=== PATIENT | female | born 1935 | race African-American/Black ===

== ENCOUNTER 2025-03-31 19:17 | Inpatient (IN) | payer MEDICARE, OTHER, MEDICAID, SELFPAY ==
--- NOTE | ~2025-03-31 | CT_ITS ---
Non-contrast CT scan of the Abdomen and Pelvis Clinical indication: Sacral wound, fever, altered mental status Technique: 2.5 mm axial scans were obtained through the abdomen and pelvis without intravenous or or al contrast. Dose reduction technique was used on this scan by utilizing automated exposure control a nd iterative reconstruction technique. The dose-length product (DLP) was 375.00 mGy-cm. Findings: Images through the lung bases reveal right basilar atelectasis. No renal, ureteral, or bladder stone evident. There are right renal cysts. There is probable mild jhonathan ateral hydronephrosis. The liver, spleen, pancreas, gallbladder, and adrenals appear normal. There are extensive atheroscler otic calcifications of the aorta and iliac vessels. . There is no evidence of bowel obstruction. Images through the pelvis were performed. There is no evidence of ascites or lymphadenopathy. Air pre sent in the urinary bladder with Staley catheter in place. No adnexal/pelvic mass seen. T12 compression deformity present, age-indeterminate. There is sacral decubitus ulcer with probable o steomyelitis involving the coccyx. There is diffuse heterogeneous appearance of the osseous structure s. 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 Diffuse heterogeneous appearance of the osseous structures with innumerable scattered lucencies, susp icious for myeloma or other metastatic disease versus possibly metabolic bone disease/osteoporotic ch ramiro. T12 compression deformity, age indeterminate. Reviewed, dictated and finalized at [facility]. 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 Diffuse heterogeneous appearance of the osseous structures with innumerable sca ttered lucencies, suspicious for myeloma or other metastatic disease versus pos sibly metabolic bone disease/osteoporotic change. T12 compression deformity, age indeterminate.
--- NOTE | ~2025-03-31 | CT_ITS ---
Non-contrast Head CT History: Altered mental status Technique: Axial non-contrast imaging of the brain was performed. Dose reduction technique was used on this scan by utilizing automated exposure control and iterative reconstruction technique. The dose -length product (DLP) was 605.33 mGy-cm. Findings: There is no evidence of intracranial hemorrhage, mass lesion, or acute infarct. Brain par enchyma appears normal. The ventricles and subarachnoid spaces are normal in size. The calvarium ap pears normal. The visualized paranasal sinuses and mastoid air cells are clear. Impression: No significant abnormality seen. Reviewed, dictated and finalized at location . Impression: No significant abnormality seen.
--- NOTE | ~2025-03-31 | XR_ITS ---
Portable chest x-ray Comparison: None Clinical History: Fever, altered mental status Findings: Right-sided Mediport in place. Lungs are clear, without focal consolidation or pleural eff usion. Cardiomediastinal silhouette is stable. Suspected slight heterogeneous lucent lesion in the p roximal humeral shaft with areas of periosteal reaction at the mid humeral shaft.. Impression: Clear lungs. Possible heterogeneous lucent lesion in the proximal right humeral shaft with periosteal reaction of the mid right humeral shaft. This suggests an aggressive lesion such as neoplastic disease or possibl y osteomyelitis. Correlate clinically. Consider dedicated MR imaging. Reviewed, dictated and finalized at location . Impression: Clear lungs. Possible heterogeneous lucent lesion in the proximal right humeral shaft with p eriosteal reaction of the mid right humeral shaft. This suggests an aggressive lesion such as neoplastic disease or possibly osteomyelitis. Correlate clinical ly. Consider dedicated MR imaging.
[2025-03-31 19:12] VITALS: BP 143/50; PULSE 91; RESP 15; TEMP 38.5; O2SAT 97
--- NOTE | 2025-03-31 19:39 | ECG_ITS ---
Test Date: 2025-03-31 22:02:52 Measurements Intervals [place] Rate: 89 P: 90 MN: 169 QRS: -36 QRSD: 84 T: 29 QT: 355 QTc: 433 Interpretive Statements SINUS RHYTHM LEFT AXIS DEVIATION [QRS AXIS < -30] BORDERLINE ECG No previous ECG available for comparison Electronically Signed On 04-01-2025 08:16:49 CDT by Trip Shepard M.D.
[2025-03-31 19:49] LABS: Hematocrit 28.2 % (37.0-47.0); Hemoglobin 8.5 g/dL (12.0-15.0); Immature Granulocyte Percent A 5.3 % (0-0.5); Lymphocytes Absolute Auto 1.19 K/mm3 (0.9-3.2); Mean Corpuscular HGB Conc 30.1 g/dl (32-36); Mean Corpuscular Hemoglobin 29.2 pg (26-34); Mean Corpuscular Volume 96.9 fl (80-100); Nucleated Red Blood Cells Absolute Auto 0.000 K/mm3 (0.0-0.012); Nucleated Red Blood Cells Perc 0.0 % (0.0-0.2); Platelet Count Result 334 k/mm3 (150-375); Red Blood Count 2.91 M/mm3 (4.2-5.4); White Blood Count 8.9 K/mm3 (4.5-10.0)
[2025-03-31 20:05] LABS: INR 1.2; Prothrombin Time 15.3 Seconds (11.1-14.7)
[2025-03-31 20:06] LABS: Partial Thromboplastin Time 36.5 Seconds (22.3-36.8)
[2025-03-31 20:09] LABS: Alanine Aminotransferase 24 U/L (6-35); Albumin Level 3.0 g/dL (3.5-5.1); Alkaline Phosphatase 102 U/L (38-126); Anion Gap 7 mmol/L (4-12); Aspartate Amino Transferase 52 U/L (14-36); Bilirubin,Total 0.2 mg/dL (0.2-1.3); Blood Urea Nitrogen 98 mg/dL (7-17); Calcium 9.0 mg/dL (8.4-10.2); Carbon Dioxide 24 mmol/L (22-30); Chloride 104 mmol/L (98-107); Estimated CRCL calculation 10 ml/min; Estimated Glomerular Filt Rate 15; Glucose 143 mg/dL (65-110); Potassium 5.0 mmol/L (3.4-5.0); Sodium 135 mmol/L (137-145); Total Protein 5.7 g/dL (6.3-8.2)
[2025-03-31 20:10] LABS: Anisocytosis 1+; Hypochromasia 1+
[2025-03-31 20:11] LABS: Ovalocytes 1+; Schistocytes None Seen
--- NOTE | 2025-03-31 20:54 | PC.NURSE ---
Pt catheter replaced and urine sample sent.
[2025-03-31 21:02] LABS: Add Urine Microscopic? YES; Appearance Urine Turbid (Clear); Glucose Urine UA Negative (Negative); Leukocyte Esterase Ur 3+ LEU/UL (Negative); Need Manual Microscopic Reviewed; Nitrate Urine Negative (Negative); Non Pathogenic Casts >20; Specific Grav Ur 1.015 (1.001-1.035)
[2025-03-31 22:01] VITALS: BP 156/50; PULSE 86; RESP 16; TEMP 37.9; O2SAT 100
--- NOTE | 2025-03-31 22:01 | PC.NURSE ---
wound cleaned and new dressing applied to buttocks
--- NOTE | 2025-03-31 22:55 | ED_ITS ---
HPI - Altered Mental Status General Chief Complaint: Altered Mental Status Stated Complaint: altered mental status Time Seen by Provider: 03/31/25 22:39 History of Present Illness HPI narrative: 89-year-old female with history of multiple myeloma, coronary artery disease, chronic kidney disease, type 2 diabetes, hypertension. She presents to the emergency department for fever, mental status decline and wounds on her sacral region. Patient was recently hospitalized in beginning of February at [facility] for C difficile and during the management there she was found to have sacral wounds that did not require any debridement and she was treated successfully and discharged to a nursing facility. She has been treated with oral antibiotics since her discharge several weeks ago and has had improvement her diarrhea. She presents today as her family members noted that she was having mental status declined and hallucinations and they notice cloudy urine and decreased appetite. EMS was called to find the patient awake alert oriented but febrile and more lethargic than normal. No trauma or injury and patient is mostly bedbound but previous to her previous last hospitalizations has been ambulatory. Related Data Home Medications ?Medication ?Instructions ?Recorded ?Confirmed ?Last Taken ?Type Saccharomyces boulardii 250 mg 250 mg PO DAILY 04/01/25 04/01/25 Unknown History capsule (Daily Probiotic (S. boulardii)) acyclovir 200 mg capsule 200 mg PO Q12H 04/01/25 04/01/25 Unknown History arginine-vitamin C-vitamin E oral See Rx Instructions PO TID 04/01/25 04/01/25 Unknown History 4.5 gram-156 mg/9.2 gram powder pkt (Arginaid) carvedilol 25 mg tablet 25 mg PO Q12H 04/01/25 04/01/25 Unknown History cholecalciferol (vitamin D3) 25 25 mcg PO DAILY 04/01/25 04/01/25 Unknown History mcg (1,000 unit) capsule (Vitamin D3) coenzyme Q10 100 mg capsule (Co 100 mg PO HS 04/01/25 04/01/25 Unknown History Q-10) collagenase clostridium histo. 250 1 applic topical DAILY 04/01/25 04/01/25 Unknown History unit/gram topical ointment (Santyl) gabapentin 100 mg capsule 100 mg PO TID 04/01/25 04/01/25 Unknown History hydrocodone 5 mg-acetaminophen 325 1 tablet PO .Q4HR PRN pain 04/01/25 04/01/25 Unknown History mg tablet polyethylene glycol 3350 17 gram 17 g PO DAILY PRN constipation 04/01/25 04/01/25 Unknown History oral powder packet (Miralax) sulfamethoxazole 400 1 tablet PO 3XW 04/01/25 04/01/25 Unknown History mg-trimethoprim 80 mg tablet tramadol 50 mg tablet 50 mg PO .Q6HR PRN pain 04/01/25 04/01/25 Unknown History Allergies Allergy/AdvReac Type Severity Reaction Status Date / Time FRANCISCO Inhibitors Allergy Unknown Unknown Verified 04/01/25 04:03 amoxicillin Allergy Unknown Unknown Verified 04/01/25 04:03 atorvastatin Allergy Unknown Unknown Verified 04/01/25 04:03 rosuvastatin Allergy Unknown Unknown Verified 04/01/25 04:03 simvastatin Allergy Unknown Unknown Verified 04/01/25 04:03 ANGIOTENSINIIRA Allergy Unknown Uncoded 04/01/25 04:03 Review of Systems 2 Review of Systems: As reviewed above in [facility] Past Medical History Medical History (Updated 04/01/25 @ 04:12 by Alexander Millard MD) GERD (gastroesophageal reflux disease) Multiple myeloma Essential hypertension Chronic indwelling Staley catheter Sacral decubitus ulcer, stage IV Family History Family History (Updated 04/01/25 @ 02:26 by Trixie Paredes DO) Other Unknown family medical history Social History Social History (Updated 04/01/25 @ 02:27 by Trixie Paredes DO) Social History: Patient is residing at [facility]. Code status: Exam 2 Narrative: GENERAL: Ill-appearing, not any acute distress but febrile and warm to the touch, awake and answering questions and pleasant HEAD: [Normocephalic, atraumatic.] EYES: [PERRLA and EOMI.] ENT: Nares clear, no rhinorrhea or epistaxis. Mucous membranes moist. NECK: Supple. CHEST: [Clear to auscultation. No respiratory distress.] HEART: [Regular rate and rhythm]. No murmur heard. [Normal peripheral pulses.] ABDOMEN: [Soft, nondistended], [nontender], [No rigidity or guarding] sacral wound with some beefy red edges but no purulent drainage or necrotic material no foul odor. Stage 3-4. EXTREMITIES: Normal range of motion. [No edema.] SKIN: Warm, dry, no rash. NEURO: At baseline mentation x3, no gross or obvious neurological deficits PSYCH: [Normal mood and affect.] Course Vital Signs Vital signs: Vital Signs Temperature 38.5 C H 03/31/25 19:12 Pulse Rate 91 03/31/25 19:12 Respiratory Rate 15 03/31/25 19:12 Blood Pressure 143/50 H 03/31/25 19:12 Pulse Oximetry 97 03/31/25 19:12 Oxygen Delivery Room Air 03/31/25 19:12 Temperature 36.6 C 04/01/25 01:31 Pulse Rate 79 04/01/25 02:16 Respiratory Rate 16 04/01/25 02:16 Blood Pressure 151/54 H 04/01/25 02:16 Pulse Oximetry 100 04/01/25 02:16 Oxygen Delivery Room Air 03/31/25 19:12 MDM - Altered Mental Status MDM Narrative Medical decision making narrative: 89-year-old female with history of multiple myeloma, coronary artery disease, chronic kidney disease, type 2 diabetes, hypertension. She presents to the emergency department for fever, mental status decline and wounds on her sacral region. Patient was recently hospitalized in beginning of February at [facility] for C difficile and during the management there she was found to have sacral wounds that did not require any debridement and she was treated successfully and discharged to a nursing facility. She has been treated with oral antibiotics since her discharge several weeks ago and has had improvement her diarrhea. She presents today as her family members noted that she was having mental status declined and hallucinations and they notice cloudy urine and decreased appetite. EMS was called to find the patient awake alert oriented but febrile and more lethargic than normal. No trauma or injury and patient is mostly bedbound but previous to her previous last hospitalizations has been ambulatory. Patient examination is ill-appearing and febrile at 38.5, no tachycardia, significant blood pressure concerns or tachypnea. She has a stage 3 appearing ulceration to her sacrum that does have some beefy red edges but no purulent drainage or obvious overt necrotic material. She has very cloudy urine in her urine collection bag and she has had a catheter since the 2nd of this month. Concern for sepsis is raised given her fever, multiple potential sources including sacral wound, urinary tract, recent C diff with potential intra- abdominal pathology. She is given a 30 cc/kg bolus of normal saline, started on vancomycin cefepime, given Tylenol for analgesia and CT scans of the abdomen pelvis were obtained as well as a chest x-ray and CT of the head given patient's concern for mental status changes and hallucinations but currently she is alert x3 with no neurological deficits which is reassuring. Lab showed no leukocytosis, hemoglobin of 8.5 with unknown baseline. Normal platelet. Electrolytes unremarkable. BUN of 98, creatinine 2.99, no baseline to compare to. History of CKD based on her chart. Lactic acid is negative. Glucose unremarkable. LFTs not significant elevated. Mildly low albumin. Chest x-ray independently reviewed shows left pleural effusion, no obvious consolidation. CT scan has multiple findings including some lucencies in the distal coccyx and sacrum concerning for osteomyelitis, mild bronchial wall thickening possibly bronchitis, prominence in the villasenor of the colon possible colitis, cystitis seen. Presacral fluid and fat stranding seen. Some trace pleural effusions evident. CT of the head shows no acute intracranial hemorrhage or hydrocephalus. No mass effect or herniation. Patient remained hemodynamically stable upon re-evaluations. At this time she will be admitted to the hospital for continued evaluation and care. Awaiting discussion with the hospitalist for bed assignment. Discussed the case with the hospitalist who agreed to admit the patient to a telemetry monitored bed. Family members made aware of the plan and she was admitted successfully. Medical Records Attestation: I reviewed the patient's medical records. Lab Data Attestation: I reviewed the patient's lab results. 03/31/25 19:41 03/31/25 19:41 Labs: Lab Results 03/31/25 03/31/25 04/01/25 Range/Units 19:41 20:43 01:02 WBC 8.9 (4.5-10.0) K/mm3 RBC 2.91 L (4.2-5.4) M/mm3 Hgb 8.5 L (12.0-15.0) g/dL Hct 28.2 L (37.0-47.0) % MCV 96.9 (80-100) fl MCH 29.2 (26-34) pg MCHC 30.1 L (32-36) g/dl RDW 14.8 H (11.5-14.5) % Plt Count 334 (150-375) k/mm3 MPV 8.4 (7.4-10.4) fl Immature Gran % (Auto) 5.3 H (0-0.5) % Neut % (Auto) 69.6 (45.5-73.1) % Lymph % (Auto) 13.4 L (18.3-44.2) % Shannon % (Auto) 10.3 H (2.6-8.5) % Eos % (Auto) 0.9 (0-4.4) % Baso % (Auto) 0.5 (0.2-1.2) % Lymph # (Auto) 1.19 (0.9-3.2) K/mm3 Shannon # (Auto) 0.9 H (0.1-0.6) K/mm3 Eos # (Auto) 0.1 (0-0.3) K/mm3 Baso # (Auto) 0.0 (0.0-0.1) K/mm3 Abs Immat Gran (auto) 0.47 H (0.00-0.031) K/mm3 Absolute Neuts (auto) 6.2 (1.3-6.7) K/mm3 Absolute Nucleated RBC 0.000 (0.0-0.012) K/mm3 Band Neutrophils % Not Reportable Nucleated RBC % 0.0 (0.0-0.2) % Platelet Estimate Adequate (Adequate) Clumped Platelets Present Hypochromasia 1+ Anisocytosis 1+ Ovalocytes 1+ Schistocytes None seen PT 15.3 H (11.1-14.7) Seconds INR 1.2 APTT 36.5 (22.3-36.8) Seconds Sodium 135 L (137-145) mmol/L Potassium 5.0 (3.4-5.0) mmol/L Chloride 104 (98-107) mmol/L Carbon Dioxide 24 (22-30) mmol/L Anion Gap 7 (4-12) mmol/L BUN 98 H (7-17) mg/dL Creatinine 2.99 H (0.7-1.0) mg/dL Estim Creat Clear Calc 10 ml/min Estimated GFR 15 L (59 - ) Glucose 143 H (65-110) mg/dL Lactic Acid 0.8 (0.7-2.0) mmol/L Calcium 9.0 (8.4-10.2) mg/dL Total Bilirubin 0.2 (0.2-1.3) mg/dL AST 52 H (14-36) U/L ALT 24 (6-35) U/L Alkaline Phosphatase 102 (38-126) U/L Total Protein 5.7 L (6.3-8.2) g/dL Albumin 3.0 L (3.5-5.1) g/dL Urine Color Yellow (Yellow) Urine Appearance Turbid H (Clear) Urine pH 6.0 (5.0-9.0) Ur Specific [place] 1.015 (1.001-1.035) Urine Protein 3+ H (Negative) mg/dL Urine Glucose (UA) Negative (Negative) mg/dL Urine Ketones Negative (Negative) mg/dL Ur Blood (Man) 2+ H (Negative) Urine Nitrate Negative (Negative) Urine Bilirubin Negative (Negative) Urine Urobilinogen 0.2 (<2.0) mg/dL Add Ur Microanalysis Reviewed Leukocyte Esterase Rfl 3+ H (Negative) ARMANDO/UL Urine RBC 11-20 H (0-2) /hpf Urine WBC >100 H (0-3) /hpf Ur Squamous Epith Cells Many H (Few) /hpf Urine Bacteria 4+ H /hpf Urine Casts >20 Imaging Data Attestation: I personally reviewed and interpreted this imaging study as follows: My impression: CT scan has multiple findings including some lucencies in the distal coccyx and sacrum concerning for osteomyelitis, mild bronchial wall thickening possibly bronchitis, prominence in the villasenor of the colon possible colitis, cystitis seen. Presacral fluid and fat stranding seen. Some trace pleural effusions evident. CT of the head shows no acute intracranial hemorrhage or hydrocephalus. No mass effect or herniation. Critical Care Time Critical Care Time Critical Care Time: Yes Total Critical Care Time: 35 Discharge Plan Discharge Clinical Impression: Renal failure, Sacral decubitus ulcer, stage IV, Catheter-associated urinary tract infection, Fever Patient Disposition: Still a Patient Condition: Stable Time of Disposition: 04:12
--- OUTSIDE RECORDS SUMMARY | 2025-03-31 23:04 | XMS_ITS | Encounter Summary ---
Author Organization [facility] Address [address] [place] [address] Phone Care Team Providers Care Control Room Tender Name Role Phone Judd Chopra MD Primary Care Provider [phone] Hilton Lynn MD Unavailable [phone] Jay Aguayo MD Unavailable Blaire Guidry RN Unavailable Unavailable Clementine Ackerman RN Unavailable Unavailable Reason for Visit * Reason Comments Medication Refill Encounter Details Date Type Department Care Team (Late st Contact Info) Description 10/09/2022 Refill [facility] [address] [place] [address] Cathryn Bustamante, DUPLICATING MACHINE SERVICER, SECURITY DIRECTOR [address] [place] [id number] Medication Refill Social History Tobacco Use Types Packs/Day Years Used Date Smoking Tobacco: Former Smokeless Tobacco: Never Comments:quit about 30 years ago Alcohol Use Standard Drinks/Week Comments Not Currently 0 (1 standard drink = 0.6 oz pur e alcohol) PHQ-2 Answer Date Recorded Total Score - Questions 1-9 0 04/14 Comments No Sex and Gender Information Value Date Recorded Sex Assigned at Not on file Legal Sex Female 1:40 PM CDT Gender Identity Not on file Sexual Orientation Not on file Occupation Industry Job Start Date Job End Date Retired Not on file Not on file Not on file COVID-19 Exposure Response Date Recorded In the last 10 days, have yo u been in contact with someone who was confirmed or suspected to have Coronavirus/COVID-19? No / Unsure 09/28/2022 10:03 AM EXPLOSIVES OPERATOR documented as of this encounter Miscellaneous Notes * Telephone Encounter - Hilton Lynn MD - 10/14/2022 3:03 PM EXPLOSIVES OPERATOR Switch to pom OSIVES OPERATOR * Telephone Encounter - Isauro Ledbetter RN - 10/14/2022 9:28 AM CST Refill request. Refill if appropriate. OSIVES OPERATOR documented in this encounter Plan of Treatment Not on file documented as of this encounter Visit Diagnoses Diagnosis Multiple myeloma not having achieved remission (HCC) Multiple myeloma, without mention of having achieved remission documented in this encounter Additional Health Concerns Assessment Noted Time PHQ-9 Depression Total Score: 0 07/25/20 21 11:35 AM EXPLOSIVES OPERATOR documented as of this encounter Care Teams Control Room Tender Relationship Specialty Start Date End Date Judd Chopra MD [address] [place] [id number] PCP - General Family Medicine 03/11/21 Hilton Lynn MD [address] [place] [address] Consulting Physician Oncology 03/11/21 Jay Aguayo MD [address] [place] [address] Consulting Physician Radiation Oncology 04/25/21 Blaire Guidry RN [place] Oncology Nurse Navigator Oncology 04/25/21 Clementine Ackerman, RN [place] Oncology Nurse Navigator Oncology 12/05/24 documented as of this encounter
--- OUTSIDE RECORDS SUMMARY | 2025-03-31 23:04 | XMS_ITS | Encounter Summary ---
Author Organization [facility] Address [address] [address] Phone Care Team Providers Care Catering Sales Manager Name Role Phone Judd Chopra MD Primary Care Provider [phone] Hilton Lynn MD Unavailable Jay Aguayo MD Unavailable Blaire Guidry RN Unavailable Unavailable Clementine Ackerman RN Unavailable Unavailable Encounter Details Date Type Department Care Team (Late st Contact Info) Description 06/04/2021 Telephone [facility] [address] [address] Hilton Lynn MD [address] [place] [phone] Social History Tobacco Use Types Packs/Day Years Used Date Smoking Tobacco: Former Smokeless Tobacco: Never Comments:quit about 30 years ago Alcohol Use Standard Drinks/Week Comments Not Currently 0 (1 standard drink = 0.6 oz pur e alcohol) PHQ-2 Answer Date Recorded Total Score - Questions 1-9 0 05/14 Comments No Sex and Gender Information Value Date Recorded Sex Assigned at Not on file Legal Sex Female 1:40 PM CDT Gender Identity Not on file Sexual Orientation Not on file Occupation Industry Job Start Date Job End Date Retired Not on file Not on file Not on file COVID-19 Exposure Response Date Recorded In the last month, have you been in contact with someone who was confirmed or suspected to have Coronavirus / COVID-19? No / Unsure 05/28/2021 10:06 AM CDT documented as of this encounter Miscellaneous Notes * Telephone Encounter - Morelia Flowers, RN - 06/04/2021 3:38 PM CDT Ok. Cancel appt from today and make sure they are aware appt needs to be made for hospital follow up once she is discharged. * Telephone Encounter - Shannan Burt - 06/04/2021 12:25 PM CDT CALLED PT, PER FAMILY MEMBER PT HAS BEEN IN HOSPITAL FOR 3 DAYS AND NOT SURE WHEN PT WILL GET OUT. PT IS AT [facility]. documented in this encounter Plan of Treatment Not on file documented as of this encounter Visit Diagnoses Not on filedocumented in this encounter Additional Health Concerns Assessment Noted Time PHQ-9 Depression Total Score: 0 05/28/20 21 10:28 AM CDT documented as of this encounter Care Teams Catering Sales Manager Relationship Specialty Start Date End Date Judd Chopra MD [facility] [place] [address] PCP - General Family Medicine 03/11/21 Hilton Lynn MD [address] [place] [id number] Consulting Physician Oncology 03/11/21 Jay Aguayo MD [address] [place] [address] Consulting Physician Radiation Oncology 04/25/21 Blaire Guidry, RN [place] Oncology Nurse Navigator Oncology 04/25/21 Clementine Ackerman RN [place] Oncology Nurse Navigator Oncology 12/05/24 documented as of this encounter
--- OUTSIDE RECORDS SUMMARY | 2025-03-31 23:04 | XMS_ITS | Encounter Summary ---
Author Organization [facility] Address [address] [place] [address] Phone Care Team Providers Care Bloom Conveyor Operator Name Role Phone Judd Chopra MD Primary Care Provider [phone] Hilton Lynn MD Unavailable Jay Chiang MD Unavailable Blaire Guidry RN Unavailable Unavailable Clementine Ackerman RN Unavailable Unavailable Encounter Details Date Type Department Care Team (Late st Contact Info) Description 04/15/2021 Telephone [facility] [address] [address] Hilton Lynn MD [address] [place] [phone] Social History Tobacco Use Types Packs/Day Years Used Date Smoking Tobacco: Former Smokeless Tobacco: Never Comments:quit about 30 years ago Alcohol Use Standard Drinks/Week Comments Not Currently 0 (1 standard drink = 0.6 oz pur e alcohol) PHQ-2 Answer Date Recorded Total Score - Questions 1-9 0 08/10/2020 Comments No Sex and Gender Information Value [...] have Coronavirus / COVID-19? No / Unsure 04/14/2021 9:12 AM CDT documented as of this encounter Miscellaneous Notes * Telephone Encounter - Leann Skinner - 04/15/2021 1:24 PM CDT REFERRAL AND RECORDS FAXED TO DR ZIMMERMAN OFFICE AND THEY WILL CALL THE PT FOR AN APPT. I WILL FOLLOW UP IN A FEW DAYS TO CHECK THE STATUS. * Telephone Encounter - Emiliana Rothman RN - 04/15/2021 12:59 PM CDT Order entered please schedule as appropriate. * Telephone Encounter - Leann Skinner - 04/15/2021 10:51 AM CDT PLEASE ADD AN ORDER FOR PT TO BE REFERRED TO DR CHIANG WITH [facility]. THANKS documented in this encounter Plan of Treatment Not on file documented as of this encounter Visit Diagnoses Diagnosis Multiple myeloma not having achieved remission (HCC)- Primary Multiple myeloma, without mention of having achieved remission documented in this encounter Additional Health Concerns Assessment Noted Time PHQ-9 Depression Total Score: 0 04/14/20 21 9:20 AM CDT documented as of this encounter Care Teams Bloom Conveyor Operator Relationship Specialty Start Date End Date Judd Chopra MD [facility] [place] [address] PCP - General Family Medicine 03/11/21 Hilton Lynn MD [address] [place] [address] Consulting Physician Oncology 03/11/21 Jay Chiang MD [address] [place] [address] Consulting Physician Radiation Oncology 04/25/21 Blaire Guidry, [facility] [place] Oncology Nurse Navigator Oncology 04/25/21 Clementine Ackerman, [facility] Oncology Nurse Navigator Oncology 12/05/24 documented as of this encounter
--- OUTSIDE RECORDS SUMMARY | 2025-03-31 23:04 | XMS_ITS | Data Portability ---
Author Organization [facility], [employer] Address [address] [place] [address] Assessment Encounter Date Assessment Date Assessment LastModified by Organization Details LastModified Time 08/24/2024 08/24/2024 60 mins spent on visit w/ pt, chart review, care coordination and counseling The care of this patient was conducted under the direct supervision of Corie Read MD Chronic care management / Remote patient monitoring was discussed with patient during visit. Pt wishes to participate in CCM/RPM. Health goals and care plans discussed with patient and optimized based on patient's wishes, current health state, resources available and goals of care. Provider recommendations and extensive counseling given to patient, start to follow on CCM/RPM at this time. CCM program services described to patient. Possible cost sharing explained to patient in context of those with secondary insurances will likely have no out of pocket costs and per CMS guidelines CCM may help avoid costly services in the future by proactively managing patient health, rather than only treating severe or acute disease and illness. Patient confirms at this time is not participiating in CCM/RPM with another provider. Patient understands can stop RPM/CCM services at any time. [email or web address] Not available 08/24/2024 13:21:07 Plan of Treatment Reminders Order Date Submit Date Provider Last Modified By Organization Details Last Modified Time Details Appointments None record ed. Lab None record ed. Referral None record ed. Procedures None record ed. Surgeries None record ed. Imaging None record ed. Medication Orders None record ed. Patient TargetsNo targets recorded. Patient InstructionsNo instructions recorded. Reason for Referral None Reported. Results Created Date Observation Date Name Description Value Unit Range Abnormal Flag Note LastModifiedBy Organization Detail LastModifiedTime 08/06/20 24 08/06/2024 Urina lysis dipst ick W Refle x Micro scopi c panel - Urine collection method - specimen URINE CLEAN CATCH SPECI MEN TYPE URINE CLEAN CATCH 08/06 8:07 PM [employer] [facility] Not Available Not Available 01/15/2025 11:48:06 08/06/2008/06/2024 Urina lysis dipst ick W Refle x Micro scopi c panel - Urine color of urine LIGHT YELLOW COLOR (U) LIGHT YELLO W 08/06 8:18 PM [employer] [facility] Not Available Not Available 01/15/2025 11:48:06 08/06/2008/06/2024 Urina lysis dipst ick W Refle x Micro scopi c panel - Urine clarity of urine CLEAR TRANS PAREN CY CLEAR 08/06 8:18 PM [employer] [facility] Not Available Not Available 01/15/2025 11:48:06 08/06/2008/06/2024 Urina lysis dipst ick W Refle x Micro scopi c panel - Urine specific gravity of urine 1.017 low: 1.001h igh: 1.03 SPECI FIC GRAVI TY (U) 1.017 1.001 - 1.030 08/06 8:18 PM [facility] Not Available Not Available 01/15/2025 11:48:06 08/06/2008/06/2024 Urina lysis dipst ick W Refle x Micro scopi c panel - Urine pH of urine 6.5 low: 5high: 9 U PH 6.5 5.0 - 9.0 08/06 8:18 PM [facility] Not Available Not Available 01/15/2025 11:48:06 08/06/2008/06/2024 Urina lysis dipst ick W Refle x Micro scopi c panel - Urine leukocytes [#/volume] in urine by test strip NEGATI VE text: negati ve LEUKO CYTES (U) NEGAT LIZ NEGAT LIZ 08/06 8:18 PM [facility] Not Available Not Available 01/15/2025 11:48:06 08/06/20 24 08/06/2024 Urina lysis dipst ick W Refle x Micro scopi c panel - Urine nitrite [presence] in urine NEGATI VE text: negati ve NITRI LESTER NEGAT LIZ NEGAT LIZ 08/06 8:18 PM [facility] Not Available Not Available 01/15/2025 11:48:06 08/06/20 24 08/06/2024 Urina lysis dipst ick W Refle x Micro scopi c panel - Urine protein [mass/volume ] in urine by test strip 600 text: <30 mg/dL high PROTE IN RANDO M (U) 600 (H) <30 MG/DL 08/06 8:18 PM [facility] Not Available Not Available 01/15/2025 11:48:06 08/06/20 24 08/06/2024 Urina lysis dipst ick W Refle x Micro scopi c panel - Urine glucose [mass/volume ] in urine 70 text: normal mg/dL abnormal GLUCO SE (U) 70 (A) MAGNOLIA L MG/DL 08/06 8:18 PM [facility] Not Available Not Available 01/15/2025 11:48:06 08/06/20 24 08/06/2024 Urina lysis dipst ick W Refle x Micro scopi c panel - Urine ketones [mass/volume ] in urine by test strip NEGATI VE text: negati ve mg/dL KETON ES MG/DL (U) NEGAT LIZ NEGAT LIZ MG/DL 08/06 8:18 PM [facility] Not Available Not Available 01/15/2025 11:48:06 08/06/20 24 08/06/2024 Urina lysis dipst ick W Refle x Micro scopi c panel - Urine urobilinogen [units/volum e] in urine by test strip NORMAL text: normal mg/dL UROBI LINOG EN MAGNOLIA L MAGNOLIA L MG/DL 08/06 8:18 PM [facility] Not Available Not Available 01/15/2025 11:48:06 08/06/20 24 08/06/2024 Urina lysis dipst ick W Refle x Micro scopi c panel - Urine bilirubin.to tim [mass/volume ] in urine NEGATI VE text: negati ve mg/dL BILIR UBIN (U) NEGAT LIZ NEGAT LIZ MG/DL 08/06 8:18 PM [facility] Not Available Not Available 01/15/2025 11:48:06 08/06/2008/06/2024 Urina lysis dipst ick W Refle x Micro scopi c panel - Urine erythrocytes [#/volume] in urine by automated test strip 1+ text: negati ve abnormal BLOOD (U) 1+ (A) NEGAT LIZ 08/06 8:18 PM [facility] Not Available Not Available 01/15/2025 11:48:06 08/06/20 24 08/06/2024 Urina lysis dipst ick W Refle x Micro scopi c panel - Urine mucus [#/area] in urine sediment by microscopy low power field RARE text: /lpf MUCUS RARE /LPF 08/06 8:18 PM [facility] Not Available Not Available 01/15/2025 11:48:06 08/06/20 24 08/06/2024 Urina lysis dipst ick W Refle x Micro scopi c panel - Urine erythrocytes [#/area] in urine sediment by microscopy high power field 8 text: <6 /hpf high RBC/H PF 8 (H) <6 /HPF 08/06 8:18 PM [facility] Not Available Not Available 01/15/2025 11:48:06 08/06/20 24 08/06/2024 Urina lysis dipst ick W Refle x Micro scopi c panel - Urine epithelial cells.squamo us [#/area] in urine sediment by microscopy high power field FEW text: /hpf SQUAM OUS EPITH ELIAL S FEW /HPF 08/06 8:18 PM [employer] [facility] Not Available Not Available 01/15/2025 11:48:06 08/06/2008/06/2024 Urina lysis dipst ick W Refle x Micro scopi c panel - Urine interpretati on and review of laboratory results Abnorm al Not Available Not Available 11:48:06 08/06/2008/06/2024 Influ evette virus A+B Ag [Pres ence] in Speci men specimen source identified SWAB SPECI MEN TYPE SWAB 08/06 6:42 PM [employer] [facility] Not Available Not Available 01/15/2025 11:48:06 08/06/2008/06/2024 Influ evette virus A+B Ag [Pres ence] in Speci men influenza virus A Ag [presence] in specimen NEGATI VE text: negati ve INFLU EVETTE A NEGAT LIZ NEGAT LIZ 08/06 7:10 PM [employer] [facility] Not Available Not Available 01/15/2025 11:48:06 08/06/2008/06/2024 Influ evette virus A+B Ag [Pres ence] in Speci men haemophilus influenzae B Ag [presence] in specimen NEGATI VE text: negati ve INFLU EVETTE B NEGAT LIZ NEGAT LIZ 08/06 7:10 PM [employer] [facility] Not Available Not Available 01/15/2025 11:48:06 08/06/2008/07/2024 C react liz prote in [Mass /volu me] in Serum or Plasm a C reactive protein [mass/volume ] in serum or plasma high: 0.29mg /dL C-IRENE CTIVE PROTE IN <0.29 <0.29 mg/dL 08/07 12:23 AM [employer] [facility] Not Available Not Available 01/15/2025 11:48:06 08/06/20 24 08/07/2024 Eryth rocyt e sedim entat ion rate [[place]] in Red Blood Cells erythrocyte sedimentatio n rate [velocity] in red blood cells 24 text: <30 mm/HR ESR 24 <30 MM/HR 08/07 12:18 AM [facility] Not Available Not Available 01/15/2025 11:48:06 08/06/20 24 08/06/2024 Compr ehens liz metab olic 1999 panel - Serum or Plasm a glucose [mass/volume ] in serum or plasma 167 text: 70 - 99 mg/dL high GLUCO SE 167 (H) 70 - 99 MG/DL 08/06 7:15 PM [facility] Not Available Not Available 01/15/2025 11:48:06 08/06/20 24 08/06/2024 Compr ehens liz metab olic 2000 panel - Serum or Plasm a urea nitrogen [mass/volume ] in serum or plasma 40 text: 7 - 18 mg/dL high BUN 40 (H) 7 - 18 MG/DL 08/06 7:15 PM [facility] Not Available Not Available 01/15/2025 11:48:06 08/06/20 24 08/06/2024 Compr ehens liz metab olic 2000 panel - Serum or Plasm a creatinine [mass/volume ] in serum or plasma 2.43 text: 0.55 - 1.02 mg/dL high CREAT ININE S/P/B 2.43 (H) 0.55 - 1.02 MG/DL 08/06 7:15 PM [facility] Not Available Not Available 01/15/2025 11:48:06 08/06/20 24 08/06/2024 Compr ehens liz metab olic 2000 panel - Serum or Plasm a sodium [moles/volum e] in serum or plasma 137 text: 136 - 145 mmol/L SODIU M S/P/B 137 136 - 145 MMOL/ L 08/06 7:15 PM [facility] Not Available Not Available 01/15/2025 11:48:06 08/06/20 24 08/06/2024 Compr ehens liz metab olic 2000 panel - Serum or Plasm a potassium [moles/volum e] in serum or plasma 4 text: 3.5 - 5.1 mmol/L POTAS SIUM S/P/B 4.0 3.5 - 5.1 MMOL/ L 08/06 7:15 PM [facility] Not Available Not Available 01/15/2025 11:48:06 08/06/2008/06/2024 Compr ehens liz metab olic 2000 panel - Serum or Plasm a chloride [moles/volum e] in serum or plasma 105 text: 97 - 115 mmol/L CHLOR JOSE S/P/B 105 97 - 115 MMOL/ L 08/06 7:15 PM [facility] Not Available Not Available 01/15/2025 11:48:06 08/06/20 24 08/06/2024 Compr ehens liz metab olic 2000 panel - Serum or Plasm a carbon dioxide, total [moles/volum e] in serum or plasma 22.2 text: 21 - 32 mmol/L CO2 22.2 21 - 32 MMOL/ L 08/06 7:15 PM [facility] Not Available Not Available 01/15/2025 11:48:06 08/06/2008/06/2024 Compr ehens liz metab olic 2000 panel - Serum or Plasm a calcium [mass/volume ] in serum or plasma 8.1 text: 8.5 - 10.1 mg/dL low CALCI UM S/P/B 8.1 (L) 8.5 - 10.1 MG/DL 08/06 7:15 PM [facility] Not Available Not Available 01/15/2025 11:48:06 08/06/20 24 08/06/2024 Compr ehens liz metab olic 2000 panel - Serum or Plasm a bilirubin.to tim [mass/volume ] in serum or plasma 0.6 text: 0.2 - 1.2 mg/dL BILIR UBIN TOTAL S/P/B 0.6 0.2 - 1.2 MG/DL 08/06 7:15 PM [employer] [facility] Not Available Not Available 01/15/2025 11:48:06 08/06/20 24 08/06/2024 Compr ens liz metab olic 1999 panel - Serum or Plasm a protein [mass/volume ] in serum or plasma 5.3 text: 6.4 - 8.2 g/dL low TOTAL PROTE IN S/P/B 5.3 (L) 6.4 - 8.2 G/DL 08/06 7:15 PM [employer] [facility] Not Available Not Available 01/15/2025 11:48:06 08/06/20 24 08/06/2024 Compr ehens liz metab olic 2000 panel - Serum or Plasm a albumin [mass/volume ] in serum or plasma 2.5 text: 3.4 - 5.0 g/dL low ALBUM IN S/P/B 2.5 (L) 3.4 - 5.0 G/DL 08/06 7:15 PM [employer] [facility] Not Available Not Available 01/15/2025 11:48:06 08/06/20 24 08/06/2024 Compr ehens liz metab olic 2000 panel - Serum or Plasm a aspartate aminotransfe rase [enzymatic activity/vol ume] in serum or plasma 11 U/L low: 15U/Lh igh: 37U/L low AST 11 (L) 15 - 37 U/L 08/06 7:15 PM [employer] [facility] Not Available Not Available 01/15/2025 11:48:06 08/06/20 24 08/06/2024 Compr ehens liz metab olic 2000 panel - Serum or Plasm a alanine aminotransfe rase [enzymatic activity/vol ume] in serum or plasma 12 U/L low: 14U/Lh igh: 55U/L low ALT 12 (L) 14 - 55 U/L 08/06 7:15 PM [facility] Not Available Not Available 01/15/2025 11:48:06 08/06/20 24 08/06/2024 Compr ehens liz metab olic 2000 panel - Serum or Plasm a alkaline phosphatase [enzymatic activity/vol ume] in serum or plasma 69 U/L low: 50U/Lh igh: 136U/L ALKAL INE PHOSP HATAS E S/P/B 69 50 - 136 U/L 08/06 7:15 PM [facility] Not Available Not Available 01/15/2025 11:48:06 08/06/2008/06/2024 Compr ehens liz metab olic 2000 panel - Serum or Plasm a anion gap in serum or plasma by calculation 9.8 text: 2 - 10 mmol/L ANION GAP 9.8 2 - 10 MMOL/ L 08/06 7:15 PM [facility] Not Available Not Available 01/15/2025 11:48:06 08/06/20 24 08/06/2024 Compr ehens liz metab olic 1999 panel - Serum or Plasm a urea nitrogen/cre atinine [mass ratio] in serum or plasma 16.5 low: 6high: 26 BUN CREAT ININE RATIO 16.5 6 - 26 08/06 7:15 PM [facility] Not Available Not Available 01/15/2025 11:48:06 08/06/20 24 08/06/2024 Compr ehens liz metab olic 2000 panel - Serum or Plasm a albumin/glob ulin [mass ratio] in serum or plasma 0.9 text: 1.0 - 2.0 ratio low A/G RATIO 0.9 (L) 1.0 - 2.0 RATIO 08/06 7:15 PM [facility] Not Available Not Available 01/15/2025 11:48:06 08/06/20 24 08/06/2024 Compr ehens liz metab olic 2000 panel - Serum or Plasm a glomerular filtration rate [volume rate/area] in serum, plasma or blood by creatinine-b ased formula (CKD-epi 2020)/1.73 sq M 19 text: >90 mL/min /1.73 M2 low GFR ESTIM ATE 19 (L) >90 ML/IN N/1.7 3 M2 08/06 7:15 PM [employer] [facility] Not Available Not Available 01/15/2025 11:48:06 08/06/2008/06/2024 Jesus li metab kofi 2000 panel - Serum or Plasm a interpretati on and review of laboratory results Abnorm al Not Available Not Available 11:48:06 08/06/2008/06/2024 CBC W Auto Diffe renalberto al panel - Blood leukocytes [#/volume] in blood by automated count 7.03 text: 4.5 - 11.0 x10'3/ uL WBC 7.03 4.5 - 11.0 x10'3 /uL 08/06 6:51 PM [employer] [facility] Not Available Not Available 01/15/2025 11:48:06 08/06/2008/06/2024 CBC W Auto Diffe renti al panel - Blood erythrocytes [#/volume] in blood by automated count 3.25 text: 4.20 - 5.40 x10'6/ uL low RBC 3.25 (L) 4.20 - 5.40 x10'6 /uL 08/06 6:51 PM [employer] [facility] Not Available Not Available 01/15/2025 11:48:06 08/06/2008/06/2024 CBC W Auto Diffe renti al panel - Blood hemoglobin [mass/volume ] in blood 10.1 text: 12.0 - 16.0 g/dL low HGB 10.1 (L) 12.0 - 16.0 G/DL 08/06 6:51 PM [employer] [facility] Not Available Not Available 01/15/2025 11:48:06 08/06/2008/06/2024 CBC W Auto Diffe renti al panel - Blood hematocrit [volume fraction] of blood by calculation 31.6 % low: 38%hig h: 48% low HCT 31.6 (L) 38.0 - 48.0 % 08/06 6:51 PM [employer] [facility] Not Available Not Available 01/15/2025 11:48:06 08/06/2008/06/2024 CBC W Auto Diffe renti al panel - Blood MCV [entitic mean volume] in red blood cells 97.2 text: 81.0 - 99.0 fL MCV 97.2 81.0 - 99.0 FL 08/06 6:51 PM [employer] [facility] Not Available Not Available 01/15/2025 11:48:06 08/06/2008/06/2024 CBC W Auto Diffe renti al panel - Blood MCH [entitic mass] 31.1 pg low: 27pghi gh: 31pg high MCH 31.1 (H) 27.0 - 31.0 PG 08/06 6:51 PM [employer] [facility] Not Available Not Available 01/15/2025 11:48:06 08/06/2008/06/2024 CBC W Auto Diffe renti al panel - Blood MCHC [entitic mass/volume] in red blood cells 32 text: 32.0 - 36.0 g/dL MCHC 32.0 32.0 - 36.0 G/DL 08/06 6:51 PM [employer] [facility] Not Available Not Available 01/15/2025 11:48:06 08/06/2008/06/2024 CBC W Auto Diffe renti al panel - Blood RDW 15.3 % low: 11.5%h igh: 14.5% high RDW 15.3 (H) 11.5 - 14.5 % 08/06 6:51 PM [employer] [facility] Not Available Not Available 01/15/2025 11:48:06 08/06/2008/06/2024 CBC W Auto Diffe renti al panel - Blood platelets [#/volume] in blood 179 text: 130 - 400 x10'3/ uL PLT 179 130 - 400 x10'3 /uL 08/06 6:51 PM [employer] [facility] Not Available Not Available 01/15/2025 11:48:06 08/06/2008/06/2024 CBC W Auto Diffe renti al panel - Blood platelet [entitic mean volume] in blood 9.7 text: 9.3 - 12.2 fL MPV 9.7 9.3 - 12.2 FL 08/06 6:51 PM [employer] [facility] Not Available Not Available 01/15/2025 11:48:06 08/06/2008/06/2024 CBC W Auto Diffe renti al panel - Blood differential cell count method - blood AUTOMA TEDDY DIFFER ENTIAL DIFFE RENTI AL TYPE AUTOM ATED DIFFE RENTI AL 08/06 6:51 PM [employer] [facility] Not Available Not Available 01/15/2025 11:48:06 08/06/2008/06/2024 CBC W Auto Diffe renti al panel - Blood neutrophils/ leukocytes in blood by automated count 76 % NEUTR OPHIL S % 76.0 % 08/06 6:51 PM [employer] [facility] Not Available Not Available 01/15/2025 11:48:06 08/06/2008/06/2024 CBC W Auto Diffe renti al panel - Blood lymphocytes/ leukocytes in blood by automated count 11.8 % LYMPH OCYTE S % 11.8 % 08/06 6:51 PM [employer] [facility] Not Available Not Available 01/15/2025 11:48:06 08/06/2008/06/2024 CBC W Auto Diffe renti al panel - Blood monocytes/le ukocytes in blood by automated count 10.7 % MONOC YTES % 10.7 % 08/06 6:51 PM [employer] [facility] Not Available Not Available 01/15/2025 11:48:06 08/06/2008/06/2024 CBC W Auto Diffe renti al panel - Blood eosinophils/ leukocytes in blood by automated count 0.1 % EOSIN OPHIL S 0.1 % 08/06 6:51 PM [employer] [facility] Not Available Not Available 01/15/2025 11:48:06 08/06/2008/06/2024 CBC W Auto Diffe renti al panel - Blood basophils/le ukocytes in blood by automated count 0 % BASOP HILS 0.0 % 08/06 6:51 PM [employer] [facility] Not Available Not Available 01/15/2025 11:48:06 08/06/2008/06/2024 CBC W Auto Diffe renti al panel - Blood immature granulocytes /leukocytes in blood by automated count 1.4 % IMMAT URE GRANS % 1.4 % 08/06 6:51 PM [employer] [facility] Not Available Not Available 01/15/2025 11:48:06 08/06/2008/06/2024 CBC W Auto Diffe renti al panel - Blood neutrophils [#/volume] in blood 5.34 text: 1.80 - 7.70 x10'3/ uL ABS. NEUTR OPHIL S 5.34 1.80 - 7.70 x10'3 /uL 08/06 6:51 PM [employer] [facility] Not Available Not Available 01/15/2025 11:48:06 08/06/2008/06/2024 CBC W Auto Diffe renti al panel - Blood lymphocytes [#/volume] in blood 0.83 text: 1.00 - 4.80 x10'3/ uL low ABS. LYMPH OCYTE S 0.83 (L) 1.00 - 4.80 x10'3 /uL 08/06 6:51 PM [employer] [facility] Not Available Not Available 01/15/2025 11:48:06 08/06/20 08/06/2024 CBC W Auto Diffe renti al panel - Blood monocytes [#/volume] in blood 0.75 text: 0.24 - 0.86 x10'3/ uL ABS. MONOC YTES 0.75 0.24 - 0.86 x10'3 /uL 08/06 6:51 PM [employer] [facility] Not Available Not Available 01/15/2025 11:48:06 08/06/20 24 08/06/2024 CBC W Auto Diffe renti al panel - Blood eosinophils [#/volume] in blood 0.01 text: 0.04 - 0.36 x10'3/ uL low ABS. EOSIN OPHIL S 0.01 (L) 0.04 - 0.36 x10'3 /uL 08/06 6:51 PM [employer] [facility] Not Available Not Available 01/15/2025 11:48:06 08/06/2008/06/2024 CBC W Auto Diffe renti al panel - Blood basophils [#/volume] in blood 0 text: 0.01 - 0.08 x10'3/ uL low ABS. BASOP HILS 0.00 (L) 0.01 - 0.08 x10'3 /uL 08/06 6:51 PM [employer] [facility] Not Available Not Available 01/15/2025 11:48:06 08/06/2008/06/2024 CBC W Auto Diffe renti al panel - Blood immature granulocytes [#/volume] in blood 0.1 text: 0.00 - 0.49 x10'3/ uL ABS. IMMAT URE GRANU LOCYT ES 0.10 0.00 - 0.49 x10'3 /uL 08/06 6:51 PM [employer] [facility] Not Available Not Available 01/15/2025 11:48:06 08/06/20 24 08/06/2024 CBC W Auto Diffe renti al panel - Blood interpretati on and review of laboratory results Abnorm al Not Available Not Available 11:48:06 08/07/20 24 08/07/2024 Magne sium [Mass /volu me] in Serum or Plasm a magnesium [mass/volume ] in serum or plasma 2.4 text: 1.8 - 2.4 mg/dL MAGNE SIUM 2.4 1.8 - 2.4 MG/DL 08/07 1:01 PM [facility] Not Available Not Available 01/15/2025 11:48:07 08/07/20 24 08/07/2024 Compr ehens liz metab olic 2000 panel - Serum or Plasm a glucose [mass/volume ] in serum or plasma 155 text: 70 - 99 mg/dL high GLUCO SE 155 (H) 70 - 99 MG/DL 08/07 6:33 AM [facility] Not Available Not Available 01/15/2025 11:48:07 08/07/20 24 08/07/2024 Compr ehens liz metab olic 2000 panel - Serum or Plasm a urea nitrogen [mass/volume ] in serum or plasma 41 text: 7 - 18 mg/dL high BUN 41 (H) 7 - 18 MG/DL 08/07 6:33 AM [facility] Not Available Not Available 01/15/2025 11:48:07 08/07/20 24 08/07/2024 Compr ehens liz metab olic 2000 panel - Serum or Plasm a creatinine [mass/volume ] in serum or plasma 2.45 text: 0.55 - 1.02 mg/dL high CREAT ININE S/P/B 2.45 (H) 0.55 - 1.02 MG/DL 08/07 6:33 AM [facility] Not Available Not Available 01/15/2025 11:48:07 08/07/20 24 08/07/2024 Compr ehens liz metab olic 2000 panel - Serum or Plasm a sodium [moles/volum e] in serum or plasma 135 text: 136 - 145 mmol/L low SODIU M S/P/B 135 (L) 136 - 145 MMOL/ L 08/07 6:33 AM [facility] Not Available Not Available 01/15/2025 11:48:07 08/07/20 24 08/07/2024 Compr ehens liz metab olic 2000 panel - Serum or Plasm a potassium [moles/volum e] in serum or plasma 3.3 text: 3.5 - 5.1 mmol/L low POTAS SIUM S/P/B 3.3 (L) 3.5 - 5.1 MMOL/ L 08/07 6:33 AM [facility] Not Available Not Available 01/15/2025 11:48:07 08/07/20 24 08/07/2024 Compr ehens liz metab olic 2000 panel - Serum or Plasm a chloride [moles/volum e] in serum or plasma 101 text: 97 - 115 mmol/L CHLOR JOSE S/P/B 101 97 - 115 MMOL/ L 08/07 6:33 AM [facility] Not Available Not Available 01/15/2025 11:48:07 08/07/20 24 08/07/2024 Compr ehens liz metab olic 2000 panel - Serum or Plasm a carbon dioxide, total [moles/volum e] in serum or plasma 24.3 text: 21 - 32 mmol/L CO2 24.3 21 - 32 MMOL/ L 08/07 6:33 AM [facility] Not Available Not Available 01/15/2025 11:48:07 08/07/20 24 08/07/2024 Compr ehens liz metab olic 2000 panel - Serum or Plasm a calcium [mass/volume ] in serum or plasma 8.5 text: 8.5 - 10.1 mg/dL CALCI UM S/P/B 8.5 8.5 - 10.1 MG/DL 08/07 6:33 AM [facility] Not Available Not Available 01/15/2025 11:48:07 08/07/20 24 08/07/2024 Compr ehens liz metab olic 2000 panel - Serum or Plasm a bilirubin.to tim [mass/volume ] in serum or plasma 0.8 text: 0.2 - 1.2 mg/dL BILIR UBIN TOTAL S/P/B 0.8 0.2 - 1.2 MG/DL 08/07 6:33 AM [facility] Not Available Not Available 01/15/2025 11:48:07 08/07/20 24 08/07/2024 Compr ehens liz metab olic 1999 panel - Serum or Plasm a protein [mass/volume ] in serum or plasma 5.5 text: 6.4 - 8.2 g/dL low TOTAL PROTE IN S/P/B 5.5 (L) 6.4 - 8.2 G/DL 08/07 6:33 AM [facility] Not Available Not Available 01/15/2025 11:48:07 08/07/20 24 08/07/2024 Compr ehens liz metab olic 1999 panel - Serum or Plasm a albumin [mass/volume ] in serum or plasma 2.6 text: 3.4 - 5.0 g/dL low ALBUM IN S/P/B 2.6 (L) 3.4 - 5.0 G/DL 08/07 6:33 AM [employer] Not Available Not Available 01/15/2025 11:48:07 08/07/20 24 08/07/2024 Compr ehens liz metab olic 1999 panel - Serum or Plasm a aspartate aminotransfe rase [enzymatic activity/vol ume] in serum or plasma 11 U/L low: 15U/Lh igh: 37U/L low AST 11 (L) 15 - 37 U/L 08/07 6:33 AM [employer] Not Available Not Available 01/15/2025 11:48:07 08/07/20 24 08/07/2024 Compr ehens liz metab olic 2000 panel - Serum or Plasm a alanine aminotransfe rase [enzymatic activity/vol ume] in serum or plasma 13 U/L low: 14U/Lh igh: 55U/L low ALT 13 (L) 14 - 55 U/L 08/07 6:33 AM [facility] Not Available Not Available 01/15/2025 11:48:07 08/07/20 24 08/07/2024 Compr ehens liz metab olic 2000 panel - Serum or Plasm a alkaline phosphatase [enzymatic activity/vol ume] in serum or plasma 72 U/L low: 50U/Lh igh: 136U/L ALKAL INE PHOSP HATAS E S/P/B 72 50 - 136 U/L 08/07 6:33 AM [facility] Not Available Not Available 01/15/2025 11:48:07 08/07/20 24 08/07/2024 Compr ehens liz metab olic 2000 panel - Serum or Plasm a anion gap in serum or plasma by calculation 9.7 text: 2 - 10 mmol/L ANION GAP 9.7 2 - 10 MMOL/ L 08/07 6:33 AM [facility] Not Available Not Available 01/15/2025 11:48:07 08/07/20 24 08/07/2024 Compr ehens liz metab olic 2000 panel - Serum or Plasm a urea nitrogen/cre atinine [mass ratio] in serum or plasma 16.7 low: 6high: 26 BUN CREAT ININE RATIO 16.7 6 - 26 08/07 6:33 AM [facility] Not Available Not Available 01/15/2025 11:48:07 08/07/20 24 08/07/2024 Compr ehens liz metab olic 2000 panel - Serum or Plasm a albumin/glob ulin [mass ratio] in serum or plasma 0.9 text: 1.0 - 2.0 ratio low A/G RATIO 0.9 (L) 1.0 - 2.0 RATIO 08/07 6:33 AM [facility] Not Available Not Available 01/15/2025 11:48:07 08/07/20 24 08/07/2024 Compr ehens liz metab olic 2000 panel - Serum or Plasm a glomerular filtration rate [volume rate/area] in serum, plasma or blood by creatinine-b ased formula (CKD-epi 2020)/1.73 sq M 19 text: >90 mL/min /1.73 M2 low GFR ESTIM ATE 19 (L) >90 ML/IN N/1.7 3 M2 08/07 6:33 AM [employer] [facility] Not Available Not Available 01/15/2025 11:48:07 08/07/2008/07/2024 Compr ehens liz metab olic 1999 panel - Serum or Plasm a interpretati on and review of laboratory results Abnorm al Not Available Not Available 11:48:07 08/07/2008/07/2024 Hemog lobin .beatrice roint estin al [Pres ence] in Stool hemoglobin.g astrointesti nal [presence] in stool NEGATI VE OCCUL T BLOOD FECAL NEGAT LIZ 08/07 2:47 AM [employer] [facility] Not Available Not Available 01/15/2025 11:48:07 08/07/20 24 08/07/2024 Influ evette virus A and B and SARS- CoV-2 (COVI D-19) and SARS- relat ed CoV RNA panel - Respi rator y syste m speci men by CARSON with probe detec tion adenovirus DNA [presence] in nasopharynx by CARSON with probe detection NOT DETECT ED text: not detect ed ADENO VIRUS PCR (RESP ) NOT DETEC TEDDY NOT DETEC TEDDY 08/07 4:01 AM [employer] [facility] Not Available Not Available 01/15/2025 11:48:06 08/07/20 24 08/07/2024 Influ evette virus A and B and SARS- CoV-2 (COVI D-19) and SARS- relat ed CoV RNA panel - Respi rator y syste m speci men by CARSON with probe detec tion human coronavirus 229E RNA [presence] in specimen by CARSON with probe detection NOT DETECT ED text: not detect ed CORON AVIRU S 229E PCR (RESP ) NOT DETEC TEDDY NOT DETEC TEDDY 08/07 4:01 AM [employer] [facility] Not Available Not Available 01/15/2025 11:48:06 08/07/20 24 08/07/2024 Influ evette virus A and B and SARS- CoV-2 (COVI D-19) and SARS- relat ed CoV RNA panel - Respi rator y syste m speci men by CARSON with probe detec tion human coronavirus hku1 RNA [presence] in specimen by CARSON with probe detection NOT DETECT ED text: not detect ed CORON AVIRU S HKU1 PCR (RESP ) NOT DETEC TEDDY NOT DETEC TEDDY 08/07 4:01 AM [employer] [facility] Not Available Not Available 01/15/2025 11:48:06 08/07/20 24 08/07/2024 Influ evette virus A and B and SARS- CoV-2 (COVI D-19) and SARS- relat ed CoV RNA panel - Respi rator y syste m speci men by CARSON with probe detec tion human coronavirus nl63 RNA [presence] in specimen by CARSON with probe detection NOT DETECT ED text: not detect ed CORON AVIRU S NL63 PCR (RESP ) NOT DETEC TEDDY NOT DETEC TEDDY 08/07 4:01 AM [employer] [facility] Not Available Not Available 01/15/2025 11:48:06 08/07/20 24 08/07/2024 Influ evette virus A and B and SARS- CoV-2 (COVI D-19) and SARS- relat ed CoV RNA panel - Respi rator y syste m speci men by CARSON with probe detec tion human coronavirus oc43 RNA [presence] in specimen by CARSON with probe detection NOT DETECT ED text: not detect ed CORON AVIRU S OC43 PCR (RESP ) NOT DETEC TEDDY NOT DETEC TEDDY 08/07 4:01 AM [employer] [facility] Not Available Not Available 01/15/2025 11:48:06 08/07/20 24 08/07/2024 Influ evette virus A and B and SARS- CoV-2 (COVI D-19) and SARS- relat ed CoV RNA panel - Respi rator y syste m speci men by CARSON with probe detec tion human metapneumovi harshil RNA [presence] in nasopharynx by CARSON with probe detection NOT DETECT ED text: not detect ed METAP NEUMO VIRUS PCR (RESP ) NOT DETEC TEDDY NOT DETEC TEDDY 08/07 4:01 AM [employer] [facility] Not Available Not Available 01/15/2025 11:48:06 08/07/20 24 08/07/2024 Influ evette virus A and B and SARS- CoV-2 (COVI D-19) and SARS- relat ed CoV RNA panel - Respi rator y syste m speci men by CARSON with probe detec tion rhinovirus+e nterovirus RNA [presence] in specimen by CARSON with probe detection NOT DETECT ED text: not detect ed RHINO VIRUS /ENTE ROVIR US PCR (RESP ) NOT DETEC TEDDY NOT DETEC TEDDY 08/07 4:01 AM [employer] [facility] Not Available Not Available 01/15/2025 11:48:06 08/07/20 24 08/07/2024 Influ evette virus A and B and SARS- CoV-2 (COVI D-19) and SARS- relat ed CoV RNA panel - Respi rator y syste m speci men by CARSON with probe detec tion influenza virus A RNA [presence] in nasopharynx by CARSON with probe detection NOT DETECT ED text: not detect ed INFLU EVETTE A PCR (RESP ) NOT DETEC TEDDY NOT DETEC TEDDY 08/07 4:01 AM [facility] Not Available Not Available 01/15/2025 11:48:06 08/07/20 24 08/07/2024 Influ evette virus A and B and SARS- CoV-2 (COVI D-19) and SARS- relat ed CoV RNA panel - Respi rator y syste m speci men by CARSON with probe detec tion influenza virus B RNA [presence] in nasopharynx by CARSON with probe detection NOT DETECT ED text: not detect ed INFLU EVETTE B PCR (RESP ) NOT DETEC TEDDY NOT DETEC TEDDY 08/07 4:01 AM [employer] [facility] Not Available Not Available 01/15/2025 11:48:06 08/07/20 24 08/07/2024 Influ evette virus A and B and SARS- CoV-2 (COVI D-19) and SARS- relat ed CoV RNA panel - Respi rator y syste m speci men by CARSON with probe detec tion parainfluenz a virus 1 RNA [presence] in nasopharynx by CARSON with probe detection NOT DETECT ED text: not detect ed PARAI NFLUE NZA 1 PCR (RESP ) NOT DETEC TEDDY NOT DETEC TEDDY 08/07 4:01 AM [employer] [facility] Not Available Not Available 01/15/2025 11:48:06 08/07/20 24 08/07/2024 Influ evette virus A and B and SARS- CoV-2 (COVI D-19) and SARS- relat ed CoV RNA panel - Respi rator y syste m speci men by CARSON with probe detec tion parainfluenz a virus 2 RNA [presence] in nasopharynx by CARSON with probe detection NOT DETECT ED text: not detect ed PARAI NFLUE NZA 2 PCR (RESP ) NOT DETEC TEDDY NOT DETEC TEDDY 08/07 4:01 AM [employer] [facility] Not Available Not Available 01/15/2025 11:48:06 08/07/20 24 08/07/2024 Influ evette virus A and B and SARS- CoV-2 (COVI D-19) and SARS- relat ed CoV RNA panel - Respi rator y syste m speci men by CARSON with probe detec tion parainfluenz a virus 3 RNA [presence] in nasopharynx by CARSON with probe detection NOT DETECT ED text: not detect ed PARAI NFLUE NZA 3 PCR (RESP ) NOT DETEC TEDDY NOT DETEC TEDDY 08/07 4:01 AM [employer] [facility] Not Available Not Available 01/15/2025 11:48:06 08/07/20 24 08/07/2024 Influ evette virus A and B and SARS- CoV-2 (COVI D-19) and SARS- relat ed CoV RNA panel - Respi rator y syste m speci men by CARSON with probe detec tion parainfluenz a virus 4 RNA [presence] in nasopharynx by CARSON with probe detection NOT DETECT ED text: not detect ed PARAI NFLUE NZA 4 PCR (RESP ) NOT DETEC TEDDY NOT DETEC TEDDY 08/07 4:01 AM [employer] [facility] Not Available Not Available 01/15/2025 11:48:06 08/07/20 24 08/07/2024 Influ evette virus A and B and SARS- CoV-2 (COVI D-19) and SARS- relat ed CoV RNA panel - Respi rator y syste m speci men by CARSON with probe detec tion respiratory syncytial virus RNA [presence] in nasopharynx by CARSON with probe detection NOT DETECT ED text: not detect ed RSV PCR (RESP ) NOT DETEC TEDDY NOT DETEC TEDDY 08/07 4:01 AM [employer] [facility] Not Available Not Available 01/15/2025 11:48:06 08/07/20 24 08/07/2024 Influ evette virus A and B and SARS- CoV-2 (COVI D-19) and SARS- relat ed CoV RNA panel - Respi rator y syste m speci men by CARSON with probe detec tion bordetella parapertussi s DNA [presence] in nasopharynx by CARSON with probe detection NOT DETECT ED text: not detect ed B PARAP ERTUS IS PCR (RESP ) NOT DETEC TEDDY NOT DETEC TEDDY 08/07 4:01 AM [employer] [facility] Not Available Not Available 01/15/2025 11:48:06 08/07/20 24 08/07/2024 Influ evette virus A and B and SARS- CoV-2 (COVI D-19) and SARS- relat ed CoV RNA panel - Respi rator y syste m speci men by CARSON with probe detec tion bordetella pertussis DNA [presence] in nasopharynx by CARSON with probe detection NOT DETECT ED text: not detect ed BORDE TELLA PERTU SSIS PCR (RESP ) NOT DETEC TEDDY NOT DETEC TEDDY 08/07 4:01 AM [employer] [facility] Not Available Not Available 01/15/2025 11:48:06 08/07/20 24 08/07/2024 Influ evette virus A and B and SARS- CoV-2 (COVI D-19) and SARS- relat ed CoV RNA panel - Respi rator y syste m speci men by CARSON with probe detec tion chlamydophil a pneumoniae DNA [presence] in specimen by CARSON with probe detection NOT DETECT ED text: not detect ed CHLAM YDOPH KALI PNEUM ONIAE PCR (RESP ) NOT DETEC TEDDY NOT DETEC TEDDY 08/07 4:01 AM [employer] [facility] Not Available Not Available 01/15/2025 11:48:06 08/07/20 24 08/07/2024 Influ evette virus A and B and SARS- CoV-2 (COVI D-19) and SARS- relat ed CoV RNA panel - Respi rator y syste m speci men by CARSON with probe detec tion mycoplasma pneumoniae DNA [presence] in specimen by CARSON with probe detection NOT DETECT ED text: not detect ed MYCOP LASMA PNEUM ONIAE PCR (RESP ) NOT DETEC TEDDY NOT DETEC TEDDY 08/07 4:01 AM [employer] [facility] Not Available Not Available 01/15/2025 11:48:06 08/07/20 24 08/07/2024 Influ evette virus A and B and SARS- CoV-2 (COVI D-19) and SARS- relat ed CoV RNA panel - Respi rator y syste m speci men by CARSON with probe detec tion sars-cov-2 (covid-19) RNA [presence] in specimen by CARSON with probe detection NOT DETECT ED text: not detect ed CORON AVIRU S SARS COV 2 PCR (RESP ) NOT DETEC TEDDY NOT DETEC TEDDY 08/07 4:01 AM [employer] [facility] Not Available Not Available 01/15/2025 11:48:06 08/08/20 24 08/08/2024 Lipas e [Enzy matic activ ity/v olume ] in Serum or Plasm a lipase [enzymatic activity/vol ume] in serum or plasma 58 text: 13 - 75 units/ L LIPAS E 58 13 - 75 UNITS /L 08/08 12:24 PM [facility] Not Available Not Available 01/15/2025 11:48:07 08/08/20 24 08/08/2024 Basic metab olic 2000 panel - Serum or Plasm a glucose [mass/volume ] in serum or plasma 116 text: 70 - 99 mg/dL high GLUCO SE 116 (H) 70 - 99 MG/DL 08/08 4:59 AM [facility] Not Available Not Available 01/15/2025 11:48:07 08/08/20 24 08/08/2024 Basic metab olic 2000 panel - Serum or Plasm a urea nitrogen [mass/volume ] in serum or plasma 40 text: 7 - 18 mg/dL high BUN 40 (H) 7 - 18 MG/DL 08/08 4:59 AM [facility] Not Available Not Available 01/15/2025 11:48:07 08/08/20 24 08/08/2024 Basic metab olic 1999 panel - Serum or Plasm a creatinine [mass/volume ] in serum or plasma 2.6 text: 0.55 - 1.02 mg/dL high CREAT ININE S/P/B 2.60 (H) 0.55 - 1.02 MG/DL 08/08 4:59 AM [facility] Not Available Not Available 01/15/2025 11:48:07 08/08/20 24 08/08/2024 Basic metab olic 2000 panel - Serum or Plasm a sodium [moles/volum e] in serum or plasma 133 text: 136 - 145 mmol/L low SODIU M S/P/B 133 (L) 136 - 145 MMOL/ L 08/08 4:59 AM [facility] Not Available Not Available 01/15/2025 11:48:07 08/08/20 24 08/08/2024 Basic metab olic 2000 panel - Serum or Plasm a potassium [moles/volum e] in serum or plasma 3.5 text: 3.5 - 5.1 mmol/L POTAS SIUM S/P/B 3.5 3.5 - 5.1 MMOL/ L 08/08 4:59 AM [facility] Not Available Not Available 01/15/2025 11:48:07 08/08/20 24 08/08/2024 Basic metab olic 2000 panel - Serum or Plasm a chloride [moles/volum e] in serum or plasma 101 text: 97 - 115 mmol/L CHLOR JOSE S/P/B 101 97 - 115 MMOL/ L 08/08 4:59 AM [facility] Not Available Not Available 01/15/2025 11:48:07 08/08/20 24 08/08/2024 Basic metab olic 2000 panel - Serum or Plasm a carbon dioxide, total [moles/volum e] in serum or plasma 23.8 text: 21 - 32 mmol/L CO2 23.8 21 - 32 MMOL/ L 08/08 4:59 AM [facility] Not Available Not Available 01/15/2025 11:48:07 08/08/20 24 08/08/2024 Basic metab olic 2000 panel - Serum or Plasm a calcium [mass/volume ] in serum or plasma 8.4 text: 8.5 - 10.1 mg/dL low CALCI UM S/P/B 8.4 (L) 8.5 - 10.1 MG/DL 08/08 4:59 AM [facility] Not Available Not Available 01/15/2025 11:48:07 08/08/20 24 08/08/2024 Basic metab olic 2000 panel - Serum or Plasm a anion gap in serum or plasma by calculation 8.2 text: 2 - 10 mmol/L ANION GAP 8.2 2 - 10 MMOL/ L 08/08 4:59 AM [facility] Not Available Not Available 01/15/2025 11:48:07 08/08/20 24 08/08/2024 Basic metab olic 2000 panel - Serum or Plasm a urea nitrogen/cre atinine [mass ratio] in serum or plasma 15.4 low: 6high: 26 BUN CREAT ININE RATIO 15.4 6 - 26 08/08 4:59 AM [facility] Not Available Not Available 01/15/2025 11:48:07 08/08/20 24 08/08/2024 Basic metab olic 2000 panel - Serum or Plasm a glomerular filtration rate [volume rate/area] in serum, plasma or blood by creatinine-b ased formula (CKD-epi 2020)/1.73 sq M 17 text: >90 mL/min /1.73 M2 low GFR ESTIM ATE 17 (L) >90 ML/IN N/1.7 3 M2 08/08 4:59 AM [facility] Not Available Not Available 01/15/2025 11:48:07 08/08/20 24 08/08/2024 Basic metab olic 2000 panel - Serum or Plasm a interpretati on and review of laboratory results Abnorm al Not Available Not Available 11:48:07 08/08/20 24 08/08/2024 CBC W Auto Diffe renti al panel - Blood leukocytes [#/volume] in blood by automated count 5.71 text: 4.5 - 11.0 x10'3/ uL WBC 5.71 4.5 - 11.0 x10'3 /uL 08/08 4:46 AM [facility] Not Available Not Available 01/15/2025 11:48:07 08/08/20 24 08/08/2024 CBC W Auto Diffe renti al panel - Blood erythrocytes [#/volume] in blood by automated count 3.25 text: 4.20 - 5.40 x10'6/ uL low RBC 3.25 (L) 4.20 - 5.40 x10'6 /uL 08/08 4:46 AM [facility] Not Available Not Available 01/15/2025 11:48:07 08/08/20 24 08/08/2024 CBC W Auto Diffe renti al panel - Blood hemoglobin [mass/volume ] in blood 10.1 text: 12.0 - 16.0 g/dL low HGB 10.1 (L) 12.0 - 16.0 G/DL 08/08 4:46 AM [facility] Not Available Not Available 01/15/2025 11:48:07 08/08/20 24 08/08/2024 CBC W Auto Diffe renti al panel - Blood hematocrit [volume fraction] of blood by calculation 30.6 % low: 38%hig h: 48% low HCT 30.6 (L) 38.0 - 48.0 % 08/08 4:46 AM [facility] Not Available Not Available 01/15/2025 11:48:07 08/08/20 24 08/08/2024 CBC W Auto Diffe renti al panel - Blood MCV [entitic mean volume] in red blood cells 94.2 text: 81.0 - 99.0 fL MCV 94.2 81.0 - 99.0 FL 08/08 4:46 AM [facility] Not Available Not Available 01/15/2025 11:48:07 08/08/20 24 08/08/2024 CBC W Auto Diffe renti al panel - Blood MCH [entitic mass] 31.1 pg low: 27pghi gh: 31pg high MCH 31.1 (H) 27.0 - 31.0 PG 08/08 4:46 AM [facility] Not Available Not Available 01/15/2025 11:48:07 08/08/20 24 08/08/2024 CBC W Auto Diffe renti al panel - Blood MCHC [entitic mass/volume] in red blood cells 33 text: 32.0 - 36.0 g/dL MCHC 33.0 32.0 - 36.0 G/DL 08/08 4:46 AM [facility] Not Available Not Available 01/15/2025 11:48:07 08/08/20 24 08/08/2024 CBC W Auto Diffe renti al panel - Blood RDW 15.5 % low: 11.5%h igh: 14.5% high RDW 15.5 (H) 11.5 - 14.5 % 08/08 4:46 AM [facility] Not Available Not Available 01/15/2025 11:48:07 08/08/2008/08/2024 CBC W Auto Diffe renti al panel - Blood platelets [#/volume] in blood 173 text: 130 - 400 x10'3/ uL PLT 173 130 - 400 x10'3 /uL 08/08 4:46 AM [facility] Not Available Not Available 01/15/2025 11:48:07 08/08/2008/08/2024 CBC W Auto Diffe renti al panel - Blood platelet [entitic mean volume] in blood 9.7 text: 9.3 - 12.2 fL MPV 9.7 9.3 - 12.2 FL 08/08 4:46 AM [facility] Not Available Not Available 01/15/2025 11:48:07 08/08/2008/08/2024 CBC W Auto Diffe renti al panel - Blood differential cell count method - blood AUTOMA TEDDY DIFFER ENTIAL DIFFE RENTI AL TYPE AUTOM ATED DIFFE RENTI AL 08/08 4:46 AM [facility] Not Available Not Available 01/15/2025 11:48:07 08/08/20 24 08/08/2024 CBC W Auto Diffe renti al panel - Blood neutrophils/ leukocytes in blood by automated count 69.5 % NEUTR OPHIL S % 69.5 % 08/08 4:46 AM [facility] Not Available Not Available 01/15/2025 11:48:07 08/08/20 24 08/08/2024 CBC W Auto Diffe renti al panel - Blood lymphocytes/ leukocytes in blood by automated count 17.2 % LYMPH OCYTE S % 17.2 % 08/08 4:46 AM [facility] Not Available Not Available 01/15/2025 11:48:07 08/08/20 24 08/08/2024 CBC W Auto Diffe renti al panel - Blood monocytes/le ukocytes in blood by automated count 11.9 % MONOC YTES % 11.9 % 08/08 4:46 AM [facility] Not Available Not Available 01/15/2025 11:48:07 08/08/20 24 08/08/2024 CBC W Auto Diffe renti al panel - Blood eosinophils/ leukocytes in blood by automated count 0.5 % EOSIN OPHIL S 0.5 % 08/08 4:46 AM [facility] Not Available Not Available 01/15/2025 11:48:07 08/08/20 24 08/08/2024 CBC W Auto Diffe renti al panel - Blood basophils/le ukocytes in blood by automated count 0 % BASOP HILS 0.0 % 08/08 4:46 AM [facility] Not Available Not Available 01/15/2025 11:48:07 08/08/20 24 08/08/2024 CBC W Auto Diffe renti al panel - Blood immature granulocytes /leukocytes in blood by automated count 0.9 % IMMAT URE GRANS % 0.9 % 08/08 4:46 AM [facility] Not Available Not Available 01/15/2025 11:48:07 08/08/20 24 08/08/2024 CBC W Auto Diffe renti al panel - Blood neutrophils [#/volume] in blood 3.97 text: 1.80 - 7.70 x10'3/ uL ABS. NEUTR OPHIL S 3.97 1.80 - 7.70 x10'3 /uL 08/08 4:46 AM [facility] Not Available Not Available 01/15/2025 11:48:07 08/08/20 24 08/08/2024 CBC W Auto Diffe renti al panel - Blood lymphocytes [#/volume] in blood 0.98 text: 1.00 - 4.80 x10'3/ uL low ABS. LYMPH OCYTE S 0.98 (L) 1.00 - 4.80 x10'3 /uL 08/08 4:46 AM [employer] [facility] Not Available Not Available 01/15/2025 11:48:07 08/08/2008/08/2024 CBC W Auto Diffe renti al panel - Blood monocytes [#/volume] in blood 0.68 text: 0.24 - 0.86 x10'3/ uL ABS. MONOC YTES 0.68 0.24 - 0.86 x10'3 /uL 08/08 4:46 AM [employer] [facility] Not Available Not Available 01/15/2025 11:48:07 08/08/20 24 08/08/2024 CBC W Auto Diffe renti al panel - Blood eosinophils [#/volume] in blood 0.03 text: 0.04 - 0.36 x10'3/ uL low ABS. EOSIN OPHIL S 0.03 (L) 0.04 - 0.36 x10'3 /uL 08/08 4:46 AM [facility] Not Available Not Available 01/15/2025 11:48:07 08/08/20 24 08/08/2024 CBC W Auto Diffe renti al panel - Blood basophils [#/volume] in blood 0 text: 0.01 - 0.08 x10'3/ uL low ABS. BASOP HILS 0.00 (L) 0.01 - 0.08 x10'3 /uL 08/08 4:46 AM [facility] Not Available Not Available 01/15/2025 11:48:07 11/26/20 24 08/08/2024 CBC W Auto Diffe renti al panel - Blood immature granulocytes [#/volume] in blood 0.05 text: 0.00 - 0.49 x10'3/ uL ABS. IMMAT URE GRANU LOCYT ES 0.05 0.00 - 0.49 x10'3 /uL 08/08 4:46 AM [facility] Not Available Not Available 01/15/2025 11:48:07 08/08/20 24 08/08/2024 CBC W Auto Diffe renti al panel - Blood interpretati on and review of laboratory results Abnorm al Not Available Not Available 11:48:07 08/09/2008/09/2024 CBC W Auto Diffe renti al panel - Blood leukocytes [#/volume] in blood by automated count 3.85 text: 4.5 - 11.0 x10'3/ uL low WBC 3.85 (L) 4.5 - 11.0 x10'3 /uL 08/09 10:40 AM [employer] [facility] Not Available Not Available 01/15/2025 11:48:07 08/09/2008/09/2024 CBC W Auto Diffe renti al panel - Blood erythrocytes [#/volume] in blood by automated count 2.6 text: 4.20 - 5.40 x10'6/ uL low RBC 2.60 (L) 4.20 - 5.40 x10'6 /uL 08/09 10:40 AM [employer] [facility] Not Available Not Available 01/15/2025 11:48:07 08/09/20 24 08/09/2024 CBC W Auto Diffe renti al panel - Blood hemoglobin [mass/volume ] in blood 8.2 text: 12.0 - 16.0 g/dL low HGB 8.2 (L) 12.0 - 16.0 G/DL 08/09 10:40 AM [facility] Not Available Not Available 01/15/2025 11:48:07 08/09/2008/09/2024 CBC W Auto Diffe renti al panel - Blood hematocrit [volume fraction] of blood by calculation 25.3 % low: 38%hig h: 48% low HCT 25.3 (L) 38.0 - 48.0 % 08/09 10:40 AM [facility] Not Available Not Available 01/15/2025 11:48:07 08/09/2008/09/2024 CBC W Auto Diffe renti al panel - Blood MCV [entitic mean volume] in red blood cells 97.3 text: 81.0 - 99.0 fL MCV 97.3 81.0 - 99.0 FL 08/09 10:40 AM [facility] Not Available Not Available 01/15/2025 11:48:07 08/09/20 24 08/09/2024 CBC W Auto Diffe renti al panel - Blood MCH [entitic mass] 31.5 pg low: 27pghi gh: 31pg high MCH 31.5 (H) 27.0 - 31.0 PG 08/09 10:40 AM [facility] Not Available Not Available 01/15/2025 11:48:07 08/09/20 24 08/09/2024 CBC W Auto Diffe renti al panel - Blood MCHC [entitic mass/volume] in red blood cells 32.4 text: 32.0 - 36.0 g/dL MCHC 32.4 32.0 - 36.0 G/DL 08/09 10:40 AM [employer] [facility] Not Available Not Available 01/15/2025 11:48:07 08/09/2008/09/2024 CBC W Auto Diffe renti al panel - Blood RDW 15.4 % low: 11.5%h igh: 14.5% high RDW 15.4 (H) 11.5 - 14.5 % 08/09 10:40 AM [facility] Not Available Not Available 01/15/2025 11:48:07 08/09/20 24 08/09/2024 CBC W Auto Diffe renti al panel - Blood platelets [#/volume] in blood 135 text: 130 - 400 x10'3/ uL PLT 135 130 - 400 x10'3 /uL 08/09 10:40 AM [facility] Not Available Not Available 01/15/2025 11:48:07 08/09/20 24 08/09/2024 CBC W Auto Diffe renti al panel - Blood platelet [entitic mean volume] in blood 10.4 text: 9.3 - 12.2 fL MPV 10.4 9.3 - 12.2 FL 08/09 10:40 AM [facility] Not Available Not Available 01/15/2025 11:48:07 08/09/20 24 08/09/2024 CBC W Auto Diffe renti al panel - Blood differential cell count method - blood MANUAL DIFFER ENTIAL DIFFE RENTI AL TYPE MANUA L DIFFE RENTI AL 08/09 10:45 AM [facility] Not Available Not Available 01/15/2025 11:48:07 08/09/20 24 08/09/2024 CBC W Auto Diffe renti al panel - Blood segmented neutrophils/ leukocytes in blood by manual count 73 % SEG NEUTR OPHIL S 73 % 08/09 10:45 AM [facility] Not Available Not Available 01/15/2025 11:48:07 08/09/20 24 08/09/2024 CBC W Auto Diffe renti al panel - Blood lymphocytes/ leukocytes in blood by manual count 13 % LYMPH OCYTE S 13 % 08/09 10:45 AM [facility] Not Available Not Available 01/15/2025 11:48:07 08/09/20 24 08/09/2024 CBC W Auto Diffe renti al panel - Blood monocytes/le ukocytes in blood by manual count 11 % MONOC YTES 11 % 08/09 10:45 AM [facility] Not Available Not Available 01/15/2025 11:48:07 08/09/20 24 08/09/2024 CBC W Auto Diffe renti al panel - Blood eosinophils/ leukocytes in blood by manual count 2 % EOSIN OPHIL S 2 % 08/09 10:45 AM [facility] Not Available Not Available 01/15/2025 11:48:07 08/09/20 24 08/09/2024 CBC W Auto Diffe renti al panel - Blood metamyelocyt es [#/volume] in blood 1 % METAM YELOC YTES 1 % 08/09 10:45 AM [facility] Not Available Not Available 01/15/2025 11:48:07 08/09/20 24 08/09/2024 CBC W Auto Diffe renti al panel - Blood neutrophils [#/volume] in blood 2.81 text: 1.80 - 7.70 x10'3/ uL ABS. NEUTR OPHIL S 2.81 1.80 - 7.70 x10'3 /uL 08/09 10:45 AM [facility] Not Available Not Available 01/15/2025 11:48:07 08/09/20 24 08/09/2024 CBC W Auto Diffe renti al panel - Blood lymphocytes [#/volume] in blood 0.5 text: 1.00 - 4.80 x10'3/ uL low ABS. LYMPH OCYTE S 0.50 (L) 1.00 - 4.80 x10'3 /uL 08/09 10:45 AM [facility] Not Available Not Available 01/15/2025 11:48:07 08/09/20 24 08/09/2024 CBC W Auto Diffe renti al panel - Blood monocytes [#/volume] in blood 0.42 text: 0.24 - 0.86 x10'3/ uL ABS. MONOC YTES 0.42 0.24 - 0.86 x10'3 /uL 08/09 10:45 AM [facility] Not Available Not Available 01/15/2025 11:48:07 08/09/20 24 08/09/2024 CBC W Auto Diffe renti al panel - Blood eosinophils [#/volume] in blood 0.08 text: 0.04 - 0.36 x10'3/ uL ABS. EOSIN OPHIL S 0.08 0.04 - 0.36 x10'3 /uL 08/09 10:45 AM [facility] Not Available Not Available 01/15/2025 11:48:07 08/09/20 24 08/09/2024 CBC W Auto Diffe renti al panel - Blood metamyelocyt es [#/volume] in blood by manual count 0.04 text: 0.00 x10'3/ uL high ABS. METAM YELOC YTES 0.04 (H) 0.00 x10'3 /uL 08/09 10:45 AM [facility] Not Available Not Available 01/15/2025 11:48:07 08/09/20 24 08/09/2024 CBC W Auto Diffe renti al panel - Blood erythrocytes [morphology] in blood by automated count SLIDE REVIEW ED RBC MORPH OLOGY SLIDE REVIE WED 08/09 10:45 AM [facility] Not Available Not Available 01/15/2025 11:48:07 08/09/20 24 08/09/2024 CBC W Auto Diffe renti al panel - Blood hypochromia [presence] in blood 1+ HYPOC HROMA ENMA 1+ 08/09 10:45 AM [facility] Not Available Not Available 01/15/2025 11:48:07 08/09/20 24 08/09/2024 CBC W Auto Diffe renti al panel - Blood polychromasi a [presence] in blood by light microscopy 1+ POLY 1+ 08/09 10:45 AM [facility] Not Available Not Available 01/15/2025 11:48:07 08/09/20 24 08/09/2024 CBC W Auto Diffe meghan al panel - Blood platelets [#/volume] in blood by automated count ADEQUA TE PLT EST. ADEQU ATE 08/09 10:45 AM [facility] Not Available Not Available 01/15/2025 11:48:07 08/09/20 24 08/09/2024 CBC W Auto Diffe renalberto al panel - Blood interpretati on and review of laboratory results Abnorm al Not Available Not Available 11:48:07 08/09/20 24 08/09/2024 Basic metab olic 2000 panel - Serum or Plasm a glucose [mass/volume ] in serum or plasma 163 text: 70 - 99 mg/dL high GLUCO SE 163 (H) 70 - 99 MG/DL 08/09 5:54 AM [facility] Not Available Not Available 01/15/2025 11:48:07 08/09/20 24 08/09/2024 Basic metab olic 1999 panel - Serum or Plasm a urea nitrogen [mass/volume ] in serum or plasma 43 text: 7 - 18 mg/dL high BUN 43 (H) 7 - 18 MG/DL 08/09 5:54 AM [facility] Not Available Not Available 01/15/2025 11:48:07 08/09/20 24 08/09/2024 Basic metab olic 2000 panel - Serum or Plasm a creatinine [mass/volume ] in serum or plasma 3.17 text: 0.55 - 1.02 mg/dL high CREAT ININE S/P/B 3.17 (H) 0.55 - 1.02 MG/DL 08/09 5:54 AM [facility] Not Available Not Available 01/15/2025 11:48:07 08/09/20 24 08/09/2024 Basic metab olic 2000 panel - Serum or Plasm a sodium [moles/volum e] in serum or plasma 134 text: 136 - 145 mmol/L low SODIU M S/P/B 134 (L) 136 - 145 MMOL/ L 08/09 5:54 AM [facility] Not Available Not Available 01/15/2025 11:48:07 08/09/20 24 08/09/2024 Basic metab olic 2000 panel - Serum or Plasm a potassium [moles/volum e] in serum or plasma 3.3 text: 3.5 - 5.1 mmol/L low POTAS SIUM S/P/B 3.3 (L) 3.5 - 5.1 MMOL/ L 08/09 5:54 AM [facility] Not Available Not Available 01/15/2025 11:48:07 08/09/20 24 08/09/2024 Basic metab olic 2000 panel - Serum or Plasm a chloride [moles/volum e] in serum or plasma 101 text: 97 - 115 mmol/L CHLOR JOSE S/P/B 101 97 - 115 MMOL/ L 08/09 5:54 AM [facility] Not Available Not Available 01/15/2025 11:48:07 08/09/20 24 08/09/2024 Basic metab olic 2000 panel - Serum or Plasm a carbon dioxide, total [moles/volum e] in serum or plasma 24 text: 21 - 32 mmol/L CO2 24.0 21 - 32 MMOL/ L 08/09 5:54 AM [facility] Not Available Not Available 01/15/2025 11:48:07 08/09/20 24 08/09/2024 Basic metab olic 2000 panel - Serum or Plasm a calcium [mass/volume ] in serum or plasma 7.6 text: 8.5 - 10.1 mg/dL low CALCI UM S/P/B 7.6 (L) 8.5 - 10.1 MG/DL 08/09 5:54 AM [facility] Not Available Not Available 01/15/2025 11:48:07 08/09/20 24 08/09/2024 Basic metab olic 2000 panel - Serum or Plasm a anion gap in serum or plasma by calculation 9 text: 2 - 10 mmol/L ANION GAP 9.0 2 - 10 MMOL/ L 11/27 /2024 5:54 AM [facility] Not Available Not Available 01/15/2025 11:48:07 08/09/2008/09/2024 Basic metab olic 2000 panel - Serum or Plasm a urea nitrogen/cre atinine [mass ratio] in serum or plasma 13.6 low: 6high: 26 BUN CREAT ININE RATIO 13.6 6 - 26 08/09 5:54 AM [facility] Not Available Not Available 01/15/2025 11:48:07 08/09/20 24 08/09/2024 Basic metab olic 2000 panel - Serum or Plasm a glomerular filtration rate [volume rate/area] in serum, plasma or blood by creatinine-b ased formula (CKD-epi 2020)/1.73 sq M 14 text: >90 mL/min /1.73 M2 low GFR ESTIM ATE 14 (L) >90 ML/IN N/1.7 3 M2 08/09 5:54 AM [facility] Not Available Not Available 01/15/2025 11:48:07 08/09/2008/09/2024 Basic metab olic 1999 panel - Serum or Plasm a interpretati on and review of laboratory results Abnorm al Not Available Not Available 11:48:07 08/10/20 24 08/10/2024 Magne sium [Mass /volu me] in Serum or Plasm a magnesium [mass/volume ] in serum or plasma 2.5 text: 1.8 - 2.4 mg/dL high MAGNE SIUM 2.5 (H) 1.8 - 2.4 MG/DL 08/10 6:49 AM [facility] Not Available Not Available 01/15/2025 11:48:08 08/10/20 24 08/10/2024 Magne sium [Mass /volu me] in Serum or Plasm a interpretati on and review of laboratory results Abnorm al Not Available Not Available 11:48:08 08/10/20 24 08/10/2024 Basic metab olic 1999 panel - Serum or Plasm a glucose [mass/volume ] in serum or plasma 97 text: 70 - 99 mg/dL GLUCO SE 97 70 - 99 MG/DL 08/10 6:49 AM [facility] Not Available Not Available 01/15/2025 11:48:07 08/10/20 24 08/10/2024 Basic metab olic 1999 panel - Serum or Plasm a urea nitrogen [mass/volume ] in serum or plasma 50 text: 7 - 18 mg/dL high BUN 50 (H) 7 - 18 MG/DL 08/10 6:49 AM [facility] Not Available Not Available 01/15/2025 11:48:07 08/10/20 24 08/10/2024 Basic metab olic 2000 panel - Serum or Plasm a creatinine [mass/volume ] in serum or plasma 3.52 text: 0.55 - 1.02 mg/dL high CREAT ININE S/P/B 3.52 (H) 0.55 - 1.02 MG/DL 08/10 6:49 AM [facility] Not Available Not Available 01/15/2025 11:48:07 08/10/20 24 08/10/2024 Basic metab olic 2000 panel - Serum or Plasm a sodium [moles/volum e] in serum or plasma 135 text: 136 - 145 mmol/L low SODIU M S/P/B 135 (L) 136 - 145 MMOL/ L 08/10 6:49 AM [facility] Not Available Not Available 01/15/2025 11:48:07 08/10/20 24 08/10/2024 Basic metab olic 2000 panel - Serum or Plasm a potassium [moles/volum e] in serum or plasma 3.8 text: 3.5 - 5.1 mmol/L POTAS SIUM S/P/B 3.8 3.5 - 5.1 MMOL/ L 08/10 6:49 AM [facility] Not Available Not Available 01/15/2025 11:48:07 08/10/20 24 08/10/2024 Basic metab olic 1999 panel - Serum or Plasm a chloride [moles/volum e] in serum or plasma 107 text: 97 - 115 mmol/L CHLOR JOSE S/P/B 107 97 - 115 MMOL/ L 08/10 6:49 AM [facility] Not Available Not Available 01/15/2025 11:48:07 08/10/20 24 08/10/2024 Basic metab olic 2000 panel - Serum or Plasm a carbon dioxide, total [moles/volum e] in serum or plasma 23.4 text: 21 - 32 mmol/L CO2 23.4 21 - 32 MMOL/ L 08/10 6:49 AM [facility] Not Available Not Available 01/15/2025 11:48:07 08/10/20 24 08/10/2024 Basic metab olic 1999 panel - Serum or Plasm a calcium [mass/volume ] in serum or plasma 7.3 text: 8.5 - 10.1 mg/dL low CALCI UM S/P/B 7.3 (L) 8.5 - 10.1 MG/DL 08/10 6:49 AM [facility] Not Available Not Available 01/15/2025 11:48:07 08/10/20 24 08/10/2024 Basic metab olic 2000 panel - Serum or Plasm a anion gap in serum or plasma by calculation 4.6 text: 2 - 10 mmol/L ANION GAP 4.6 2 - 10 MMOL/ L 08/10 6:49 AM [facility] Not Available Not Available 01/15/2025 11:48:07 08/10/20 24 08/10/2024 Basic metab olic 2000 panel - Serum or Plasm a urea nitrogen/cre atinine [mass ratio] in serum or plasma 14.2 low: 6high: 26 BUN CREAT ININE RATIO 14.2 6 - 26 08/10 6:49 AM [facility] Not Available Not Available 01/15/2025 11:48:07 08/10/20 24 08/10/2024 Basic metab olic 2000 panel - Serum or Plasm a glomerular filtration rate [volume rate/area] in serum, plasma or blood by creatinine-b ased formula (CKD-epi 2020)/1.73 sq M 12 text: >90 mL/min /1.73 M2 low GFR ESTIM ATE 12 (L) >90 ML/IN N/1.7 3 M2 08/10 6:49 AM [facility] Not [facility] Not Available 01/15/2025 11:48:07 08/10/20 24 08/10/2024 Basic metab olic 2000 panel - Serum or Plasm a interpretati on and review of laboratory results Abnorm al Not Available Not Available 11:48:07 08/10/20 24 08/10/2024 CBC W Auto Diffe renti al panel - Blood leukocytes [#/volume] in blood by automated count 3.75 text: 4.5 - 11.0 x10'3/ uL low WBC 3.75 (L) 4.5 - 11.0 x10'3 /uL 08/10 6:[address] [facility] Not Available Not Available 01/15/2025 11:48:07 08/10/20 24 08/10/2024 CBC W Auto Diffe renti al panel - Blood erythrocytes [#/volume] in blood by automated count 2.58 text: 4.20 - 5.40 x10'6/ uL low RBC 2.58 (L) 4.20 - 5.40 x10'6 /uL 08/10 6:07 [address] [facility] [facility] Not Available Not Available 01/15/2025 11:48:07 08/10/20 24 08/10/2024 CBC W Auto Diffe renti al panel - Blood hemoglobin [mass/volume ] in blood 8.1 text: 12.0 - 16.0 g/dL low HGB 8.1 (L) 12.0 - 16.0 G/DL 08/10 6:07 AM [facility] Not Available Not Available 01/15/2025 11:48:07 08/10/20 24 08/10/2024 CBC W Auto Diffe renti al panel - Blood hematocrit [volume fraction] of blood by calculation 25 % low: 38%hig h: 48% low HCT 25.0 (L) 38.0 - 48.0 % 08/10 6:07 AM [facility] Not Available Not Available 01/15/2025 11:48:07 08/10/20 24 08/10/2024 CBC W Auto Diffe renti al panel - Blood MCV [entitic mean volume] in red blood cells 96.9 text: 81.0 - 99.0 fL MCV 96.9 81.0 - 99.0 FL 08/10 6:07 AM [facility] Not Available Not Available 01/15/2025 11:48:07 08/10/20 24 08/10/2024 CBC W Auto Diffe renti al panel - Blood MCH [entitic mass] 31.4 pg low: 27pghi gh: 31pg high MCH 31.4 (H) 27.0 - 31.0 PG 08/10 6:07 AM [facility] Not Available Not Available 01/15/2025 11:48:07 08/10/20 24 08/10/2024 CBC W Auto Diffe renti al panel - Blood MCHC [entitic mass/volume] in red blood cells 32.4 text: 32.0 - 36.0 g/dL MCHC 32.4 32.0 - 36.0 G/DL 08/10 6:07 AM [employer] [facility] Not Available Not Available 01/15/2025 11:48:07 08/10/20 24 08/10/2024 CBC W Auto Diffe renti al panel - Blood RDW 15.3 % low: 11.5%h igh: 14.5% high RDW 15.3 (H) 11.5 - 14.5 % 08/10 6:07 AM [facility] Not Available Not Available 01/15/2025 11:48:07 08/10/20 24 08/10/2024 CBC W Auto Diffe renti al panel - Blood platelets [#/volume] in blood 135 text: 130 - 400 x10'3/ uL PLT 135 130 - 400 x10'3 /uL 08/10 6:07 AM [facility] Not Available Not Available 01/15/2025 11:48:07 08/10/20 24 08/10/2024 CBC W Auto Diffe renti al panel - Blood platelet [entitic mean volume] in blood 10.2 text: 9.3 - 12.2 fL MPV 10.2 9.3 - 12.2 FL 08/10 6:07 AM [facility] Not Available Not Available 01/15/2025 11:48:07 08/10/20 24 08/10/2024 CBC W Auto Diffe renti al panel - Blood differential cell count method - blood AUTOMA TEDDY DIFFER ENTIAL DIFFE RENTI AL TYPE AUTOM ATED DIFFE RENTI AL 08/10 6:07 AM [facility] Not Available Not Available 01/15/2025 11:48:07 08/10/20 24 08/10/2024 CBC W Auto Diffe renti al panel - Blood neutrophils/ leukocytes in blood by automated count 49.5 % NEUTR OPHIL S % 49.5 % 08/10 6:07 AM [facility] Not Available Not Available 01/15/2025 11:48:07 08/10/20 24 08/10/2024 CBC W Auto Diffe renti al panel - Blood lymphocytes/ leukocytes in blood by automated count 17.9 % LYMPH OCYTE S % 17.9 % 08/10 6:07 AM [facility] Not Available Not Available 01/15/2025 11:48:07 08/10/20 24 08/10/2024 CBC W Auto Diffe renti al panel - Blood monocytes/le ukocytes in blood by automated count 24 % MONOC YTES % 24.0 % 08/10 6:07 AM [facility] Not Available Not Available 01/15/2025 11:48:07 08/10/20 24 08/10/2024 CBC W Auto Diffe renti al panel - Blood eosinophils/ leukocytes in blood by automated count 6.7 % EOSIN OPHIL S 6.7 % 08/10 6:07 AM [facility] Not Available Not Available 01/15/2025 11:48:07 08/10/20 24 08/10/2024 CBC W Auto Diffe renti al panel - Blood basophils/le ukocytes in blood by automated count 0.3 % BASOP HILS 0.3 % 08/10 6:07 AM [facility] Not Available Not Available 01/15/2025 11:48:07 08/10/20 24 08/10/2024 CBC W Auto Diffe renti al panel - Blood immature granulocytes /leukocytes in blood by automated count 1.6 % IMMAT URE GRANS % 1.6 % 08/10 6:07 AM [facility] Not Available Not Available 01/15/2025 11:48:07 08/10/20 24 08/10/2024 CBC W Auto Diffe renti al panel - Blood neutrophils [#/volume] in blood 1.86 text: 1.80 - 7.70 x10'3/ uL ABS. NEUTR OPHIL S 1.86 1.80 - 7.70 x10'3 /uL 08/10 6:07 AM [facility] Not Available Not Available 01/15/2025 11:48:07 08/10/20 24 08/10/2024 CBC W Auto Diffe renti al panel - Blood lymphocytes [#/volume] in blood 0.67 text: 1.00 - 4.80 x10'3/ uL low ABS. LYMPH OCYTE S 0.67 (L) 1.00 - 4.80 x10'3 /uL 08/10 6:07 AM [facility] Not Available Not Available 01/15/2025 11:48:07 08/10/20 24 08/10/2024 CBC W Auto Diffe renti al panel - Blood monocytes [#/volume] in blood 0.9 text: 0.24 - 0.86 x10'3/ uL high ABS. MONOC YTES 0.90 (H) 0.24 - 0.86 x10'3 /uL 08/10 6:07 AM [facility] Not Available Not Available 01/15/2025 11:48:07 08/10/20 24 08/10/2024 CBC W Auto Diffe renti al panel - Blood eosinophils [#/volume] in blood 0.25 text: 0.04 - 0.36 x10'3/ uL ABS. EOSIN OPHIL S 0.25 0.04 - 0.36 x10'3 /uL 08/10 6:07 AM [facility] Not Available Not Available 01/15/2025 11:48:07 08/10/20 24 08/10/2024 CBC W Auto Diffe renti al panel - Blood basophils [#/volume] in blood 0.01 text: 0.01 - 0.08 x10'3/ uL ABS. BASOP HILS 0.01 0.01 - 0.08 x10'3 /uL 08/10 6:07 AM [facility] Not Available Not Available 01/15/2025 11:48:07 08/10/20 24 08/10/2024 CBC W Auto Diffe renti al panel - Blood immature granulocytes [#/volume] in blood 0.06 text: 0.00 - 0.49 x10'3/ uL ABS. IMMAT URE GRANU LOCYT ES 0.06 0.00 - 0.49 x10'3 /uL 08/10 6:07 AM [facility] Not Available Not Available 01/15/2025 11:48:07 08/10/20 24 08/10/2024 CBC W Auto Diffe renti al panel - Blood interpretati on and review of laboratory results Abnorm al Not Available Not Available 11:48:07 08/11/20 24 08/11/2024 Magne sium [Mass /volu me] in Serum or Plasm a magnesium [mass/volume ] in serum or plasma 2.4 text: 1.8 - 2.4 mg/dL MAGNE SIUM 2.4 1.8 - 2.4 MG/DL 08/11 5:06 AM [facility] Not Available Not Available 01/15/2025 11:48:08 08/11/20 24 08/11/2024 Basic metab olic 1999 panel - Serum or Plasm a glucose [mass/volume ] in serum or plasma 91 text: 70 - 99 mg/dL GLUCO SE 91 70 - 99 MG/DL 08/11 5:06 AM [facility] Not Available Not Available 01/15/2025 11:48:08 08/11/20 24 08/11/2024 Basic metab olic 1999 panel - Serum or Plasm a urea nitrogen [mass/volume ] in serum or plasma 41 text: 7 - 18 mg/dL high BUN 41 (H) 7 - 18 MG/DL 08/11 5:06 AM [facility] Not Available Not Available 01/15/2025 11:48:08 08/11/20 24 08/11/2024 Basic metab olic 1999 panel - Serum or Plasm a creatinine [mass/volume ] in serum or plasma 3.2 text: 0.55 - 1.02 mg/dL high CREAT ININE S/P/B 3.20 (H) 0.55 - 1.02 MG/DL 08/11 5:06 AM [facility] Not Available Not Available 01/15/2025 11:48:08 08/11/20 24 08/11/2024 Basic metab olic 2000 panel - Serum or Plasm a sodium [moles/volum e] in serum or plasma 145 text: 136 - 145 mmol/L SODIU M S/P/B 145 136 - 145 MMOL/ L 08/11 5:06 AM [facility] Not Available Not Available 01/15/2025 11:48:08 08/11/20 24 08/11/2024 Basic metab olic 2000 panel - Serum or Plasm a potassium [moles/volum e] in serum or plasma 4 text: 3.5 - 5.1 mmol/L POTAS SIUM S/P/B 4.0 3.5 - 5.1 MMOL/ L 08/11 5:06 AM [facility] Not Available Not Available 01/15/2025 11:48:08 08/11/20 24 08/11/2024 Basic metab olic 1999 panel - Serum or Plasm a chloride [moles/volum e] in serum or plasma 117 text: 97 - 115 mmol/L high CHLOR JOSE S/P/B 117 (H) 97 - 115 MMOL/ L 08/11 5:06 AM [facility] Not Available Not Available 01/15/2025 11:48:08 08/11/20 24 08/11/2024 Basic metab olic 2000 panel - Serum or Plasm a carbon dioxide, total [moles/volum e] in serum or plasma 21.3 text: 21 - 32 mmol/L CO2 21.3 21 - 32 MMOL/ L 08/11 5:06 AM [facility] Not Available Not Available 01/15/2025 11:48:08 08/11/20 24 08/11/2024 Basic metab olic 2000 panel - Serum or Plasm a calcium [mass/volume ] in serum or plasma 7.7 text: 8.5 - 10.1 mg/dL low CALCI UM S/P/B 7.7 (L) 8.5 - 10.1 MG/DL 08/11 5:06 AM [facility] Not Available Not Available 01/15/2025 11:48:08 08/11/20 24 08/11/2024 Basic metab olic 2000 panel - Serum or Plasm a anion gap in serum or plasma by calculation 6.7 text: 2 - 10 mmol/L ANION GAP 6.7 2 - 10 MMOL/ L 08/11 5:06 AM [facility] Not Available Not Available 01/15/2025 11:48:08 08/11/20 24 08/11/2024 Basic metab olic 2000 panel - Serum or Plasm a urea nitrogen/cre atinine [mass ratio] in serum or plasma 12.8 low: 6high: 26 BUN CREAT ININE RATIO 12.8 6 - 26 08/11 5:06 AM [facility] Not Available Not Available 01/15/2025 11:48:08 08/11/20 24 08/11/2024 Basic metab olic 2000 panel - Serum or Plasm a glomerular filtration rate [volume rate/area] in serum, plasma or blood by creatinine-b ased formula (CKD-epi 2020)/1.73 sq M 14 text: >90 mL/min /1.73 M2 low GFR ESTIM ATE 14 (L) >90 ML/IN N/1.7 3 M2 08/11 5:06 AM [facility] Not Available Not Available 01/15/2025 11:48:08 08/11/20 24 08/11/2024 Basic metab olic 2000 panel - Serum or Plasm a interpretati on and review of laboratory results Abnorm al Not Available Not Available 11:48:08 08/11/20 24 08/11/2024 CBC W Auto Diffe renti al panel - Blood leukocytes [#/volume] in blood by automated count 4.79 text: 4.5 - 11.0 x10'3/ uL WBC 4.79 4.5 - 11.0 x10'3 /uL 08/11 4:45 AM [facility] Not Available Not Available 01/15/2025 11:48:08 08/11/20 24 08/11/2024 CBC W Auto Diffe renti al panel - Blood erythrocytes [#/volume] in blood by automated count 2.48 text: 4.20 - 5.40 x10'6/ uL low RBC 2.48 (L) 4.20 - 5.40 x10'6 /uL 08/11 4:45 AM [facility] Not Available Not Available 01/15/2025 11:48:08 08/11/20 24 08/11/2024 CBC W Auto Diffe renti al panel - Blood hemoglobin [mass/volume ] in blood 7.6 text: 12.0 - 16.0 g/dL low HGB 7.6 (L) 12.0 - 16.0 G/DL 08/11 4:45 AM [facility] Not Available Not Available 01/15/2025 11:48:08 08/11/20 24 08/11/2024 CBC W Auto Diffe renti al panel - Blood hematocrit [volume fraction] of blood by calculation 24.7 % low: 38%hig h: 48% low HCT 24.7 (L) 38.0 - 48.0 % 08/11 4:45 AM [facility] Not Available Not Available 01/15/2025 11:48:08 08/11/20 24 08/11/2024 CBC W Auto Diffe renti al panel - Blood MCV [entitic mean volume] in red blood cells 99.6 text: 81.0 - 99.0 fL high MCV 99.6 (H) 81.0 - 99.0 FL 08/11 4:45 AM [facility] Not Available Not Available 01/15/2025 11:48:08 08/11/20 24 08/11/2024 CBC W Auto Diffe renti al panel - Blood MCH [entitic mass] 30.6 pg low: 27pghi gh: 31pg MCH 30.6 27.0 - 31.0 PG 08/11 4:45 AM [facility] Not Available Not Available 01/15/2025 11:48:08 08/11/20 24 08/11/2024 CBC W Auto Diffe renti al panel - Blood MCHC [entitic mass/volume] in red blood cells 30.8 text: 32.0 - 36.0 g/dL low MCHC 30.8 (L) 32.0 - 36.0 G/DL 08/11 4:45 AM [facility] Not Available Not Available 01/15/2025 11:48:08 08/11/20 24 08/11/2024 CBC W Auto Diffe renti al panel - Blood RDW 15.3 % low: 11.5%h igh: 14.5% high RDW 15.3 (H) 11.5 - 14.5 % 08/11 4:45 AM [facility] Not Available Not Available 01/15/2025 11:48:08 08/11/20 24 08/11/2024 CBC W Auto Diffe renti al panel - Blood platelets [#/volume] in blood 159 text: 130 - 400 x10'3/ uL PLT 159 130 - 400 x10'3 /uL 08/11 4:45 AM [facility] Not Available Not Available 01/15/2025 11:48:08 08/11/20 24 08/11/2024 CBC W Auto Diffe renti al panel - Blood platelet [entitic mean volume] in blood 10.6 text: 9.3 - 12.2 fL MPV 10.6 9.3 - 12.2 FL 08/11 4:45 AM [facility] Not Available Not Available 01/15/2025 11:48:08 08/11/20 24 08/11/2024 CBC W Auto Diffe renti al panel - Blood differential cell count method - blood AUTOMA TEDDY DIFFER ENTIAL DIFFE RENTI AL TYPE AUTOM ATED DIFFE RENTI AL 08/11 4:45 AM [facility] Not Available Not Available 01/15/2025 11:48:08 08/11/20 24 08/11/2024 CBC W Auto Diffe renti al panel - Blood neutrophils/ leukocytes in blood by automated count 58.7 % NEUTR OPHIL S % 58.7 % 08/11 4:45 AM [facility] Not Available Not Available 01/15/2025 11:48:08 08/11/20 24 08/11/2024 CBC W Auto Diffe renti al panel - Blood lymphocytes/ leukocytes in blood by automated count 15.4 % LYMPH OCYTE S % 15.4 % 08/11 4:45 AM [facility] Not Available Not Available 01/15/2025 11:48:08 08/11/20 24 08/11/2024 CBC W Auto Diffe renti al panel - Blood monocytes/le ukocytes in blood by automated count 17.5 % MONOC YTES % 17.5 % 08/11 4:45 AM [facility] Not Available Not Available 01/15/2025 11:48:08 08/11/20 24 08/11/2024 CBC W Auto Diffe renti al panel - Blood eosinophils/ leukocytes in blood by automated count 6.1 % EOSIN OPHIL S 6.1 % 08/11 4:45 AM [facility] Not Available Not Available 01/15/2025 11:48:08 08/11/20 24 08/11/2024 CBC W Auto Diffe renti al panel - Blood basophils/le ukocytes in blood by automated count 0.4 % BASOP HILS 0.4 % 08/11 4:45 AM [facility] Not Available Not Available 01/15/2025 11:48:08 08/11/20 24 08/11/2024 CBC W Auto Diffe renti al panel - Blood immature granulocytes /leukocytes in blood by automated count 1.9 % IMMAT URE GRANS % 1.9 % 08/11 4:45 AM [facility] Not Available Not Available 01/15/2025 11:48:08 08/11/20 24 08/11/2024 CBC W Auto Diffe renti al panel - Blood neutrophils [#/volume] in blood 2.81 text: 1.80 - 7.70 x10'3/ uL ABS. NEUTR OPHIL S 2.81 1.80 - 7.70 x10'3 /uL 08/11 4:45 AM [facility] Not Available Not Available 01/15/2025 11:48:08 08/11/20 24 08/11/2024 CBC W Auto Diffe renti al panel - Blood lymphocytes [#/volume] in blood 0.74 text: 1.00 - 4.80 x10'3/ uL low ABS. LYMPH OCYTE S 0.74 (L) 1.00 - 4.80 x10'3 /uL 08/11 4:45 AM [facility] Not Available Not Available 01/15/2025 11:48:08 08/11/20 24 08/11/2024 CBC W Auto Diffe renti al panel - Blood monocytes [#/volume] in blood 0.84 text: 0.24 - 0.86 x10'3/ uL ABS. MONOC YTES 0.84 0.24 - 0.86 x10'3 /uL 08/11 4:45 AM [facility] Not Available Not Available 01/15/2025 11:48:08 08/11/20 24 08/11/2024 CBC W Auto Diffe renti al panel - Blood eosinophils [#/volume] in blood 0.29 text: 0.04 - 0.36 x10'3/ uL ABS. EOSIN OPHIL S 0.29 0.04 - 0.36 x10'3 /uL 08/11 4:45 AM [facility] Not Available Not Available 01/15/2025 11:48:08 08/11/20 24 08/11/2024 CBC W Auto Diffe renti al panel - Blood basophils [#/volume] in blood 0.02 text: 0.01 - 0.08 x10'3/ uL ABS. BASOP HILS 0.02 0.01 - 0.08 x10'3 /uL 08/11 4:45 AM [facility] Not Available Not Available 01/15/2025 11:48:08 08/11/20 24 08/11/2024 CBC W Auto Diffe renti al panel - Blood immature granulocytes [#/volume] in blood 0.09 text: 0.00 - 0.49 x10'3/ uL ABS. IMMAT URE GRANU LOCYT ES 0.09 0.00 - 0.49 x10'3 /uL 08/11 4:45 AM [facility] Not Available Not Available 01/15/2025 11:48:08 08/11/20 24 08/11/2024 CBC W Auto Diffe renti al panel - Blood interpretati on and review of laboratory results Abnorm al Not Available Not Available 11:48:08 10/13/19 25 10/13/2024 Prote in [Mass /volu me] in Urine protein [mass/volume ] in urine 220.4 text: <10 mg/dL high PROTE IN URINE TOTAL RANDO M 220.4 (H) <10 MG/DL 10/13 2:35 PM [employer] [facility] Not Available Not Available 01/15/2025 11:48:45 10/13/19 25 10/13/2024 Prote in [Mass /volu me] in Urine interpretati on and review of laboratory results Abnorm al Not Available Not Available 11:48:45 10/13/19 25 10/13/2024 ALBUM IN URINE RANDO M creatinine [mass/volume ] in urine 69 text: 28 - 217 mg/dL CREAT ININE (U) 69.0 28 - 217 MG/DL 10/13 2:35 PM [employer] [facility] Not Available Not Available 01/15/2025 11:48:45 10/13/19 25 10/13/2024 ALBUM IN URINE RANDO M microalbumin [mass/volume ] in urine 199 mg/dL high: 2mg/dL high MICRO ALBUM IN (U) 199.0 (H) <2.0 mg/dL 10/13 2:35 PM [facility] Not Available Not Available 01/15/2025 11:48:45 10/13/19 25 10/13/2024 ALBUM IN URINE [place] M microalbumin /creatinine [mass ratio] in urine 2884.1 mg/g high: 30mg/g high ALBUM IN/CR EAT RATIO 2,884 .1 (H) <30 MG/G 10/13 2:35 PM [facility] Not Available Not Available 01/15/2025 11:48:45 10/13/19 25 10/13/2024 ALBUM IN URINE RANDO M interpretati on and review of laboratory results Abnorm al Not Available Not Available 11:48:45 10/13/19 25 10/13/2024 Urate [Mass /volu me] in Serum or Plasm a urate [mass/volume ] in serum or plasma 6.1 text: 2.6 - 6.0 mg/dL high URIC ACID 6.1 (H) 2.6 - 6.0 MG/DL 10/13 2:08 PM [facility] Not Available Not Available 01/15/2025 11:48:45 10/13/19 25 10/13/2024 Urate [Mass /volu me] in Serum or Plasm a interpretati on and review of laboratory results Abnorm al Not Available Not Available 11:48:45 10/13/19 25 10/13/2024 CBC panel - Blood by Autom ated count leukocytes [#/volume] in blood by automated count 3.92 text: 4.5 - 11.0 x10'3/ uL low WBC 3.92 (L) 4.5 - 11.0 x10'3 /uL 10/13 1:48 PM [facility] Not Available Not Available 01/15/2025 11:48:45 10/13/19 25 10/13/2024 CBC panel - Blood by Autom ated count erythrocytes [#/volume] in blood by automated count 3.14 text: 4.20 - 5.40 x10'6/ uL low RBC 3.14 (L) 4.20 - 5.40 x10'6 /uL 10/13 1:48 PM [facility] Not Available Not Available 01/15/2025 11:48:45 10/13/19 25 10/13/2024 CBC panel - Blood by Autom ated count hemoglobin [mass/volume ] in blood 9.3 text: 12.0 - 16.0 g/dL low HGB 9.3 (L) 12.0 - 16.0 G/DL 10/13 1:48 PM [employer] [facility] Not Available Not Available 01/15/2025 11:48:45 10/13/1910/13/2024 CBC panel - Blood by Autom ated count hematocrit [volume fraction] of blood by calculation 31 % low: 38%hig h: 48% low HCT 31.0 (L) 38.0 - 48.0 % 10/13 1:48 PM [facility] Not Available Not Available 01/15/2025 11:48:45 10/13/1910/13/2024 CBC panel - Blood by Autom ated count MCV [entitic mean volume] in red blood cells 98.7 text: 81.0 - 99.0 fL MCV 98.7 81.0 - 99.0 FL 10/13 1:48 PM [employer] [facility] Not Available Not Available 01/15/2025 11:48:45 10/13/1910/13/2024 CBC panel - Blood by Autom ated count MCH [entitic mass] 29.6 pg low: 27pghi gh: 31pg MCH 29.6 27.0 - 31.0 PG 10/13 1:48 PM [facility] Not Available Not Available 01/15/2025 11:48:45 10/13/19 25 10/13/2024 CBC panel - Blood by Autom ated count MCHC [entitic mass/volume] in red blood cells 30 text: 32.0 - 36.0 g/dL low MCHC 30.0 (L) 32.0 - 36.0 G/DL 10/13 1:48 PM [facility] Not Available Not Available 01/15/2025 11:48:45 10/13/19 25 10/13/2024 CBC panel - Blood by Autom ated count RDW 15 % low: 11.5%h igh: 14.5% high RDW 15.0 (H) 11.5 - 14.5 % 10/13 1:48 PM [facility] Not Available Not Available 01/15/2025 11:48:45 10/13/19 25 10/13/2024 CBC panel - Blood by Autom ated count platelets [#/volume] in blood 217 text: 130 - 400 x10'3/ uL PLT 217 130 - 400 x10'3 /uL 10/13 1:48 PM [facility] Not Available Not Available 01/15/2025 11:48:45 10/13/19 25 10/13/2024 CBC panel - Blood by Autom ated count platelet [entitic mean volume] in blood 8.6 text: 9.3 - 12.2 fL low MPV 8.6 (L) 9.3 - 12.2 FL 10/13 1:48 PM [facility] Not Available Not Available 01/15/2025 11:48:45 10/13/19 25 10/13/2024 CBC panel - Blood by Autom ated count interpretati on and review of laboratory results Abnorm al Not Available Not Available 11:48:45 10/13/19 25 10/13/2024 Basic metab olic 2000 panel - Serum or Plasm a glucose [mass/volume ] in serum or plasma 109 text: 70 - 99 mg/dL high GLUCO SE 109 (H) 70 - 99 MG/DL 10/13 2:08 PM [facility] Not Available Not Available 01/15/2025 11:48:45 10/13/19 25 10/13/2024 Basic metab olic 2000 panel - Serum or Plasm a urea nitrogen [mass/volume ] in serum or plasma 37 text: 7 - 18 mg/dL high BUN 37 (H) 7 - 18 MG/DL 10/13 2:08 PM [facility] Not Available Not Available 01/15/2025 11:48:45 10/13/19 25 10/13/2024 Basic metab olic 2000 panel - Serum or Plasm a creatinine [mass/volume ] in serum or plasma 3.58 text: 0.55 - 1.02 mg/dL high CREAT ININE S/P/B 3.58 (H) 0.55 - 1.02 MG/DL 10/13 2:08 PM [facility] Not Available Not Available 01/15/2025 11:48:45 10/13/19 25 10/13/2024 Basic metab olic 1999 panel - Serum or Plasm a sodium [moles/volum e] in serum or plasma 139 text: 136 - 145 mmol/L SODIU M S/P/B 139 136 - 145 MMOL/ L 10/13 2:08 PM [facility] Not Available Not Available 01/15/2025 11:48:45 10/13/19 25 10/13/2024 Basic metab olic 2000 panel - Serum or Plasm a potassium [moles/volum e] in serum or plasma 3.9 text: 3.5 - 5.1 mmol/L POTAS SIUM S/P/B 3.9 3.5 - 5.1 MMOL/ L 10/13 2:08 PM [facility] Not Available Not Available 01/15/2025 11:48:45 10/13/19 25 10/13/2024 Basic metab olic 1999 panel - Serum or Plasm a chloride [moles/volum e] in serum or plasma 107 text: 97 - 115 mmol/L CHLOR JOSE S/P/B 107 97 - 115 MMOL/ L 10/13 2:08 PM [facility] Not Available Not Available 01/15/2025 11:48:45 10/13/19 25 10/13/2024 Basic metab olic 1999 panel - Serum or Plasm a carbon dioxide, total [moles/volum e] in serum or plasma 27.6 text: 21 - 32 mmol/L CO2 27.6 21 - 32 MMOL/ L 10/13 2:08 PM [facility] Not Available Not Available 01/15/2025 11:48:45 10/13/19 25 10/13/2024 Basic metab olic 1999 panel - Serum or Plasm a calcium [mass/volume ] in serum or plasma 9 text: 8.5 - 10.1 mg/dL CALCI UM S/P/B 9.0 8.5 - 10.1 MG/DL 10/13 2:08 PM [facility] Not Available Not Available 01/15/2025 11:48:45 10/13/19 25 10/13/2024 Basic metab olic 1999 panel - Serum or Plasm a anion gap in serum or plasma by calculation 4.4 text: 2 - 10 mmol/L ANION GAP 4.4 2 - 10 MMOL/ L 10/13 2:08 PM [facility] Not Available Not Available 01/15/2025 11:48:45 10/13/19 25 10/13/2024 Basic metab olic 2000 panel - Serum or Plasm a urea nitrogen/cre atinine [mass ratio] in serum or plasma 10.3 low: 6high: 26 BUN CREAT ININE RATIO 10.3 6 - 26 10/13 2:08 PM [facility] Not Available Not Available 01/15/2025 11:48:45 10/13/19 25 10/13/2024 Basic metab olic 2000 panel - Serum or Plasm a glomerular filtration rate [volume rate/area] in serum, plasma or blood by creatinine-b ased formula (CKD-epi 2020)/1.73 sq M 12 text: >90 mL/min /1.73 M2 low GFR ESTIM ATE 12 (L) >90 ML/IN N/1.7 3 M2 10/13 2:08 PM [employer] [facility] Not Available Not Available 01/15/2025 11:48:45 10/13/19 25 10/13/2024 Basic metab olic 2000 panel - Serum or Plasm a interpretati on and review of laboratory results Abnorm al Not Available Not Available 11:48:45 11/28/19 25 11/27/2024 Compr ehens liz metab olic 2000 panel - Serum or Plasm a glucose [mass/volume ] in serum or plasma 145 text: 70 - 99 mg/dL high GLUCO SE 145 (H) 70 - 99 MG/DL 11/27 12:42 PM CDT [facility] Not Available Not Available 01/15/2025 11:58:02 11/28/19 25 11/27/2024 Compr ehens liz metab olic 2000 panel - Serum or Plasm a urea nitrogen [mass/volume ] in serum or plasma 39 text: 7 - 18 mg/dL high BUN 39 (H) 7 - 18 MG/DL 11/27 12:42 PM CDT [facility] Not Available Not Available 01/15/2025 11:58:02 11/28/19 25 11/27/2024 Compr ehens liz metab olic 2000 panel - Serum or Plasm a creatinine [mass/volume ] in serum or plasma 4.03 text: 0.55 - 1.02 mg/dL high CREAT ININE S/P/B 4.03 (H) 0.55 - 1.02 MG/DL 11/27 12:42 PM CDT [facility] Not Available Not Available 01/15/2025 11:58:02 11/28/19 25 11/27/2024 Compr ehens liz metab olic 2000 panel - Serum or Plasm a sodium [moles/volum e] in serum or plasma 140 text: 136 - 145 mmol/L SODIU M S/P/B 140 136 - 145 MMOL/ L 11/27 12:42 PM CDT [facility] Not Available Not Available 01/15/2025 11:58:02 11/28/19 25 11/27/2024 Compr ehens liz metab olic 1999 panel - Serum or Plasm a potassium [moles/volum e] in serum or plasma 4 text: 3.5 - 5.1 mmol/L POTAS SIUM S/P/B 4.0 3.5 - 5.1 MMOL/ L 11/27 12:[address] [facility] Not Available Not Available 01/15/2025 11:58:02 11/28/19 25 11/27/2024 Compr ehens liz metab olic 1999 panel - Serum or Plasm a chloride [moles/volum e] in serum or plasma 105 text: 97 - 115 mmol/L CHLOR JOSE S/P/B 105 97 - 115 MMOL/ L 11/27 12:42 PM CDT [facility] Not Available Not Available 01/15/2025 11:58:02 11/28/19 25 11/27/2024 Compr ehens liz metab olic 2000 panel - Serum or Plasm a carbon dioxide, total [moles/volum e] in serum or plasma 27.3 text: 21 - 32 mmol/L CO2 27.3 21 - 32 MMOL/ L 11/27 12:[address] [facility] Not Available Not Available 01/15/2025 11:58:02 11/28/19 25 11/27/2024 Compr ehens liz metab olic 1999 panel - Serum or Plasm a calcium [mass/volume ] in serum or plasma 9.7 text: 8.5 - 10.1 mg/dL CALCI UM S/P/B 9.7 8.5 - 10.1 MG/DL 11/27 12:[address] [facility] Not Available Not Available 01/15/2025 11:58:02 11/28/19 25 11/27/2024 Compr ehens liz metab olic 2000 panel - Serum or Plasm a bilirubin.to tim [mass/volume ] in serum or plasma 0.5 text: 0.2 - 1.2 mg/dL BILIR UBIN TOTAL S/P/B 0.5 0.2 - 1.2 MG/DL 11/27 12:42 PM CDT [facility] Not Available Not Available 01/15/2025 11:58:02 11/28/19 25 11/27/2024 Compr ehens liz metab olic 1999 panel - Serum or Plasm a protein [mass/volume ] in serum or plasma 6.4 text: 6.4 - 8.2 g/dL TOTAL PROTE IN S/P/B 6.4 6.4 - 8.2 G/DL 11/27 12:42 PM CDT [facility] Not Available Not Available 01/15/2025 11:58:02 11/28/19 25 11/27/2024 Compr ehens liz metab olic 2000 panel - Serum or Plasm a albumin [mass/volume ] in serum or plasma 2.9 text: 3.4 - 5.0 g/dL low ALBUM IN S/P/B 2.9 (L) 3.4 - 5.0 G/DL 11/27 12:42 PM CDT [facility] Not Available Not Available 01/15/2025 11:58:02 11/28/19 25 11/27/2024 Compr ehens liz metab olic 2000 panel - Serum or Plasm a aspartate aminotransfe rase [enzymatic activity/vol ume] in serum or plasma 18 U/L low: 15U/Lh igh: 37U/L AST 18 15 - 37 U/L 11/27 12:42 PM CDT [facility] Not Available Not Available 01/15/2025 11:58:02 11/28/19 25 11/27/2024 Compr ehens liz metab olic 2000 panel - Serum or Plasm a alanine aminotransfe rase [enzymatic activity/vol ume] in serum or plasma 13 U/L low: 14U/Lh igh: 55U/L low ALT 13 (L) 14 - 55 U/L 11/27 12:42 PM CDT [facility] Not Available Not Available 01/15/2025 11:58:02 11/28/19 25 11/27/2024 Compr ehens liz metab olic 1999 panel - Serum or Plasm a alkaline phosphatase [enzymatic activity/vol ume] in serum or plasma 70 U/L low: 50U/Lh igh: 136U/L ALKAL INE PHOSP HATAS E S/P/B 70 50 - 136 U/L 11/27 12:42 PM CDT [facility] Not Available Not Available 01/15/2025 11:58:02 11/28/19 25 11/27/2024 Compr ehens liz metab olic 1999 panel - Serum or Plasm a anion gap in serum or plasma by calculation 7.7 text: 2 - 10 mmol/L ANION GAP 7.7 2 - 10 MMOL/ L 11/27 12:42 PM CDT [facility] Not Available Not Available 01/15/2025 11:58:02 11/28/19 25 11/27/2024 Compr ehens liz metab olic 1999 panel - Serum or Plasm a urea nitrogen/cre atinine [mass ratio] in serum or plasma 9.7 low: 6high: 26 BUN CREAT ININE RATIO 9.7 6 - 26 11/27 12:42 PM CDT [facility] Not Available Not Available 01/15/2025 11:58:02 11/28/19 25 11/27/2024 Compr ehens liz metab olic 1999 panel - Serum or Plasm a albumin/glob ulin [mass ratio] in serum or plasma 0.8 text: 1.0 - 2.0 ratio low A/G RATIO 0.8 (L) 1.0 - 2.0 RATIO 11/27 12:42 PM CDT [facility] Not Available Not Available 01/15/2025 11:58:02 11/28/19 25 11/27/2024 Compr ehens liz metab olic 2000 panel - Serum or Plasm a glomerular filtration rate [volume rate/area] in serum, plasma or blood by creatinine-b ased formula (CKD-epi 2020)/1.73 sq M 10 text: >90 mL/min /1.73 M2 low GFR ESTIM ATE 10 (L) >90 ML/IN N/1.7 3 M2 11/27 12:42 PM CDT [facility] Not Available Not Available 01/15/2025 11:58:02 11/28/1911/27/2024 Compr ehens liz metab olic 2000 panel - Serum or Plasm a interpretati on and review of laboratory results Abnorm al Not Available Not Available 11:58:02 12/06/1912/05/2024 Magne sium [Mass /volu me] in Serum or Plasm a magnesium [mass/volume ] in serum or plasma 2.2 text: 1.8 - 2.4 mg/dL MAGNE SIUM 2.2 1.8 - 2.4 MG/DL 12/05 5:22 AM CDT [facility] Not Available Not Available 01/15/2025 11:52:49 12/06/1912/05/2024 Phosp hate [Mass /volu me] in Serum or Plasm a phosphate [mass/volume ] in serum or plasma 4.1 text: 2.5 - 4.9 mg/dL PHOSP HORUS 4.1 2.5 - 4.9 MG/DL 12/05 5:22 AM CDT [facility] Not Available Not Available 01/15/2025 11:52:49 12/06/1912/05/2024 Urate [Mass /volu me] in Serum or Plasm a urate [mass/volume ] in serum or plasma 7.4 text: 2.6 - 6.0 mg/dL high URIC ACID 7.4 (H) 2.6 - 6.0 MG/DL 12/05 5:22 AM CDT [facility] Not Available Not Available 01/15/2025 11:52:49 12/06/1912/05/2024 Urate [Mass /volu me] in Serum or Plasm a interpretati on and review of laboratory results Abnorm al Not Available Not Available 11:52:49 12/06/1912/05/2024 CBC W Auto Diffe renti al panel - Blood leukocytes [#/volume] in blood by automated count 6.68 text: 4.5 - 11.0 x10'3/ uL WBC 6.68 4.5 - 11.0 x10'3 /uL 12/05 5:02 AM CDT [facility] Not Available Not Available 01/15/2025 11:52:49 12/06/1912/05/2024 CBC W Auto Diffe renti al panel - Blood erythrocytes [#/volume] in blood by automated count 2.69 text: 4.20 - 5.40 x10'6/ uL low RBC 2.69 (L) 4.20 - 5.40 x10'6 /uL 12/05 5:02 AM CDT [facility] Not Available Not Available 01/15/2025 11:52:49 12/06/1912/05/2024 CBC W Auto Diffe renti al panel - Blood hemoglobin [mass/volume ] in blood 7.7 text: 12.0 - 16.0 g/dL low HGB 7.7 (L) 12.0 - 16.0 G/DL 12/05 5:02 AM CDT [facility] Not Available Not Available 01/15/2025 11:52:49 12/06/1912/05/2024 CBC W Auto Diffe renti al panel - Blood hematocrit [volume fraction] of blood by calculation 25.1 % low: 38%hig h: 48% low HCT 25.1 (L) 38.0 - 48.0 % 12/05 5:02 AM CDT [facility] Not Available Not Available 01/15/2025 11:52:49 12/06/1912/05/2024 CBC W Auto Diffe renti al panel - Blood MCV [entitic mean volume] in red blood cells 93.3 text: 81.0 - 99.0 fL MCV 93.3 81.0 - 99.0 FL 03/25 /2025 5:02 AM CDT [facility] Not Available Not Available 01/15/2025 11:52:49 12/06/1912/05/2024 CBC W Auto Diffe renti al panel - Blood MCH [entitic mass] 28.6 pg low: 27pghi gh: 31pg MCH 28.6 27.0 - 31.0 PG 12/05 5:02 AM CDT [facility] Not Available Not Available 01/15/2025 11:52:49 12/06/1912/05/2024 CBC W Auto Diffe renti al panel - Blood MCHC [entitic mass/volume] in red blood cells 30.7 text: 32.0 - 36.0 g/dL low MCHC 30.7 (L) 32.0 - 36.0 G/DL 12/05 5:02 AM CDT [facility] Not Available Not Available 01/15/2025 11:52:49 12/06/1912/05/2024 CBC W Auto Diffe renti al panel - Blood RDW 14.9 % low: 11.5%h igh: 14.5% high RDW 14.9 (H) 11.5 - 14.5 % 12/05 5:02 AM T [facility] Not Available Not Available 01/15/2025 11:52:49 12/06/1912/05/2024 CBC W Auto Diffe renti al panel - Blood platelets [#/volume] in blood 165 text: 130 - 400 x10'3/ uL PLT 165 130 - 400 x10'3 /uL 12/05 5:02 AM CDT [facility] Not Available Not Available 01/15/2025 11:52:49 12/06/1912/05/2024 CBC W Auto Diffe renti al panel - Blood platelet [entitic mean volume] in blood 8.8 text: 9.3 - 12.2 fL low MPV 8.8 (L) 9.3 - 12.2 FL 12/05 5:02 AM CDT [facility] Not Available Not Available 01/15/2025 11:52:49 12/06/1912/05/2024 CBC W Auto Diffe renti al panel - Blood differential cell count method - blood AUTOMA TEDDY DIFFER ENTIAL DIFFE RENTI AL TYPE AUTOM ATED DIFFE RENTI AL 12/05 5:02 AM CDT [facility] Not Available Not Available 01/15/2025 11:52:49 12/06/1912/05/2024 CBC W Auto Diffe renti al panel - Blood neutrophils/ leukocytes in blood by automated count 82 % NEUTR OPHIL S % 82.0 % 12/05 5:02 AM CDT [facility] Not Available Not Available 01/15/2025 11:52:49 12/06/1912/05/2024 CBC W Auto Diffe renti al panel - Blood lymphocytes/ leukocytes in blood by automated count 12.1 % LYMPH OCYTE S % 12.1 % 12/05 5:02 AM CDT [facility] Not Available Not Available 01/15/2025 11:52:49 12/06/1912/05/2024 CBC W Auto Diffe renti al panel - Blood monocytes/le ukocytes in blood by automated count 4 % MONOC YTES % 4.0 % 12/05 5:02 AM CDT [facility] Not Available Not Available 01/15/2025 11:52:49 12/06/1912/05/2024 CBC W Auto Diffe renti al panel - Blood eosinophils/ leukocytes in blood by automated count 0 % EOSIN OPHIL S 0.0 % 12/05 5:02 AM CDT [facility] Not Available Not Available 01/15/2025 11:52:49 12/06/19 25 12/05/2024 CBC W Auto Diffe renti al panel - Blood basophils/le ukocytes in blood by automated count 0.1 % BASOP HILS 0.1 % 12/05 5:02 AM CDT [facility] Not Available Not Available 01/15/2025 11:52:49 12/06/1912/05/2024 CBC W Auto Diffe renti al panel - Blood immature granulocytes /leukocytes in blood by automated count 1.8 % IMMAT URE GRANS % 1.8 % 12/05 5:02 AM CDT [facility] Not Available Not Available 01/15/2025 11:52:49 12/06/1912/05/2024 CBC W Auto Diffe renti al panel - Blood neutrophils [#/volume] in blood 5.47 text: 1.80 - 7.70 x10'3/ uL ABS. NEUTR OPHIL S 5.47 1.80 - 7.70 x10'3 /uL 12/05 5:02 AM CDT [facility] Not Available Not Available 01/15/2025 11:52:49 12/06/1912/05/2024 CBC W Auto Diffe renti al panel - Blood lymphocytes [#/volume] in blood 0.81 text: 1.00 - 4.80 x10'3/ uL low ABS. LYMPH OCYTE S 0.81 (L) 1.00 - 4.80 x10'3 /uL 12/05 5:02 AM CDT [facility] Not Available Not Available 01/15/2025 11:52:49 12/06/1912/05/2024 CBC W Auto Diffe renti al panel - Blood monocytes [#/volume] in blood 0.27 text: 0.24 - 0.86 x10'3/ uL ABS. MONOC YTES 0.27 0.24 - 0.86 x10'3 /uL 12/05 5:02 AM CDT [facility] Not Available Not Available 01/15/2025 11:52:49 12/06/1912/05/2024 CBC W Auto Diffe renti al panel - Blood eosinophils [#/volume] in blood 0 text: 0.04 - 0.36 x10'3/ uL low ABS. EOSIN OPHIL S 0.00 (L) 0.04 - 0.36 x10'3 /uL 12/05 5:02 AM CDT [facility] Not Available Not Available 01/15/2025 11:52:49 12/06/1912/05/2024 CBC W Auto Diffe renti al panel - Blood basophils [#/volume] in blood 0.01 text: 0.01 - 0.08 x10'3/ uL ABS. BASOP HILS 0.01 0.01 - 0.08 x10'3 /uL 12/05 5:02 AM CDT [facility] Not Available Not Available 01/15/2025 11:52:49 12/06/1912/05/2024 CBC W Auto Diffe renti al panel - Blood immature granulocytes [#/volume] in blood 0.12 text: 0.00 - 0.49 x10'3/ uL ABS. IMMAT URE GRANU LOCYT ES 0.12 0.00 - 0.49 x10'3 /uL 12/05 5:02 AM CDT [facility] Not Available Not Available 01/15/2025 11:52:49 12/06/1912/05/2024 CBC W Auto Diffe renti al panel - Blood interpretati on and review of laboratory results Abnorm al Not Available Not Available 11:52:49 12/06/1912/05/2024 Compr ehens liz metab olic 2000 panel - Serum or Plasm a glucose [mass/volume ] in serum or plasma 169 text: 70 - 99 mg/dL high GLUCO SE 169 (H) 70 - 99 MG/DL 12/05 5:22 AM CDT [facility] Not Available Not Available 01/15/2025 11:52:49 12/06/19 25 12/05/2024 Compr ehens liz metab olic 2000 panel - Serum or Plasm a urea nitrogen [mass/volume ] in serum or plasma 43 text: 7 - 18 mg/dL high BUN 43 (H) 7 - 18 MG/DL 12/05 5:22 AM CDT [facility] Not Available Not Available 01/15/2025 11:52:49 12/06/1912/05/2024 Compr ehens liz metab olic 1999 panel - Serum or Plasm a creatinine [mass/volume ] in serum or plasma 4.33 text: 0.55 - 1.02 mg/dL high CREAT ININE S/P/B 4.33 (H) 0.55 - 1.02 MG/DL 12/05 5:22 AM CDT [facility] Not Available Not Available 01/15/2025 11:52:49 12/06/1912/05/2024 Compr ehens liz metab olic 1999 panel - Serum or Plasm a sodium [moles/volum e] in serum or plasma 140 text: 136 - 145 mmol/L SODIU M S/P/B 140 136 - 145 MMOL/ L 12/05 5:22 AM CDT [facility] Not Available Not Available 01/15/2025 11:52:49 12/06/1912/05/2024 Compr ehens liz metab olic 1999 panel - Serum or Plasm a potassium [moles/volum e] in serum or plasma 4.3 text: 3.5 - 5.1 mmol/L POTAS SIUM S/P/B 4.3 3.5 - 5.1 MMOL/ L 12/05 5:22 AM CDT [facility] Not Available Not Available 01/15/2025 11:52:49 12/06/1912/05/2024 Compr ehens liz metab olic 2000 panel - Serum or Plasm a chloride [moles/volum e] in serum or plasma 109 text: 97 - 115 mmol/L CHLOR JOSE S/P/B 109 97 - 115 MMOL/ L 12/05 5:22 AM CDT [facility] Not Available Not Available 01/15/2025 11:52:49 12/06/1912/05/2024 Compr ehens liz metab olic 2000 panel - Serum or Plasm a carbon dioxide, total [moles/volum e] in serum or plasma 21.6 text: 21 - 32 mmol/L CO2 21.6 21 - 32 MMOL/ L 12/05 5:[address] [facility] Not Available Not Available 01/15/2025 11:52:49 12/06/1912/05/2024 Compr ehens liz metab olic 2000 panel - Serum or Plasm a calcium [mass/volume ] in serum or plasma 9.7 text: 8.5 - 10.1 mg/dL CALCI UM S/P/B 9.7 8.5 - 10.1 MG/DL 12/05 5:[address] [facility] Not Available Not Available 01/15/2025 11:52:49 12/06/1912/05/2024 Compr ehens liz metab olic 2000 panel - Serum or Plasm a bilirubin.to tim [mass/volume ] in serum or plasma 0.5 text: 0.2 - 1.2 mg/dL BILIR UBIN TOTAL S/P/B 0.5 0.2 - 1.2 MG/DL 12/05 5:[address] [facility] Not Available Not Available 01/15/2025 11:52:49 12/06/1912/05/2024 Compr ehens liz metab olic 2000 panel - Serum or Plasm a protein [mass/volume ] in serum or plasma 6.5 text: 6.4 - 8.2 g/dL TOTAL PROTE IN S/P/B 6.5 6.4 - 8.2 G/DL 12/05 5:[address] [facility] Not Available Not Available 01/15/2025 11:52:49 12/06/19 25 12/05/2024 Compr ehens liz metab olic 2000 panel - Serum or Plasm a albumin [mass/volume ] in serum or plasma 2.7 text: 3.4 - 5.0 g/dL low ALBUM IN S/P/B 2.7 (L) 3.4 - 5.0 G/DL 12/05 5:22 AM CDT [facility] Not Available Not Available 01/15/2025 11:52:49 12/06/1912/05/2024 Compr ehens liz metab olic 1999 panel - Serum or Plasm a aspartate aminotransfe rase [enzymatic activity/vol ume] in serum or plasma 15 U/L low: 15U/Lh igh: 37U/L AST 15 15 - 37 U/L 12/05 5:22 AM CDT [facility] Not Available Not Available 01/15/2025 11:52:49 12/06/1912/05/2024 Compr ehens liz metab olic 2000 panel - Serum or Plasm a alanine aminotransfe rase [enzymatic activity/vol ume] in serum or plasma 12 U/L low: 14U/Lh igh: 55U/L low ALT 12 (L) 14 - 55 U/L 12/05 5:22 AM CDT [facility] Not Available Not Available 01/15/2025 11:52:49 12/06/1912/05/2024 Compr ehens liz metab olic 2000 panel - Serum or Plasm a alkaline phosphatase [enzymatic activity/vol ume] in serum or plasma 67 U/L low: 50U/Lh igh: 136U/L ALKAL INE PHOSP HATAS E S/P/B 67 50 - 136 U/L 12/05 5:22 AM CDT [facility] Not Available Not Available 01/15/2025 11:52:49 12/06/19 25 12/05/2024 Compr ehens liz metab olic 2000 panel - Serum or Plasm a anion gap in serum or plasma by calculation 9.4 text: 2 - 10 mmol/L ANION GAP 9.4 2 - 10 MMOL/ L 12/05 5:22 AM [facility] Not Available Not Available 01/15/2025 11:52:49 12/06/1912/05/2024 Compr ehens liz metab olic 2000 panel - Serum or Plasm a urea nitrogen/cre atinine [mass ratio] in serum or plasma 9.9 low: 6high: 26 BUN CREAT ININE RATIO 9.9 6 - 26 12/05 5:22 AM T [facility] Not Available Not Available 01/15/2025 11:52:49 12/06/1912/05/2024 Compr ehens liz metab olic 2000 panel - Serum or Plasm a albumin/glob ulin [mass ratio] in serum or plasma 0.7 text: 1.0 - 2.0 ratio low A/G RATIO 0.7 (L) 1.0 - 2.0 RATIO 12/05 5:22 AM [facility] Not Available Not Available 01/15/2025 11:52:49 12/06/1912/05/2024 Compr ehens liz metab olic 2000 panel - Serum or Plasm a glomerular filtration rate [volume rate/area] in serum, plasma or blood by creatinine-b ased formula (CKD-epi 2020)/1.73 sq M 9 text: >90 mL/min /1.73 M2 low GFR ESTIM ATE 9 (L) >90 ML/IN N/1.7 3 M2 12/05 5:22 AM [facility] Not Available Not Available 01/15/2025 11:52:49 12/06/1912/05/2024 Compr COINLABens liz metab olic 2000 panel - Serum or Plasm a interpretati on and review of laboratory results Abnorm al Not Available Not Available 11:52:49 12/07/1912/06/2024 Magne sium [Mass /volu me] in Serum or Plasm a magnesium [mass/volume ] in serum or plasma 2.3 text: 1.8 - 2.4 mg/dL MAGNE SIUM 2.3 1.8 - 2.4 MG/DL 12/06 5:40 AM CDT [facility] Not Available Not Available 01/15/2025 11:52:49 12/07/1912/06/2024 Phosp hate [Mass /volu me] in Serum or Plasm a phosphate [mass/volume ] in serum or plasma 4.2 text: 2.5 - 4.9 mg/dL PHOSP HORUS 4.2 2.5 - 4.9 MG/DL 12/06 5:40 AM CDT [facility] Not Available Not Available 01/15/2025 11:52:49 12/07/1912/06/2024 Urate [Mass /volu me] in Serum or Plasm a urate [mass/volume ] in serum or plasma 7.1 text: 2.6 - 6.0 mg/dL high URIC ACID 7.1 (H) 2.6 - 6.0 MG/DL 12/06 5:40 AM CDT [facility] Not Available Not Available 01/15/2025 11:52:49 12/07/1912/06/2024 Urate [Mass /volu me] in Serum or Plasm a interpretati on and review of laboratory results Abnorm al Not Available Not Available 11:52:49 12/07/1912/06/2024 CBC W Auto Diffe renti al panel - Blood leukocytes [#/volume] in blood by automated count 9.36 text: 4.5 - 11.0 x10'3/ uL WBC 9.36 4.5 - 11.0 x10'3 /uL 12/06 5:25 AM CDT [facility] Not Available Not Available 01/15/2025 11:52:49 12/07/19 25 12/06/2024 CBC W Auto Diffe renti al panel - Blood erythrocytes [#/volume] in blood by automated count 2.38 text: 4.20 - 5.40 x10'6/ uL low RBC 2.38 (L) 4.20 - 5.40 x10'6 /uL 12/06 5:25 AM CDT [facility] Not Available Not Available 01/15/2025 11:52:49 12/07/1912/06/2024 CBC W Auto Diffe renti al panel - Blood hemoglobin [mass/volume ] in blood 7 text: 12.0 - 16.0 g/dL low HGB 7.0 (L) 12.0 - 16.0 G/DL 12/06 5:25 AM CDT [facility] Not Available Not Available 01/15/2025 11:52:49 12/07/1912/06/2024 CBC W Auto Diffe renti al panel - Blood hematocrit [volume fraction] of blood by calculation 22.2 % low: 38%hig h: 48% low HCT 22.2 (L) 38.0 - 48.0 % 12/06 5:25 AM CDT [facility] Not Available Not Available 01/15/2025 11:52:49 12/07/1912/06/2024 CBC W Auto Diffe renti al panel - Blood MCV [entitic mean volume] in red blood cells 93.3 text: 81.0 - 99.0 fL MCV 93.3 81.0 - 99.0 FL 12/06 5:25 AM CDT [facility] Not Available Not Available 01/15/2025 11:52:49 12/07/1912/06/2024 CBC W Auto Diffe renti al panel - Blood MCH [entitic mass] 29.4 pg low: 27pghi gh: 31pg MCH 29.4 27.0 - 31.0 PG 12/06 5:25 AM CDT [facility] Not Available Not Available 01/15/2025 11:52:49 12/07/1912/06/2024 CBC W Auto Diffe renti al panel - Blood MCHC [entitic mass/volume] in red blood cells 31.5 text: 32.0 - 36.0 g/dL low MCHC 31.5 (L) 32.0 - 36.0 G/DL 12/06 5:25 AM CDT [facility] Not Available Not Available 01/15/2025 11:52:49 12/07/1912/06/2024 CBC W Auto Diffe renti al panel - Blood RDW 15.2 % low: 11.5%h igh: 14.5% high RDW 15.2 (H) 11.5 - 14.5 % 12/06 5:25 AM CDT [facility] Not Available Not Available 01/15/2025 11:52:49 12/07/1912/06/2024 CBC W Auto Diffe renti al panel - Blood platelets [#/volume] in blood 165 text: 130 - 400 x10'3/ uL PLT 165 130 - 400 x10'3 /uL 12/06 5:25 AM CDT [facility] Not Available Not Available 01/15/2025 11:52:49 12/07/19 25 12/06/2024 CBC W Auto Diffe renti al panel - Blood platelet [entitic mean volume] in blood 9.3 text: 9.3 - 12.2 fL MPV 9.3 9.3 - 12.2 FL 12/06 5:25 AM CDT [facility] Not Available Not Available 01/15/2025 11:52:49 12/07/1912/06/2024 CBC W Auto Diffe renti al panel - Blood differential cell count method - blood MANUAL DIFFER ENTIAL DIFFE RENTI AL TYPE MANUA L DIFFE RENTI AL 12/06 5:43 AM CDT [facility] Not Available Not Available 01/15/2025 11:52:49 12/07/1912/06/2024 CBC W Auto Diffe renti al panel - Blood segmented neutrophils/ leukocytes in blood by manual count 94 % SEG NEUTR OPHIL S 94 % 12/06 5:43 AM CDT [facility] Not Available Not Available 01/15/2025 11:52:49 12/07/19 25 12/06/2024 CBC W Auto Diffe renti al panel - Blood lymphocytes/ leukocytes in blood by manual count 0 % LYMPH OCYTE S 0 % 12/06 5:43 AM CDT [facility] Not Available Not Available 01/15/2025 11:52:49 12/07/19 25 12/06/2024 CBC W Auto Diffe renti al panel - Blood monocytes/le ukocytes in blood by manual count 4 % MONOC YTES 4 % 12/06 5:43 AM CDT [facility] Not Available Not Available 01/15/2025 11:52:49 12/07/19 25 12/06/2024 CBC W Auto Diffe renti al panel - Blood band form neutrophils/ leukocytes in blood by manual count 1 % BANDS 1 % 12/06 5:43 AM CDT [facility] Not Available Not Available 01/15/2025 11:52:49 12/07/19 25 12/06/2024 CBC W Auto Diffe renti al panel - Blood myelocytes [#/volume] in blood by manual count 1 % MYELO CYTES 1 % 12/06 5:43 AM CDT [facility] Not Available Not Available 01/15/2025 11:52:49 12/07/19 25 12/06/2024 CBC W Auto Diffe renti al panel - Blood neutrophils [#/volume] in blood 8.89 text: 1.80 - 7.70 x10'3/ uL high ABS. NEUTR OPHIL S 8.89 (H) 1.80 - 7.70 x10'3 /uL 12/06 5:43 AM CDT [facility] Not Available Not Available 01/15/2025 11:52:49 12/07/19 25 12/06/2024 CBC W Auto Diffe renti al panel - Blood lymphocytes [#/volume] in blood 0 text: 1.00 - 4.80 x10'3/ uL low ABS. LYMPH OCYTE S 0.00 (L) 1.00 - 4.80 x10'3 /uL 12/06 5:43 AM CDT [facility] Not Available Not Available 01/15/2025 11:52:49 12/07/19 25 12/06/2024 CBC W Auto Diffe renti al panel - Blood monocytes [#/volume] in blood 0.37 text: 0.24 - 0.86 x10'3/ uL ABS. MONOC YTES 0.37 0.24 - 0.86 x10'3 /uL 12/06 5:43 AM CDT [facility] Not Available Not Available 01/15/2025 11:52:49 12/07/1912/06/2024 CBC W Auto Diffe renti al panel - Blood myelocytes [#/volume] in blood by manual count 0.09 text: 0.00 x10'3/ uL high ABS. MYELO CYTES 0.09 (H) 0.00 x10'3 /uL 12/06 5:43 AM CDT [facility] Not Available Not Available 01/15/2025 11:52:49 12/07/1912/06/2024 CBC W Auto Diffe renti al panel - Blood erythrocytes [morphology] in blood by automated count RBC MORPHO LOGY APPEAR S NORMAL . SLIDE REVIEW ED. RBC MORPH OLOGY RBC MORPH OLOGY APPEA HANNAH Barragan SLIDE REVIE WED. 12/06 5:43 AM CDT [facility] Not Available Not Available 01/15/2025 11:52:49 12/07/1912/06/2024 CBC W Auto Diffe renti al panel - Blood platelets [#/volume] in blood by automated count ADEQUA TE PLT EST. ADEQU ATE 12/06 5:43 AM CDT [facility] Not Available Not Available 01/15/2025 11:52:49 12/07/19 25 12/06/2024 CBC W Auto Diffe renti al panel - Blood interpretati on and review of laboratory results Abnorm al Not Available Not Available 11:52:49 12/07/1912/06/2024 Compr ehens liz metab olic 1999 panel - Serum or Plasm a glucose [mass/volume ] in serum or plasma 113 text: 70 - 99 mg/dL high GLUCO SE 113 (H) 70 - 99 MG/DL 12/06 5:40 AM CDT [facility] Not Available Not Available 01/15/2025 11:52:49 12/07/19 25 12/06/2024 Compr ehens liz metab olic 1999 panel - Serum or Plasm a urea nitrogen [mass/volume ] in serum or plasma 45 text: 7 - 18 mg/dL high BUN 45 (H) 7 - 18 MG/DL 12/06 5:40 AM CDT [facility] Not Available Not Available 01/15/2025 11:52:49 12/07/19 25 12/06/2024 Compr ehens liz metab olic 1999 panel - Serum or Plasm a creatinine [mass/volume ] in serum or plasma 4.08 text: 0.55 - 1.02 mg/dL high CREAT ININE S/P/B 4.08 (H) 0.55 - 1.02 MG/DL 12/06 5:40 AM CDT [facility] Not Available Not Available 01/15/2025 11:52:49 12/07/19 25 12/06/2024 Compr ehens liz metab olic 2000 panel - Serum or Plasm a sodium [moles/volum e] in serum or plasma 147 text: 136 - 145 mmol/L high SODIU M S/P/B 147 (H) 136 - 145 MMOL/ L 12/06 5:40 AM CDT [facility] Not Available Not Available 01/15/2025 11:52:49 12/07/19 25 12/06/2024 Compr ehens liz metab olic 2000 panel - Serum or Plasm a potassium [moles/volum e] in serum or plasma 3.9 text: 3.5 - 5.1 mmol/L POTAS SIUM S/P/B 3.9 3.5 - 5.1 MMOL/ L 12/06 5:[address] [facility] Not Available Not Available 01/15/2025 11:52:49 12/07/19 25 12/06/2024 Compr ehens liz metab olic 2000 panel - Serum or Plasm a chloride [moles/volum e] in serum or plasma 117 text: 97 - 115 mmol/L high CHLOR JOSE S/P/B 117 (H) 97 - 115 MMOL/ L 12/06 5:[address] [facility] Not Available Not Available 01/15/2025 11:52:49 12/07/19 25 12/06/2024 Compr ehens liz metab olic 2000 panel - Serum or Plasm a carbon dioxide, total [moles/volum e] in serum or plasma 20.8 text: 21 - 32 mmol/L low CO2 20.8 (L) 21 - 32 MMOL/ L 12/06 5:[address] [facility] Not Available Not Available 01/15/2025 11:52:49 12/07/19 25 12/06/2024 Compr ehens liz metab olic 2000 panel - Serum or Plasm a calcium [mass/volume ] in serum or plasma 9.3 text: 8.5 - 10.1 mg/dL CALCI UM S/P/B 9.3 8.5 - 10.1 MG/DL 12/06 5:[address] [facility] Not Available Not Available 01/15/2025 11:52:49 12/07/19 25 12/06/2024 Compr ehens liz metab olic 2000 panel - Serum or Plasm a bilirubin.to tim [mass/volume ] in serum or plasma 0.2 text: 0.2 - 1.2 mg/dL BILIR UBIN TOTAL S/P/B 0.2 0.2 - 1.2 MG/DL 12/06 5:40 AM CDT [facility] Not Available Not Available 01/15/2025 11:52:49 12/07/1912/06/2024 Compr ehens liz metab olic 1999 panel - Serum or Plasm a protein [mass/volume ] in serum or plasma 6 text: 6.4 - 8.2 g/dL low TOTAL PROTE IN S/P/B 6.0 (L) 6.4 - 8.2 G/DL 12/06 5:40 AM CDT [facility] Not Available Not Available 01/15/2025 11:52:49 12/07/19 25 12/06/2024 Compr ehens liz metab olic 2000 panel - Serum or Plasm a albumin [mass/volume ] in serum or plasma 2.6 text: 3.4 - 5.0 g/dL low ALBUM IN S/P/B 2.6 (L) 3.4 - 5.0 G/DL 12/06 5:40 AM CDT [facility] Not Available Not Available 01/15/2025 11:52:49 12/07/19 25 12/06/2024 Compr ehens liz metab olic 2000 panel - Serum or Plasm a aspartate aminotransfe rase [enzymatic activity/vol ume] in serum or plasma 16 U/L low: 15U/Lh igh: 37U/L AST 16 15 - 37 U/L 12/06 5:40 AM CDT [facility] Not Available Not Available 01/15/2025 11:52:49 12/07/19 25 12/06/2024 Compr ehens liz metab olic 2000 panel - Serum or Plasm a alanine aminotransfe rase [enzymatic activity/vol ume] in serum or plasma 14 U/L low: 14U/Lh igh: 55U/L ALT 14 14 - 55 U/L 12/06 5:40 AM CDT [facility] Not Available Not Available 01/15/2025 11:52:49 12/07/19 25 12/06/2024 Compr ehens liz metab olic 2000 panel - Serum or Plasm a alkaline phosphatase [enzymatic activity/vol ume] in serum or plasma 59 U/L low: 50U/Lh igh: 136U/L ALKAL INE PHOSP HATAS E S/P/B 59 50 - 136 U/L 12/06 5:40 AM CDT [facility] Not Available Not Available 01/15/2025 11:52:49 12/07/19 25 12/06/2024 Compr ens liz metab olic 1999 panel - Serum or Plasm a anion gap in serum or plasma by calculation 9.2 text: 2 - 10 mmol/L ANION GAP 9.2 2 - 10 MMOL/ L 12/06 5:40 AM CDT [facility] Not Available Not Available 01/15/2025 11:52:49 12/07/19 25 12/06/2024 Compr ens liz metab olic 1999 panel - Serum or Plasm a urea nitrogen/cre atinine [mass ratio] in serum or plasma 11 low: 6high: 26 BUN CREAT ININE RATIO 11.0 6 - 26 12/06 5:40 AM CDT [facility] Not Available Not Available 01/15/2025 11:52:49 12/07/19 25 12/06/2024 Compr ens liz metab olic 1999 panel - Serum or Plasm a albumin/glob ulin [mass ratio] in serum or plasma 0.8 text: 1.0 - 2.0 ratio low A/G RATIO 0.8 (L) 1.0 - 2.0 RATIO 12/06 5:40 AM CDT [facility] Not Available Not Available 01/15/2025 11:52:49 12/07/19 25 12/06/2024 Compr ehens liz metab olic 2000 panel - Serum or Plasm a glomerular filtration rate [volume rate/area] in serum, plasma or blood by creatinine-b ased formula (CKD-epi 2020)/1.73 sq M 10 text: >90 mL/min /1.73 M2 low GFR ESTIM ATE 10 (L) >90 ML/IN N/1.7 3 M2 12/06 5:40 AM CDT [facility] Not Available Not Available 01/15/2025 11:52:49 12/07/1912/06/2024 Compr ehens liz metab olic 2000 panel - Serum or Plasm a interpretati on and review of laboratory results Abnorm al Not Available Not Available 11:52:49 12/09/19 25 12/08/2024 Magne sium [Mass /volu me] in Serum or Plasm a magnesium [mass/volume ] in serum or plasma 2.1 text: 1.8 - 2.4 mg/dL MAGNE SIUM 2.1 1.8 - 2.4 MG/DL 12/08 7:16 AM T [facility] Not Available Not Available 01/15/2025 11:41:25 12/09/19 25 12/08/2024 Phosp hate [Mass /volu me] in Serum or Plasm a phosphate [mass/volume ] in serum or plasma 3.6 text: 2.5 - 4.9 mg/dL PHOSP HORUS 3.6 2.5 - 4.9 MG/DL 12/08 7:16 AM T [facility] Not Available Not Available 01/15/2025 11:41:24 12/09/19 25 12/08/2024 Urate [Mass /volu me] in Serum or Plasm a urate [mass/volume ] in serum or plasma 6.5 text: 2.6 - 6.0 mg/dL high URIC ACID 6.5 (H) 2.6 - 6.0 MG/DL 12/08 7:16 AM CDT [facility] Not Available Not Available 01/15/2025 11:41:24 12/09/19 25 12/08/2024 Urate [Mass /volu me] in Serum or Plasm a interpretati on and review of laboratory results Abnorm al Not Available Not Available 11:41:24 12/09/19 25 12/08/2024 CBC W Auto Diffe renti al panel - Blood leukocytes [#/volume] in blood by automated count 6.01 text: 4.5 - 11.0 x10'3/ uL WBC 6.01 4.5 - 11.0 x10'3 /uL 12/08 6:59 AM CDT [facility] Not Available Not Available 01/15/2025 11:41:24 12/09/19 25 12/08/2024 CBC W Auto Diffe renti al panel - Blood erythrocytes [#/volume] in blood by automated count 2.42 text: 4.20 - 5.40 x10'6/ uL low RBC 2.42 (L) 4.20 - 5.40 x10'6 /uL 12/08 6:59 AM CDT [facility] Not Available Not Available 01/15/2025 11:41:24 12/09/19 25 12/08/2024 CBC W Auto Diffe renti al panel - Blood hemoglobin [mass/volume ] in blood 7.1 text: 12.0 - 16.0 g/dL low HGB 7.1 (L) 12.0 - 16.0 G/DL 12/08 6:59 AM CDT [facility] Not Available Not Available 01/15/2025 11:41:24 12/09/19 25 12/08/2024 CBC W Auto Diffe renti al panel - Blood hematocrit [volume fraction] of blood by calculation 22.6 % low: 38%hig h: 48% low HCT 22.6 (L) 38.0 - 48.0 % 12/08 6:59 AM CDT [facility] Not Available Not Available 01/15/2025 11:41:24 12/09/19 25 12/08/2024 CBC W Auto Diffe renti al panel - Blood MCV [entitic mean volume] in red blood cells 93.4 text: 81.0 - 99.0 fL MCV 93.4 81.0 - 99.0 FL 12/08 6:59 AM CDT [facility] Not Available Not Available 01/15/2025 11:41:24 12/09/19 25 12/08/2024 CBC W Auto Diffe renti al panel - Blood MCH [entitic mass] 29.3 pg low: 27pghi gh: 31pg MCH 29.3 27.0 - 31.0 PG 12/08 6:59 AM CDT [facility] Not Available Not Available 01/15/2025 11:41:24 12/09/19 25 12/08/2024 CBC W Auto Diffe renti al panel - Blood MCHC [entitic mass/volume] in red blood cells 31.4 text: 32.0 - 36.0 g/dL low MCHC 31.4 (L) 32.0 - 36.0 G/DL 12/08 6:59 AM CDT [facility] Not Available Not Available 01/15/2025 11:41:24 12/09/19 25 12/08/2024 CBC W Auto Diffe renti al panel - Blood RDW 15.3 % low: 11.5%h igh: 14.5% high RDW 15.3 (H) 11.5 - 14.5 % 12/08 6:59 AM CDT [facility] Not Available Not Available 01/15/2025 11:41:24 12/09/19 25 12/08/2024 CBC W Auto Diffe renti al panel - Blood platelets [#/volume] in blood 144 text: 130 - 400 x10'3/ uL PLT 144 130 - 400 x10'3 /uL 12/08 6:59 AM CDT [facility] Not Available Not Available 01/15/2025 11:41:24 12/09/19 25 12/08/2024 CBC W Auto Diffe renti al panel - Blood platelet [entitic mean volume] in blood 9.1 text: 9.3 - 12.2 fL low MPV 9.1 (L) 9.3 - 12.2 FL 12/08 6:[address] [facility] Not Available Not Available 01/15/2025 11:41:24 12/09/19 25 12/08/2024 CBC W Auto Diffe renti al panel - Blood differential cell count method - blood MANUAL DIFFER ENTIAL DIFFE RENTI AL TYPE ANJUM L DIFFE RENTI AL 12/08 7:33 AM CDT [facility] Not Available Not Available 01/15/2025 11:41:24 12/09/19 25 12/08/2024 CBC W Auto Diffe renti al panel - Blood segmented neutrophils/ leukocytes in blood by manual count 90 % SEG NEUTR OPHIL S 90 % 12/08 7:33 AM CDT [facility] Not Available Not Available 01/15/2025 11:41:24 12/09/19 25 12/08/2024 CBC W Auto Diffe renti al panel - Blood lymphocytes/ leukocytes in blood by manual count 4 % LYMPH OCYTE S 4 % 12/08 7:33 AM CDT [facility] Not Available Not Available 01/15/2025 11:41:24 12/09/19 25 12/08/2024 CBC W Auto Diffe renti al panel - Blood monocytes/le ukocytes in blood by manual count 6 % MONOC YTES 6 % 12/08 7:33 AM CDT [facility] Not Available Not Available 01/15/2025 11:41:24 12/09/19 25 12/08/2024 CBC W Auto Diffe renti al panel - Blood neutrophils [#/volume] in blood 5.41 text: 1.80 - 7.70 x10'3/ uL ABS. NEUTR OPHIL S 5.41 1.80 - 7.70 x10'3 /uL 12/08 7:33 AM CDT [facility] Not Available Not Available 01/15/2025 11:41:24 12/09/19 25 12/08/2024 CBC W Auto Diffe renti al panel - Blood lymphocytes [#/volume] in blood 0.24 text: 1.00 - 4.80 x10'3/ uL low ABS. LYMPH OCYTE S 0.24 (L) 1.00 - 4.80 x10'3 /uL 12/08 7:33 AM CDT [facility] Not Available Not Available 01/15/2025 11:41:24 12/09/19 25 12/08/2024 CBC W Auto Diffe renti al panel - Blood monocytes [#/volume] in blood 0.36 text: 0.24 - 0.86 x10'3/ uL ABS. MONOC YTES 0.36 0.24 - 0.86 x10'3 /uL 12/08 7:33 AM CDT [facility] Not Available Not Available 01/15/2025 11:41:24 12/09/19 25 12/08/2024 CBC W Auto Diffe renti al panel - Blood erythrocytes [morphology] in blood by automated count SLIDE REVIEW ED RBC MORPH OLOGY SLIDE REVIE WED 12/08 7:33 AM CDT [facility] Not Available Not Available 01/15/2025 11:41:24 12/09/19 25 12/08/2024 CBC W Auto Diffe renti al panel - Blood anisocytosis [presence] in blood 1+ ANISO 1+ 12/08 7:33 AM CDT [facility] Not Available Not Available 01/15/2025 11:41:24 12/09/19 25 12/08/2024 CBC W Auto Diffe renti al panel - Blood macrocytes [presence] in blood 1+ MACRO 1+ 12/08 7:33 AM CDT [facility] Not Available Not Available 01/15/2025 11:41:24 12/09/19 25 12/08/2024 CBC W Auto Diffe renti al panel - Blood giant platelet 1+ GIANT PLATE LET 1+ 12/08 7:33 AM CDT [facility] Not Available Not Available 01/15/2025 11:41:24 12/09/19 25 12/08/2024 CBC W Auto Diffe renalberto al panel - Blood platelets [#/volume] in blood by automated count ADEQUA TE PLT EST. ADEQU ATE 12/08 7:33 AM CDT [facility] Not Available Not Available 01/15/2025 11:41:24 12/09/19 25 12/08/2024 CBC W Auto Diffe renti al panel - Blood interpretati on and review of laboratory results Abnorm al Not Available Not Available 11:41:24 12/09/19 25 12/08/2024 Compr ehens liz metab olic 2000 panel - Serum or Plasm a glucose [mass/volume ] in serum or plasma 193 text: 70 - 99 mg/dL high GLUCO SE 193 (H) 70 - 99 MG/DL 12/08 7:16 AM CDT [facility] Not Available Not Available 01/15/2025 11:41:24 12/09/19 25 12/08/2024 Compr ehens liz metab olic 2000 panel - Serum or Plasm a urea nitrogen [mass/volume ] in serum or plasma 42 text: 7 - 18 mg/dL high BUN 42 (H) 7 - 18 MG/DL 12/08 7:16 AM CDT [facility] Not Available Not Available 01/15/2025 11:41:24 12/09/19 25 12/08/2024 Compr ehens liz metab olic 2000 panel - Serum or Plasm a creatinine [mass/volume ] in serum or plasma 3.52 text: 0.55 - 1.02 mg/dL high CREAT ININE S/P/B 3.52 (H) 0.55 - 1.02 MG/DL 12/08 7:16 AM CDT [facility] Not Available Not Available 01/15/2025 11:41:24 12/09/19 25 12/08/2024 Compr ehens liz metab olic 2000 panel - Serum or Plasm a sodium [moles/volum e] in serum or plasma 142 text: 136 - 145 mmol/L SODIU M S/P/B 142 136 - 145 MMOL/ L 12/08 7:16 AM CDT [facility] Not Available Not Available 01/15/2025 11:41:24 12/09/19 25 12/08/2024 Compr ehens liz metab olic 1999 panel - Serum or Plasm a potassium [moles/volum e] in serum or plasma 3.7 text: 3.5 - 5.1 mmol/L POTAS SIUM S/P/B 3.7 3.5 - 5.1 MMOL/ L 12/08 7:16 AM CDT [facility] Not Available Not Available 01/15/2025 11:41:24 12/09/19 25 12/08/2024 Compr ehens liz metab olic 2000 panel - Serum or Plasm a chloride [moles/volum e] in serum or plasma 114 text: 97 - 115 mmol/L CHLOR JOSE S/P/B 114 97 - 115 MMOL/ L 12/08 7:16 AM CDT [facility] Not Available Not Available 01/15/2025 11:41:24 12/09/19 25 12/08/2024 Compr ehens liz metab olic 2000 panel - Serum or Plasm a carbon dioxide, total [moles/volum e] in serum or plasma 20.1 text: 21 - 32 mmol/L low CO2 20.1 (L) 21 - 32 MMOL/ L 12/08 7:16 AM CDT [facility] Not Available Not Available 01/15/2025 11:41:24 12/09/19 25 12/08/2024 Compr ehens liz metab olic 1999 panel - Serum or Plasm a calcium [mass/volume ] in serum or plasma 8.7 text: 8.5 - 10.1 mg/dL CALCI UM S/P/B 8.7 8.5 - 10.1 MG/DL 12/08 7:16 AM CDT [facility] Not Available Not Available 01/15/2025 11:41:24 12/09/19 25 12/08/2024 Compr ehens liz metab olic 2000 panel - Serum or Plasm a bilirubin.to tim [mass/volume ] in serum or plasma 0.4 text: 0.2 - 1.2 mg/dL BILIR UBIN TOTAL S/P/B 0.4 0.2 - 1.2 MG/DL 12/08 7:[address] [facility] Not Available Not Available 01/15/2025 11:41:24 12/09/19 25 12/08/2024 Compr ehens liz metab olic 2000 panel - Serum or Plasm a protein [mass/volume ] in serum or plasma 5.9 text: 6.4 - 8.2 g/dL low TOTAL PROTE IN S/P/B 5.9 (L) 6.4 - 8.2 G/DL 12/08 7:[address] [facility] Not Available Not Available 01/15/2025 11:41:24 12/09/19 25 12/08/2024 Compr ehens ilz metab olic 2000 panel - Serum or Plasm a albumin [mass/volume ] in serum or plasma 2.3 text: 3.4 - 5.0 g/dL low ALBUM IN S/P/B 2.3 (L) 3.4 - 5.0 G/DL 12/08 7:[address] [facility] Not Available Not Available 01/15/2025 11:41:24 12/09/19 25 12/08/2024 Compr ehens liz metab olic 2000 panel - Serum or Plasm a aspartate aminotransfe rase [enzymatic activity/vol ume] in serum or plasma 16 U/L low: 15U/Lh igh: 37U/L AST 16 15 - 37 U/L 12/08 7:16 AM CDT [facility] [facility] Not Available Not Available 01/15/2025 11:41:24 12/09/19 25 12/08/2024 Compr ehens liz metab olic 2000 panel - Serum or Plasm a alanine aminotransfe rase [enzymatic activity/vol ume] in serum or plasma 14 U/L low: 14U/Lh igh: 55U/L ALT 14 14 - 55 U/L 12/08 7:16 AM CDT [facility] Not Available Not Available 01/15/2025 11:41:24 12/09/19 25 12/08/2024 Compr ehens liz metab olic 1999 panel - Serum or Plasm a alkaline phosphatase [enzymatic activity/vol ume] in serum or plasma 69 U/L low: 50U/Lh igh: 136U/L ALKAL INE PHOSP HATAS E S/P/B 69 50 - 136 U/L 12/08 7:16 AM CDT [facility] Not Available Not Available 01/15/2025 11:41:24 12/09/19 25 12/08/2024 Compr ehens liz metab olic 1999 panel - Serum or Plasm a anion gap in serum or plasma by calculation 7.9 text: 2 - 10 mmol/L ANION GAP 7.9 2 - 10 MMOL/ L 12/08 7:16 AM T [facility] Not Available Not Available 01/15/2025 11:41:24 12/09/19 25 12/08/2024 Compr ehens liz metab olic 2000 panel - Serum or Plasm a urea nitrogen/cre atinine [mass ratio] in serum or plasma 11.9 low: 6high: 26 BUN CREAT ININE RATIO 11.9 6 - 26 12/08 7:16 AM CDT [facility] Not Available Not Available 01/15/2025 11:41:24 12/09/19 25 12/08/2024 Compr ehens liz metab olic 2000 panel - Serum or Plasm a albumin/glob ulin [mass ratio] in serum or plasma 0.6 text: 1.0 - 2.0 ratio low A/G RATIO 0.6 (L) 1.0 - 2.0 RATIO 12/08 7:16 AM CDT [facility] Not Available Not Available 01/15/2025 11:41:24 12/09/19 25 12/08/2024 Compr ehens liz metab olic 1999 panel - Serum or Plasm a glomerular filtration rate [volume rate/area] in serum, plasma or blood by creatinine-b ased formula (CKD-epi 2020)/1.73 sq M 12 text: >90 mL/min /1.73 M2 low GFR ESTIM ATE 12 (L) >90 ML/IN N/1.7 3 M2 12/08 7:16 AM CDT [facility] Not Available Not Available 01/15/2025 11:41:24 12/09/19 25 12/08/2024 Compr ehens liz metab olic 1999 panel - Serum or Plasm a interpretati on and review of laboratory results Abnorm al Not Available Not Available 11:41:24 12/14/19 25 12/15/2024 Blood type and Indir ect antib carmela scree n panel - Blood blood product units requested [#] 2 UNITS ORDER ED 2 12/13 1:43 PM CDT [facility] Not Available Not Available 01/15/2025 11:52:37 12/14/19 25 12/15/2024 Blood type and Indir ect antib carmela scree n panel - Blood ABO and Rh group panel - blood O POSITI VE ABO/R H O POSIT LIZ 12/13 1:43 PM CDT [facility] Not Available Not Available 01/15/2025 11:52:37 12/14/19 25 12/15/2024 Blood type and Indir ect antib carmela scree n panel - Blood blood group antibody screen [presence] in serum or plasma POSITI VE ANTIB CARMELA SCREE N POSIT LIZ 12/13 1:43 PM CDT [facility] Not Available Not Available 01/15/2025 11:52:37 12/14/19 25 12/15/2024 Blood type and Indir ect antib carmela scree n panel - Blood specimen expiration date of blood 2024,2 359 SAMPL E EXPIR ATION 12/16 ,2359 12/13 1:43 PM CDT [facility] Not Available Not Available 01/15/2025 11:52:37 12/14/19 25 12/15/2024 Blood type and Indir ect antib carmela scree n panel - Blood blood group antibodies identified in serum or plasma ANTI-E ANTIB CARMELA ID ANTI- E 12/13 1:43 PM CDT [facility] Not Available Not Available 01/15/2025 11:52:37 12/14/19 25 12/15/2024 Blood type and Indir ect antib carmela scree n panel - Blood blood group antigens present [identifier] in blood E NEG PATIE NT ANTIG EN TYPE E NEG 12/13 3:55 PM CDT [facility] Not Available Not Available 01/15/2025 11:52:37 12/14/19 25 12/15/2024 Blood type and Indir ect antib carmela scree n panel - Blood blood product unit id [#] [id number] BLOOD UNIT NUMBE R [id number] 12/13 6:29 PM CDT [facility] Not Available Not Available 01/15/2025 11:52:37 12/14/19 25 12/15/2024 Blood type and Indir ect antib carmela scree n panel - Blood blood product type PC LEUKOP OOR PRODU CT: PC LEUKO POOR 12/13 6:29 PM CDT [facility] Not Available Not Available 01/15/2025 11:52:37 12/14/19 25 12/15/2024 Blood type and Indir ect antib carmela scree n panel - Blood unit division 0 UNIT DIVIS ION 00 12/13 6:29 PM CDT [facility] Not Available Not Available 01/15/2025 11:52:37 12/14/19 25 12/15/2024 Blood type and Indir ect antib carmela scree n panel - Blood blood bank comment TRANSF USED,F INAL BLOOD UNIT STATU S TRANS FUSED ,BERTA L 12/15 7:16 AM CDT [facility] Not Available Not Available 01/15/2025 11:52:37 12/14/19 25 12/15/2024 Blood type and Indir ect antib carmela scree n panel - Blood issue date/time 740 ISSUE DATE/ TIME [id number] 12/15 7:16 AM CDT [facility] Not Available Not Available 01/15/2025 11:52:37 12/14/19 25 12/15/2024 Blood type and Indir ect antib carmela scree n panel - Blood product code [id number] CODE E0336 V00 12/15 7:16 AM CDT [facility] Not Available Not Available 01/15/2025 11:52:37 12/14/19 25 12/15/2024 Blood type and Indir ect antib carmela scree n panel - Blood ABO/Rh unit O POS ABO/R H Unit O POS 12/15 7:16 AM CDT [facility] Not Available Not Available 01/15/2025 11:52:37 12/14/19 25 12/15/2024 Blood type and Indir ect antib carmela scree n panel - Blood ABO/Rh unit isbt code 5100 ABO/R H UNIT ISBT CODE 5100 12/15 7:16 AM CDT [facility] Not Available Not Available 01/15/2025 11:52:37 12/14/19 25 12/15/2024 Blood type and Indir ect antib carmela scree n panel - Blood blood unit expiration date 918210 BLOOD UNIT EXPIR ATION DATE [id number] 59 12/15 7:16 AM CDT [facility] Not Available Not Available 01/15/2025 11:52:37 12/14/19 25 12/15/2024 Blood type and Indir ect antib carmela scree n panel - Blood transfusion status qualitative OK TO TRANSF USE TRANS FUSIO N STATU S OK TO TRANS FUSE 12/13 6:29 PM CDT [facility] Not Available Not Available 01/15/2025 11:52:37 12/14/19 25 12/15/2024 Blood type and Indir ect antib carmela scree n panel - Blood major crossmatch [interpretat ion] COMPAT IBLE CROSS MATCH PATRICIA TIBLE 12/13 6:29 PM CDT [facility] Not Available Not Available 01/15/2025 11:52:37 12/14/19 25 12/15/2024 Blood type and Indir ect antib carmela scree n panel - Blood blood product unit id [#] [id number] BLOOD UNIT NUMBE R [id number] 12/13 6:29 PM CDT [facility] Not Available Not Available 01/15/2025 11:52:37 12/14/19 25 12/15/2024 Blood type and Indir ect antib carmela scree n panel - Blood blood product type PC LEUKOP OOR PRODU CT: PC LEUKO POOR 12/13 6:29 PM CDT [facility] Not Available Not Available 01/15/2025 11:52:37 12/14/19 25 12/15/2024 Blood type and Indir ect antib carmela scree n panel - Blood unit division 0 UNIT DIVIS ION 00 12/13 6:29 PM CDT [facility] Not Available Not Available 01/15/2025 11:52:37 12/14/19 25 12/15/2024 Blood type and Indir ect antib carmela scree n panel - Blood blood bank comment TRANSF USED,F INAL BLOOD UNIT STATU S TRANS FUSED ,BERTA L 12/15 7:16 AM CDT [facility] Not Available Not Available 01/15/2025 11:52:37 12/14/19 25 12/15/2024 Blood type and Indir ect antib carmela scree n panel - Blood issue date/time [id number] ISSUE DATE/ TIME [id number] 12/15 7:16 AM CDT [facility] Not Available Not Available 01/15/2025 11:52:37 12/14/19 25 12/15/2024 Blood type and Indir ect antib carmela scree n panel - Blood product code [id number] [address] CODE E0336 V00 12/15 7:16 AM CDT [facility] Not Available Not Available 01/15/2025 11:52:37 12/14/19 25 12/15/2024 Blood type and Indir ect antib carmela scree n panel - Blood ABO/Rh unit O POS ABO/R H Unit O POS 12/15 7:16 AM CDT [facility] Not Available Not Available 01/15/2025 11:52:37 12/14/19 25 12/15/2024 Blood type and Indir ect antib carmela scree n panel - Blood ABO/Rh unit isbt code 5100 ABO/R H UNIT ISBT CODE 5100 12/15 7:16 AM CDT [facility] Not Available Not Available 01/15/2025 11:52:37 12/14/19 25 12/15/2024 Blood type and Indir ect antib carmela scree n panel - Blood blood unit expiration date 118975 BLOOD UNIT EXPIR ATION DATE 67268 [id number] 59 12/15 7:16 AM CDT [facility] Not Available Not Available 01/15/2025 11:52:37 12/14/19 25 12/15/2024 Blood type and Indir ect antib carmela scree n panel - Blood transfusion status qualitative OK TO TRANSF USE TRANS FUSIO N STATU S OK TO TRANS FUSE 12/13 6:29 PM CDT [facility] Not Available Not Available 01/15/2025 11:52:37 12/14/19 25 12/15/2024 Blood type and Indir ect antib carmela scree n panel - Blood major crossmatch [interpretat ion] COMPAT IBLE CROSS MATCH PATRICIA TIBLE 12/13 6:29 PM CDT [facility] Not Available Not Available 01/15/2025 11:52:37 12/15/19 25 12/14/2024 Compr ehens liz metab olic 1999 panel - Serum or Plasm a glucose [mass/volume ] in serum or plasma 86 text: 70 - 99 mg/dL GLUCO SE 86 70 - 99 MG/DL 12/14 10:47 PM CDT [facility] Not Available Not Available 01/15/2025 11:58:05 12/15/19 25 12/14/2024 Compr ehens liz metab olic 2000 panel - Serum or Plasm a urea nitrogen [mass/volume ] in serum or plasma 64 text: 7 - 18 mg/dL high BUN 64 (H) 7 - 18 MG/DL 12/14 10:47 PM CDT [facility] Not Available Not Available 01/15/2025 11:58:05 12/15/19 25 12/14/2024 Compr ehens liz metab olic 2000 panel - Serum or Plasm a creatinine [mass/volume ] in serum or plasma 3.76 text: 0.55 - 1.02 mg/dL high CREAT ININE S/P/B 3.76 (H) 0.55 - 1.02 MG/DL 12/14 10:47 PM CDT [facility] Not Available Not Available 01/15/2025 11:58:05 12/15/19 25 12/14/2024 Compr ehens liz metab olic 2000 panel - Serum or Plasm a sodium [moles/volum e] in serum or plasma 138 text: 136 - 145 mmol/L SODIU M S/P/B 138 136 - 145 MMOL/ L 12/14 10:47 PM CDT [facility] Not Available Not Available 01/15/2025 11:58:05 12/15/19 25 12/14/2024 Compr ehens liz metab olic 1999 panel - Serum or Plasm a potassium [moles/volum e] in serum or plasma 4.3 text: 3.5 - 5.1 mmol/L POTAS SIUM S/P/B 4.3 3.5 - 5.1 MMOL/ L 12/14 10:47 PM CDT [facility] Not Available Not Available 01/15/2025 11:58:05 12/15/19 25 12/14/2024 Compr ehens liz metab olic 1999 panel - Serum or Plasm a chloride [moles/volum e] in serum or plasma 105 text: 97 - 115 mmol/L CHLOR JOSE S/P/B 105 97 - 115 MMOL/ L 12/14 10:47 PM CDT [facility] Not Available Not Available 01/15/2025 11:58:05 12/15/19 25 12/14/2024 Compr ehens liz metab olic 2000 panel - Serum or Plasm a carbon dioxide, total [moles/volum e] in serum or plasma 25.3 text: 21 - 32 mmol/L CO2 25.3 21 - 32 MMOL/ L 12/14 10:47 PM CDT [facility] Not Available Not Available 01/15/2025 11:58:05 12/15/19 25 12/14/2024 Compr ehens liz metab olic 2000 panel - Serum or Plasm a calcium [mass/volume ] in serum or plasma 9.3 text: 8.5 - 10.1 mg/dL CALCI UM S/P/B 9.3 8.5 - 10.1 MG/DL 12/14 10:47 PM CDT [facility] Not Available Not Available 01/15/2025 11:58:05 12/15/19 25 12/14/2024 Compr ehens liz metab olic 2000 panel - Serum or Plasm a bilirubin.to tim [mass/volume ] in serum or plasma 1.3 text: 0.2 - 1.2 mg/dL high BILIR UBIN TOTAL S/P/B 1.3 (H) 0.2 - 1.2 MG/DL 12/14 10:[address] [facility] Not Available Not Available 01/15/2025 11:58:05 12/15/19 25 12/14/2024 Compr ehens liz metab olic 1999 panel - Serum or Plasm a protein [mass/volume ] in serum or plasma 5.9 text: 6.4 - 8.2 g/dL low TOTAL PROTE IN S/P/B 5.9 (L) 6.4 - 8.2 G/DL 12/14 10:[address] [facility] Not Available Not Available 01/15/2025 11:58:05 12/15/19 25 12/14/2024 Compr ehens liz metab olic 1999 panel - Serum or Plasm a albumin [mass/volume ] in serum or plasma 2.2 text: 3.4 - 5.0 g/dL low ALBUM IN S/P/B 2.2 (L) 3.4 - 5.0 G/DL 12/14 10:[address] [facility] Not Available Not Available 01/15/2025 11:58:05 12/15/19 25 12/14/2024 Compr ehens liz metab olic 1999 panel - Serum or Plasm a aspartate aminotransfe rase [enzymatic activity/vol ume] in serum or plasma 49 U/L low: 15U/Lh igh: 37U/L high AST 49 (H) 15 - 37 U/L 12/14 10:[address] [facility] Not Available Not Available 01/15/2025 11:58:05 12/15/19 25 12/14/2024 Compr ehens liz metab olic 1999 panel - Serum or Plasm a alanine aminotransfe rase [enzymatic activity/vol ume] in serum or plasma 24 U/L low: 14U/Lh igh: 55U/L ALT 24 14 - 55 U/L 12/14 10:47 PM CDT [facility] Not Available Not Available 01/15/2025 11:58:05 12/15/19 25 12/14/2024 Compr ehens liz metab olic 2000 panel - Serum or Plasm a alkaline phosphatase [enzymatic activity/vol ume] in serum or plasma 67 U/L low: 50U/Lh igh: 136U/L ALKAL INE PHOSP HATAS E S/P/B 67 50 - 136 U/L 12/14 10:47 PM CDT [facility] Not Available Not Available 01/15/2025 11:58:05 12/15/19 25 12/14/2024 Compr ehens liz metab olic 2000 panel - Serum or Plasm a anion gap in serum or plasma by calculation 7.7 text: 2 - 10 mmol/L ANION GAP 7.7 2 - 10 MMOL/ L 12/14 10:47 PM CDT [facility] Not Available Not Available 01/15/2025 11:58:05 12/15/19 25 12/14/2024 Compr ehens liz metab olic 1999 panel - Serum or Plasm a urea nitrogen/cre atinine [mass ratio] in serum or plasma 17 low: 6high: 26 BUN CREAT ININE RATIO 17.0 6 - 26 12/14 10:47 PM CDT [facility] Not Available Not Available 01/15/2025 11:58:05 12/15/19 25 12/14/2024 Compr ehens liz metab olic 2000 panel - Serum or Plasm a albumin/glob ulin [mass ratio] in serum or plasma 0.6 text: 1.0 - 2.0 ratio low A/G RATIO 0.6 (L) 1.0 - 2.0 RATIO 12/14 10:47 PM CDT [facility] Not Available Not Available 01/15/2025 11:58:05 12/15/19 25 12/14/2024 Compr ehens liz metab olic 2000 panel - Serum or Plasm a glomerular filtration rate [volume rate/area] in serum, plasma or blood by creatinine-b ased formula (CKD-epi 2020)/1.73 sq M 11 text: >90 mL/min /1.73 M2 low GFR ESTIM ATE 11 (L) >90 ML/IN N/1.7 3 M2 12/14 10:[address] [facility] Not Available Not Available 01/15/2025 11:58:05 12/15/1912/14/2024 Compr ehens liz metab olic 2000 panel - Serum or Plasm a interpretati on and review of laboratory results Abnorm al Not Available Not Available 11:58:05 12/15/1912/14/2024 CBC W Auto Diffe renti al panel - Blood leukocytes [#/volume] in blood by automated count 6.78 text: 4.5 - 11.0 x10'3/ uL WBC 6.78 4.5 - 11.0 x10'3 /uL 12/14 10:31 PM CDT [facility] Not Available Not Available 01/15/2025 11:58:05 12/15/1912/14/2024 CBC W Auto Diffe renti al panel - Blood erythrocytes [#/volume] in blood by automated count 3.37 text: 4.20 - 5.40 x10'6/ uL low RBC 3.37 (L) 4.20 - 5.40 x10'6 /uL 12/14 10:[address] [facility] Not Available Not Available 01/15/2025 11:58:05 12/15/19 25 12/14/2024 CBC W Auto Diffe renti al panel - Blood hemoglobin [mass/volume ] in blood 9.8 text: 12.0 - 16.0 g/dL low HGB 9.8 (L) 12.0 - 16.0 G/DL 12/14 10:[address] [facility] Not Available Not Available 01/15/2025 11:58:05 12/15/19 25 12/14/2024 CBC W Auto Diffe renti al panel - Blood hematocrit [volume fraction] of blood by calculation 29.8 % low: 38%hig h: 48% low HCT 29.8 (L) 38.0 - 48.0 % 12/14 10:31 PM CDT [facility] Not Available Not Available 01/15/2025 11:58:05 12/15/19 25 12/14/2024 CBC W Auto Diffe renti al panel - Blood MCV [entitic mean volume] in red blood cells 88.4 text: 81.0 - 99.0 fL MCV 88.4 81.0 - 99.0 FL 12/14 10:31 PM CDT [facility] Not Available Not Available 01/15/2025 11:58:05 12/15/19 25 12/14/2024 CBC W Auto Diffe renti al panel - Blood MCH [entitic mass] 29.1 pg low: 27pghi gh: 31pg MCH 29.1 27.0 - 31.0 PG 12/14 10:31 PM CDT [facility] Not Available Not Available 01/15/2025 11:58:05 12/15/19 25 12/14/2024 CBC W Auto Diffe renti al panel - Blood MCHC [entitic mass/volume] in red blood cells 32.9 text: 32.0 - 36.0 g/dL MCHC 32.9 32.0 - 36.0 G/DL 12/14 10:31 PM CDT [facility] Not Available Not Available 01/15/2025 11:58:05 12/15/19 25 12/14/2024 CBC W Auto Diffe renti al panel - Blood RDW 15.8 % low: 11.5%h igh: 14.5% high RDW 15.8 (H) 11.5 - 14.5 % 12/14 10:31 PM CDT [facility] Not Available Not Available 01/15/2025 11:58:05 12/15/19 25 12/14/2024 CBC W Auto Diffe renti al panel - Blood platelets [#/volume] in blood 104 text: 130 - 400 x10'3/ uL low PLT 104 (L) 130 - 400 x10'3 /uL 12/14 10:31 PM CDT [facility] Not Available Not Available 01/15/2025 11:58:05 12/15/19 25 12/14/2024 CBC W Auto Diffe renti al panel - Blood platelet [entitic mean volume] in blood 10 text: 9.3 - 12.2 fL MPV 10.0 9.3 - 12.2 FL 12/14 10:31 PM CDT [facility] Not Available Not Available 01/15/2025 11:58:05 12/15/19 25 12/14/2024 CBC W Auto Diffe renti al panel - Blood differential cell count method - blood MANUAL DIFFER ENTIAL DIFFE RENTI AL TYPE MANUA L DIFFE RENTI AL 12/14 10:45 PM CDT [facility] Not Available Not Available 01/15/2025 11:58:05 12/15/19 25 12/14/2024 CBC W Auto Diffe renti al panel - Blood segmented neutrophils/ leukocytes in blood by manual count 81 % SEG NEUTR OPHIL S 81 % 12/14 10:45 PM CDT [facility] Not Available Not Available 01/15/2025 11:58:05 12/15/19 25 12/14/2024 CBC W Auto Diffe renti al panel - Blood lymphocytes/ leukocytes in blood by manual count 9 % LYMPH OCYTE S 9 % 12/14 10:45 PM CDT [facility] Not Available Not Available 01/15/2025 11:58:05 12/15/19 25 12/14/2024 CBC W Auto Diffe renti al panel - Blood monocytes/le ukocytes in blood by manual count 3 % MONOC YTES 3 % 12/14 10:45 PM CDT [facility] Not Available Not Available 01/15/2025 11:58:05 12/15/19 25 12/14/2024 CBC W Auto Diffe renti al panel - Blood eosinophils/ leukocytes in blood by manual count 5 % EOSIN OPHIL S 5 % 12/14 10:45 PM CDT [facility] Not Available Not Available 01/15/2025 11:58:05 12/15/19 25 12/14/2024 CBC W Auto Diffe renti al panel - Blood band form neutrophils/ leukocytes in blood by manual count 2 % BANDS 2 % 12/14 10:45 PM CDT [facility] Not Available Not Available 01/15/2025 11:58:05 12/15/19 25 12/14/2024 CBC W Auto Diffe renti al panel - Blood neutrophils [#/volume] in blood 5.63 text: 1.80 - 7.70 x10'3/ uL ABS. NEUTR OPHIL S 5.63 1.80 - 7.70 x10'3 /uL 12/14 10:45 PM CDT [facility] Not Available Not Available 01/15/2025 11:58:05 12/15/19 25 12/14/2024 CBC W Auto Diffe renti al panel - Blood lymphocytes [#/volume] in blood 0.61 text: 1.00 - 4.80 x10'3/ uL low ABS. LYMPH OCYTE S 0.61 (L) 1.00 - 4.80 x10'3 /uL 12/14 10:45 PM CDT [facility] Not Available Not Available 01/15/2025 11:58:05 12/15/19 25 12/14/2024 CBC W Auto Diffe renti al panel - Blood monocytes [#/volume] in blood 0.2 text: 0.24 - 0.86 x10'3/ uL low ABS. MONOC YTES 0.20 (L) 0.24 - 0.86 x10'3 /uL 12/14 10:45 PM CDT [facility] Not Available Not Available 01/15/2025 11:58:05 12/15/19 25 12/14/2024 CBC W Auto Diffe renti al panel - Blood eosinophils [#/volume] in blood 0.34 text: 0.04 - 0.36 x10'3/ uL ABS. EOSIN OPHIL S 0.34 0.04 - 0.36 x10'3 /uL 12/14 10:45 PM CDT [facility] Not Available Not Available 01/15/2025 11:58:05 12/15/19 25 12/14/2024 CBC W Auto Diffe renti al panel - Blood erythrocytes [morphology] in blood by automated count RBC MORPHO LOGY APPEAR S NORMAL . SLIDE REVIEW ED. RBC MORPH OLOGY RBC MORPH OLOGY APPEA RS MAGNOLIA L. SLIDE REVIE WED. 12/14 10:45 PM CDT [facility] Not Available Not Available 01/15/2025 11:58:05 12/15/19 25 12/14/2024 CBC W Auto Diffe renti al panel - Blood platelets [#/volume] in blood by automated count ADEQUA TE PLT EST. ADEQU ATE 12/14 10:45 PM CDT [facility] Not Available Not Available 01/15/2025 11:58:05 12/15/19 25 12/14/2024 CBC W Auto Diffe renti al panel - Blood interpretati on and review of laboratory results Abnorm al Not Available Not Available 11:58:05 12/15/19 25 12/14/2024 Creat ine kinas e [Enzy matic activ ity/v olume ] in Serum or Plasm a creatine kinase [enzymatic activity/vol ume] in serum or plasma 1162 U/L low: 21U/Lh igh: 215U/L high CPK 1,162 (H) 21 - 215 U/L 12/14 12:36 PM CDT [facility] Not Available Not Available 01/15/2025 11:52:44 12/15/19 25 12/14/2024 Creat ine kinas e [Enzy matic activ ity/v olume ] in Serum or Plasm a interpretati on and review of laboratory results Abnorm al Not Available Not Available 11:52:44 12/15/19 25 12/14/2024 Compr ehens liz metab olic 2000 panel - Serum or Plasm a glucose [mass/volume ] in serum or plasma 109 text: 70 - 99 mg/dL high GLUCO SE 109 (H) 70 - 99 MG/DL 12/14 12:36 PM CDT [facility] Not Available Not Available 01/15/2025 11:52:44 12/15/19 25 12/14/2024 Compr ehens liz metab olic 2000 panel - Serum or Plasm a urea nitrogen [mass/volume ] in serum or plasma 61 text: 7 - 18 mg/dL high BUN 61 (H) 7 - 18 MG/DL 12/14 12:36 PM CDT [facility] Not Available Not Available 01/15/2025 11:52:44 12/15/19 25 12/14/2024 Compr ehens liz metab olic 2000 panel - Serum or Plasm a creatinine [mass/volume ] in serum or plasma 3.78 text: 0.55 - 1.02 mg/dL high CREAT ININE S/P/B 3.78 (H) 0.55 - 1.02 MG/DL 12/14 12:36 PM CDT [facility] Not Available Not Available 01/15/2025 11:52:44 12/15/19 25 12/14/2024 Compr ehens liz metab olic 2000 panel - Serum or Plasm a sodium [moles/volum e] in serum or plasma 137 text: 136 - 145 mmol/L SODIU M S/P/B 137 136 - 145 MMOL/ L 12/14 12:36 PM CDT [facility] Not Available Not Available 01/15/2025 11:52:44 12/15/19 25 12/14/2024 Compr ehens liz metab olic 1999 panel - Serum or Plasm a potassium [moles/volum e] in serum or plasma 4.4 text: 3.5 - 5.1 mmol/L POTAS SIUM S/P/B 4.4 3.5 - 5.1 MMOL/ L 12/14 12:[address] [facility] Not Available Not Available 01/15/2025 11:52:44 12/15/19 25 12/14/2024 Compr ehens liz metab olic 1999 panel - Serum or Plasm a chloride [moles/volum e] in serum or plasma 105 text: 97 - 115 mmol/L CHLOR JOSE S/P/B 105 97 - 115 MMOL/ L 12/14 12:36 PM CDT [facility] Not Available Not Available 01/15/2025 11:52:44 12/15/19 25 12/14/2024 Compr ehens liz metab olic 1999 panel - Serum or Plasm a carbon dioxide, total [moles/volum e] in serum or plasma 25.2 text: 21 - 32 mmol/L CO2 25.2 21 - 32 MMOL/ L 12/14 12:[address] [facility] Not Available Not Available 01/15/2025 11:52:44 12/15/19 25 12/14/2024 Compr ehens liz metab olic 1999 panel - Serum or Plasm a calcium [mass/volume ] in serum or plasma 9.3 text: 8.5 - 10.1 mg/dL CALCI UM S/P/B 9.3 8.5 - 10.1 MG/DL 12/14 12:[address] [facility] Not Available Not Available 01/15/2025 11:52:44 12/15/19 25 12/14/2024 Compr ehens liz metab olic 2000 panel - Serum or Plasm a bilirubin.to tim [mass/volume ] in serum or plasma 0.5 text: 0.2 - 1.2 mg/dL BILIR UBIN TOTAL S/P/B 0.5 0.2 - 1.2 MG/DL 12/14 12:36 PM CDT [facility] Not Available Not Available 01/15/2025 11:52:44 12/15/19 25 12/14/[facility]24 [facility] - Serum or Plasm a protein [mass/volume ] in serum or plasma 6 text: 6.4 - 8.2 g/dL low TOTAL PROTE IN S/P/B 6.0 (L) 6.4 - 8.2 G/DL 12/14 12:36 PM CDT [facility] Not Available Not Available 01/15/2025 11:52:44 12/15/19 25 12/14/2024 Compr ens liz metab olic 2000 panel - Serum or Plasm a albumin [mass/volume ] in serum or plasma 2.2 text: 3.4 - 5.0 g/dL low ALBUM IN S/P/B 2.2 (L) 3.4 - 5.0 G/DL 12/14 12:36 PM CDT [facility] Not Available Not Available 01/15/2025 11:52:44 12/15/19 25 12/14/2024 Compr ens liz metab olic 2000 panel - Serum or Plasm a aspartate aminotransfe rase [enzymatic activity/vol ume] in serum or plasma 56 U/L low: 15U/Lh igh: 37U/L high AST 56 (H) 15 - 37 U/L 12/14 12:36 PM CDT [facility] Not Available Not Available 01/15/2025 11:52:44 12/15/19 25 12/14/2024 Compr ehens liz metab olic 2000 panel - Serum or Plasm a alanine aminotransfe rase [enzymatic activity/vol ume] in serum or plasma 18 U/L low: 14U/Lh igh: 55U/L ALT 18 14 - 55 U/L 12/14 12:36 PM CDT [facility] Not Available Not Available 01/15/2025 11:52:44 12/15/19 25 12/14/2024 Compr ehens liz metab olic 1999 panel - Serum or Plasm a alkaline phosphatase [enzymatic activity/vol ume] in serum or plasma 68 U/L low: 50U/Lh igh: 136U/L ALKAL INE PHOSP HATAS E S/P/B 68 50 - 136 U/L 12/14 12:36 PM CDT [facility] Not Available Not Available 01/15/2025 11:52:44 12/15/19 25 12/14/2024 Compr ehens liz metab olic 1999 panel - Serum or Plasm a anion gap in serum or plasma by calculation 6.8 text: 2 - 10 mmol/L ANION GAP 6.8 2 - 10 MMOL/ L 12/14 12:36 PM CDT [facility] Not Available Not Available 01/15/2025 11:52:44 12/15/19 25 12/14/2024 Compr ehens liz metab olic 1999 panel - Serum or Plasm a urea nitrogen/cre atinine [mass ratio] in serum or plasma 16.1 low: 6high: 26 BUN CREAT ININE RATIO 16.1 6 - 26 12/14 12:36 PM CDT [facility] Not Available Not Available 01/15/2025 11:52:44 12/15/19 25 12/14/2024 Compr ehens liz metab olic 1999 panel - Serum or Plasm a albumin/glob ulin [mass ratio] in serum or plasma 0.6 text: 1.0 - 2.0 ratio low A/G RATIO 0.6 (L) 1.0 - 2.0 RATIO 12/14 12:36 PM CDT [facility] Not Available Not Available 01/15/2025 11:52:44 12/15/19 25 12/14/2024 Compr ehens liz metab olic 2000 panel - Serum or Plasm a glomerular filtration rate [volume rate/area] in serum, plasma or blood by creatinine-b ased formula (CKD-epi 2020)/1.73 sq M 11 text: >90 mL/min /1.73 M2 low GFR ESTIM ATE 11 (L) >90 ML/IN N/1.7 3 M2 12/14 12:36 PM CDT [facility] Not Available Not Available 01/15/2025 11:52:44 12/15/19 25 12/14/2024 Compr ehens liz metab olic 2000 panel - Serum or Plasm a interpretati on and review of laboratory results Abnorm al Not Available Not Available 11:52:44 12/15/19 25 12/14/2024 CBC W Auto Diffe renti al panel - Blood leukocytes [#/volume] in blood by automated count 7.3 text: 4.5 - 11.0 x10'3/ uL WBC 7.30 4.5 - 11.0 x10'3 /uL 12/14 12:16 PM CDT [facility] Not Available Not Available 01/15/2025 11:52:43 12/15/19 25 12/14/2024 CBC W Auto Diffe renti al panel - Blood erythrocytes [#/volume] in blood by automated count 2.28 text: 4.20 - 5.40 x10'6/ uL low RBC 2.28 (L) 4.20 - 5.40 x10'6 /uL 12/14 12:16 PM CDT [facility] Not Available Not Available 01/15/2025 11:52:43 12/15/19 25 12/14/2024 CBC W Auto Diffe renti al panel - Blood hemoglobin [mass/volume ] in blood 6.6 text: 12.0 - 16.0 g/dL critical low HGB 6.6 (LL) 12.0 - 16.0 G/DL 12/14 12:16 PM CDT [facility] Not Available Not Available 01/15/2025 11:52:43 12/15/19 25 12/14/2024 CBC W Auto Diffe renti al panel - Blood hematocrit [volume fraction] of blood by calculation 20.7 % low: 38%hig h: 48% low HCT 20.7 (L) 38.0 - 48.0 % 12/14 12:16 PM CDT [facility] Not Available Not Available 01/15/2025 11:52:43 12/15/19 25 12/14/2024 CBC W Auto Diffe renti al panel - Blood MCV [entitic mean volume] in red blood cells 90.8 text: 81.0 - 99.0 fL MCV 90.8 81.0 - 99.0 FL 12/14 12:16 PM CDT [facility] Not Available Not Available 01/15/2025 11:52:43 12/15/19 25 12/14/2024 CBC W Auto Diffe renti al panel - Blood MCH [entitic mass] 28.9 pg low: 27pghi gh: 31pg MCH 28.9 27.0 - 31.0 PG 12/14 12:16 PM CDT [facility] Not Available Not Available 01/15/2025 11:52:43 12/15/19 25 12/14/2024 CBC W Auto Diffe renti al panel - Blood MCHC [entitic mass/volume] in red blood cells 31.9 text: 32.0 - 36.0 g/dL low MCHC 31.9 (L) 32.0 - 36.0 G/DL 12/14 12:16 PM CDT [facility] Not Available Not Available 01/15/2025 11:52:43 12/15/19 25 12/14/2024 CBC W Auto Diffe renti al panel - Blood RDW 16 % low: 11.5%h igh: 14.5% high RDW 16.0 (H) 11.5 - 14.5 % 12/14 12:16 PM CDT [facility] Not Available Not Available 01/15/2025 11:52:43 12/15/19 25 12/14/2024 CBC W Auto Diffe renti al panel - Blood platelets [#/volume] in blood 103 text: 130 - 400 x10'3/ uL low PLT 103 (L) 130 - 400 x10'3 /uL 12/14 12:16 PM CDT [facility] Not Available Not Available 01/15/2025 11:52:43 12/15/19 25 12/14/2024 CBC W Auto Diffe renti al panel - Blood platelet [entitic mean volume] in blood 9.1 text: 9.3 - 12.2 fL low MPV 9.1 (L) 9.3 - 12.2 FL 12/14 12:16 PM CDT [facility] Not Available Not Available 01/15/2025 11:52:43 12/15/19 25 12/14/2024 CBC W Auto Diffe renti al panel - Blood differential cell count method - blood MANUAL DIFFER ENTIAL DIFFE RENTI AL TYPE MANUA L DIFFE RENTI AL 12/14 12:23 PM CDT [facility] Not Available Not Available 01/15/2025 11:52:43 12/15/19 25 12/14/2024 CBC W Auto Diffe renti al panel - Blood segmented neutrophils/ leukocytes in blood by manual count 87 % SEG NEUTR OPHIL S 87 % 12/14 12:23 PM CDT [facility] Not Available Not Available 01/15/2025 11:52:43 12/15/19 25 12/14/2024 CBC W Auto Diffe renti al panel - Blood lymphocytes/ leukocytes in blood by manual count 2 % LYMPH OCYTE S 2 % 12/14 12:23 PM CDT [facility] Not Available Not Available 01/15/2025 11:52:43 12/15/19 25 12/14/2024 CBC W Auto Diffe renti al panel - Blood monocytes/le ukocytes in blood by manual count 6 % MONOC YTES 6 % 12/14 12:23 PM CDT [facility] Not Available Not Available 01/15/2025 11:52:43 04/03/20 25 12/14/2024 CBC W Auto Diffe renti al panel - Blood eosinophils/ leukocytes in blood by manual count 2 % EOSIN OPHIL S 2 % 12/14 12:23 PM CDT [facility] Not Available Not Available 01/15/2025 11:52:43 12/15/19 25 12/14/2024 CBC W Auto Diffe renti al panel - Blood basophils/le ukocytes in blood 1 % BASOP HILS 1 % 12/14 12:23 PM CDT [facility] Not Available Not Available 01/15/2025 11:52:43 12/15/19 25 12/14/2024 CBC W Auto Diffe renti al panel - Blood band form neutrophils/ leukocytes in blood by manual count 2 % BANDS 2 % 12/14 12:23 PM CDT [facility] Not Available Not Available 01/15/2025 11:52:43 12/15/19 25 12/14/2024 CBC W Auto Diffe renti al panel - Blood neutrophils [#/volume] in blood 6.5 text: 1.80 - 7.70 x10'3/ uL ABS. NEUTR OPHIL S 6.50 1.80 - 7.70 x10'3 /uL 12/14 12:23 PM CDT [facility] Not Available Not Available 01/15/2025 11:52:43 12/15/19 25 12/14/2024 CBC W Auto Diffe renti al panel - Blood lymphocytes [#/volume] in blood 0.15 text: 1.00 - 4.80 x10'3/ uL low ABS. LYMPH OCYTE S 0.15 (L) 1.00 - 4.80 x10'3 /uL 12/14 12:23 PM CDT [facility] Not Available Not Available 01/15/2025 11:52:43 12/15/19 25 12/14/2024 CBC W Auto Diffe renti al panel - Blood monocytes [#/volume] in blood 0.44 text: 0.24 - 0.86 x10'3/ uL ABS. MONOC YTES 0.44 0.24 - 0.86 x10'3 /uL 12/14 12:23 PM CDT [facility] Not Available Not Available 01/15/2025 11:52:43 12/15/19 25 12/14/2024 CBC W Auto Diffe renti al panel - Blood eosinophils [#/volume] in blood 0.15 text: 0.04 - 0.36 x10'3/ uL ABS. EOSIN OPHIL S 0.15 0.04 - 0.36 x10'3 /uL 12/14 12:23 PM CDT [facility] Not Available Not Available 01/15/2025 11:52:43 12/15/19 25 12/14/2024 CBC W Auto Diffe renti al panel - Blood basophils [#/volume] in blood 0.07 text: 0.01 - 0.08 x10'3/ uL ABS. BASOP HILS 0.07 0.01 - 0.08 x10'3 /uL 12/14 12:23 PM CDT [facility] Not Available Not Available 01/15/2025 11:52:43 12/15/19 25 12/14/2024 CBC W Auto Diffe renti al panel - Blood erythrocytes [morphology] in blood by automated count SLIDE REVIEW ED RBC MORPH OLOGY SLIDE REVIE WED 12/14 12:23 PM CDT [facility] Not Available Not Available 01/15/2025 11:52:43 12/15/19 25 12/14/2024 CBC W Auto Diffe renti al panel - Blood hypochromia [presence] in blood 2+ HYPOC HROMA ENMA 2+ 12/14 12:23 PM CDT [facility] Not Available Not Available 01/15/2025 11:52:43 12/15/19 25 12/14/2024 CBC W Auto Diffe renti al panel - Blood platelets [#/volume] in blood by automated count ADEQUA TE PLT EST. ADEQU ATE 12/14 12:23 PM CDT [facility] Not Available Not Available 01/15/2025 11:52:43 12/15/19 25 12/14/2024 CBC W Auto Diffe meghan al panel - Blood interpretati on and review of laboratory results Abnorm al Not Available Not Available 11:52:43 12/26/19 25 12/25/2024 Gluco se [Mass /volu me] in Blood by Autom ated test strip glucose [mass/volume ] in blood by automated test strip 101 mg/dL low: 70mg/d Lhigh: 99mg/d L high GLUCO SE POC 101 (H) 70 - 99 mg/dL 12/25 9:24 PM CDT [facility] Not Available Not Available 01/15/2025 11:48:12 12/26/19 25 12/25/2024 Gluco se [Mass /volu me] in Blood by Autom ated test strip interpretati on and review of laboratory results Abnorm al Not Available Not Available 11:48:12 12/26/19 25 12/25/2024 Gluco se [Mass /volu me] in Blood by Autom ated test strip glucose [mass/volume ] in blood by automated test strip 98 mg/dL low: 70mg/d Lhigh: 99mg/d L GLUCO SE POC 98 70 - 99 mg/dL 12/25 4:59 PM CDT [facility] Not Available Not Available 01/15/2025 11:48:12 12/27/19 25 12/26/2024 Urina lysis dipst ick W Refle x Micro scopi c panel - Urine collection method - specimen URINE CLEAN CATCH SPECI MEN TYPE URINE CLEAN CATCH 12/26 5:27 PM CDT [facility] Not Available Not Available 01/15/2025 11:48:12 12/27/19 25 12/26/2024 Urina lysis dipst ick W Refle x Micro scopi c panel - Urine color of urine COLORL ESS COLOR (U) COLOR LESS 12/26 5:51 PM CDT [facility] Not Available Not Available 01/15/2025 11:48:12 12/27/19 25 12/26/2024 Urina lysis dipst ick W Refle x Micro scopi c panel - Urine clarity of urine CLEAR TRANS PAREN CY CLEAR 12/26 5:51 PM CDT [facility] Not Available Not Available 01/15/2025 11:48:12 12/27/19 25 12/26/2024 Urina lysis dipst ick W Refle x Micro scopi c panel - Urine specific gravity of urine 1.008 low: 1.001h igh: 1.03 SPECI FIC GRAVI TY (U) 1.008 1.001 - 1.030 12/26 5:51 PM CDT [facility] Not Available Not Available 01/15/2025 11:48:12 12/27/19 25 12/26/2024 Urina lysis dipst ick W Refle x Micro scopi c panel - Urine pH of urine 7 low: 5high: 9 U PH 7.0 5.0 - 9.0 12/26 5:51 PM CDT [facility] Not Available Not Available 01/15/2025 11:48:12 12/27/19 25 12/26/2024 Urina lysis dipst ick W Refle x Micro scopi c panel - Urine leukocytes [#/volume] in urine by test strip NEGATI VE text: negati ve LEUKO CYTES (U) NEGAT LIZ NEGAT LIZ 12/26 5:51 PM CDT [facility] Not Available Not Available 01/15/2025 11:48:12 12/27/19 25 12/26/2024 Urina lysis dipst ick W Refle x Micro scopi c panel - Urine nitrite [presence] in urine NEGATI VE text: negati ve NITRI LESTER NEGAT LIZ NEGAT LIZ 12/26 5:[address] [facility] Not Available Not Available 01/15/2025 11:48:12 12/27/19 25 12/26/2024 Urina lysis dipst ick W Refle x Micro scopi c panel - Urine protein [mass/volume ] in urine by test strip 70 text: <30 mg/dL high PROTE IN RANDO M (U) 70 (H) <30 MG/DL 12/26 5:51 PM CDT [facility] Not Available Not Available 01/15/2025 11:48:12 12/27/19 25 12/26/2024 Urina lysis dipst ick W Refle x Micro scopi c panel - Urine glucose [mass/volume ] in urine NORMAL text: normal mg/dL GLUCO SE (U) MAGNOLIA L MAGNOLIA L MG/DL 12/26 5:[address] [facility] Not Available Not Available 01/15/2025 11:48:12 12/27/19 25 12/26/2024 Urina lysis dipst ick W Refle x Micro scopi c panel - Urine ketones [mass/volume ] in urine by test strip NEGATI VE text: negati ve mg/dL KETON ES MG/DL (U) NEGAT LIZ NEGAT LIZ MG/DL 12/26 5:[address] [facility] Not Available Not Available 01/15/2025 11:48:12 12/27/19 25 12/26/2024 Urina lysis dipst ick W Refle x Micro scopi c panel - Urine urobilinogen [units/volum e] in urine by test strip NORMAL text: normal mg/dL UROBI LINOG EN MAGNOLIA L MAGNOLIA L MG/DL 12/26 5:[address] [facility] Not Available Not Available 01/15/2025 11:48:12 12/27/19 25 12/26/2024 Urina lysis dipst ick W Refle x Micro scopi c panel - Urine bilirubin.to tim [mass/volume ] in urine NEGATI VE text: negati ve mg/dL BILIR UBIN (U) NEGAT LIZ NEGAT LIZ MG/DL 12/26 5:[address] [facility] Not Available Not Available 01/15/2025 11:48:12 12/27/19 25 12/26/2024 Urina lysis dipst ick W Refle x Micro scopi c panel - Urine erythrocytes [#/volume] in urine by automated test strip NEGATI VE text: negati ve BLOOD (U) NEGAT LIZ NEGAT LIZ 12/26 5:[address] [facility] Not Available Not Available 01/15/2025 11:48:12 12/27/19 25 12/26/2024 Urina lysis dipst ick W Refle x Micro scopi c panel - Urine leukocytes [#/area] in urine sediment by microscopy high power field 1 text: <6 /hpf WBC/H PF 1 <6 /HPF 12/26 5:[address] [facility] Not Available Not Available 01/15/2025 11:48:12 12/27/19 25 12/26/2024 Urina lysis dipst ick W Refle x Micro scopi c panel - Urine erythrocytes [#/area] in urine sediment by microscopy high power field 3 text: <6 /hpf RBC/H PF 3 <6 /HPF 12/26 5:[address] [facility] Not Available Not Available 01/15/2025 11:48:12 12/27/19 25 12/26/2024 Urina lysis dipst ick W Refle x Micro scopi c panel - Urine epithelial cells.squamo us [#/area] in urine sediment by microscopy high power field RARE text: /hpf SQUAM OUS EPITH ELIAL S RARE /HPF 12/26 5:[address] [facility] Not Available Not Available 01/15/2025 11:48:12 12/27/19 25 12/26/2024 Urina lysis dipst ick W Refle x Micro scopi c panel - Urine interpretati on and review of laboratory results Abnorm al Not Available Not Available 11:48:12 12/27/1912/26/2024 Folat e [Mass /volu me] in Serum or Plasm a folate [mass/volume ] in serum or plasma 17.9 text: 3.1 - 17.5 NG/mL high FOLAT E 17.9 (H) 3.1 - 17.5 NG/ML 12/26 2:54 PM CDT [facility] Not Available Not Available 01/15/2025 11:48:12 12/27/1912/26/2024 Folat e [Mass /volu me] in Serum or Plasm a interpretati on and review of laboratory results Abnorm al Not Available Not Available 11:48:12 12/27/1912/26/2024 Cobal floyd (Vicki min B12) [Mass /volu me] in Serum or Plasm a cobalamin (vitamin B12) [mass/volume ] in serum or plasma 486 pg/mL low: 254pg/ mLhigh : 1320pg /mL VITAM IN B12 S/P/B 486 254 - 1,320 PG/ML 12/26 2:54 PM CDT [facility] Not Available Not Available 01/15/2025 11:48:12 12/27/1912/26/2024 Creat ine kinas e [Enzy matic activ ity/v olume ] in Serum or Plasm a creatine kinase [enzymatic activity/vol ume] in serum or plasma 21 U/L low: 21U/Lh igh: 215U/L CPK 21 21 - 215 U/L 12/26 12:19 PM CDT [facility] Not Available Not Available 01/15/2025 11:48:12 12/27/19 25 12/26/2024 Hepat ic funct ion 2000 panel - Serum or Plasm a protein [mass/volume ] in serum or plasma 5.5 text: 6.4 - 8.2 g/dL low TOTAL PROTE IN S/P/B 5.5 (L) 6.4 - 8.2 G/DL 12/26 8:56 AM CDT [facility] Not Available Not Available 01/15/2025 11:48:12 12/27/19 25 12/26/2024 Hepat ic funct ion 2000 panel - Serum or Plasm a albumin [mass/volume ] in serum or plasma 2.1 text: 3.4 - 5.0 g/dL low ALBUM IN S/P/B 2.1 (L) 3.4 - 5.0 G/DL 12/26 8:56 AM CDT [facility] Not Available Not Available 01/15/2025 11:48:12 12/27/19 25 12/26/2024 Hepat ic funct ion 2000 panel - Serum or Plasm a bilirubin.to tim [mass/volume ] in serum or plasma 0.7 text: 0.2 - 1.2 mg/dL BILIR UBIN TOTAL S/P/B 0.7 0.2 - 1.2 MG/DL 12/26 8:56 AM CDT [facility] Not Available Not Available 01/15/2025 11:48:12 12/27/1912/26/2024 Hepat ic funct ion 2000 panel - Serum or Plasm a bilirubin.co njugated [mass/volume ] in serum or plasma 0.1 text: 0.0 - 0.20 mg/dL BILIR UBIN DIREC T S/P/B 0.1 0.0 - 0.20 MG/DL 12/26 8:[address] [facility] Not Available Not Available 01/15/2025 11:48:12 12/27/19 25 12/26/2024 Hepat ic funct ion 2000 panel - Serum or Plasm a bilirubin.in direct [mass/volume ] in serum or plasma 0.6 text: 0.0 - 0.9 mg/dL BILIR UBIN INDIR ECT S/P/B 0.6 0.0 - 0.9 MG/DL 04/15 /2025 8:56 AM CDT [facility] Not Available Not Available 01/15/2025 11:48:12 12/27/1912/26/2024 Hepat ic funct ion 1999 panel - Serum or Plasm a alkaline phosphatase [enzymatic activity/vol ume] in serum or plasma 60 U/L low: 50U/Lh igh: 136U/L ALKAL INE PHOSP HATAS E S/P/B 60 50 - 136 U/L 12/26 8:56 AM CDT [facility] Not Available Not Available 01/15/2025 11:48:12 12/27/19 25 12/26/2024 Hepat ic funct ion 1999 panel - Serum or Plasm a aspartate aminotransfe rase [enzymatic activity/vol ume] in serum or plasma 10 U/L low: 15U/Lh igh: 37U/L low AST 10 (L) 15 - 37 U/L 12/26 8:56 AM CDT [facility] Not Available Not Available 01/15/2025 11:48:12 12/27/19 25 12/26/2024 Hepat ic funct ion 2000 panel - Serum or Plasm a alanine aminotransfe rase [enzymatic activity/vol ume] in serum or plasma 12 U/L low: 14U/Lh igh: 55U/L low ALT 12 (L) 14 - 55 U/L 12/26 8:56 AM CDT [facility] Not Available Not Available 01/15/2025 11:48:12 12/27/19 25 12/26/2024 Hepat ic funct ion 1999 panel - Serum or Plasm a albumin/glob ulin [mass ratio] in serum or plasma 0.6 text: 1.0 - 2.0 ratio low A/G RATIO 0.6 (L) 1.0 - 2.0 RATIO 12/26 8:56 AM CDT [facility] Not Available Not Available 01/15/2025 11:48:12 12/27/19 25 12/26/2024 Hepat ic funct ion 1999 panel - Serum or Plasm a interpretati on and review of laboratory results Abnorm al Not Available Not Available 11:48:12 12/27/19 25 12/26/2024 Marli tin [Mass /volu me] in Serum or Plasm a ferritin [mass/volume ] in serum or plasma 1100.5 text: 8.0 - 388.0 NG/mL high MARLI TIN 1,100 .5 (H) 8.0 - 388.0 NG/ML 12/26 11:10 AM CDT [facility] Not Available Not Available 01/15/2025 11:48:12 12/27/19 25 12/26/2024 Marli tin [Mass /volu me] in Serum or Plasm a interpretati on and review of laboratory results Abnorm al Not Available Not Available 11:48:12 12/27/19 25 12/26/2024 Iron and Iron maribel ng capac ity panel - Serum or Plasm a iron [mass/volume ] in serum or plasma 54 text: 50.0 - 170.0 mcg/dL IRON 54 50.0 - 170.0 MCG/D L 12/26 11:10 AM CDT [facility] Not Available Not Available 01/15/2025 11:48:12 12/27/19 25 12/26/2024 Iron and Iron maribel ng capac ity panel - Serum or Plasm a iron binding capacity [mass/volume ] in serum or plasma 128 text: 250 - 450 mcg/dL low IRON MARIBEL NG CAPAC ITY 128 (L) 250 - 450 MCG/D L 12/26 11:10 AM CDT [facility] Not Available Not Available 01/15/2025 11:48:12 12/27/19 25 12/26/2024 Iron and Iron maribel ng capac ity panel - Serum or Plasm a iron saturation [mass fraction] in serum or plasma 42 % low: 20%hig h: 55% IRON SATUR ATION 42 20 - 55 % 12/26 11:10 AM CDT [facility] Not Available Not Available 01/15/2025 11:48:12 12/27/19 25 12/26/2024 Iron and Iron maribel ng capac ity panel - Serum or Plasm a interpretati on and review of laboratory results Abnorm al Not Available Not Available 11:48:12 12/27/19 25 12/26/2024 Basic metab olic 2000 panel - Serum or Plasm a glucose [mass/volume ] in serum or plasma 82 text: 70 - 99 mg/dL GLUCO SE 82 70 - 99 MG/DL 12/26 4:30 AM CDT [facility] Not Available Not Available 01/15/2025 11:48:12 12/27/19 25 12/26/2024 Basic metab olic 2000 panel - Serum or Plasm a urea nitrogen [mass/volume ] in serum or plasma 55 text: 7 - 18 mg/dL high BUN 55 (H) 7 - 18 MG/DL 12/26 4:30 AM CDT [facility] Not Available Not Available 01/15/2025 11:48:12 12/27/19 25 12/26/2024 Basic metab olic 2000 panel - Serum or Plasm a creatinine [mass/volume ] in serum or plasma 5 text: 0.55 - 1.02 mg/dL high CREAT ININE S/P/B 5.00 (H) 0.55 - 1.02 MG/DL 12/26 4:30 AM CDT [facility] Not Available Not Available 01/15/2025 11:48:12 12/27/1912/26/2024 Basic metab olic 2000 panel - Serum or Plasm a sodium [moles/volum e] in serum or plasma 140 text: 136 - 145 mmol/L SODIU M S/P/B 140 136 - 145 MMOL/ L 12/26 4:30 AM CDT [facility] Not Available Not Available 01/15/2025 11:48:12 12/27/19 25 12/26/2024 Basic metab olic 2000 panel - Serum or Plasm a potassium [moles/volum e] in serum or plasma 4.1 text: 3.5 - 5.1 mmol/L POTAS SIUM S/P/B 4.1 3.5 - 5.1 MMOL/ L 12/26 4:30 AM T [facility] Not Available Not Available 01/15/2025 11:48:12 12/27/19 25 12/26/2024 Basic metab olic 2000 panel - Serum or Plasm a chloride [moles/volum e] in serum or plasma 109 text: 97 - 115 mmol/L CHLOR JOSE S/P/B 109 97 - 115 MMOL/ L 12/26 4:30 AM T [facility] Not Available Not Available 01/15/2025 11:48:12 12/27/19 25 12/26/2024 Basic metab olic 1999 panel - Serum or Plasm a carbon dioxide, total [moles/volum e] in serum or plasma 24.3 text: 21 - 32 mmol/L CO2 24.3 21 - 32 MMOL/ L 12/26 4:30 AM [facility] Not Available Not Available 01/15/2025 11:48:12 12/27/19 25 12/26/2024 Basic metab olic 2000 panel - Serum or Plasm a calcium [mass/volume ] in serum or plasma 9 text: 8.5 - 10.1 mg/dL CALCI UM S/P/B 9.0 8.5 - 10.1 MG/DL 12/26 4:30 AM T [facility] Not Available Not Available 01/15/2025 11:48:12 12/27/19 25 12/26/2024 Basic metab olic 1999 panel - Serum or Plasm a anion gap in serum or plasma by calculation 6.7 text: 2 - 10 mmol/L ANION GAP 6.7 2 - 10 MMOL/ L 12/26 4:30 AM [facility] Not Available Not Available 01/15/2025 11:48:12 12/27/19 25 12/26/2024 Basic metab olic 2000 panel - Serum or Plasm a urea nitrogen/cre atinine [mass ratio] in serum or plasma 11 low: 6high: 26 BUN CREAT ININE RATIO 11.0 6 - 26 12/26 4:30 AM CDT [facility] Not Available Not Available 01/15/2025 11:48:12 12/27/19 25 12/26/2024 Basic metab olic 2000 panel - Serum or Plasm a glomerular filtration rate [volume rate/area] in serum, plasma or blood by creatinine-b ased formula (CKD-epi 2020)/1.73 sq M 8 text: >90 mL/min /1.73 M2 low GFR ESTIM ATE 8 (L) >90 ML/IN N/1.7 3 M2 12/26 4:30 AM CDT [facility] Not Available Not Available 01/15/2025 11:48:12 12/27/1912/26/2024 Basic metab olic 2000 panel - Serum or Plasm a interpretati on and review of laboratory results Abnorm al Not Available Not Available 11:48:12 12/27/19 25 12/26/2024 CBC W Auto Diffe renti al panel - Blood leukocytes [#/volume] in blood by automated count 3.21 text: 4.5 - 11.0 x10'3/ uL low WBC 3.21 (L) 4.5 - 11.0 x10'3 /uL 12/26 4:11 AM T [facility] Not Available Not Available 01/15/2025 11:48:12 12/27/19 25 12/26/2024 CBC W Auto Diffe renti al panel - Blood erythrocytes [#/volume] in blood by automated count 2.73 text: 4.20 - 5.40 x10'6/ uL low RBC 2.73 (L) 4.20 - 5.40 x10'6 /uL 12/26 4:11 AM CDT [facility] Not Available Not Available 01/15/2025 11:48:12 12/27/19 25 12/26/2024 CBC W Auto Diffe renti al panel - Blood hemoglobin [mass/volume ] in blood 7.9 text: 12.0 - 16.0 g/dL low HGB 7.9 (L) 12.0 - 16.0 G/DL 12/26 4:11 AM CDT [facility] Not Available Not Available 01/15/2025 11:48:12 12/27/19 25 12/26/2024 CBC W Auto Diffe meghan al panel - Blood hematocrit [volume fraction] of blood by calculation 24.9 % low: 38%hig h: 48% low HCT 24.9 (L) 38.0 - 48.0 % 12/26 4:11 AM CDT [facility] Not Available Not Available 01/15/2025 11:48:12 12/27/19 25 12/26/2024 CBC W Auto Diffe meghan granados panel - Blood MCV [entitic mean volume] in red blood cells 91.2 text: 81.0 - 99.0 fL MCV 91.2 81.0 - 99.0 FL 12/26 4:11 AM CDT [facility] Not Available Not Available 01/15/2025 11:48:12 12/27/19 25 12/26/2024 CBC W Auto Diffe meghan al panel - Blood MCH [entitic mass] 28.9 pg low: 27pghi gh: 31pg MCH 28.9 27.0 - 31.0 PG 12/26 4:11 AM CDT [facility] Not Available Not Available 01/15/2025 11:48:12 12/27/19 25 12/26/2024 CBC W Auto Diffe meghan al panel - Blood MCHC [entitic mass/volume] in red blood cells 31.7 text: 32.0 - 36.0 g/dL low MCHC 31.7 (L) 32.0 - 36.0 G/DL 12/26 4:11 AM CDT [facility] Not Available Not Available 01/15/2025 11:48:12 12/27/19 25 12/26/2024 CBC W Auto Diffe renti al panel - Blood RDW 15.5 % low: 11.5%h igh: 14.5% high RDW 15.5 (H) 11.5 - 14.5 % 12/26 4:11 AM CDT [facility] Not Available Not Available 01/15/2025 11:48:12 12/27/19 25 12/26/2024 CBC W Auto Diffe renti al panel - Blood platelets [#/volume] in blood 135 text: 130 - 400 x10'3/ uL PLT 135 130 - 400 x10'3 /uL 12/26 4:11 AM CDT [facility] Not Available Not Available 01/15/2025 11:48:12 12/27/19 25 12/26/2024 CBC W Auto Diffe renti al panel - Blood platelet [entitic mean volume] in blood 9.1 text: 9.3 - 12.2 fL low MPV 9.1 (L) 9.3 - 12.2 FL 12/26 4:11 AM CDT [facility] Not Available Not Available 01/15/2025 11:48:12 12/27/19 25 12/26/2024 CBC W Auto Diffe renti al panel - Blood differential cell count method - blood AUTOMA TEDDY DIFFER ENTIAL DIFFE RENTI AL TYPE AUTOM ATED DIFFE RENTI AL 12/26 4:11 AM T [facility] Not Available Not Available 01/15/2025 11:48:12 12/27/19 25 12/26/2024 CBC W Auto Diffe renti al panel - Blood neutrophils/ leukocytes in blood by automated count 59.3 % NEUTR OPHIL S % 59.3 % 12/26 4:11 AM CDT [facility] Not Available Not Available 01/15/2025 11:48:12 12/27/19 25 12/26/2024 CBC W Auto Diffe renti al panel - Blood lymphocytes/ leukocytes in blood by automated count 22.7 % LYMPH OCYTE S % 22.7 % 12/26 4:11 AM T [facility] Not Available Not Available 01/15/2025 11:48:12 12/27/19 25 12/26/2024 CBC W Auto Diffe renti al panel - Blood monocytes/le ukocytes in blood by automated count 14.3 % MONOC YTES % 14.3 % 12/26 4:11 AM T [facility] Not Available Not Available 01/15/2025 11:48:12 12/27/19 25 12/26/2024 CBC W Auto Diffe renti al panel - Blood eosinophils/ leukocytes in blood by automated count 3.1 % EOSIN OPHIL S 3.1 % 12/26 4:11 AM T [facility] Not Available Not Available 01/15/2025 11:48:12 12/27/19 25 12/26/2024 CBC W Auto Diffe renti al panel - Blood basophils/le ukocytes in blood by automated count 0.3 % BASOP HILS 0.3 % 12/26 4:11 AM T [facility] Not Available Not Available 01/15/2025 11:48:12 12/27/19 25 12/26/2024 CBC W Auto Diffe renti al panel - Blood immature granulocytes /leukocytes in blood by automated count 0.3 % IMMAT URE GRANS % 0.3 % 12/26 4:11 AM T [facility] Not Available Not Available 01/15/2025 11:48:12 12/27/19 25 12/26/2024 CBC W Auto Diffe renti al panel - Blood neutrophils [#/volume] in blood 1.9 text: 1.80 - 7.70 x10'3/ uL ABS. NEUTR OPHIL S 1.90 1.80 - 7.70 x10'3 /uL 12/26 4:11 AM T [facility] Not Available Not Available 01/15/2025 11:48:12 12/27/19 25 12/26/2024 CBC W Auto Diffe renti al panel - Blood lymphocytes [#/volume] in blood 0.73 text: 1.00 - 4.80 x10'3/ uL low ABS. LYMPH OCYTE S 0.73 (L) 1.00 - 4.80 x10'3 /uL 12/26 4:11 AM CDT [facility] Not Available Not Available 01/15/2025 11:48:12 12/27/19 25 12/26/2024 CBC W Auto Diffe renti al panel - Blood monocytes [#/volume] in blood 0.46 text: 0.24 - 0.86 x10'3/ uL ABS. MONOC YTES 0.46 0.24 - 0.86 x10'3 /uL 12/26 4:11 AM CDT [facility] Not Available Not Available 01/15/2025 11:48:12 12/27/19 25 12/26/2024 CBC W Auto Diffe renti al panel - Blood eosinophils [#/volume] in blood 0.1 text: 0.04 - 0.36 x10'3/ uL ABS. EOSIN OPHIL S 0.10 0.04 - 0.36 x10'3 /uL 12/26 4:11 AM CDT [facility] Not Available Not Available 01/15/2025 11:48:12 12/27/19 25 12/26/2024 CBC W Auto Diffe renti al panel - Blood basophils [#/volume] in blood 0.01 text: 0.01 - 0.08 x10'3/ uL ABS. BASOP HILS 0.01 0.01 - 0.08 x10'3 /uL 12/26 4:11 AM CDT [facility] Not Available Not Available 01/15/2025 11:48:12 12/27/19 25 12/26/2024 CBC W Auto Diffe renti al panel - Blood immature granulocytes [#/volume] in blood 0.01 text: 0.00 - 0.49 x10'3/ uL ABS. IMMAT URE GRANU LOCYT ES 0.01 0.00 - 0.49 x10'3 /uL 12/26 4:11 AM CDT [facility] Not Available Not Available 01/15/2025 11:48:12 12/27/19 25 12/26/2024 CBC W Auto Diffe renti al panel - Blood interpretati on and review of laboratory results Abnorm al Not Available Not Available 11:48:12 12/28/19 25 01/01/2025 Bacte eun ident ified in Blood by Cultu re specimen source identified BLOOD- PEDIAT BERTHA VOLUME SPEC DESCR IPTIO N BLOOD -PEDI ATRIC VOLUM E 12/27 12:28 AM CDT [facility] Not Available Not Available 01/15/2025 11:48:13 12/28/19 25 01/01/2025 Bacte eun ident ified in Blood by Cultu re service comment NO SPECIA L REQUES T SPECI AL REQUE STS NO SPECI AL REQUE ST 12/27 12:28 AM CDT [facility] Not Available Not Available 01/15/2025 11:48:13 12/28/19 25 01/01/2025 Bacte eun ident ified in Blood by Cultu re bacteria identified in specimen by culture NO GROWTH 5 DAYS CULTU RE RESUL T NO GROWT H 5 DAYS 01/01 3:53 AM CDT [facility] Not Available Not Available 01/15/2025 11:48:13 12/28/19 25 01/01/2025 Bacte eun ident ified in Blood by Cultu re specimen source identified BLOOD SPEC DESCR IPTIO N BLOOD 12/27 12:28 AM CDT [facility] Not Available Not Available 01/15/2025 11:48:13 12/28/19 25 01/01/2025 Bacte eun ident ified in Blood by Cultu re service comment NO SPECIA L REQUES T SPECI AL REQUE STS NO SPECI AL REQUE ST 12/27 12:28 AM CDT [facility] Not Available Not Available 01/15/2025 11:48:13 12/28/19 25 01/01/2025 Bacte eun ident ified in Blood by Cultu re bacteria identified in specimen by culture NO GROWTH 5 DAYS CULTU RE RESUL T NO GROWT H 5 DAYS 01/01 3:43 AM CDT [facility] Not Available Not Available 01/15/2025 11:48:13 12/28/19 25 12/27/2024 CBC W Auto Diffe renti al panel - Blood leukocytes [#/volume] in blood by automated count 3.59 text: 4.5 - 11.0 x10'3/ uL low WBC 3.59 (L) 4.5 - 11.0 x10'3 /uL 12/27 1:25 AM CDT [facility] Not Available Not Available 01/15/2025 11:48:13 12/28/19 25 12/27/2024 CBC W Auto Diffe renti al panel - Blood erythrocytes [#/volume] in blood by automated count 2.71 text: 4.20 - 5.40 x10'6/ uL low RBC 2.71 (L) 4.20 - 5.40 x10'6 /uL 12/27 1:25 AM CDT [facility] Not Available Not Available 01/15/2025 11:48:13 12/28/19 25 12/27/2024 CBC W Auto Diffe renti al panel - Blood hemoglobin [mass/volume ] in blood 8 text: 12.0 - 16.0 g/dL low HGB 8.0 (L) 12.0 - 16.0 G/DL 12/27 1:25 AM CDT [facility] Not Available Not Available 01/15/2025 11:48:13 12/28/19 25 12/27/2024 CBC W Auto Diffe renti al panel - Blood hematocrit [volume fraction] of blood by calculation 24.9 % low: 38%hig h: 48% low HCT 24.9 (L) 38.0 - 48.0 % 12/27 1:25 AM CDT [facility] Not Available Not Available 01/15/2025 11:48:13 12/28/19 25 12/27/2024 CBC W Auto Diffe renti al panel - Blood MCV [entitic mean volume] in red blood cells 91.9 text: 81.0 - 99.0 fL MCV 91.9 81.0 - 99.0 FL 12/27 1:25 AM CDT [facility] Not Available Not Available 01/15/2025 11:48:13 12/28/19 25 12/27/2024 CBC W Auto Diffe renti al panel - Blood MCH [entitic mass] 29.5 pg low: 27pghi gh: 31pg MCH 29.5 27.0 - 31.0 PG 12/27 1:25 AM CDT [facility] Not Available Not Available 01/15/2025 11:48:13 12/28/19 25 12/27/2024 CBC W Auto Diffe renti al panel - Blood MCHC [entitic mass/volume] in red blood cells 32.1 text: 32.0 - 36.0 g/dL MCHC 32.1 32.0 - 36.0 G/DL 12/27 1:25 AM CDT [facility] Not Available Not Available 01/15/2025 11:48:13 12/28/19 25 12/27/2024 CBC W Auto Diffe renti al panel - Blood RDW 15.5 % low: 11.5%h igh: 14.5% high RDW 15.5 (H) 11.5 - 14.5 % 12/27 1:25 AM CDT [facility] Not Available Not Available 01/15/2025 11:48:13 12/28/19 25 12/27/2024 CBC W Auto Diffe renti al panel - Blood platelets [#/volume] in blood 143 text: 130 - 400 x10'3/ uL PLT 143 130 - 400 x10'3 /uL 12/27 1:25 AM CDT [facility] Not Available Not Available 01/15/2025 11:48:13 12/28/19 25 12/27/2024 CBC W Auto Diffe renti al panel - Blood platelet [entitic mean volume] in blood 9.7 text: 9.3 - 12.2 fL MPV 9.7 9.3 - 12.2 FL 12/27 1:25 AM CDT [facility] Not Available Not Available 01/15/2025 11:48:13 12/28/19 25 12/27/2024 CBC W Auto Diffe renti al panel - Blood differential cell count method - blood MANUAL DIFFER ENTIAL DIFFE RENTI AL TYPE MANUA L DIFFE RENTI AL 12/27 1:56 AM CDT [facility] Not Available Not Available 01/15/2025 11:48:13 12/28/19 25 12/27/2024 CBC W Auto Diffe renti al panel - Blood segmented neutrophils/ leukocytes in blood by manual count 79 % SEG NEUTR OPHIL S 79 % 12/27 1:56 AM CDT [facility] Not Available Not Available 01/15/2025 11:48:13 12/28/19 25 12/27/2024 CBC W Auto Diffe renti al panel - Blood lymphocytes/ leukocytes in blood by manual count 13 % LYMPH OCYTE S 13 % 12/27 1:56 AM CDT [facility] Not Available Not Available 01/15/2025 11:48:13 12/28/19 25 12/27/2024 CBC W Auto Diffe renti al panel - Blood monocytes/le ukocytes in blood by manual count 4 % MONOC YTES 4 % 12/27 1:56 AM CDT [facility] Not Available Not Available 01/15/2025 11:48:13 12/28/19 25 12/27/2024 CBC W Auto Diffe renti al panel - Blood eosinophils/ leukocytes in blood by manual count 4 % EOSIN OPHIL S 4 % 12/27 1:56 AM CDT [facility] Not Available Not Available 01/15/2025 11:48:13 12/28/19 25 12/27/2024 CBC W Auto Diffe renti al panel - Blood neutrophils [#/volume] in blood 2.84 text: 1.80 - 7.70 x10'3/ uL ABS. NEUTR OPHIL S 2.84 1.80 - 7.70 x10'3 /uL 12/27 1:56 AM CDT [facility] Not Available Not Available 01/15/2025 11:48:13 12/28/19 25 12/27/2024 CBC W Auto Diffe renti al panel - Blood lymphocytes [#/volume] in blood 0.47 text: 1.00 - 4.80 x10'3/ uL low ABS. LYMPH OCYTE S 0.47 (L) 1.00 - 4.80 x10'3 /uL 12/27 1:56 AM CDT [facility] Not Available Not Available 01/15/2025 11:48:13 12/28/19 25 12/27/2024 CBC W Auto Diffe renti al panel - Blood monocytes [#/volume] in blood 0.14 text: 0.24 - 0.86 x10'3/ uL low ABS. MONOC YTES 0.14 (L) 0.24 - 0.86 x10'3 /uL 12/27 1:56 AM CDT [facility] Not Available Not Available 01/15/2025 11:48:13 12/28/19 25 12/27/2024 CBC W Auto Diffe renti al panel - Blood eosinophils [#/volume] in blood 0.14 text: 0.04 - 0.36 x10'3/ uL ABS. EOSIN OPHIL S 0.14 0.04 - 0.36 x10'3 /uL 12/27 1:56 AM CDT [facility] Not Available Not Available 01/15/2025 11:48:13 12/28/19 25 12/27/2024 CBC W Auto Diffe renti al panel - Blood erythrocytes [morphology] in blood by automated count RBC MORPHO LOGY APPEAR S NORMAL . SLIDE REVIEW ED. RBC MORPH OLOGY RBC MORPH OLOGY APPEA RS MAGNOLIA L. SLIDE REVIE WED. 12/27 1:56 AM CDT [facility] Not Available Not Available 01/15/2025 11:48:13 12/28/19 25 12/27/2024 CBC W Auto Diffe renti al panel - Blood platelets [#/volume] in blood by automated count ADEQUA TE PLT EST. ADEQU ATE 12/27 1:56 AM CDT [facility] Not Available Not Available 01/15/2025 11:48:13 12/28/19 25 12/27/2024 CBC W Auto Diffe renti al panel - Blood interpretati on and review of laboratory results Abnorm al Not Available Not Available 11:48:13 12/28/19 25 12/27/2024 Basic metab olic 2000 panel - Serum or Plasm a glucose [mass/volume ] in serum or plasma 85 text: 70 - 99 mg/dL GLUCO SE 85 70 - 99 MG/DL 12/27 1:39 AM CDT [facility] Not Available Not Available 01/15/2025 11:48:13 12/28/19 25 12/27/2024 Basic metab olic 2000 panel - Serum or Plasm a urea nitrogen [mass/volume ] in serum or plasma 47 text: 7 - 18 mg/dL high BUN 47 (H) 7 - 18 MG/DL 12/27 1:39 AM CDT [facility] Not Available Not Available 01/15/2025 11:48:13 12/28/19 25 12/27/2024 Basic metab olic 2000 panel - Serum or Plasm a creatinine [mass/volume ] in serum or plasma 4.27 text: 0.55 - 1.02 mg/dL high CREAT ININE S/P/B 4.27 (H) 0.55 - 1.02 MG/DL 12/27 1:39 AM CDT [facility] Not Available Not Available 01/15/2025 11:48:13 12/28/19 25 12/27/2024 Basic metab olic 1999 panel - Serum or Plasm a sodium [moles/volum e] in serum or plasma 140 text: 136 - 145 mmol/L SODIU M S/P/B 140 136 - 145 MMOL/ L 12/27 1:39 AM CDT [facility] Not Available Not Available 01/15/2025 11:48:13 12/28/19 25 12/27/2024 Basic metab olic 1999 panel - Serum or Plasm a potassium [moles/volum e] in serum or plasma 4.3 text: 3.5 - 5.1 mmol/L POTAS SIUM S/P/B 4.3 3.5 - 5.1 MMOL/ L 12/27 1:39 AM CDT [facility] Not Available Not Available 01/15/2025 11:48:13 12/28/1912/27/2024 Basic metab olic 1999 panel - Serum or Plasm a chloride [moles/volum e] in serum or plasma 109 text: 97 - 115 mmol/L CHLOR JOSE S/P/B 109 97 - 115 MMOL/ L 12/27 1:39 AM CDT [facility] Not Available Not Available 01/15/2025 11:48:13 12/28/19 25 12/27/2024 Basic metab olic 2000 panel - Serum or Plasm a carbon dioxide, total [moles/volum e] in serum or plasma 25 text: 21 - 32 mmol/L CO2 25.0 21 - 32 MMOL/ L 12/27 1:39 AM CDT [facility] Not Available Not Available 01/15/2025 11:48:13 12/28/19 25 12/27/2024 Basic metab olic 2000 panel - Serum or Plasm a calcium [mass/volume ] in serum or plasma 8.8 text: 8.5 - 10.1 mg/dL CALCI UM S/P/B 8.8 8.5 - 10.1 MG/DL 12/27 1:39 AM CDT [facility] Not Available Not Available 01/15/2025 11:48:13 12/28/1912/27/2024 Basic metab olic 1999 panel - Serum or Plasm a anion gap in serum or plasma by calculation 6 text: 2 - 10 mmol/L ANION GAP 6.0 2 - 10 MMOL/ L 12/27 1:39 AM CDT [facility] Not Available Not Available 01/15/2025 11:48:13 12/28/19 25 12/27/2024 Basic metab olic 2000 panel - Serum or Plasm a urea nitrogen/cre atinine [mass ratio] in serum or plasma 11 low: 6high: 26 BUN CREAT ININE RATIO 11.0 6 - 26 12/27 1:39 AM CDT [facility] Not Available Not Available 01/15/2025 11:48:13 12/28/1912/27/2024 Basic [employer] olic 2000 panel - Serum or Plasm a glomerular filtration rate [volume rate/area] in serum, plasma or blood by creatinine-b ased formula (CKD-epi 2020)/1.73 sq M 10 text: >90 mL/min /1.73 M2 low GFR ESTIM ATE 10 (L) >90 ML/IN N/1.7 3 M2 12/27 1:39 AM CDT [facility] Not Available Not Available 01/15/2025 11:48:13 12/28/1912/27/2024 Basic [employer] o[employer] 2000 panel - Serum or Plasm a interpretati on and review of laboratory results Abnorm al Not Available Not Available 11:48:13 12/28/19 25 12/27/2024 Influ evette virus A and B and SARS- CoV-2 (COVI D-19) and SARS- relat ed CoV RNA panel - Respi rator y syste m speci men by CARSON with probe detec tion adenovirus DNA [presence] in nasopharynx by CARSON with probe detection NOT DETECT ED text: not detect ed ADENO VIRUS PCR (RESP ) NOT DETEC TEDDY NOT DETEC TEDDY 12/27 3:40 AM CDT [facility] Not Available Not Available 01/15/2025 11:48:13 12/28/19 25 12/27/2024 Influ evette virus A and B and SARS- CoV-2 (COVI D-19) and SARS- relat ed CoV RNA panel - Respi rator y syste m speci men by CARSON with probe detec tion human coronavirus 229E RNA [presence] in specimen by CARSON with probe detection NOT DETECT ED text: not detect ed CORON AVIRU S 229E PCR (RESP ) NOT DETEC TEDDY NOT DETEC TEDDY 12/27 3:40 AM CDT [facility] Not Available Not Available 01/15/2025 11:48:13 12/28/19 25 12/27/2024 Influ evette virus A and B and SARS- CoV-2 (COVI D-19) and SARS- relat ed CoV RNA panel - Respi rator y syste m speci men by CARSON with probe detec tion human coronavirus hku1 RNA [presence] in specimen by CARSON with probe detection NOT DETECT ED text: not detect ed CORON AVIRU S HKU1 PCR (RESP ) NOT DETEC TEDDY NOT DETEC TEDDY 12/27 3:40 AM CDT [facility] Not Available Not Available 01/15/2025 11:48:13 12/28/19 25 12/27/2024 Influ evette virus A and B and SARS- CoV-2 (COVI D-19) and SARS- relat ed CoV RNA panel - Respi rator y syste m speci men by CARSON with probe detec tion human coronavirus nl63 RNA [presence] in specimen by CARSON with probe detection NOT DETECT ED text: not detect ed CORON AVIRU S NL63 PCR (RESP ) NOT DETEC TEDDY NOT DETEC TEDDY 12/27 3:40 AM CDT [facility] Not Available Not Available 01/15/2025 11:48:13 12/28/19 25 12/27/2024 Influ evette virus A and B and SARS- CoV-2 (COVI D-19) and SARS- relat ed CoV RNA panel - Respi rator y syste m speci men by CARSON with probe detec tion human coronavirus oc43 RNA [presence] in specimen by CARSON with probe detection NOT DETECT ED text: not detect ed CORON AVIRU S OC43 PCR (RESP ) NOT DETEC TEDDY NOT DETEC TEDDY 12/27 3:40 AM CDT [facility] Not Available Not Available 01/15/2025 11:48:13 12/28/19 25 12/27/2024 Influ evette virus A and B and SARS- CoV-2 (COVI D-19) and SARS- relat ed CoV RNA panel - Respi rator y syste m speci men by CARSON with probe detec tion human metapneumovi harshil RNA [presence] in nasopharynx by CARSON with probe detection NOT DETECT ED text: not detect ed METAP NEUMO VIRUS PCR (RESP ) NOT DETEC TEDDY NOT DETEC TEDDY 12/27 3:40 AM CDT [facility] Not Available Not Available 01/15/2025 11:48:13 12/28/19 25 12/27/2024 Influ evette virus A and B and SARS- CoV-2 (COVI D-19) and SARS- relat ed CoV RNA panel - Respi rator y syste m speci men by CARSON with probe detec tion rhinovirus+e nterovirus RNA [presence] in specimen by CARSON with probe detection NOT DETECT ED text: not detect ed RHINO VIRUS /ENTE ROVIR US PCR (RESP ) NOT DETEC TEDDY NOT DETEC TEDDY 12/27 3:40 AM CDT [facility] Not Available Not Available 01/15/2025 11:48:13 12/28/19 25 12/27/2024 Influ evette virus A and B and SARS- CoV-2 (COVI D-19) and SARS- relat ed CoV RNA panel - Respi rator y syste m speci men by CARSON with probe detec tion influenza virus A RNA [presence] in nasopharynx by CARSON with probe detection NOT DETECT ED text: not detect ed INFLU EVETTE A PCR (RESP ) NOT DETEC TEDDY NOT DETEC TEDDY 12/27 3:40 AM CDT [facility] Not Available Not Available 01/15/2025 11:48:13 12/28/19 25 12/27/2024 Influ evette virus A and B and SARS- CoV-2 (COVI D-19) and SARS- relat ed CoV RNA panel - Respi rator y syste m speci men by CARSON with probe detec tion influenza virus B RNA [presence] in nasopharynx by CARSON with probe detection NOT DETECT ED text: not detect ed INFLU EVETTE B PCR (RESP ) NOT DETEC TEDDY NOT DETEC TEDDY 12/27 3:40 AM CDT [facility] Not Available Not Available 01/15/2025 11:48:13 12/28/19 25 12/27/2024 Influ evette virus A and B and SARS- CoV-2 (COVI D-19) and SARS- relat ed CoV RNA panel - Respi rator y syste m speci men by CARSON with probe detec tion parainfluenz a virus 1 RNA [presence] in nasopharynx by CARSON with probe detection NOT DETECT ED text: not detect ed PARAI NFLUE NZA 1 PCR (RESP ) NOT DETEC TEDDY NOT DETEC TEDDY 12/27 3:40 AM CDT [facility] Not Available Not Available 01/15/2025 11:48:13 12/28/1912/27/2024 Influ evette virus A and B and SARS- CoV-2 (COVI D-19) and SARS- relat ed CoV RNA panel - Respi rator y syste m speci men by CARSON with probe detec tion parainfluenz a virus 2 RNA [presence] in nasopharynx by CARSON with probe detection NOT DETECT ED text: not detect ed PARAI NFLUE NZA 2 PCR (RESP ) NOT DETEC TEDDY NOT DETEC TEDDY 12/27 3:40 AM CDT [facility] Not Available Not Available 01/15/2025 11:48:13 12/28/19 25 12/27/2024 Influ evette virus A and B and SARS- CoV-2 (COVI D-19) and SARS- relat ed CoV RNA panel - Respi rator y syste m speci men by CARSON with probe detec tion parainfluenz a virus 3 RNA [presence] in nasopharynx by CARSON with probe detection NOT DETECT ED text: not detect ed PARAI NFLUE NZA 3 PCR (RESP ) NOT DETEC TEDDY NOT DETEC TEDDY 12/27 3:40 AM CDT [facility] Not Available Not Available 01/15/2025 11:48:13 12/28/19 25 12/27/2024 Influ evette virus A and B and SARS- CoV-2 (COVI D-19) and SARS- relat ed CoV RNA panel - Respi rator y syste m speci men by CARSON with probe detec tion parainfluenz a virus 4 RNA [presence] in nasopharynx by CARSON with probe detection NOT DETECT ED text: not detect ed PARAI NFLUE NZA 4 PCR (RESP ) NOT DETEC TEDDY NOT DETEC TEDDY 12/27 3:40 AM CDT [facility] Not Available Not Available 01/15/2025 11:48:13 12/28/19 25 12/27/2024 Influ evette virus A and B and SARS- CoV-2 (COVI D-19) and SARS- relat ed CoV RNA panel - Respi rator y syste m speci men by CARSON with probe detec tion respiratory syncytial virus RNA [presence] in nasopharynx by CARSON with probe detection NOT DETECT ED text: not detect ed RSV PCR (RESP ) NOT DETEC TEDDY NOT DETEC TEDDY 12/27 3:40 AM CDT [facility] Not Available Not Available 01/15/2025 11:48:13 12/28/19 25 12/27/2024 Influ evette virus A and B and SARS- CoV-2 (COVI D-19) and SARS- relat ed CoV RNA panel - Respi rator y syste m speci men by CARSON with probe detec tion bordetella parapertussi s DNA [presence] in nasopharynx by CARSON with probe detection NOT DETECT ED text: not detect ed B PARAP ERTUS IS PCR (RESP ) NOT DETEC TEDDY NOT DETEC TEDDY 12/27 3:40 AM CDT [facility] Not Available Not Available 01/15/2025 11:48:13 12/28/19 25 12/27/2024 Influ evette virus A and B and SARS- CoV-2 (COVI D-19) and SARS- relat ed CoV RNA panel - Respi rator y syste m speci men by CARSON with probe detec tion bordetella pertussis DNA [presence] in nasopharynx by CARSON with probe detection NOT DETECT ED text: not detect ed BORDE TELLA PERTU SSIS PCR (RESP ) NOT DETEC TEDDY NOT DETEC TEDDY 12/27 3:40 AM CDT [facility] Not Available Not Available 01/15/2025 11:48:13 12/28/19 25 12/27/2024 Influ evette virus A and B and SARS- CoV-2 (COVI D-19) and SARS- relat ed CoV RNA panel - Respi rator y syste m speci men by CARSON with probe detec tion chlamydophil a pneumoniae DNA [presence] in specimen by CARSON with probe detection NOT DETECT ED text: not detect ed CHLAM YDOPH KALI PNEUM ONIAE PCR (RESP ) NOT DETEC TEDDY NOT DETEC TEDDY 12/27 3:40 AM CDT [facility] Not Available Not Available 01/15/2025 11:48:13 12/28/19 25 12/27/2024 Influ evette virus A and B and SARS- CoV-2 (COVI D-19) and SARS- relat ed CoV RNA panel - Respi rator y syste m speci men by CARSON with probe detec tion mycoplasma pneumoniae DNA [presence] in specimen by CARSON with probe detection NOT DETECT ED text: not detect ed MYCOP LASMA PNEUM ONIAE PCR (RESP ) NOT DETEC TEDDY NOT DETEC TEDDY 12/27 3:40 AM CDT [facility] Not Available Not Available 01/15/2025 11:48:13 12/28/19 25 12/27/2024 Influ evette virus A and B and SARS- CoV-2 (COVI D-19) and SARS- relat ed CoV RNA panel - Respi rator y syste m speci men by CARSON with probe detec tion sars-cov-2 (covid-19) RNA [presence] in specimen by CARSON with probe detection NOT DETECT ED text: not detect ed CORON AVIRU S SARS COV 2 PCR (RESP ) NOT DETEC TEDDY NOT DETEC TEDDY 12/27 3:40 AM CDT [facility] Not Available Not Available 01/15/2025 11:48:13 12/28/19 25 12/27/2024 Lacta te [Mole s/vol ume] in Serum or Plasm a lactate [moles/volum e] in serum or plasma 1.2 text: 0.4 - 2.0 mmol/L LACTI C ACID VENOU S 1.2 0.4 - 2.0 MMOL/ L 12/27 1:38 AM CDT [facility] Not Available Not Available 01/15/2025 11:48:13 12/29/19 25 12/28/2024 CBC W Auto Diffe renti al panel - Blood leukocytes [#/volume] in blood by automated count 3.03 text: 4.5 - 11.0 x10'3/ uL low WBC 3.03 (L) 4.5 - 11.0 x10'3 /uL 12/28 5:30 AM CDT [facility] Not Available Not Available 01/15/2025 11:48:13 12/29/19 25 12/28/2024 CBC W Auto Diffe renti al panel - Blood erythrocytes [#/volume] in blood by automated count 2.77 text: 4.20 - 5.40 x10'6/ uL low RBC 2.77 (L) 4.20 - 5.40 x10'6 /uL 12/28 5:30 AM CDT [facility] Not Available Not Available 01/15/2025 11:48:13 12/29/19 25 12/28/2024 CBC W Auto Diffe renti al panel - Blood hemoglobin [mass/volume ] in blood 8 text: 12.0 - 16.0 g/dL low HGB 8.0 (L) 12.0 - 16.0 G/DL 12/28 5:30 AM CDT [facility] Not Available Not Available 01/15/2025 11:48:13 12/29/19 25 12/28/2024 CBC W Auto Diffe renti al panel - Blood hematocrit [volume fraction] of blood by calculation 25.5 % low: 38%hig h: 48% low HCT 25.5 (L) 38.0 - 48.0 % 12/28 5:30 AM CDT [facility] Not Available Not Available 01/15/2025 11:48:13 12/29/19 25 12/28/2024 CBC W Auto Diffe renti al panel - Blood MCV [entitic mean volume] in red blood cells 92.1 text: 81.0 - 99.0 fL MCV 92.1 81.0 - 99.0 FL 12/28 5:30 AM CDT [facility] Not Available Not Available 01/15/2025 11:48:13 12/29/19 25 12/28/2024 CBC W Auto Diffe renti al panel - Blood MCH [entitic mass] 28.9 pg low: 27pghi gh: 31pg MCH 28.9 27.0 - 31.0 PG 12/28 5:30 AM CDT [facility] Not Available Not Available 01/15/2025 11:48:13 12/29/19 25 12/28/2024 CBC W Auto Diffe renti al panel - Blood MCHC [entitic mass/volume] in red blood cells 31.4 text: 32.0 - 36.0 g/dL low MCHC 31.4 (L) 32.0 - 36.0 G/DL 12/28 5:30 AM CDT [facility] Not Available Not Available 01/15/2025 11:48:13 12/29/19 25 12/28/2024 CBC W Auto Diffe renti al panel - Blood RDW 15.3 % low: 11.5%h igh: 14.5% high RDW 15.3 (H) 11.5 - 14.5 % 12/28 5:30 AM CDT [facility] Not Available Not Available 01/15/2025 11:48:13 12/29/19 25 12/28/2024 CBC W Auto Diffe renti al panel - Blood platelets [#/volume] in blood 144 text: 130 - 400 x10'3/ uL PLT 144 130 - 400 x10'3 /uL 12/28 5:30 AM CDT [facility] Not Available Not Available 01/15/2025 11:48:13 12/29/19 25 12/28/2024 CBC W Auto Diffe renti al panel - Blood platelet [entitic mean volume] in blood 9 text: 9.3 - 12.2 fL low MPV 9.0 (L) 9.3 - 12.2 FL 12/28 5:30 AM CDT [facility] Not Available Not Available 01/15/2025 11:48:13 12/29/19 25 12/28/2024 CBC W Auto Diffe renti al panel - Blood differential cell count method - blood AUTOMA TEDDY DIFFER ENTIAL DIFFE RENTI AL TYPE AUTOM ATED DIFFE RENTI AL 12/28 5:30 AM CDT [facility] Not Available Not Available 01/15/2025 11:48:13 12/29/19 25 12/28/2024 CBC W Auto Diffe renti al panel - Blood neutrophils/ leukocytes in blood by automated count 60.1 % NEUTR OPHIL S % 60.1 % 12/28 5:30 AM CDT [facility] Not Available Not Available 01/15/2025 11:48:13 12/29/19 25 12/28/2024 CBC W Auto Diffe renti al panel - Blood lymphocytes/ leukocytes in blood by automated count 20.5 % LYMPH OCYTE S % 20.5 % 12/28 5:30 AM CDT [facility] Not Available Not Available 01/15/2025 11:48:13 12/29/19 25 12/28/2024 CBC W Auto Diffe renti al panel - Blood monocytes/le ukocytes in blood by automated count 12.5 % MONOC YTES % 12.5 % 12/28 5:30 AM CDT [facility] Not Available Not Available 01/15/2025 11:48:13 12/29/19 25 12/28/2024 CBC W Auto Diffe renti al panel - Blood eosinophils/ leukocytes in blood by automated count 5.9 % EOSIN OPHIL S 5.9 % 12/28 5:30 AM CDT [facility] Not Available Not Available 01/15/2025 11:48:13 12/29/19 25 12/28/2024 CBC W Auto Diffe renti al panel - Blood basophils/le ukocytes in blood by automated count 0.3 % BASOP HILS 0.3 % 12/28 5:30 AM CDT [facility] Not Available Not Available 01/15/2025 11:48:13 12/29/19 25 12/28/2024 CBC W Auto Diffe renti al panel - Blood immature granulocytes /leukocytes in blood by automated count 0.7 % IMMAT URE GRANS % 0.7 % 12/28 5:30 AM CDT [facility] Not Available Not Available 01/15/2025 11:48:13 12/29/19 25 12/28/2024 CBC W Auto Diffe renti al panel - Blood neutrophils [#/volume] in blood 1.82 text: 1.80 - 7.70 x10'3/ uL ABS. NEUTR OPHIL S 1.82 1.80 - 7.70 x10'3 /uL 12/28 5:30 AM CDT [facility] Not Available Not Available 01/15/2025 11:48:13 12/29/19 25 12/28/2024 CBC W Auto Diffe renti al panel - Blood lymphocytes [#/volume] in blood 0.62 text: 1.00 - 4.80 x10'3/ uL low ABS. LYMPH OCYTE S 0.62 (L) 1.00 - 4.80 x10'3 /uL 12/28 5:30 AM CDT [facility] Not Available Not Available 01/15/2025 11:48:13 12/29/19 25 12/28/2024 CBC W Auto Diffe renti al panel - Blood monocytes [#/volume] in blood 0.38 text: 0.24 - 0.86 x10'3/ uL ABS. MONOC YTES 0.38 0.24 - 0.86 x10'3 /uL 12/28 5:30 AM CDT [facility] Not Available Not Available 01/15/2025 11:48:13 12/29/19 25 12/28/2024 CBC W Auto Diffe renti al panel - Blood eosinophils [#/volume] in blood 0.18 text: 0.04 - 0.36 x10'3/ uL ABS. EOSIN OPHIL S 0.18 0.04 - 0.36 x10'3 /uL 12/28 5:30 AM CDT [facility] Not Available Not Available 01/15/2025 11:48:13 12/29/19 25 12/28/2024 CBC W Auto Diffe renti al panel - Blood basophils [#/volume] in blood 0.01 text: 0.01 - 0.08 x10'3/ uL ABS. BASOP HILS 0.01 0.01 - 0.08 x10'3 /uL 12/28 5:30 AM CDT [facility] Not Available Not Available 01/15/2025 11:48:13 12/29/19 25 12/28/2024 CBC W Auto Diffe renti al panel - Blood immature granulocytes [#/volume] in blood 0.02 text: 0.00 - 0.49 x10'3/ uL ABS. IMMAT URE GRANU LOCYT ES 0.02 0.00 - 0.49 x10'3 /uL 12/28 5:30 AM CDT [facility] Not Available Not Available 01/15/2025 11:48:13 12/29/19 25 12/28/2024 CBC W Auto Diffe renti al panel - Blood interpretati on and review of laboratory results Abnorm al Not Available Not Available 11:48:13 12/29/1912/28/2024 Basic metab olic 2000 panel - Serum or Plasm a glucose [mass/volume ] in serum or plasma 80 text: 70 - 99 mg/dL GLUCO SE 80 70 - 99 MG/DL 12/28 5:47 AM T [facility] Not Available Not Available 01/15/2025 11:48:13 12/29/19 25 12/28/2024 Basic metab olic 1999 panel - Serum or Plasm a urea nitrogen [mass/volume ] in serum or plasma 39 text: 7 - 18 mg/dL high BUN 39 (H) 7 - 18 MG/DL 12/28 5:47 AM CDT [facility] Not Available Not Available 01/15/2025 11:48:13 12/29/19 25 12/28/2024 Basic metab olic 1999 panel - Serum or Plasm a creatinine [mass/volume ] in serum or plasma 3.81 text: 0.55 - 1.02 mg/dL high CREAT ININE S/P/B 3.81 (H) 0.55 - 1.02 MG/DL 12/28 5:47 AM CDT [facility] Not Available Not Available 01/15/2025 11:48:13 12/29/19 25 12/28/2024 Basic metab olic 2000 panel - Serum or Plasm a sodium [moles/volum e] in serum or plasma 144 text: 136 - 145 mmol/L SODIU M S/P/B 144 136 - 145 MMOL/ L 12/28 5:47 AM CDT [facility] Not Available Not Available 01/15/2025 11:48:13 12/29/19 25 12/28/2024 Basic metab olic 2000 panel - Serum or Plasm a potassium [moles/volum e] in serum or plasma 4 text: 3.5 - 5.1 mmol/L POTAS SIUM S/P/B 4.0 3.5 - 5.1 MMOL/ L 12/28 5:47 AM CDT [facility] Not Available Not Available 01/15/2025 11:48:13 12/29/19 25 12/28/2024 Basic metab olic 2000 panel - Serum or Plasm a chloride [moles/volum e] in serum or plasma 117 text: 97 - 115 mmol/L high CHLOR JOSE S/P/B 117 (H) 97 - 115 MMOL/ L 12/28 5:47 AM CDT [facility] Not Available Not Available 01/15/2025 11:48:13 12/29/19 25 12/28/2024 Basic metab olic 2000 panel - Serum or Plasm a carbon dioxide, total [moles/volum e] in serum or plasma 22.1 text: 21 - 32 mmol/L CO2 22.1 21 - 32 MMOL/ L 12/28 5:47 AM CDT [facility] Not Available Not Available 01/15/2025 11:48:13 12/29/19 25 12/28/2024 Basic metab olic 2000 panel - Serum or Plasm a calcium [mass/volume ] in serum or plasma 8.4 text: 8.5 - 10.1 mg/dL low CALCI UM S/P/B 8.4 (L) 8.5 - 10.1 MG/DL 12/28 5:47 AM CDT [facility] Not Available Not Available 01/15/2025 11:48:13 12/29/19 25 12/28/2024 Basic metab olic 2000 panel - Serum or Plasm a anion gap in serum or plasma by calculation 4.9 text: 2 - 10 mmol/L ANION GAP 4.9 2 - 10 MMOL/ L 12/28 5:47 AM T [facility] Not Available Not Available 01/15/2025 11:48:13 12/29/19 25 12/28/2024 Basic metab olic 2000 panel - Serum or Plasm a urea nitrogen/cre atinine [mass ratio] in serum or plasma 10.2 low: 6high: 26 BUN CREAT ININE RATIO 10.2 6 - 26 12/28 5:47 AM CDT [facility] Not Available Not Available 01/15/2025 11:48:13 12/29/1912/28/2024 Basic metab olic 2000 panel - Serum or Plasm a glomerular filtration rate [volume rate/area] in serum, plasma or blood by creatinine-b ased formula (CKD-epi 2020)/1.73 sq M 11 text: >90 mL/min /1.73 M2 low GFR ESTIM ATE 11 (L) >90 ML/IN N/1.7 3 M2 12/28 5:47 AM CDT [facility] Not Available Not Available 01/15/2025 11:48:13 12/29/1912/28/2024 Basic metab olic 2000 panel - Serum or Plasm a interpretati on and review of laboratory results Abnorm al Not Available Not Available 11:48:13 01/18/20 25 01/17/2025 Thyro tropi n [Unit s/vol ume] in Serum or Plasm a thyrotropin [units/volum e] in serum or plasma 3.63 text: 0.358 - 3.74 uIU/mL HIGH DOSES OF BIOTI N MAY INTER FERE WITH THIS TEST RESUL T. CORRE LATIO N TO CLINI [facility] HISTO RY AND PRESE NTATI ON RECOM ELISABETH D. FREE T4 NOT INDIC ATED Not Available Not Available 02/13/2025 13:36:25 01/18/20 25 01/17/2025 Natri ureti c pepti de.B proho rmone N-Ter hai [Mass /volu me] in Serum or Plasm a natriuretic peptide.B prohormone N-terminal [mass/volume ] in serum or plasma 1031 pg/mL high: 450pg/ mL high CUT POINT S ESTAB LISHE D BY INTER NATCHRISTOPH NAL COLLA BORAT LIZ ON NT PROBN P (ICON ) STUDY (2005 ). AGE INDEP ENDEN T: <300 PG/ML HAS A 99% NEGAT LIZ PREDI CTIVE VALUE FOR EXCLU DING ACUTE CHF <50 YEARS : >450 PG/ML IS CONSI STENT WITH ACUTE CHF 50-75 YEARS : >900 PG/ML IS CONSI STENT WITH ACUTE CHF >75 YEARS : >1800 PG/ML IS CONSI STENT WITH ACUTE CHF IN PATIE NTS WITH RENAL INSUF FICIE NCY (GFR <60), >1200 PG/ML YIELD S A DIAGN OSTIC SENSI TIVIT Y AND SPECI FICIT Y OF 89% AND 72% FOR ACUTE CHF. Not Available Not Available 02/13/2025 13:36:25 01/18/20 25 01/17/2025 Natri ureti c pepti de.B proho rmone N-Ter hai [Mass /volu me] in Serum or Plasm a interpretati on and review of laboratory results Abnorm al Not Available Not Available 13:36:25 01/18/20 25 01/17/2025 Compr ehens liz metab olic 1999 panel - Serum or Plasm a glucose [mass/volume ] in serum or plasma 116 text: 70 - 99 mg/dL high Not Available Not Available 02/13/2025 13:36:25 01/18/20 25 01/17/2025 Compr ehens liz metab olic 2000 panel - Serum or Plasm a urea nitrogen [mass/volume ] in serum or plasma 39 text: 7 - 18 mg/dL high Not Available Not Available 02/13/2025 13:36:25 01/18/20 25 01/17/2025 Compr ehens liz metab olic 1999 panel - Serum or Plasm a creatinine [mass/volume ] in serum or plasma 3.5 text: 0.55 - 1.02 mg/dL high Not Available Not Available 02/13/2025 13:36:25 01/18/20 25 01/17/2025 Compr ehens liz metab olic 1999 panel - Serum or Plasm a sodium [moles/volum e] in serum or plasma 136 text: 136 - 145 mmol/L Not Available Not Available 02/13/2025 13:36:25 01/18/20 25 01/17/2025 Compr ehens liz metab olic 2000 panel - Serum or Plasm a potassium [moles/volum e] in serum or plasma 4.6 text: 3.5 - 5.1 mmol/L Not Available Not Available 02/13/2025 13:36:25 01/18/20 25 01/17/2025 Compr ehens liz metab olic 2000 panel - Serum or Plasm a chloride [moles/volum e] in serum or plasma 108 text: 97 - 115 mmol/L Not Available Not Available 02/13/2025 13:36:25 01/18/20 25 01/17/2025 Compr ehens liz metab olic 1999 panel - Serum or Plasm a carbon dioxide, total [moles/volum e] in serum or plasma 22.2 text: 21 - 32 mmol/L Not Available Not Available 02/13/2025 13:36:25 01/18/20 25 01/17/2025 Compr ehens liz metab olic 2000 panel - Serum or Plasm a calcium [mass/volume ] in serum or plasma 8.2 text: 8.5 - 10.1 mg/dL low Not Available Not Available 02/13/2025 13:36:25 01/18/20 25 01/17/2025 Compr ehens liz metab olic 2000 panel - Serum or Plasm a bilirubin.to tim [mass/volume ] in serum or plasma 0.3 text: 0.2 - 1.2 mg/dL THIS ASSAY IS NOT RECOM ELISABETH D FOR PATIE NTS UNDER GOING TREAT MENT WITH ELTRO MBOPA G DUE TO THE POTEN TIAL FOR FALSE LY ELEVA TEDDY RESUL TS. Not Available Not Available 02/13/2025 13:36:25 01/18/20 25 01/17/2025 [facility] [employer] [facility] 1999 panel - Serum or Plasm a protein [mass/volume ] in serum or plasma 5.2 text: 6.4 - 8.2 g/dL low Not Available Not Available 02/13/2025 13:36:25 01/18/20 25 01/17/2025 [facility] panel - Serum or Plasm a albumin [mass/volume ] in serum or plasma 2.7 text: 3.4 - 5.0 g/dL low Not Available Not Available 02/13/2025 13:36:25 01/18/20 25 01/17/2025 [facility] [employer] [facility] 1999 panel - Serum or Plasm a aspartate aminotransfe rase [enzymatic activity/vol ume] in serum or plasma 14 U/L low: 15U/Lh igh: 37U/L low Not Available Not Available 02/13/2025 13:36:25 01/18/20 25 01/17/2025 [facility] [employer] [facility] 1999 panel - Serum or Plasm a alanine aminotransfe rase [enzymatic activity/vol ume] in serum or plasma 17 U/L low: 14U/Lh igh: 55U/L Not Available Not Available 02/13/2025 13:36:25 01/18/20 25 01/17/2025 [facility] [employer] [place] [address] panel - Serum or Plasm a alkaline phosphatase [enzymatic activity/vol ume] in serum or plasma 156 U/L low: 50U/Lh igh: 136U/L high Not Available Not Available 02/13/2025 13:36:25 01/18/20 25 01/17/2025 [facility] [employer] [facility] 1999 panel - Serum or Plasm a anion gap in serum or plasma by calculation 5.8 text: 2 - 10 mmol/L Not Available Not Available 02/13/2025 13:36:25 01/18/20 25 01/17/2025 [facility] [employer] [facility] 1999 panel - Serum or Plasm a urea nitrogen/cre atinine [mass ratio] in serum or plasma 11.1 low: 6high: 26 Not Available Not Available 02/13/2025 13:36:25 01/18/20 25 01/17/2025 Compr ehens liz metab olic 2000 panel - Serum or Plasm a albumin/glob ulin [mass ratio] in serum or plasma 1.1 text: 1.0 - 2.0 ratio Not Available Not Available 02/13/2025 13:36:25 01/18/2001/17/2025 Compr ehens liz metab olic 2000 panel - Serum or Plasm a glomerular filtration rate [volume rate/area] in serum, plasma or blood by creatinine-b ased formula (CKD-epi 2020)/1.73 sq M 12 text: >90 mL/min /1.73 M2 low NOTE: eGFR is not calcu lated for patie nts <18 years of age or gende r unkno wn. This is an estim ated GFR calcu latio n using the new CKD EPI creat inine equat ion witho ut race and so does not requi re a corre ction facto r for race. This estim ated GFR shoul d not be used for calcu latin g drug doses . Not Available Not Available 02/13/2025 13:36:25 01/18/2001/17/2025 [facility] ehens liz metab olic 2000 panel - Serum or Plasm a interpretati on and review of laboratory results Abnorm al Not Available Not Available 13:36:25 01/18/2001/17/2025 CBC W Auto Diffe renti al panel - Blood leukocytes [#/volume] in blood by automated count 4.05 text: 4.5 - 11.0 x10'3/ uL low Not Available Not Available 02/13/2025 13:36:25 01/18/2001/17/2025 CBC W Auto Diffe renti al panel - Blood erythrocytes [#/volume] in blood by automated count 2.46 text: 4.20 - 5.40 x10'6/ uL low Not Available Not Available 02/13/2025 13:36:25 01/18/20 25 01/17/2025 CBC W Auto Diffe renti al panel - Blood hemoglobin [mass/volume ] in blood 7.5 text: 12.0 - 16.0 g/dL low Not Available Not Available 02/13/2025 13:36:25 01/18/2001/17/2025 CBC W Auto Diffe renti al panel - Blood hematocrit [volume fraction] of blood by calculation 23.5 % low: 38%hig h: 48% low Not Available Not Available 02/13/2025 13:36:25 01/18/20 25 01/17/2025 CBC W Auto Diffe renti al panel - Blood MCV [entitic mean volume] in red blood cells 95.5 text: 81.0 - 99.0 fL Not Available Not Available 02/13/2025 13:36:25 01/18/20 25 01/17/2025 CBC W Auto Diffe renti al panel - Blood MCH [entitic mass] 30.5 pg low: 27pghi gh: 31pg Not Available Not Available 02/13/2025 13:36:25 01/18/2001/17/2025 CBC W Auto Diffe renti al panel - Blood MCHC [entitic mass/volume] in red blood cells 31.9 text: 32.0 - 36.0 g/dL low Not Available Not Available 02/13/2025 13:36:25 01/18/20 25 01/17/2025 CBC W Auto Diffe renti al panel - Blood RDW 17.2 % low: 11.5%h igh: 14.5% high Not Available Not Available 02/13/2025 13:36:25 01/18/2001/17/2025 CBC W Auto Diffe renti al panel - Blood platelets [#/volume] in blood 171 text: 130 - 400 x10'3/ uL Not Available Not Available 02/13/2025 13:36:25 01/18/2001/17/2025 CBC W Auto Diffe renti al panel - Blood platelet [entitic mean volume] in blood 8.5 text: 9.3 - 12.2 fL low Not Available Not Available 02/13/2025 13:36:25 01/18/2001/17/2025 CBC W Auto Diffe renti al panel - Blood differential cell count method - blood MANUAL DIFFER ENTIAL Not Available Not Available 13:36:25 01/18/20 25 01/17/2025 CBC W Auto Diffe renti al panel - Blood segmented neutrophils/ leukocytes in blood by manual count 73 % Not Available Not Available 02/13/2025 13:36:25 01/18/20 25 01/17/2025 CBC W Auto Diffe renti al panel - Blood lymphocytes/ leukocytes in blood by manual count 11 % Not Available Not Available 02/13/2025 13:36:25 01/18/20 25 01/17/2025 CBC W Auto Diffe renti al panel - Blood monocytes/le ukocytes in blood by manual count 10 % Not Available Not Available 02/13/2025 13:36:25 01/18/20 25 01/17/2025 CBC W Auto Diffe renti al panel - Blood eosinophils/ leukocytes in blood by manual count 4 % Not Available Not Available 02/13/2025 13:36:25 01/18/20 25 01/17/2025 CBC W Auto Diffe renti al panel - Blood basophils/le ukocytes in blood 2 % Not Available Not Available 11/2024 13:36:25 01/18/20 25 01/17/2025 CBC W Auto Diffe renti al panel - Blood nucleated erythrocytes /leukocytes [ratio] in blood 2 text: 0 /100 WBC high Not Available Not Available 02/13/2025 13:36:25 01/18/20 25 01/17/2025 CBC W Auto Diffe renti al panel - Blood neutrophils [#/volume] in blood 2.96 text: 1.80 - 7.70 x10'3/ uL Not Available Not Available 02/13/2025 13:36:25 01/18/20 25 01/17/2025 CBC W Auto Diffe renti al panel - Blood lymphocytes [#/volume] in blood 0.45 text: 1.00 - 4.80 x10'3/ uL low Not Available Not Available 02/13/2025 13:36:25 01/18/20 25 01/17/2025 CBC W Auto Diffe renti al panel - Blood monocytes [#/volume] in blood 0.41 text: 0.24 - 0.86 x10'3/ uL Not Available Not Available 02/13/2025 13:36:25 01/18/20 25 01/17/2025 CBC W Auto Diffe renti al panel - Blood eosinophils [#/volume] in blood 0.16 text: 0.04 - 0.36 x10'3/ uL Not Available Not Available 02/13/2025 13:36:25 01/18/20 25 01/17/2025 CBC W Auto Diffe renti al panel - Blood basophils [#/volume] in blood 0.08 text: 0.01 - 0.08 x10'3/ uL Not Available Not Available 02/13/2025 13:36:25 01/18/20 25 01/17/2025 CBC W Auto Diffe renti al panel - Blood nucleated erythrocytes [#/volume] in blood 0.08 text: 0.00 - 0.01 x10'3/ uL high Not Available Not Available 02/13/2025 13:36:25 01/18/20 25 01/17/2025 CBC W Auto Diffe renti al panel - Blood erythrocytes [morphology] in blood by automated count RBC MORPHO LOGY APPEAR S NORMAL . SLIDE REVIEW ED. Not Available Not Available 13:36:25 01/18/20 25 01/17/2025 CBC W Auto Diffe renti al panel - Blood platelets [#/volume] in blood by automated count ADEQUA TE Not Available Not Available 13:36:25 01/18/20 25 01/17/2025 CBC W Auto Diffe renti al panel - Blood interpretati on and review of laboratory results Abnorm al Not Available Not Available 13:36:25 01/18/20 25 01/17/2025 Magne sium [Mass /volu me] in Serum or Plasm a magnesium [mass/volume ] in serum or plasma 2.3 text: 1.8 - 2.4 mg/dL Not Available Not Available 02/13/2025 13:36:25 Result Notes None recorded. Problems Name Problem SNOMED Code Status Onset Date Resolution Date Notes Provider Name and Address Organization Details Recorded Time Chronic kidney disease 294843436 Active 2023 VITA SANTOS [employer] [address] [place] [address], [id number] , [employer] 13:19:23 Chronic obstructive pulmonary disease 79877482 Active 2023 VITA SANTOS [employer] OPER[employer] [address] [place] [address] [address], [place], [address] , [employer] 13:19:26 Gout 59665164 Active 2023 VITA STANISLAVUMMAN REWINDER OPERATOR [address] [place] [address], [place], [place], [address] [place] [address] , [employer] 4 13:19:29 Multiple myeloma 046787411 Active 2023 VITA STANISLAVUMMAN REWINDER OPERATOR [address] [place] [address], [place], [address] [place] [address] , [employer] 4 13:19:34 Abdominal pain 19106648 Active 2023 VITA STANISLAVUMMAN REWINDER OPERATOR [address] [place] [address], [place], [address] [place] [address] , [employer] 13:22:23 Constipation 09253286 Active 2023 VITA STANISLAVUMMAN REWINDER OPERATOR [address] [place] [address], [place], [address] [place] [address] , [employer] 13:22:29 Abnormal gait due to muscle weakness 263677545 Active 2023 VITA STANISLAVUMMAN REWINDER OPERATOR [address] [place] [address], [place], [address] [place] [address] , [employer] 13:26:16 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 Medical Equipment None Reported. Allergies Allergen ID Allergen Name Allergen Category Reaction Reaction Severity Criticality Documentation Date Start Date Code Code System Note Provider Name and Address Organization Details Recorded Time 21087 amoxicill in medicatio n swelling Not available high 01/15/20252023 723 RxNorm Mouth swell ing Not Available [facility] External Data Service - prod 11:51:27 90966 atorvasta tin medicatio n other Not available Not available 01/15/2025 26852 RxNorm React ion: leg pain, Not Available [facility] Data [employer] - prod 11:51:27 50273 rosuvasta tin medicatio n other Not available Not available 01/15/2025 13744 2 RxNorm React ion: leg pain, Not Available [facility] - External [employer] - prod 11:51:27 48061 simvastat in medicatio n other Not available Not available 01/15/2025 05043 RxNorm React ion: leg pain, Not Available [facility] - [employer] - prod 11:51:27 29468 Product containin g angiotens in-conver ting enzyme inhibitor (product) medicatio n angioedem a Not available low 01/15/20252017 52072 009 SNOMED Not Available [facility] - External [employer] - prod 11:58:12 26579 Product containin g angiotens in II receptor antagonis t (product) medicatio n angioedem a Not available low 01/15/20252017 38984 008 SNOMED Not Available [employer] - External Data Service - prod 11:58:12 01167 atorvasta tin calcium medicatio n other Not available low 01/15/20252020 55015 RxNorm leg pain Not Available [facility] External Data Service - prod 11:58:12 Medications Name Sig Start Date Stop Date Status Note LastModified by Organization Details LastModified Time carvedilol 25 mg tablet active Not Available Not Available No t Available azithromycin 250 mg tablet TK 2 TS PO ON DAY 1, THEN TK 1 T PO D FOR 4 DAYS active Not Available Not Available No t Available ondansetron HCl 4 mg tablet TAKE 1 TABLET BY MOUTH EVERY 6 HOURS NEEDED FOR NAUSEA. FIRST LINE active Not Available Not Available No t Available amlodipine 5 mg tablet active Not Available Not Available Not Available prochlorperazin e maleate 10 mg tablet TAKE 1 TABLET BY MOUTH EVERY 4 HOURS NEEDED FOR NAUSEA. 1ST LINE active Not Available Not Available No t Available tramadol 50 mg tablet active Not Available Not Available Not Available amlodipine 10 mg tablet active Not Available Not Available No t Available benzonatate 100 mg capsule active Not Available Not Available N ot Available pantoprazole 40 mg tablet,delayed release active Not Available Not Available Not Available gabapentin 100 mg capsule TAKE 1 CAPSULE BY MOUTH THREE TIMES DAILY active Not Available Not Available No t Available fluticasone propionate 50 mcg/actuation nasal spray,suspensio n SHAKE LIQUID AND USE 2 SPRAYS IN EACH NOSTRIL DAILY active Not Available Not Available No t Available calcitriol 0.25 mcg capsule active Not Available Not Available Not Available Revlimid 5 mg capsule active Not Available Not Available Not Available Farxiga 10 mg tablet active Not Available Not Available Not Available Vitals Date Recorded Body height Body mass index (BMI) Body weight Provider Name and Address Organization Details Last Updated DateTime 08/24/2024 157.48 cm 26.3 kg/m2 12045.3 g VITA SANTOS [facility] [address] [facility] [address], [place], [id number], [place] - [facility] 08/24/2024 13:16:56 Social History None recorded. Functional Status None recorded. Mental Status None recorded. Family History Nothing Reported. Medical History No medical history recorded. Gynecological HistoryNo gynecological history recorded. Obstetrics History GPAL:G 0 P 0 0 0 0 Past Encounters Encounter ID Performer Location Encounter Start Date Encounter Closed Date Diagnosis/Indication Diagnosis SNOMED-CT Code Diagnosis ICD10 Code Diagnosis Note [id number] VITA SANTOS REWINDER OPERATOR [facility] [address] [facility] [address] [place] [address] 08/24/2024 13:30:26 08/24/2024 13:31:13 Chronic kidney disease 112050114 N18.9 Continue eval and treat with HH SN/PT/OTCo ntinue current medical management and regimen. Chronic ob structive pulmonary disease 94167070 J44.9 Continue current medical management and regimen.Co ntinue eval and treat with HH SN/PT/OT Multiple myeloma [id number] C90.00 Continue current medical management and regimen.Co ntinue eval and treat with HH SN/PT/OT Abdominal pain 46421947 R10.9 Continue current medical management and regimen.Co ntinue eval and treat with HH SN/PT/OT Abnormal g ait due to muscle weakness 846523243 M62.81 Continue current medical management and regimen.Co ntinue eval and treat with HH SN/PT/OT to help with nursing, therapy. Mucinous c arcinoma of breast 520005956 C50.919 Continue current medical management and regimen.Co ntinue eval and treat with HH SN/PT/OTCo ntinue to follow up with specialist .Pain management Health Concerns Section Related Observation LastModified by Organization Detai ls LastModified Time None Recorded Concern Status LastModified by Organization Details LastModified Time None Recorded Advance Directives Directive None Recorded Payers Insurance Date Sequence Insurance Name Policy Number Policy Ruiz Covered Member ID Ruiz Member ID Guarantor Name 03/13/2025 1 [place] Esme E Shah [id number] Esme Shah 09/09/2024 2 UNSPECIFIED REMIT PAYOR Esme Shah 12/06/2024 2 UNSPECIFIED REMIT PAYOR Esme Shah Notes Date Note Type Note Provider Name and Address Organization Details Recorded Time 08/24/2024 text/html 89 year old vasiliy staton. Pt had video and audio visit due to being homebound secondary to a combination of medical conditions and socioeconomic limitations. Pt has expressed clear desire to be seen at home and has the option at any time to be seen in the clinic instead. - Verbal informed consent was obtained prior to the visit from patient and/or caregiver. Hx: She has multiple myeloma. Se has mammogram this morning. She went to the ERfor some abdominal pain, N/V. She went back the next day with tarry bloody stools. She was diagnosed with gastritis. She is getting PT and SN. Currently she is feeling better. Denies any symptoms of N/V or abdominal pain. She is using a cane and a walker.She is living with grandson. She is taking all of her meds. No acute findings reported today. VITA SANTOS REWINDER OPERATOR [address] [place] [address], [place], [address], [employer] 08/24/2024 13:30:58 OBGyn Episode No OBEpisode recorded.
--- OUTSIDE RECORDS SUMMARY | 2025-03-31 23:04 | XMS_ITS | Encounter Summary ---
Author Organization [facility] Address [address] [place] [address] Phone Care Team Providers Care Complaint Investigator Name Role Phone Judd Chopra MD Primary Care Provider [phone] Hilton Lynn MD Unavailable Jay Aguayo MD Unavailable Blaire Guidry RN Unavailable Unavailable Clementine Ackerman RN Unavailable Unavailable Encounter Details Date Type Department Care Team (Late st Contact Info) Description 04/14/2021 Telephone [facility] [address] [address] Hilton Lynn MD [address] [place] [address] Social History Tobacco Use Types Packs/Day [...] * Telephone Encounter - Leann Skinner - 04/14/2021 9:57 AM CDT PATIENT IS RESCHEDULED FOR MRI AT [facility] THIS Thursday 04/19 AT 9:45AM. documented in this encounter Plan of Treatment Not on file documented as of this encounter Visit Diagnoses Not on filedocumented in this encounter Additional Health Concerns Assessment Noted Time PHQ-9 Depression Total Score: 0 04/14/20 9:20 AM CDT documented as of this encounter Care Teams Complaint Investigator Relationship Specialty Start Date End Date Judd Chopra MD [address] [place] [address] PCP - General Family Medicine 03/11/21 Hilton Lynn MD [address] [place] [address] Consulting Physician Oncology 03/11/21 Jay Aguayo MD [address] [place] [address] Consulting Physician Radiation Oncology 04/25/21 Blaire Guidry, RN [place] Oncology Nurse Navigator Oncology 04/25/21 Clementine Ackerman RN [place] Oncology Nurse Navigator Oncology 12/05/24 documented as of this encounter
--- OUTSIDE RECORDS SUMMARY | 2025-03-31 23:04 | XMS_ITS | Encounter Summary ---
Author Organization [facility] Address [address] [place] [address] Phone Care Team Providers Care Director Of Recruitment And Admissions Name Role Phone Judd Chopra MD Primary Care Provider [phone] Hilton Lynn MD Unavailable [phone] Jay Aguayo MD Unavailable Blaire Guidry RN Unavailable Unavailable Clementine Ackerman RN Unavailable Unavailable Reason for Visit * Reason Comments Medication Refill Encounter Details Date Type Department Care Team (Late st Contact Info) Description 04/12/2023 Refill [facility] [address] [address] Hilton Lynn MD [address] [place] [address] Medication Refill Social History Tobacco Use Types [...] suspected to have Coronavirus/COVID-19? No / Unsure 04/14/2023 12:43 PM CDT documented as of this encounter Miscellaneous Notes * Telephone Encounter - Isauro Ledbetter RN - 04/13/2023 7:32 AM CDT Refill request. Refill if appropriate. 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 [place] [address] PCP - General Family Medicine 03/11/21 Hilton Lynn MD [address] [place] [address] Consulting Physician Oncology 03/11/21 Jay Aguayo MD [address] [place] [address] Consulting Physician Radiation Oncology 04/25/21 Blaire Guidry, RN MD Oncology Nurse Navigator Oncology 04/25/21 Clementine Ackerman RN MD Oncology Nurse Navigator Oncology 12/05/24 documented as of this encounter
--- OUTSIDE RECORDS SUMMARY | 2025-03-31 23:04 | XMS_ITS | Encounter Summary ---
Author Organization [facility] Address [address] [place] [address] Phone Care Team Providers Care Retail Department Manager Name Role Phone Judd Chopra MD Primary Care Provider [phone] Hilton Lynn MD Unavailable [phone] Jay Aguayo MD Unavailable Blaire Guidry RN Unavailable Unavailable Clementine Ackerman RN Unavailable Unavailable Reason for Visit * Reason Comments Medication Refill Encounter Details Date Type Department Care Team (Late st Contact Info) Description 01/18/2023 Refill [facility] [address] [address] Hilton Lynn MD [address] [place] [address] Medication Refill Social History Tobacco Use [...] suspected to have Coronavirus/COVID-19? No / Unsure 01/20/2023 11:13 AM CDT documented as of this encounter Functional Status * Question Answer Date of Assessment Author Little interest or pleasure in doing things Not at all 01/20/2023 11:41 AM CDT Sen, Marleni A, RMA Feeling down, depressed, or hopeless Not at all 01/20/2023 11:41 AM CDT Sen, Marleni A, RMA * Over the past 2 weeks, how often have you been bothered by any of the following problems? Question Answer Date of Assessment Author Patient Health Questionnaire -2 Score 0 01/20/2023 11:41 AM CDT Sen, Marleni A, RMA documented as of this encounter Miscellaneous Notes * Telephone Encounter - Isauro Ledbetter RN - 01/19/2023 4:35 PM CDT Refill request Refill if appropriate. documented in this encounter Plan of Treatment Not on file documented as of this encounter Visit Diagnoses Not on filedocumented in this encounter Additional Health Concerns Assessment Noted Time PHQ-9 Depression Total Score: 0 07/25/20 21 11:35 AM RODEO CLOWN documented as of this encounter Care Teams Retail Department Manager Relationship Specialty Start Date End Date Judd Chopra MD [facility] [place] [address] PCP - General Family Medicine 03/11/21 Hilton Lynn MD [address] [place] [address] Consulting Physician Oncology 03/11/21 Jay Aguayo MD [address] [place] [phone] Consulting Physician Radiation Oncology 04/25/21 Blaire Guidry, ALEX [place] Oncology Nurse Navigator Oncology 04/25/21 Clementine Ackerman, ALEX [place] Oncology Nurse Navigator Oncology 12/05/24 documented as of this encounter
--- OUTSIDE RECORDS SUMMARY | 2025-03-31 23:04 | XMS_ITS | Encounter Summary ---
Author Organization [facility] Address [address] [place] [address] Phone Care Team Providers Care Chemical Process Equipment Operator Name Role Phone Judd Chopra MD Primary Care Provider [phone] Hilton Lynn MD Unavailable Jay Aguayo MD Unavailable Blaire Guidry RN Unavailable Unavailable Clementine Ackerman RN Unavailable Unavailable Reason for Visit * Reason Comments Medication Refill Encounter Details Date Type Department Care Team (Late st Contact Info) Description 08/10/2022 Refill [facility] [address] [address] Hilton Lynn MD [address] [place] [address] Medication Refill Social History Tobacco Use [...] suspected to have Coronavirus/COVID-19? No / Unsure 08/03/2022 9:42 AM CLIENT SUPPORT ANALYST documented as of this encounter Miscellaneous Notes * Telephone Encounter - Isauro Ledbetter RN - 08/10/2022 2:59 PM CST Refill request. Refill if appropriate. NT SUPPORT ANALYST documented in this encounter Plan of Treatment Not on file documented as of this encounter Visit Diagnoses Diagnosis Multiple myeloma not having achieved remission (HCC) Multiple myeloma, without mention of having achieved remission documented in this encounter Additional Health Concerns Assessment Noted Time PHQ-9 Depression Total Score: 0 07/25/20 21 11:35 AM CLIENT SUPPORT ANALYST documented as of this encounter Care Teams Chemical Process Equipment Operator Relationship Specialty Start Date End Date Judd Chopra MD [address] [place] [address] PCP - General Family Medicine 03/11/21 Hilton Lynn MD [address] [place] [address] Consulting Physician Oncology 03/11/21 Jay Aguayo MD [address] [place] [address] Consulting Physician Radiation Oncology 04/25/21 Blaire Guidry RN [place] Oncology Nurse Navigator Oncology 04/25/21 Clementine Ackerman RN [place] Oncology Nurse Navigator Oncology 12/05/24 documented as of this encounter
--- OUTSIDE RECORDS SUMMARY | 2025-03-31 23:04 | XMS_ITS | Encounter Summary ---
Author Organization [facility] Address [address] [place] [address] Phone Care Team Providers Care Pattern Gater Name Role Phone Judd Chopra MD Primary Care Provider [phone] Hilton Lynn MD Unavailable [phone] Jay Aguayo MD Unavailable Blaire Guidry RN Unavailable Unavailable Clementine Ackerman RN Unavailable Unavailable Reason for Visit * Reason Comments Medication Refill Encounter Details Date Type Department Care Team (Late st Contact Info) Description 10/14/2021 Refill [facility] [address] [address] Hilton Lynn MD [address] [place] [address] Medication Refill Social History Tobacco Use Types Packs/Day Years Used Date Smoking Tobacco: Former Smokeless Tobacco: Never Comments:quit about 30 years ago Alcohol Use Standard Drinks/Week Comments Not Currently 0 (1 standard drink = 0.6 oz pur e alcohol) PHQ-2 Answer Date Recorded Total Score - Questions 1-9 0 09/15 Comments No Sex and Gender Information Value [...] have Coronavirus / COVID-19? No / Unsure 10/13/2021 11:20 AM TRAIN BRAKEMAN documented as of this encounter Miscellaneous Notes * Telephone Encounter - Hilton Lynn MD - 10/15/2021 8:24 AM TRAIN BRAKEMAN Ok to fill N BRAKEMAN * Telephone Encounter - Isauro Ledbetter RN - 10/14/2021 4:57 PM CST Refill request. Refill if appropriate. N BRAKEMAN documented in this encounter Plan of Treatment Not on file documented as of this encounter Visit Diagnoses Diagnosis Multiple myeloma not having achieved remission (HCC) Multiple myeloma, without mention of having achieved remission documented in this encounter Additional Health Concerns Assessment Noted Time PHQ-9 Depression Total Score: 0 07/25/20 21 11:35 AM TRAIN BRAKEMAN documented as of this encounter Care Teams Pattern Gater Relationship Specialty Start Date End Date Judd Chopra MD [address] [place] [address] PCP - General Family Medicine 03/11/21 Hilton Lynn MD [address] [place] [address] Consulting Physician Oncology 03/11/21 Jay Aguayo MD [address] [place] [address] Consulting Physician Radiation Oncology 04/25/21 Blaire Guidry, RN [place] Oncology Nurse Navigator Oncology 04/25/21 Clementine Ackerman, RN [place] Oncology Nurse Navigator Oncology 12/05/24 documented as of this encounter
--- OUTSIDE RECORDS SUMMARY | 2025-03-31 23:04 | XMS_ITS | Encounter Summary ---
Author Organization [facility] Address [address] [place] [address] Phone Care Team Providers Care Melon Packer Name Role Phone Judd Chopra MD Primary Care Provider [phone] Hilton Lynn MD Unavailable Jay Aguayo MD Unavailable Blaire Guidry RN Unavailable Unavailable Clementine Ackerman RN Unavailable Unavailable Encounter Details Date Type Department Care Team (Late st Contact Info) Description 05/12/2021 Telephone [facility] [address] [address] Hilton Lynn MD [address] [place] [address] Social History Tobacco Use Types Packs/Day [...] have Coronavirus / COVID-19? No / Unsure 05/05/2021 9:07 AM CDT documented as of this encounter Miscellaneous Notes * Telephone Encounter - Leann Skinner - 05/12/2021 10:24 AM CDT PATIENT WAS ON FOR VISIT TODAY BUT IS STILL IN [place]. documented in this encounter Plan of Treatment Not on file documented as of this encounter Visit Diagnoses Not on filedocumented in this encounter Additional Health Concerns Assessment Noted Time PHQ-9 Depression Total Score: 0 05/05/20 9:15 AM CDT documented as of this encounter Care Teams Melon Packer Relationship Specialty Start Date End Date Judd Chopra MD [address] [place] [address] PCP - General Family Medicine 03/11/21 Hilton Lynn MD [address] [place] [address] Consulting Physician Oncology 03/11/21 Jay Aguayo MD [address] [place] [address] Consulting Physician Radiation Oncology 04/25/21 Blaire Guidry, RN [place] Oncology Nurse Navigator Oncology 04/25/21 Clementine Ackerman, ALEX [place] Oncology Nurse Navigator Oncology 12/05/24 documented as of this encounter
--- OUTSIDE RECORDS SUMMARY | 2025-03-31 23:04 | XMS_ITS | Encounter Summary ---
Author Organization [facility] Address [address] [place] [address] Phone Care Team Providers Care Tool Die Maker Name Role Phone Judd Chopra MD Primary Care Provider [phone] Hilton Lynn MD Unavailable Jay Aguayo MD Unavailable Blaire Guidry RN Unavailable Unavailable Clementine Ackerman RN Unavailable Unavailable Reason for Visit * Reason Comments Medication Refill Encounter Details Date Type Department Care Team (Late st Contact Info) Description 07/15/2022 Refill [facility] [address] [address] Hilton Lynn MD [address] [place] [address] Medication Refill Social History Tobacco Use [...] suspected to have Coronavirus/COVID-19? No / Unsure 07/06/2022 9:30 AM CDT documented as of this encounter Plan of Treatment Not on file documented as of this encounter Visit Diagnoses Diagnosis Multiple myeloma not having achieved remission (HCC) Multiple myeloma, without mention of having achieved remission documented in this encounter Additional Health Concerns Assessment Noted Time PHQ-9 Depression Total Score: 0 07/25/20 11:35 AM SOUNDSCRIBER MECHANIC documented as of this encounter Care Teams Tool Die Maker Relationship Specialty Start Date End Date Judd Chopra MD [facility] [place] [address] PCP - General Family Medicine 03/11/21 Hilton Lynn MD [address] [place] [address] Consulting Physician Oncology 03/11/21 Jay Aguayo MD [address] [place] [address] Consulting Physician Radiation Oncology 04/25/21 Blaire Guidry, RN [place] Oncology Nurse Navigator Oncology 04/25/21 Clementine Ackerman, ALEX [place] Oncology Nurse Navigator Oncology 12/05/24 documented as of this encounter
--- OUTSIDE RECORDS SUMMARY | 2025-03-31 23:04 | XMS_ITS | Encounter Summary ---
Author Organization [facility] Address [facility] [place] [address] Care Team Providers Care Port Engineer Name Role Phone Judd Chopra MD Primary Care Provider [phone] Judd Chopra MD Unavailable [phone] Charisse Bhat RN Unavailable [phone] Jay Aguayo MD Unavailable None, Provider Primary Care Provider Unavaila Maribel Mckeon MD Primary Care Provider [phone] Charisse Bhat RN Unavailable [phone] None, Provider Unavailable Unavailable Encounter Details Date Type Department Care Team (Latest Contact Info) Description 05/25/2018 Abstract [facility] , Tye Montero, Social History Tobacco Use Types Packs/Day Years Used Date Smoking Tobacco: Never Assessed Comments Unknown Sex and Gender Information Value Date Recorded Sex Assigned at Female 10/02/2024 8:45 AM CONTACT CENTER TEAM LEAD Legal Sex Female 11:41 PM CDT Gender Identity Not on file Sexual Orientation Not on file documented as of this encounter Plan of Treatment Upcoming Encounters Date Type Department Care Team (Late st Contact Info) Description 04/05/2025 2:40 PM CDT Office Visit [facility] Multispecialty Care - [address], [facility] [address] [place] [address] Dahlia Maguire MD [address], [facility] [address] [place] [address] 04/12/2025 9:20 AM CDT Office Visit [facility] Family Medicine [facility] [address] [place] [phone] Maribel Chau MD [address] [place] [address] 08/27/2025 10:00 AM CONTACT CENTER TEAM LEAD [facility]ointment [facility] [place] [address] Ricci Ramos MD [facility] [address] documented as of this encounter Visit Diagnoses Not on filedocumented in this encounter Additional Health Concerns Infection Onset Date Last Indicated Resolved Time COVID-19 Rule Out 08/06/2024 08/06/2024 08/06/2024 7:10 PM CONTACT CENTER TEAM LEAD COVID-19 Rule Out 08/07/2024 08/07/2024 08/07/2024 4:01 AM CONTACT CENTER TEAM LEAD Respiratory Rule Out 12/27/2024 12/27/2024 025 3:41 AM CDT C. difficile 03/07/2025 03/07/2025 documented as of this encounter Care Teams Port Engineer Relationship Specialty Start Date End Date Judd Chopra MD PCP - General 03/05/17 08/05/24 Judd Chopra MD PCP - Med Group - [facility] Attributed Provider 09/13/15 09/12/21 None, Provider, PCP - General UNKNOWN PHYSICIAN SPECIALTY 08/06/24 09/19/24 Maribel Chau MD [address] [place] [address] PCP - General FAMILY PRACTICE 09/20/24 None, ProviderMD PCP - Hospice Attending 03/12/25 Charisse Bhat RN [address] [facility] [place] [address] [place] [address] Twisting Frame Changer (Ambulatory) REGISTERED NURSE 05/07/21 08/06/24 Jay Aguayo MD [address] [place] [address] Consulting Physician RADIATION ONCOLOGY 06/30/23 Charisse Bhat RN [address] [place] [address] [place] [address] Registered Nurse CARE MANAGEMENT 12/05/24 01/09/25 documented as of this encounter
--- OUTSIDE RECORDS SUMMARY | 2025-03-31 23:04 | XMS_ITS | Referral Summary ---
Author Organization [facility] Address [address] [place] [address] Care Team Providers Care Patternmaker Wood Name Role Phone Judd Chopra MD Primary Care Provider Hilton Lynn MD Unavailable Jay Aguayo MD Unavailable [phone] Allergies Active Allergy Reactions Criticality Noted Date Comments Amoxicillin Swelling Medium 09/30/2023 Mouth swelling Atorvastatin Other (See comments) Reaction: leg pain, Rosuvastatin Other (See comments) Reaction: leg pain, Simvastatin Other (See comments) Reaction: leg pain, Medications acyclovir (ZOVIRAX) 400 mg tablet Take 1 tablet (400 mg total) by mouth 2 (two) times a day 3 Active albuterol HFA (PROVENTIL HFA,VENTOLIN HFA,PROAIR HFA) 90 mcg/actuation inhaler Inhale 2 puffs as needed Has never used this per patient 3 Active amLODIPine (NORVASC) 10 mg tablet Take 1 tablet (10 mg total) by mouth nightly 2 Active aspirin 81 mg enteric coated tablet Take 1 tablet (81 mg total) by mouth daily 1 Active calcitRIOL (ROCALTROL) 0.25 mcg capsule 3 Active carvediloL (COREG) 25 mg tablet Take 1 tablet (25 mg total) by mouth 2 (two) times a day with meals 2 Active cholecalciferol 25 mcg (1,000 unit) tablet Take 1 tablet (1,000 Units total) by mouth Active dapagliflozin propanediol (Farxiga) 10 mg tablet Take 1 tablet (10 mg total) by mouth daily 2 Active dexAMETHasone (DECADRON) 4 mg tablet Take 5 tablets (20 mg total) by mouth Takes only with cancer treatments 3 Active diphenhydrAMINE 25 mg capsule Take 2 capsules by mouth For cancer treatments 6 Active fluticasone propionate (FLONASE) 50 mcg/actuation nasal spray Administer 2 sprays into affected nostril(s) 3 Active hydroCHLOROthiazid e (HYDRODIURIL) 25 mg tablet 3 Active lenalidomide (REVLIMID) 5 mg capsule Take 1 capsule (5 mg total) by mouth Not daily--gets periodic treatments 3 Active metoclopramide (REGLAN) 10 mg tablet 1 Active omeprazole (PriLOSEC) 40 mg capsule Take 1 capsule (40 mg total) by mouth 2 (two) times a day 1 Active ondansetron ODT (ZOFRAN-ODT) 4 mg disintegrating tablet Take 1 tablet (4 mg total) by mouth 2 Active polyethylene glycol (MIRALAX) 17 gram/dose bulk powder Take 17 g by mouth as needed 3 Active pomalidomide (Pomalyst) 2 mg capsule TAKE 1 CAPSULE ONCE DAILY ON DAYS 1 THROUGH 21 OF EACH 28 DAY TREATMENT CYCLE 3 Active prochlorperazine (COMPAZINE) 10 mg tablet Take 1 tablet (10 mg total) by mouth 4 (four) times a day as needed 3 Active traMADoL (ULTRAM) 50 mg tablet Take 1 tablet (50 mg total) by mouth every 6 (six) hours as needed 1 Active coenzyme H28-cvnaspw E 100-5 mg-unit capsule Take 1 capsule by mouth 1 Active traMADoL (ULTRAM) 50 mg tablet Take 1 tablet (50 mg total) by mouth every 6 (six) hours as needed for pain 20 tablet 4 Active Active Problems Problem Noted Date Diagnosed Date Secondary hyperparathyroidism 11/16/2022 Iron deficiency anemia 03/24/2022 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 Dysphagia 08/21/2021 Overview (09/30/2023): Added automatically from request for surgery [id number] Added automatically from request for surgery [id number] Left upper lobe pulmonary nodule 11/20/2020 CKD (chronic kidney disease) stage 4, GFR 15-29 ml/min 09/23/2020 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, mild stage 07/08/2018 Dyslipidemia 10/12/2014 Overview (09/30/2023): Overview: Hyperlipidemia Overview: Hyperlipidemia Monoclonal gammopathy of unknown significance Overview (12/18/2016): MGUS (monoclonal gammopathy of unknown significance) Cataract 11/30/2013 Overview (12/18/2016): Cataract Essential hypertension 11/02/2013 Overview (12/17/2016): Hypertension, essential Stenosis of carotid artery 11/02/2013 Overview (12/18/2016): Carotid stenosis Thyroid nodule 08/04/2013 Overview (12/17/2016): Thyroid nodule Hypertension 07/21/2013 Overview (12/18/2016): Hypertension Diabetes mellitus 07/21/2013 Overview (12/18/2016): Diabetes Anemia 10/02/2011 Overview (12/16/2016): Anemia Type 2 diabetes mellitus 04/13/2011 Overview (12/17/2016): Diabetes mellitus, type II Proteinuria 09/19/2010 Overview (12/17/2016): Proteinuria Hyperlipidemia 03/13/2010 Overview (12/17/2016): Hyperlipidemia Vitamin D deficiency 07/14/2009 Overview (12/16/2016): Vitamin D deficiency Gout 02/11/2009 Overview (12/18/2016): Gout Immunizations Immunization Administration Dates Next Due Influenza, Trivalent, High D ose, Split, Preservative Free, Intramuscular 07/23/2014 Influenza, Trivalent, Split, Preservative Free, Intradermal 07/12/2013 Social History Tobacco Use Types Packs/Day Years Used Date Smoking Tobacco: Former Cigarettes Q uit: 1979 Tobacco Cessation:Counseling Given: Not Answered Alcohol Use Standard Drinks/Week Comments No 0 (1 standard drink = 0.6 oz pur e alcohol) AUDIT-C Answer Date Recorded Q1: How often do you have a drink containing alcohol? Never 10/18/2023 Q2: How many drinks containi ng alcohol do you have on a typical day when you are drinking? Patient does not drink Q3: How often do you have si x or more drinks on one occasion? Never 10/18/2023 Personal Safety Answer Date Recorded Have you ever been in or are you currently in a harmful physical or emotional relationship or is someone making you feel afraid or unsafe? Denies 10/18/2023 Comments Unknown Sex and Gender Information Value Date Recorded Sex Assigned at Not on file Legal Sex Female 1:50 PM RECORDS TECHNICIAN Gender Identity Not on file Sexual Orientation Not on file Last Filed Vital Signs Vital Sign Reading Time Taken Comments Blood Pressure 127/54 10/18/2023 4:20 PM RECORDS TECHNICIAN Pulse 52 10/18/2023 4:20 PM RECORDS TECHNICIAN Temperature 36.6 C (97.9 F) 10/18/2023 3:35 PM RECORDS TECHNICIAN Respiratory Rate 18 10/18/2023 4:20 PM RECORDS TECHNICIAN Oxygen Saturation 100% 10/18/2023 4:20 PM RECORDS TECHNICIAN Inhaled Oxygen Concentration - - Weight 59.8 kg (131 lb 14.4 oz) 024 10:10 AM RECORDS TECHNICIAN Height 157.5 cm (5' 2) 10/18/2023 10:1 0 AM RECORDS TECHNICIAN Body Mass Index 24.12 10/18/2023 10:10 AM RECORDS TECHNICIAN Plan of Treatment Not on file Procedures Procedure Name Priority Date/Time Associated Diagnosis Comments HEMOGLOBIN A1C Routine 10/26/2016 12:19 PM RECORDS TECHNICIAN PLASMA LIPID PANEL Routine 05/09/2014 11 :08 AM CDT from Last 3 Months or Most Recently Relevant to Health Maintenance Results * (ABNORMAL) Hemoglobin A1c (10/26/2016 12:19 PM RECORDS TECHNICIAN) Hemoglobin A1c % 7.0(H) 4.8 - 5.9 % 10/26/2016 12:54 PM RECORDS TECHNICIAN [facility] HISTORICAL RESULTS Comment: [place] [employer] recommends that the goal of therapy should be an A1C hemoglobin of <7%. Reevaluate the treatment regimen in patients with an A1C >8%. 10/26/2016 12:1 9 PM RECORDS TECHNICIAN 10/26/2016 12:32 PM RECORDS TECHNICIAN Narrative [facility] HISTORICAL RESULTS - 10/26/2016 12:54 PM RECORDS TECHNICIAN us Wero Chacon MD LAB BLOOD ORDERABLES Final Result [facility] HISTORICAL RESULTS * (ABNORMAL) Plasma lipid panel (05/09/2014 11:08 AM CDT) Cholesterol 226(H) 140 - 199 mg/dl HISTORICAL RESULTS Triglycerides 233(H) 20 - 150 mg/dl HISTORICAL RESULTS HDL 53 40 - 60 mg/dl HISTORICAL RESULTS LDL 126(H) 65 - 100 mg/dl HISTORICAL RESULTS Comment: Desirable Borderline High CHOL < 200 200 - 239 >= 240 mg/dL TRIG < 150 150 - 199 >= 200 mg/dL HDL > 60 40 - 60 <= 40 mg/dL LDL < 100 130 - 159 >= 160 mg/dL Risk Assessment interpretation based on the March 2001 NCEP ATPIII guideline. Chol/HDL ratio 4.3 0.0 - 4.9 HISTO RICAL RESULTS Comment:Effective Wednesday, A pril 2011, [facility] Laboratory will begin reporting the Total Cholesterol/HDL Ratio Plasma 05/09/2014 11:0 8 AM CDT us Tawny Bazzi MD LAB BLOOD ORDERABLES Final R esult HISTORICAL RESULTS from Last 3 Months or Most Recently Relevant to Health Maintenance Insurance [facility] PLAN [facility] HMO/PPO Address: [address] [place] [address] MEDICARE [facility] H[facility]/PPO Address: [address] [address] [place] [address] [facility] HE[employer] PLAN Care Teams Patternmaker Wood Relationship Specialty Start Date End Date Judd Chopra MD PCP - General Family Medicine 09/30/23 Hilton Lynn MD [address] [place] [address] Referring Physician Medical Oncology 09/30/23 Jay Aguayo MD [address] [place] [address] Radiation Oncology 09/30/23
--- OUTSIDE RECORDS SUMMARY | 2025-03-31 23:04 | XMS_ITS | Encounter Summary ---
Author Organization [facility] Address [address] [place] [address] Phone Care Team Providers Care In Store Demonstrator Name Role Phone Judd Chopra MD Primary Care Provider [phone] Hilton Lynn MD Unavailable Jay Aguayo MD Unavailable Blaire Guidry RN Unavailable Unavailable Clementine Ackerman RN Unavailable Unavailable Encounter Details Date Type Department Care Team (Late st Contact Info) Description 05/10/2024 Telephone [facility] [address] [address] Hilton Lynn MD [address] [place] [address] Social History Tobacco Use Types Packs/Day [...] file Not on file Not on file documented as of this encounter Miscellaneous Notes * Telephone Encounter - Deja Gamez RN - 05/11/2024 9:59 AM CDT Images from the original note were not included. Hilton Lynn MD Hopkins, Juliette; [facility] Nurse Pool38 minutes ago (9:20 AM) MW Noted * Telephone Encounter - Jaci Parry - 05/10/2024 2:19 PM CDT FYI:Judy @ [facility] tried to sched pt for tomorrow 05/11/24 to get her Port placement put in and the pt declined stating she is going out of town. Pt sched for 05/23/24 @10am w/ an 830am arrival documented in this encounter Plan of Treatment Not on file documented as of this encounter Visit Diagnoses Not on filedocumented in this encounter Additional Health Concerns Assessment Noted Time PHQ-9 Depression Total Score: 0 07/25/20 21 11:35 AM WEATHERIZATION TECHNICIAN documented as of this encounter Care Teams In Store Demonstrator Relationship Specialty Start Date End Date Judd Chopra MD [facility] [place] [address] PCP - General Family Medicine 03/11/21 Hilton Lynn MD [address] [place] [phone] Consulting Physician Oncology 03/11/21 Jay Aguayo MD NPI: [id number] [place] [phone] Consulting Physician Radiation Oncology 04/25/21 Blaire Guidry, RN [place] Oncology Nurse Navigator Oncology 04/25/21 Clementine Ackerman, RN [place] Oncology Nurse Navigator Oncology 12/05/24 documented as of this encounter
--- OUTSIDE RECORDS SUMMARY | 2025-03-31 23:04 | XMS_ITS | Encounter Summary ---
Author Organization [facility] Address [address] [place] [address] Phone Care Team Providers Care Senior Technical Recruiter Name Role Phone Judd Chopra MD Primary Care Provider [phone] Hilton Lynn MD Unavailable Jay Aguayo MD Unavailable Blaire Guidry RN Unavailable Unavailable Clementine Ackerman RN Unavailable Unavailable Reason for Visit * Reason Comments Medication Refill Encounter Details Date Type Department Care Team (Late st Contact Info) Description 05/28/2021 Refill [facility] [address] [address] Hilton Lynn MD [address] [place] [address] Medication Refill Social History Tobacco Use [...] Time PHQ-9 Depression Total Score: 0 05/28/20 10:28 AM CDT documented as of this encounter Care Teams Senior Technical Recruiter Relationship Specialty Start Date End Date Judd Chopra MD [address] [place] [id number] PCP - General Family Medicine 03/11/21 Hilton Lynn MD [address] [place] [address] Consulting Physician Oncology 03/11/21 Jay Aguayo MD [address] [place] [address] Consulting Physician Radiation Oncology 04/25/21 Blaire Guidry, RN [place] Oncology Nurse Navigator Oncology 04/25/21 Clementine Ackerman, ALEX [place] Oncology Nurse Navigator Oncology 12/05/24 documented as of this encounter
--- OUTSIDE RECORDS SUMMARY | 2025-03-31 23:04 | XMS_ITS | Encounter Summary ---
Author Organization [facility] Address [address] [place] [address] Phone Care Team Providers Care Surgical Lead Name Role Phone Judd Chopra MD Primary Care Provider [phone] Hilton Lynn MD Unavailable Jay Aguayo MD Unavailable Blaire Guidry RN Unavailable Unavailable Clementine Ackerman RN Unavailable Unavailable Encounter Details Date Type Department Care Team (Late st Contact Info) Description 04/24/2021 Telephone [facility] [place] [address] [facility] [address] [place] [address] Hilton Lynn MD [address] [place] [address] Social History Tobacco Use Types Packs/Day Years Used Date Smoking Tobacco: Former Smokeless Tobacco: Never Comments:quit about 30 years ago Alcohol Use Standard Drinks/Week Comments Not Currently 0 (1 standard drink = 0.6 oz pur e alcohol) PHQ-2 Answer Date Recorded Total Score - Questions 1-9 0 04/13 Comments No Sex and Gender Information Value [...] have Coronavirus / COVID-19? No / Unsure 04/24/2021 10:16 AM CDT documented as of this encounter Plan of Treatment Not on file documented as of this encounter Visit Diagnoses Not on filedocumented in this encounter Additional Health Concerns Assessment Noted Time PHQ-9 Depression Total Score: 0 04/14/20 9:20 AM CDT documented as of this encounter Care Teams Surgical Lead Relationship Specialty Start Date End Date Judd Chopra MD [address] [place] [address] PCP - General Family Medicine 03/11/21 Hilton Lynn MD [address] [place] [address] Consulting Physician Oncology 03/11/21 Jay Aguayo MD [address] [place] [address] Consulting Physician Radiation Oncology 04/25/21 Blaire Guidry, RN [place] Oncology Nurse Navigator Oncology 04/25/21 Clementine Ackerman, ALEX [place] Oncology Nurse Navigator Oncology 12/05/24 documented as of this encounter
--- OUTSIDE RECORDS SUMMARY | 2025-03-31 23:04 | XMS_ITS | Encounter Summary ---
Author Organization [facility] Address On license of [facility] [place] [address] Care Team Providers Care Digital Proofing And Platemaker Name Role Phone Jay Aguayo MD Unavailable Maribel Chau MD Primary Care Provider [phone] Charisse Bhat RN Unavailable [phone] Encounter Details Date Type Department Care Team (Late st Contact Info) Description 12/14/2024 9:42 AM CDT Hospital Encounter [facility] [address] [facility] [place] [address] [address] Hilton Lynn MD [address] [facility] [address] [place] [address] Social History Tobacco Use Types Packs/Day Years Used Date Smoking Tobacco: Former Cigarettes 0.3 29 1 967 - 1995 Passive Smoke Exposure: Past Smokeless Tobacco: Never Alcohol Use Standard Drinks/Week Comments Not Currently 0 (1 standard drink = 0.6 oz pur e alcohol) B1300 Health Literacy Answer Date Recor ded How often do you need to hav e someone help you when you read instructions, pamphlets, or other written material from your doctor or pharmacy? Often 12/25/2024 [facility] Utilities Answer Date Recorded In the past 12 months has th e electric, gas, oil, or water [email or web address] threatened to shut off services in your home? No 03/02/2025 Humiliation, Afraid, Rape, and Kick questionnair e Answer Date Recorded Within the last year, have y ou been afraid of your partner or ex-partner? No 03/02/2025 Within the last year, have y ou been humiliated or emotionally abused in other ways by your partner or ex-partner? No Within the last year, have y ou been kicked, hit, slapped, or otherwise physically hurt by your partner or ex-partner? No 03/02/2025 Within the last year, have y ou been raped or forced to have any kind of sexual activity by your partner or ex-partner? No 03/02/2025 Social Connection and Isolat ion Panel [NHANES] Answer Date Recorded In a typical week, how many times do you talk on the phone with family, friends, or neighbors? More than three times a week 11/05/2022 How often do you get togethe r with friends or relatives? Three times a week 11/05/2022 How often do you attend chur ch or scientology services? Patient declined 11/05/2022 Do you belong to any clubs o r organizations such as mormonism groups, unions, fraternal or athletic groups, or school groups? No 11/05/2022 How often do you attend meet ings of the clubs or organizations you belong to? Never 11/05/2022 Are you , , di vorced, , never , or living with a partner? 11/05/2022 AUDIT-C Answer Date Recorded Q1: How often do you have a drink containing alc ohol? Patient declined 11/05/2022 Q2: How many drinks containi ng alcohol do you have on a typical day when you are drinking? Patient declined 11/05/2022 Q3: How often do you have si x or more drinks on one occasion? Patient declined 11/05/2022 Overall Financial Resource Strain (CARDIA) Answe r Date Recorded How hard is it for you to pa y for the very basics like food, housing, medical care, and heating? Not hard at all 03/02/2025 PHQ-2 Answer Date Recorded Patient Health Questionnaire-2 Score 0 01/05/2025 [facility] [place] of Occupat ional Health - Occupational Stress Questionnaire Answer Date Recorded Do you feel stress - tense, restless, nervous, or anxious, or unable to sleep at night because your mind is troubled all the time - these days? Not at all 12/25/2024 Exercise Vital Sign Answer Date Recorde d On average, how many days pe r week do you engage in moderate to strenuous exercise (like a brisk walk)? 0 days 12/25/2024 On average, how many minutes do you engage in exercise at this level? 0 min 12/25/2024 Hunger Vital Sign Answer Date Recorded Within the past 12 months, y ou worried that your food would run out before you got the money to buy more. Never true 03/02/20 25 Within the past 12 months, t he food you bought just didn't last and you didn't have money to get more. Never true 03/02/2025 PRAPARE - Transportation Answer Date Re corded In the past 12 months, has l ack of transportation kept you from medical appointments or from getting medications? No 02/12 In the past 12 months, has l ack of transportation kept you from meetings, work, or from getting things needed for daily living? No 03/02/2025 Housing Stability Vital Sign Answer Deven e Recorded In the last 12 months, was t here a time when you were not able to pay the mortgage or rent on time? No 11/05/2022 In the last 12 months, how many places have you lived? 1 11/05/2022 In the last 12 months, was t here a time when you did not have a steady place to sleep or slept in a jail (including now)? No 11/05/2022 Housing Stability Vital Sign Answer Deven e Recorded In the last 12 months, was t here a time when you were not able to pay the mortgage or rent on time? No 03/02/2025 In the past 12 months, how m any times have you moved where you were living? 0 03/02/2025 At any time in the past 12 m [facility], were you homeless or living in a jail (including now)? No 03/02/2025 Comments No Sex and Gender Information Value Date Recorded Sex Assigned at Female 10/02/2024 8:45 AM FORENSIC ENGINEER Legal Sex Female 11:41 PM CDT Gender Identity Not on file Sexual Orientation Not on file documented as of this encounter Functional Status * Question Answer Date of Assessment Author Status Do you have serious difficulty walking or climbing stairs? No 03/02/2025 10:57 PM MESERETT Jaxon Méndez RN Active * Question Answer Date of Assessment Author Status Do you have difficulty dressing or bathing? Yes 03/02/2025 10:57 PM MESERETT Ashley Méndez RN Active Because of a physical, mental, or emotional condition, do you have difficulty doing errands alone such as visiting a doctor's office or shopping? Yes 03/02/2025 10:57 PM Jaxon Balderrama RN Active * Are you deaf or do you have serious difficulty hearing Answer Date of Assessment Author Status No 12/07/2024 2:00 PM Lauren Chadwick RN Active * Are you blind or do you have serious difficulty seeing, even when wearing glasses? Answer Date of Assessment Author Status No 12/07/2024 2:00 PM Lauren Chadwick RN Active * Do you have serious difficulty walking or climbing stairs? Answer Date of Assessment Author Status Yes 12/07/2024 2:00 PM Lauren Chadwick RN Active * Do you have difficulty dressing or bathing? Answer Date of Assessment Author Status No 12/07/2024 2:00 PM Lauren Chadwick RN Active * Because of a physical, mental, or emotional condition, do you have difficulty doing errands alone such as visiting a doctor's office or shopping? Answer Date of Assessment Author Status Yes 12/07/2024 2:00 PM Lauren Chadwick RN Active * Question Answer Date of Assessment Author Status Are you deaf or do you have serious difficulty hearing No 03/02/2025 10:57 PM Jaxon Balderrama RN Active Are you blind or do you have serious difficulty seeing, even when wearing glasses? No 03/02/2025 10:57 PM Jaxon Balderrama RN Active * Over the past 2 weeks, how often have you been bothered by any of the following problems? Question Answer Date of Assessment Author Status Little interest or pleasure in doing things Not at all 01/05/2025 9:28 AM Martha Negron MA Active Feeling down, depressed, or hopeless Not at all 01/05/2025 9:28 AM MESERETT Crystal Boles MA Active Patient Health Questionnaire-2 Score 0 01/05/2025 9:28 AM Phoebe Negron MA Active * Question Answer Date of Assessment Author Status Trouble falling or staying asleep, or sleeping too much Not at all 01/05/2025 9:28 AM Martha Negron MA Active Feeling tired or having little energy Several days 01/05/2025 9:28 AM Martha Negron MA Active Poor appetite or overeating Not at all 01/05/2025 9:28 AM Martha Negron MA Active Feeling bad about yourself - or that you are a failure or have let yourself or your family down Not at all 01/05/2025 9:28 AM Martha Negron MA Active Trouble concentrating on things, such as reading the newspaper or watching television Not at all 01/05/2025 9:28 AM Martha Negron MA Active Moving or speaking so slowly that other people could have noticed? Or the opposite - being so fidgety or restless that you have been moving around a lot more than usual. Not at all 01/05/2025 9:28 AM Martha Negron MA Active Thoughts that you would be better off or hurting yourself in some way Not at all 01/05/2025 9:28 AM Martha Negron MA Active Patient Health Questionnaire-9 Score 1 01/05/2025 9:28 AM Phoebe Negron MA Active * Calculated C-SSRS Risk Score (Lifetime/Recent) Answer Date of Assessment Author Status No Risk Indicated 03/02/2025 2:24 PM CDT Becca Anton RN Active * If you checked off any problems on this questionnaire so far, Question Answer Date of Assessment Author Status How difficult have these problems made it for you to do your work, take care of things at home, or get along with other people? Not difficult at all 01/05/2025 9:28 AM Martha Negron MA Active * Over the last 2 weeks, how often have you been bothered by any of the following problems? Question Answer Date of Assessment Author Status Feeling nervous, anxious, or on edge 0 01/05/2025 9:30 AM CDT Martha Boles MA Ac tive Not being able to stop or control worrying 0 01/05/2025 9:30 AM MESERETT Martha Boles MA A ctive Worrying too much about different things 0 01/05/2025 9:30 AM Martha Negron MA A ctive Trouble relaxing 0 01/05/2025 9:30 AM Martha Negron MA Active Being so restless that it is hard to sit still 0 01/05/2025 9:30 AM Martha Negron MA Active Becoming easily annoyed or irritable 0 01/05/2025 9:30 AM CDT Martha Boles MA Ac tive Feeling afraid as if something awful might happen 0 01/05/2025 9:30 AM Martha Negron MA Ac tive TANA-7 Total Score 0 01/05/2025 9:30 AM MESERETT Martha Mathews MA Active * [place] Suicide Severity Rating Scale (Screener/Recent Self-Report) Question Answer Date of Assessment Author Status 1. Wish to be (Past 1 Month) No 03/02/2025 2:24 PM Becca Ambrosio RN Active 2. Non-Specific Active Suicidal Thoughts (Past 1 Month) No 03/02/2025 2:24 PM Becca Ambrosio RN Active 6. Suicidal Behavior (Lifetime) No 03/02/2025 2:24 PM Becca Ambrosio RN Active documented as of this encounter Mental Status * Question Answer Entry Date Author Status Because of a physical, mental, or emotional condition, do you have serious difficulty concentrating, remembering, or making decisions? No 03/02/2025 10:57 PM CDT Dre Méndez RN Active * Because of a physical, mental, or emotional condition, do you have serious difficulty concentrating, remembering, or making decisions? Answer Entry Date Author Status No 12/07/2024 2:00 PM CDT Lauren Moralez RN Active documented in this encounter Plan of Treatment Upcoming Encounters Date Type Department Care Team (Late st Contact Info) Description 04/05/2025 2:40 PM CDT Office Visit [facility] [address] [facility], [facility] [address] [place] [address] Dahlia Maguire MD [address] [facility], [facility] [address] [place] [address] 04/12/2025 9:20 AM CDT Office Visit [facility] [address] [place] [phone] Maribel Chau MD [address] [place], [place] [id number] 08/27/2025 10:00 AM FORENSIC ENGINEER Appointment [facility] Mammography [address] [place], [place] [id number] Ricci Ramos MD [facility] [phone] documented as of this encounter Goals Goal Patient Goal Type Associated Problems Recent Progress Patient-Stated? Author Consistently take medications as Prescribed General On track(2024 10:33 AM CDT) No Charisse Bhat, RN Establish Plan for Symptom Monitoring General On track(2024 10:33 AM CDT) No Charisse Bhat, RN Health - patient able to perform ADLs independently Lifestyle No Maia, Helen L, professor of archaeology - family caregiver with be involved in care transitions and discharge planning Lifestyle No Temitope Bolton, HOUSING PROPERTY MANAGERjoy operator - family caregiver with be involved in care transitions and discharge planning Lifestyle No Temitope Bolton, HOUSING PROPERTY MANAGER documented as of this encounter Procedures Procedure Name Priority Date/Time Associated Diagnosis Comments TYPE & SCREEN Routine 12/13/2024 10:05 AM CDT Anemia, unspecified Multiple myeloma not having achieved remission ([facility]) documented in this encounter Results * TYPE & SCREEN (12/13/2024 10:05 AM CDT) UNITS ORDERED 2 12/13/2024 1:43 PM CDT [facility] ABO/RH O POSITIVE 12/13/2024 1:43 PM CDT [facility] ANTIBODY SCREEN POSITIVE 1:43 PM CDT [facility] SAMPLE EXPIRATION 12/16/2024,2359 12/13/2024 1:43 PM CDT [facility] ANTIBODY ID ANTI-E 12/13/2024 1:43 PM CDT [facility] PATIENT ANTIGEN TYPE E NEG 12/13/2024 3:55 PM CDT [facility] BLOOD UNIT NUMBER [id number] 12/13/2024 6:29 PM CDT [facility] PRODUCT: PC LEUKOPOOR 12/13/2024 6:29 PM CDT [facility] UNIT DIVISION 00 12/13/2024 6:29 PM CDT [facility] BLOOD UNIT STATUS TRANSFUSED,FINAL 12/15/2024 7:16 AM CDT [facility] ISSUE DATE/TIME [id number] 025 7:16 AM CDT [facility] PRODUCT CODE [id number] 12/15/2024 7:16 AM CDT [facility] ABO/RH Unit O POS 12/15/2024 7:16 AM CDT [facility] ABO/RH UNIT ISBT CODE 5100 12/15/2024 7:16 AM CDT [facility] BLOOD UNIT EXPIRATION DATE [id number] 12/15/2024 7:16 AM CDT [facility] TRANSFUSION STATUS OK TO TRANSFUSE 12/13/2024 6:29 PM CDT [facility] CROSSMATCH COMPATIBLE 12/13/2024 6:29 PM CDT [facility] BLOOD UNIT NUMBER [id number] 12/13/2024 6:29 PM CDT [facility] PRODUCT: PC LEUKOPOOR 12/13/2024 6:29 PM CDT [facility] UNIT DIVISION 00 12/13/2024 6:29 PM CDT [facility] BLOOD UNIT STATUS TRANSFUSED,FINAL 12/15/2024 7:16 AM CDT [facility] ISSUE DATE/TIME [id number] 7:16 AM CDT [facility] PRODUCT CODE [id number] 12/15/2024 7:16 AM CDT [facility] ABO/RH Unit O POS 12/15/2024 7:16 AM CDT [facility] ABO/RH UNIT ISBT CODE 5100 12/15/2024 7:16 AM CDT [facility] BLOOD UNIT EXPIRATION DATE [id number] 12/15/2024 7:16 AM CDT [facility] TRANSFUSION STATUS OK TO TRANSFUSE 12/13/2024 6:29 PM CDT [facility] CROSSMATCH COMPATIBLE 12/13/2024 6:29 PM CDT [facility] 12/13/2024 10:0 5 AM CDT us Hilton Lynn MD BLOOD BANK TEST ORDERABLES Final Result [facility] [address] [place] [address], documented in this encounter Visit Diagnoses Diagnosis Anemia, unspecified Multiple myeloma not having achieved remission ([facility]) Multiple myeloma, without mention of having achieved remission documented in this encounter Additional Health Concerns Infection Onset Date Last Indicated Resolved Time Respiratory Rule Out 12/27/2024 12/27/2024 025 3:41 AM CDT C. difficile 03/07/2025 03/07/2025 Assessment Noted Time PHQ-9 Depression Total Score: 0 10/23/19 22 1:13 PM FORENSIC ENGINEER documented as of this encounter Care Teams Digital Proofing And Platemaker Relationship Specialty Start Date End Date Maribel Chau MD [address] [place] [id number] PCP - General FAMILY PRACTICE 09/20/24 Jay Aguayo MD [address] [place] [address] Consulting Physician RADIATION ONCOLOGY 06/30/23 Charisse Bhat, RN [address] [facility] [address] [place] [address] Registered Nurse CARE MANAGEMENT 12/05/24 01/09/25 documented as of this encounter
--- OUTSIDE RECORDS SUMMARY | 2025-03-31 23:04 | XMS_ITS | Encounter Summary ---
Author Organization [facility] Address [address] [place] [address] Phone Care Team Providers Care Loading Machine Operator Helper Name Role Phone Judd Chopra MD Primary Care Provider [phone] Hilton Lynn MD Unavailable Jay Aguayo MD Unavailable Blaire Guidry RN Unavailable Unavailable Clementine Ackerman RN Unavailable Unavailable Encounter Details Date Type Department Care Team (Late st Contact Info) Description 08/01/2021 Telephone [facility] [address] [address] Hilton Lynn MD [address] [place] [phone] Social History Tobacco Use Types Packs/Day Years Used Date Smoking Tobacco: Former Smokeless Tobacco: Never Comments:quit about 30 years ago Alcohol Use Standard Drinks/Week Comments Not Currently 0 (1 standard drink = 0.6 oz pur e alcohol) PHQ-2 Answer Date Recorded Total Score - Questions 1-9 0 07/14 Comments No Sex and Gender Information Value [...] have Coronavirus / COVID-19? No / Unsure 07/25/2021 11:03 AM METROPOLITAN EDITOR documented as of this encounter Miscellaneous Notes * Telephone Encounter - Leann Skinner - 08/01/2021 3:32 PM CST PATIENT IS SCHEDULED WITH DR GANN 08/13/21 AT 3PM. OPOLITAN EDITOR documented in this encounter Plan of Treatment Not on file documented as of this encounter Visit Diagnoses Not on filedocumented in this encounter Additional Health Concerns Assessment Noted Time PHQ-9 Depression Total Score: 0 07/25/20 11:35 AM METROPOLITAN EDITOR documented as of this encounter Care Teams Loading Machine Operator Helper Relationship Specialty Start Date End Date Judd Chopra MD [facility] [place] [address] PCP - General Family Medicine 03/11/21 Hilton Lynn MD [address] [place] [address] Consulting Physician Oncology 03/11/21 Jay Aguayo MD [address] [place] [address] Consulting Physician Radiation Oncology 04/25/21 Blaire Guidry, RN [place] Oncology Nurse Navigator Oncology 04/25/21 Clementine Ackerman, ALEX [place] Oncology Nurse Navigator Oncology 12/05/24 documented as of this encounter
--- OUTSIDE RECORDS SUMMARY | 2025-03-31 23:04 | XMS_ITS | Encounter Summary ---
Author Organization [facility] Address [address] [place] [address] Phone Care Team Providers Care Digital Engineer Name Role Phone Judd Chopra MD Primary Care Provider [phone] Hilton Lynn MD Unavailable [phone] Jay Aguayo MD Unavailable Blaire Guidry RN Unavailable Unavailable Clementine Ackerman RN Unavailable Unavailable Reason for Visit * Reason Comments Medication Refill Encounter Details Date Type Department Care Team (Late st Contact Info) Description 03/15/2023 Refill [facility] [address] [place] [address] Cathryn Bustamante, LEARNING FACILITATOR, DIRECTOR ECONOMIC [address] [place] [address] Medication Refill Social History Tobacco Use [...] suspected to have Coronavirus/COVID-19? No / Unsure 03/17/2023 12:35 PM CDT documented as of this encounter Functional Status * Question Answer Date of Assessment Author Little interest or pleasure in doing things Not at all 03/17/2023 1:03 PM CDT Ade Gresham CMA Feeling down, depressed, or hopeless Not at all 03/17/2023 1:03 PM CDT Ade Gresham CMA * Over the past 2 weeks, how often have you been bothered by any of the following problems? Question Answer Date of Assessment Author Patient Health Questionnaire -2 Score 0 03/17/2023 1:03 PM CDT Ade Gresham CMA documented as of this encounter Miscellaneous Notes * Telephone Encounter - Isauro Ledbetter RN - 03/15/2023 4:53 PM CDT Refill request. Refill if appropriate. documented in this encounter Plan of Treatment Not on file documented as of this encounter Visit Diagnoses Not on filedocumented in this encounter Additional Health Concerns Assessment Noted Time PHQ-9 Depression Total Score: 0 07/25/20 21 11:35 AM PROCESSING TECH documented as of this encounter Care Teams Digital Engineer Relationship Specialty Start Date End Date Judd Chopra MD [facility] [place] [address] PCP - General Family Medicine 03/11/21 Hilton Lynn MD [address] [place] [address] Consulting Physician Oncology 03/11/21 Jay Aguayo MD [address] [place] [phone] Consulting Physician Radiation Oncology 04/25/21 Blaire Guidry RN [place] Oncology Nurse Navigator Oncology 04/25/21 Clementine Ackerman RN [place] Oncology Nurse Navigator Oncology 12/05/24 documented as of this encounter
--- OUTSIDE RECORDS SUMMARY | 2025-03-31 23:04 | XMS_ITS | Clinical Summary ---
Author Organization [facility] Address [address] [place] [address] Care Team Providers Care Solar Sales Specialist Name Role Phone Judd Chopra MD Primary Care Provider Hilton Lynn MD Unavailable [phone] Jay Aguayo MD Unavailable [phone] Allergies Active Allergy Reactions Criticality Noted Date [...] (six) hours as needed 1 Active coenzyme B91-loxcurr E 100-5 mg-unit capsule Take 1 capsule [...] (09/30/2023): Added automatically from request for surgery [id number] Added automatically from request for surgery [id number] Left upper lobe pulmonary nodule 11/20/2020 CKD [...] Influenza, Trivalent, Split, Preservative Free, Intradermal 07/12/2013 Surgical History Surgery Date Site/Laterality Comments HYSTERECTOMY BREAST SURGERY Right BREAST BIOPSY 09/21/2023 Right Medical History Medical History Date Comments History of bilateral carpal tunnel release Hyperlipidemia Essential hypertension Stenosis of carotid artery Arteriosclerotic cardiovascular disease Dyslipidemia Vitamin D deficiency Type 2 diabetes mellitus (HCC) Thyroid nodule CKD (chronic kidney disease) stage 4, 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) Iron deficiency anemia Left upper lobe pulmonary nodule Multiple myeloma (HCC) Covid-19 09/03/2023 + home test, col d symptoms only, recovered completely Family History Medical History Relation Name Comments Other Mother accidental deat h; Cancer Sister Cancer; Relation Name Status Comments Mother Sister Social History Tobacco Use Types Packs/Day Years [...] on file Legal Sex Female 1:50 PM BUSINESS QUALITY ASSURANCE ANALYST Gender Identity Not on file Sexual Orientation Not on file Obstetrics History Last Filed Vital Signs Vital Sign Reading Time Taken Comments Blood Pressure 127/54 10/18/2023 4:20 PM BUSINESS QUALITY ASSURANCE ANALYST Pulse 52 10/18/2023 4:20 PM BUSINESS QUALITY ASSURANCE ANALYST Temperature 36.6 C (97.9 F) 10/18/2023 3:35 PM BUSINESS QUALITY ASSURANCE ANALYST Respiratory Rate 18 10/18/2023 4:20 PM BUSINESS QUALITY ASSURANCE ANALYST Oxygen Saturation 100% 10/18/2023 4:20 PM BUSINESS QUALITY ASSURANCE ANALYST Inhaled Oxygen Concentration - - Weight 59.8 kg (131 lb 14.4 oz) 024 10:10 AM BUSINESS QUALITY ASSURANCE ANALYST Height 157.5 cm (5' 2) 10/18/2023 10:1 0 AM BUSINESS QUALITY ASSURANCE ANALYST Body Mass Index 24.12 10/18/2023 10:10 AM BUSINESS QUALITY ASSURANCE ANALYST Plan of Treatment Health Maintenance Due Date Last Done Comments Albumin Creatinine Ratio, Urine 1937 Depression Screening 1937 Osteoporosis Screening-Bone Density Scan 1937 eGFR 1937 Dilated Eye Exam 1937 Foot Exam 1937 DTaP/Tdap/Td Vaccine (1 - Tdap) 1948 Hepatitis B Screening 1955 Zoster Vaccine (1 of 2) 1956 Well Visit 65+ 2002 Hemoglobin A1C 04/25/2017 10/26/2016 Lipid Panel 11/06/2023 11/06/2022, 05/09/2014 Covid-19 Vaccine (5 - 2023-2 5 season) 2024 08/10/2022, 06/12/2021, 11/08/2020, Additional history exists Fall Risk Assessment 10/18/2024 10/18/2023 Influenza Vaccine (#1) 2025 , 07/14/2022, 07/10/2021, Additional history exists Pneumococcal vaccine 65+ Completed 07/14/2022, 02/12 Procedures Procedure Name Priority Date/Time Associated Diagnosis Comments HEMOGLOBIN A1C Routine 10/26/2016 12:19 PM BUSINESS QUALITY ASSURANCE ANALYST PLASMA LIPID PANEL Routine 05/09/2014 11 :08 AM CDT from Last 3 Months or Most Recently Relevant to Health Maintenance Results * (ABNORMAL) Hemoglobin A1c (10/26/2016 12:19 PM BUSINESS QUALITY ASSURANCE ANALYST) Hemoglobin A1c % 7.0(H) 4.8 - 5.9 % 10/26/2016 12:54 PM BUSINESS QUALITY ASSURANCE ANALYST [facility] HISTORICAL RESULTS Comment: [place] [employer] recommends that the goal of therapy should be an A1C hemoglobin of <7%. Reevaluate the treatment regimen in patients with an A1C >8%. 10/26/2016 12:1 9 PM BUSINESS QUALITY ASSURANCE ANALYST 10/26/2016 12:32 PM BUSINESS QUALITY ASSURANCE ANALYST Narrative [facility] HISTORICAL RESULTS - 10/26/2016 12:54 PM BUSINESS QUALITY ASSURANCE ANALYST us Wero Chacon MD LAB BLOOD ORDERABLES Final Result Performing Organization Address [facility] de Phone Number [facility] HISTORICAL RESULTS * (ABNORMAL) Plasma lipid panel [...] RICAL RESULTS Comment:Effective Wednesday, A pril 2011, [facility] Laboratory will begin reporting the Total Cholesterol/HDL Ratio Plasma 05/09/2014 11:0 8 AM CDT us Tawny Bazzi MD LAB BLOOD ORDERABLES Final R esult Performing Organization Address [facility] Co de Phone Number HISTORICAL RESULTS from Last 3 Months or Most Recently Relevant to Health Maintenance Insurance [facility] Address: [address] [place] [address] MEDICARE [facility] MEDICARE [employer] Care Teams Solar Sales Specialist Relationship Specialty Start Date End Date Judd Chopra MD PCP - General Family Medicine 09/30/23 Hilton Lynn MD [address] [place] [address] Referring Physician Medical Oncology 09/30/23 Jay Aguayo MD [address] [place] [address] Radiation Oncology 09/30/23
--- OUTSIDE RECORDS SUMMARY | 2025-03-31 23:04 | XMS_ITS | Encounter Summary ---
Author Organization [facility] Address [address] [place] [address] Phone Care Team Providers Care Histological Illustrator Name Role Phone Judd Chopra MD Primary Care Provider [phone] Hilton Lynn MD Unavailable [phone] Jay Aguayo MD Unavailable Blaire Guidry RN Unavailable Unavailable Clementine Ackerman RN Unavailable Unavailable Reason for Visit * Reason Comments Medication Refill Encounter Details Date Type Department Care Team (Late st Contact Info) Description 05/27/2021 Refill [facility] [address] [address] Hilton Lynn MD [address] [place] [phone] Medication Refill Social History Tobacco Use [...] Assessment Noted Time PHQ-9 Depression Total Score: 1 05/21/20 21 9:19 AM CDT documented as of this encounter Care Teams Histological Illustrator Relationship Specialty Start Date End Date Judd Chopra MD [address] [place] [address] PCP - General Family Medicine 03/11/21 Hilton Lynn MD [address] [place] [address] Consulting Physician Oncology 03/11/21 Jay Aguayo MD [address] [place] [address] Consulting Physician Radiation Oncology 04/25/21 Blaire Guidry, RN [place] Oncology Nurse Navigator Oncology 04/25/21 Clementine Ackerman, ALEX [place] Oncology Nurse Navigator Oncology 12/05/24 documented as of this encounter
--- OUTSIDE RECORDS SUMMARY | 2025-03-31 23:04 | XMS_ITS | Encounter Summary ---
Author Organization [facility] Address [address] [place] [address] Phone Care Team Providers Care Radiation Oncology Nurse Name Role Phone Judd Chopra MD Primary Care Provider [phone] Hilton Lynn MD Unavailable [phone] Jay Aguayo MD Unavailable Blaire Guidry RN Unavailable Unavailable Clementine Ackerman RN Unavailable Unavailable Reason for Visit * Reason Comments Medication Refill Encounter Details Date Type Department Care Team (Late st Contact Info) Description 06/07/2023 Refill [facility] [address] [address] Hilton Lynn MD [address] [place] [phone] Medication Refill Social History Tobacco Use [...] suspected to have Coronavirus/COVID-19? No / Unsure 06/09/2023 9:33 AM CDT documented as of this encounter Functional Status * Question Answer Date of Assessment Author Little interest or pleasure in doing things Not at all 06/09/2023 9:46 AM CDT Ade Gresham CMA Feeling down, depressed, or hopeless Not at all 06/09/2023 9:46 AM CDT Ade Gresham MACHINE PLUG SHAPER * Over the past 2 weeks, how often have you been bothered by any of the following problems? Question Answer Date of Assessment Author Patient Health Questionnaire -2 Score 0 06/09/2023 9:46 AM CDT Ade Gresham CMA documented as of this encounter Plan of Treatment Not on file documented as of this encounter Visit Diagnoses Not on filedocumented in this encounter Additional Health Concerns Assessment Noted Time PHQ-9 Depression Total Score: 0 07/25/20 21 11:35 AM RATINGS ANALYST documented as of this encounter Care Teams Radiation Oncology Nurse Relationship Specialty Start Date End Date Judd Chopra MD [address] [place] [address] PCP - General Family Medicine 03/11/21 Hilton Lynn MD [address] [place] [address] Consulting Physician Oncology 03/11/21 Jay Aguayo MD [address] [place] [address] Consulting Physician Radiation Oncology 04/25/21 Blaire Guidry, RN [place] Oncology Nurse Navigator Oncology 04/25/21 Clementine Ackerman, ALEX [place] Oncology Nurse Navigator Oncology 12/05/24 documented as of this encounter
--- OUTSIDE RECORDS SUMMARY | 2025-03-31 23:04 | XMS_ITS | Encounter Summary ---
Author Organization [facility] Address [address] [place] [address] Phone Care Team Providers Care Char House Supervisor Name Role Phone Judd Chopra MD Primary Care Provider [phone] Hilton Lynn MD Unavailable [phone] Jay Aguayo MD Unavailable Blaire Guidry RN Unavailable Unavailable Clementine Ackerman RN Unavailable Unavailable Reason for Visit * Reason Comments Medication Refill Encounter Details Date Type Department Care Team (Late st Contact Info) Description 05/09/2023 Refill [facility] [address] [phone] Hilton Lynn MD [address] [place] [phone] Medication Refill Social History Tobacco Use [...] suspected to have Coronavirus/COVID-19? No / Unsure 05/12/2023 12:32 PM CDT documented as of this encounter Functional Status * Question Answer Date of Assessment Author Little interest or pleasure in doing things Not at all 05/12/2023 1:11 PM CDT Marleni Chatterjee R MA Feeling down, depressed, or hopeless Not at all 05/12/2023 1:11 PM CDT Marleni Chatterjee R MA * Over the past 2 weeks, how often have you been bothered by any of the following problems? Question Answer Date of Assessment Author Patient Health Questionnaire -2 Score 0 05/12/2023 1:11 PM CDT Marleni Chatterjee R MA documented as of this encounter Miscellaneous Notes * Telephone Encounter - Isauro Ledbetter RN - 05/11/2023 12:02 PM CDT Refill request. Refill if appropriate. documented in this encounter Plan of Treatment Not on file documented as of this encounter Visit Diagnoses Not on filedocumented in this encounter Additional Health Concerns Assessment Noted Time PHQ-9 Depression Total Score: 0 07/25/20 21 11:35 AM SLEEVE TAILOR documented as of this encounter Care Teams Char House Supervisor Relationship Specialty Start Date End Date Judd Chopra MD [facility] [place] [address] PCP - General Family Medicine 03/11/21 Hilton Lynn MD [address] [place] [address] Consulting Physician Oncology 03/11/21 Jay Aguayo MD [address] [place] [phone] Consulting Physician Radiation Oncology 04/25/21 Blaire Guidry, ALEX [place] Oncology Nurse Navigator Oncology 04/25/21 Clementine Ackerman, ALEX [place] Oncology Nurse Navigator Oncology 12/05/24 documented as of this encounter
--- OUTSIDE RECORDS SUMMARY | 2025-03-31 23:04 | XMS_ITS | Clinical Summary ---
Author Organization Unknown Care Team Providers Care Vault Worker Name Role Phone ASHLEY ABRAMS, BLANCA Unavailable Unavailable RAKESH JOHNSON, SEAN Unavailable Unavailable JESUS JOHNSON, LUCÍA Unavailable Unavailable Payers Payer Name Policy Type Policy Number Effective Date Expira tion Date MEDICARE - [place] - PDGM [id number] Problems Condition Name Condition Details Condition Category Status Onset Date Resolution Date Last Treatment Date Treating Clinician Comments CHRONIC OBSTRUCTIVE PULMONARY DISEASE, UNSPECIFIED Active 09-13 00:00: 00 TYPE 2 DIABETES MELLITUS W DIABETIC CHRONIC KIDNEY DISEASE Active 09-13 00:00: 00 CHRONIC KIDNEY DISEASE, STAGE 4 (SEVERE) Active 09-13 00:00: 00 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 09-13 00:00: 00 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 Active 09-13 00:00: 00 ANEMIA IN NEOPLASTIC DISEASE Active 09-13 00:00: 00 TYPE 2 DIABETES MELLITUS WITH DIABETIC NEUROPATHY, UNSP Active 09-13 00:00: 00 TYPE 2 DIABETES MELLITUS WITH DIABETIC CATARACT Active 09-13 00:00: 00 OTHER PANCYTOPENIA Active 09-13 00:00: 00 ESSENTIAL (PRIMARY) HYPERTENSION Active 09-13 00:00: 00 OCCLUSION AND STENOSIS OF UNSPECIFIED CAROTID ARTERY Active 09-13 00:00: 00 GOUT, UNSPECIFIED Active 09-13 00:00: 00 HYPERTENSIVE URGENCY Active 09-13 00:00: 00 VITAMIN D DEFICIENCY, UNSPECIFIED Active 09-13 00:00: 00 ATHSCL HEART DISEASE OF [place] CORONARY ARTERY W/O ANG PCTRS Active 09-13 00:00: 00 HYPO-OSMOLAL ITY AND HYPONATREMIA Active 09-13 00:00: 00 PURE HYPERCHOLEST EROLEMIA, UNSPECIFIED Active 09-13 00:00: 00 PRIMARY OPEN-ANGLE GLAUCOMA, BILATERAL, MILD STAGE Active 09-13 00:00: 00 NONTOXIC SINGLE THYROID NODULE Active 09-13 00:00: 00 IRON DEFICIENCY ANEMIA, UNSPECIFIED Active 09-13 00:00: 00 UNSPECIFIED HEARING LOSS, UNSPECIFIED EAR Active 09-13 00:00: 00 MONOCLONAL GAMMOPATHY Active 09-13 00:00: 00 PERSONAL HISTORY OF MALIGNANT NEOPLASM OF BREAST Active 09-13 00:00: 00 HISTORY OF FALLING Active 09-13 00:00: 00 Problems related to health literacy Active 09-13 00:00: 00 PERSONAL HISTORY OF PEPTIC ULCER DISEASE Active 09-13 00:00: 00 PERSONAL HISTORY OF NICOTINE DEPENDENCE Active 09-13 00:00: 00 ACQUIRED ABSENCE OF BOTH CERVIX AND UTERUS Active 09-13 00:00: 00 Allergies, Adverse Reactions, Alerts Allergy Name Allergy Type Status Severity Reaction(s) Onset Date Inactive Date Treating Clinician Comments FRANCISCO INHIBITORS Propensity to adverse reactions Active 12-30 14:29: 45 AMOXICILLIN Propensity to adverse reactions Active 12-30 14:29: 50 SIMVASTATIN Propensity to adverse reactions Active 12-30 14:29: 39 ATORVASTATIN Propensity to adverse reactions Active 12-30 14:29: 25 ROSUVASTATIN Propensity to adverse reactions Active 12-30 14:29: 32 ANGIOTENSIN Propensity to adverse reactions Active 12-30 14:29: 58 Medications Ordered Medication Name Filled Medication Name Start Date Stop Date Current Medication? Ordering Clinician Indication Dosage Frequency Signature (SIG) Comments Components albuterol sulfate HFA 90 mcg/actuati on aerosol inhaler 2023-09 00:00: 00 12-07 23:59 :00 No [id number] 2 puff EVERY 6 HOURS 2 puff EVERY 6 HOURS (route: inhalation ) Med Classific ation: Respirato ry Therapy Agents amlodipine 5 mg tablet 2023-09 00:00: 00 12-07 23:59 :00 No [id number] 1 tablet DAILY 1 tablet DAILY (route: oral) Med Classific ation: Cardiovas cular Therapy Agents aspirin 81 mg tablet,carmen yed release 2023-09 00:00: 00 12-07 23:59 :00 No [id number] 1 tablet DAILY 1 tablet DAILY (route: oral) Med Classific ation: Hematolog ical Agents calcitriol 0.25 mcg capsule 2023-09 00:00: 00 12-07 23:59 :00 No [id number] 1 capsule 3 TIMES A WEEK 1 capsule 3 TIMES A WEEK (route: oral) Med Classific ation: Electroly te Balance-N utritiona l Products carvedilol 25 mg tablet 2023-09 00:00: 00 12-07 23:59 :00 No [id number] 1 tablet 2 TIMES DAILY 1 tablet 2 TIMES DAILY (route: oral) Med Classific ation: Cardiovas cular Therapy Agents dexamethaso ne 4 mg tablet 2023-09 00:00: 00 12-07 23:59 :00 No [id number] 5 tablet DIRECTED 5 tablet DIRECTED (route: oral) Med Classific ation: Endocrine Miralax 17 gram/dose oral powder 2023-09 00:00: 00 12-07 23:59 :00 No [id number] 17 gram DAILY 17 gram DAILY (route: oral) Med Classific ation: Gastroint estinal Therapy Agents ondansetron HCl 4 mg tablet 2023-09 00:00: 00 12-07 23:59 :00 No [id number] 1 tablet EVERY 6 HOURS 1 tablet EVERY 6 HOURS (route: oral) Med Classific ation: Gastroint estinal Therapy Agents pantoprazol e 40 mg tablet,carmen yed release 2023-09 00:00: 00 12-07 23:59 :00 No [id number] 1 tablet DAILY 1 tablet DAILY (route: oral) Med Classific ation: Gastroint estinal Therapy Agents prochlorper azine maleate 10 mg tablet 2023-09 00:00: 00 12-07 23:59 :00 No [id number] 1 tablet 4 TIMES DAILY 1 tablet 4 TIMES DAILY (route: oral) Med Classific ation: Gastroint estinal Therapy Agents Qunol Michael CoQ10 100 mg capsule 2023-09 00:00: 00 12-07 23:59 :00 No [id number] 1 capsule BEDTIME 1 capsule BEDTIME (route: oral) Med Classific ation: Alternati ve Therapy tramadol 50 mg tablet 2023-09 00:00: 00 12-07 23:59 :00 No [id number] 1 tablet EVERY 6 HOURS 1 tablet EVERY 6 HOURS (route: oral) Med Classific ation: Analgesic , Anti-infl ammatory or Antipyret ic Vitamin D3 25 mcg (1,000 unit) capsule 2023-09 00:00: 00 12-07 23:59 :00 No [id number] 1 capsule DAILY 1 capsule DAILY (route: oral) Med Classific ation: Electroly te Balance-N utritiona l Products acyclovir 200 mg capsule 12-10 00:00: 00 12-30 00:00 :00 No [id number] 1 capsule 2 TIMES DAILY 1 capsule 2 TIMES DAILY (route: oral) Med Classific ation: Anti-Infe ctive Agents albuterol sulfate HFA 90 mcg/actuati on aerosol inhaler 12-10 00:00: 00 12-30 00:00 :00 No [id number] 2 puff EVERY 4-6 HOURS NEEDED 2 puff EVERY 4-6 HOURS NEEDED (route: inhalation ) Med Classific ation: Respirato ry Therapy Agents amlodipine 5 mg tablet 3 00:00: 00 12-30 00:00 :00 No [id number] 1 tablet DAILY 1 tablet DAILY (route: oral) Med Classific ation: Cardiovas cular Therapy Agents aspirin 81 mg tablet,carmen yed release 3-30 00:00: 00 12-30 00:00 :00 No [id number] 1 tablet DAILY 1 tablet DAILY (route: oral) Med Classific ation: Hematolog ical Agents Bactrim 400 mg-80 mg tablet 12-10 00:00: 00 12-30 00:00 :00 No [id number] 1 tablet 3 TIMES A WEEK 1 tablet 3 TIMES A WEEK (route: oral) Med Classific ation: Anti-Infe ctive Agents calcitriol 0.25 mcg capsule 12-10 00:00: 00 12-30 00:00 :00 No [id number] 1 capsule EVERY OTHER DAY 1 capsule EVERY OTHER DAY (route: oral) Med Classific ation: Electroly te Balance-N utritiona l Products carvedilol 25 mg tablet 12-10 00:00: 00 12-30 00:00 :00 No [id number] 1 tablet 2 TIMES DAILY 1 tablet 2 TIMES DAILY (route: oral) Med Classific ation: Cardiovas cular Therapy Agents cholecalcif concepcion (vitamin D3) 25 mcg (1,000 unit) capsule 12-10 00:00: 00 12-30 00:00 :00 No [id number] 1 capsule DAILY 1 capsule DAILY (route: oral) Med Classific ation: Electroly te Balance-N utritiona l Products CoQ-10 100 mg capsule 12-10 00:00: 00 12-30 00:00 :00 No [id number] 1 capsule BEDTIME 1 capsule BEDTIME (route: oral) Med Classific ation: Alternati ve Therapy gabapentin 100 mg capsule 12-10 00:00: 00 12-30 00:00 :00 No [id number] 1 capsule 3 TIMES DAILY 1 capsule 3 TIMES DAILY (route: oral) Med Classific ation: Central Nervous System Agents levofloxaci n 250 mg tablet 12-10 00:00: 00 12-30 00:00 :00 No [id number] 1 tablet EVERY OTHER DAY 1 tablet EVERY OTHER DAY (route: oral) Med Classific ation: Anti-Infe ctive Agents polyethylen e glycol 3350 17 gram oral powder packet 12-10 00:00: 00 12-30 00:00 :00 No [id number] 1 packet DAILY 1 packet DAILY (route: oral) Med Classific ation: Gastroint estinal Therapy Agents tramadol 50 mg tablet 3-30 00:00: 00 12-30 00:00 :00 No [id number] 1 tablet EVERY 6 HOURS 1 tablet EVERY 6 HOURS (route: oral) Med Classific ation: Analgesic , Anti-infl ammatory or Antipyret ic acyclovir 200 mg capsule 12-30 00:00: 00 Yes [id number] 1 capsule 2 TIMES DAILY 1 capsule 2 TIMES DAILY (route: oral) Med Classific ation: Anti-Infe ctive Agents albuterol sulfate HFA 90 mcg/actuati on aerosol inhaler 12-30 00:00: 00 Yes [id number] 2 puff NEEDED 2 puff NEEDED (route: inhalation ) Med Classific ation: Respirato ry Therapy Agents amlodipine 5 mg tablet 12-30 00:00: 00 Yes [id number] 2 tablet DAILY 2 tablet DAILY (route: oral) Med Classific ation: Cardiovas cular Therapy Agents calcitriol 0.25 mcg capsule 12-30 00:00: 00 Yes [id number] 1 capsule 3 TIMES A WEEK 1 capsule 3 TIMES A WEEK (route: oral) Med Classific ation: Electroly te Balance-N utritiona l Products carvedilol 25 mg tablet 12-30 00:00: 00 Yes [id number] 1 tablet 2 TIMES DAILY 1 tablet 2 TIMES DAILY (route: oral) Med Classific ation: Cardiovas cular Therapy Agents CoQ-10 100 mg capsule 12-30 00:00: 00 Yes [id number] 1 capsule BEDTIME 1 capsule BEDTIME (route: oral) Med Classific ation: Alternati ve Therapy gabapentin 100 mg capsule 12-30 00:00: 00 Yes [id number] 1 capsule 3 TIMES DAILY 1 capsule 3 TIMES DAILY (route: oral) Med Classific ation: Central Nervous System Agents Miralax 17 gram oral powder packet 12-30 00:00: 00 Yes [id number] 1 powder in packet NEEDED 1 powder in packet NEEDED (route: oral) Med Classific ation: Gastroint estinal Therapy Agents ondansetron 4 mg disintegrat ing tablet 12-30 00:00: 00 Yes [id number] 1 tablet NEEDED 1 tablet NEEDED (route: oral) Med Classific ation: Gastroint estinal Therapy Agents tramadol 50 mg tablet 12-30 00:00: 00 Yes [id number] 1 tablet NEEDED 1 tablet NEEDED (route: oral) Med Classific ation: Analgesic , Anti-infl ammatory or Antipyret ic Vitamin D3 25 mcg (1,000 unit) capsule 12-30 00:00: 00 Yes [id number] 1 capsule DAILY 1 capsule DAILY (route: oral) Med Classific ation: Electroly te Balance-N utritiona l Products olanzapine 2.5 mg tablet 02-28 00:00: 00 Yes [id number] 1 tablet BEDTIME 1 tablet BEDTIME (route: oral) Med Classific ation: Central Nervous System Agents Immunizations Ordered Immunization Name Filled Immunization Name Date Status Comments Refusal Reason COVID-19, COVID-19 2024-12-30 00:00:00 INFLUENZA, LAIV (LIVE VIRUS) 2024-05-17 00:00:00 PNEUMOCOCCAL (PPV), PPV 2023-05-19 00:00:00 Vital Signs Vital Name Observation Time Observation Value Commen ts Temperature 2025-02-28 13:45:00.000 97.3 [degF] Pulse 2025-02-28 13:45:00.000 78 /min O2 Saturation (%) 2025-02-28 13:45:00.000 99 % Respirations 2025-02-28 13:45:00.000 18 /min Systolic Blood Pressure 2025-02-28 13:45:00.000 132 mm [Hg] Diastolic Blood Pressure 2025-02-28 13:45:00.000 82 mm [Hg] Plan of Treatment Planned Activity Planned Date Details Comments Future Scheduled Test SKILLED NU RSE TO EVALUATE PATIENT, IDENTIFY PRIMARY AND CO-MORBID CONDITIONS CODED PER CODING GUIDELINES, AND DEVELOP PATIENT SPECIFIC PLAN OF CARE THAT INCLUDES PATIENT GOAL FOR HOME HEALTH. [code = SKILLED NURSE TO EVALUATE PATIENT, IDENTIFY PRIMARY AND CO-MORBID CONDITIONS CODED PER CODING GUIDELINES, AND DEVELOP PATIENT SPECIFIC PLAN OF CARE THAT INCLUDES PATIENT GOAL FOR HOME HEALTH.] Future Scheduled Test SKILLED NU RSE TO REVIEW PATIENT MEDICATIONS (PRESCRIPTION/OTC). INSTRUCT PATIENT/CAREGIVER ON ALL MEDICATIONS INCLUDING PURPOSE, WHEN TO TAKE, IMPORTANCE OF MEDICATION ADHERENCE, MONITORING OF EFFECTIVENESS, ADVERSE DRUG REACTIONS, POSSIBLE SIDE EFFECTS, AND WHEN TO NOTIFY AGENCY OR PHYSICIAN/PROVIDER OF ANY CONCERNS. [code = SKILLED NURSE TO REVIEW PATIENT MEDICATIONS (PRESCRIPTION/OTC). INSTRUCT PATIENT/CAREGIVER ON ALL MEDICATIONS INCLUDING PURPOSE, WHEN TO TAKE, IMPORTANCE OF MEDICATION ADHERENCE, MONITORING OF EFFECTIVENESS, ADVERSE DRUG REACTIONS, POSSIBLE SIDE EFFECTS, AND WHEN TO NOTIFY AGENCY OR PHYSICIAN/PROVIDER OF ANY CONCERNS.] Future Scheduled Test PATIENT LITTLEJOHN S A RISK OF HOSPITALIZATION AND ED USE. SKILLED NURSE TO ESTABLISH SUPPORT MEASURES TO MINIMIZE RISK OF HOSPITALIZATION AND ED USE, AND INSTRUCT PATIENT/CAREGIVER ON METHODS TO REDUCE AVOIDABLE HOSPITALIZATION AND ED USE. [code = PATIENT HAS A RISK OF HOSPITALIZATION AND ED USE. SKILLED NURSE TO ESTABLISH SUPPORT MEASURES TO MINIMIZE RISK OF HOSPITALIZATION AND ED USE, AND INSTRUCT PATIENT/CAREGIVER ON METHODS TO REDUCE AVOIDABLE HOSPITALIZATION AND ED USE.] Future Scheduled Test SKILLED NU RSE TO PROVIDE INSTRUCTION TO PATIENT/CAREGIVER RELATED TO DISCHARGE PLANNING. [code = SKILLED NURSE TO PROVIDE INSTRUCTION TO PATIENT/CAREGIVER RELATED TO DISCHARGE PLANNING.] Future Scheduled Test SKILLED NU RSE TO PERFORM ENVIRONMENTAL SAFETY RISK ASSESSMENT AND FALL RISK ASSESSMENT AND PROVIDE INSTRUCTION TO IMPLEMENT ENVIRONMENTAL SAFETY AND FALL PREVENTION STRATEGIES THROUGHOUT THE CERTIFICATION PERIOD. SKILLED NURSE WILL MAINTAIN SITUATIONAL AWARENESS AND WILL NOTIFY CLINICAL ASSISTED SALES REPRESENTATIVE AND PHYSICIAN/PROVIDER WITH ANY CHANGE IN CONDITION. [code = SKILLED NURSE TO PERFORM ENVIRONMENTAL SAFETY RISK ASSESSMENT AND FALL RISK ASSESSMENT AND PROVIDE INSTRUCTION TO IMPLEMENT ENVIRONMENTAL SAFETY AND FALL PREVENTION STRATEGIES THROUGHOUT THE CERTIFICATION PERIOD. SKILLED NURSE WILL MAINTAIN SITUATIONAL AWARENESS AND WILL NOTIFY CLINICAL ASSISTED SALES REPRESENTATIVE AND PHYSICIAN/PROVIDER WITH ANY CHANGE IN CONDITION.] Future Scheduled Test SKILLED NU RSE FOR OBSERVATION AND ASSESSMENT OF PATIENTS PAIN LEVEL AND EFFECTIVENESS OF PAIN MANAGEMENT REGIMEN. SKILLED NURSE TO INSTRUCT PATIENT/CAREGIVER REGARDING PHARMACOLOGIC AND NON-PHARMACOLOGIC PAIN CONTROL MEASURES. SKILLED NURSE TO REPORT TO PHYSICIAN IF PAIN LEVEL IS OUTSIDE OF ESTABLISHED PARAMETERS. [code = SKILLED NURSE FOR OBSERVATION AND ASSESSMENT OF PATIENTS PAIN LEVEL AND EFFECTIVENESS OF PAIN MANAGEMENT REGIMEN. SKILLED NURSE TO INSTRUCT PATIENT/CAREGIVER REGARDING PHARMACOLOGIC AND NON-PHARMACOLOGIC PAIN CONTROL MEASURES. SKILLED NURSE TO REPORT TO PHYSICIAN IF PAIN LEVEL IS OUTSIDE OF ESTABLISHED PARAMETERS.] Future Scheduled Test SKILLED NU RSE TO ASSESS PATIENT'S SKIN INTEGRITY AND INSTRUCT PATIENT/CAREGIVER ON MEASURES TO PREVENT PRESSURE ULCERS. [code = SKILLED NURSE TO ASSESS PATIENT'S SKIN INTEGRITY AND INSTRUCT PATIENT/CAREGIVER ON MEASURES TO PREVENT PRESSURE ULCERS.] Future Scheduled Test SKILLED NU RSE TO INSTRUCT PATIENT/CAREGIVER ON COPD TO INCLUDE TEACHING AND SELF-MANAGEMENT RELATED TO COPD DISEASE PROCESS, SIGNS AND SYMPTOMS, AND COMPLICATIONS. [code = SKILLED NURSE TO INSTRUCT PATIENT/CAREGIVER ON COPD TO INCLUDE TEACHING AND SELF-MANAGEMENT RELATED TO COPD DISEASE PROCESS, SIGNS AND SYMPTOMS, AND COMPLICATIONS.] Future Scheduled Test SKILLED NU RSE FOR O/A AND TEACHING OF DIABETIC MANAGEMENT INCLUDING DIABETIC DIET, LOWER EXTREMITY SKIN INSPECTION, PROPER SKIN/FOOT CARE, AND SIGNS AND SYMPTOMS HYPO/HYPERGLYCEMIA TO REPORT. [code = SKILLED NURSE FOR O/A AND TEACHING OF DIABETIC MANAGEMENT INCLUDING DIABETIC DIET, LOWER EXTREMITY SKIN INSPECTION, PROPER SKIN/FOOT CARE, AND SIGNS AND SYMPTOMS HYPO/HYPERGLYCEMIA TO REPORT.] Future Scheduled Test SKILLED NU RSE TO OBTAIN BLOOD SUGAR PRN FOR SIGNS AND SYMPTOMS OF HYPO/HYPERGLYCEMIA. [code = SKILLED NURSE TO OBTAIN BLOOD SUGAR PRN FOR SIGNS AND SYMPTOMS OF HYPO/HYPERGLYCEMIA. ] Future Scheduled Test [facility] MAY [facility]EPT ORDERS FROM THE FOLLOWING PHYSICIANS: ATTENDING AND [place] CAPTAIN PHYSICIAN [code = HOME HEALTH AGENCY MAY ACCEPT ORDERS FROM THE FOLLOWING PHYSICIANS: ATTENDING AND [place] CAPTAIN PHYSICIAN ] Future Scheduled Test SKILLED NU RSE FOR O/A OF SELF-CARE DEFICITS AND TO PROVIDE TEACHING RELATED TO SAFE PROVISION OF ADLS. [code = SKILLED NURSE FOR O/A OF SELF-CARE DEFICITS AND TO PROVIDE TEACHING RELATED TO SAFE PROVISION OF ADLS.] Future Scheduled Test MEDICAL SO CIAL WORKER TO EVALUATE PATIENT FOR COMMUNITY RESOURCES [code = LICENSED PESTICIDE APPLICATOR TO EVALUATE PATIENT FOR COMMUNITY RESOURCES] Future Scheduled Test SKILLED NU RSE FOR O/A, TEACHING AND MANAGEMENT OF CKD FOR EARLY IDENTIFICATION OF EXACERBATION OF DISEASE PROCESS [code = SKILLED NURSE FOR O/A, TEACHING AND MANAGEMENT OF CKD FOR EARLY IDENTIFICATION OF EXACERBATION OF DISEASE PROCESS] Goal 2025-02-23 Patient Goal - TO GET BETTER Goal Patient Goal - TO GET BETTER Goal Provider Goal - A PLAN OF CARE WILL BE ESTABLISHED THAT MEETS PATIENT'S [facility] NEEDS AND INCLUDES PATIENT GOAL FOR HOME HEALTH. Goal Provider Goal - PATIENT/CAREGIVER WILL VERBALIZE UNDERSTANDING OF EDUCATION PROVIDED ON MEDICATIONS BY THE END OF THE CERTIFICATION PERIOD. Goal Provider Goal - PATIENT WILL HAVE SUPPORT MEASURES ESTABLISHED TO PREVENT HOSPITALIZATION AND ED USE AND PATIENT/CAREGIVER WILL VERBALIZE/DEMONSTRATE METHODS TO REDUCE AVOIDABLE HOSPITALIZATION AND ED USE BY END OF EPISODE. Goal Provider Goal - PATIENT/CAREGIVER WILL VERBALIZE UNDERSTANDING OF DISCHARGE PLANNING INSTRUCTIONS BY DATE OF DISCHARGE. Goal Provider Goal - PATIENT/CAREGIVER WILL VERBALIZE/DEMONSTRATE EFFECTIVE ENVIRONMENTAL SAFETY AND FALL PREVENTION STRATEGIES, WILL REMAIN SAFE IN THE COMMUNITY, AND WILL BE FREE OF DANGER TO SELF AND OTHERS THROUGHOUT THE CERTIFICATION PERIOD. Goal Provider Goal - PATIENT/CAREGIVER WILL DEMONSTRATE UNDERSTANDING OF PHARMACOLOGIC AND NONPHARMACOLOGIC PAIN CONTROL MEASURES AND PATIENT WILL HAVE IMPROVEMENT IN PAIN INTERFERING WITH ACTIVITY EVIDENCED BY PAIN AT A LEVEL THAT IS ACCEPTABLE TO THE PATIENT AND PAIN LEVEL WITHIN ESTABLISHED PARAMETERS BY END OF CERTIFICATION PERIOD. Goal Provider Goal - PATIENT/CAREGIVER WILL VERBALIZE UNDERSTANDING OF PRESSURE ULCER PREVENTION BY END OF THE EPISODE. Goal Provider Goal - PATIENT/CAREGIVER WILL VERBALIZE/DEMONSTRATE KNOWLEDGE AND MANAGEMENT OF COPD BY END OF EPISODE. Goal Provider Goal - PATIENT/CAREGIVER WILL VERBALIZE/DEMONSTRATE KNOWLEDGE OF DIABETIC MANAGEMENT. CHANGES IN DIABETIC STATUS WILL BE IDENTIFIED AND REPORTED TO PHYSICIAN FOR PROMPT INTERVENTION THROUGHOUT THE CERTIFICATION PERIOD. Goal Provider Goal - BLOOD SUGAR READING WILL BE OBTAINED ORDERED THROUGHOUT CERTIFICATION PERIOD. Goal Provider Goal - ADDITIONAL ORDERS WILL BE RECEIVED FROM ALTERNATE PHYSICIAN IN A TIMELY MANNER THROUGHOUT THE CERTIFICATION PERIOD. Goal Provider Goal - PATIENT/CAREGIVER WILL VERBALIZE/DEMONSTRATE UNDERSTANDING OF SAFE PROVISION OF ADLS BY THE END OF THE CERTIFICATION PERIOD. Goal Provider Goal - LICENSED PESTICIDE APPLICATOR TO COMPLETE EVALUATION TO ADDRESS THE PATIENTS SOCIAL AND EMOTIONAL FACTORS AND/OR WRITTEN PLAN OF TREATMENT ESTABLISHED FOR THE PHYSICIAN'S SIGNATURE. Goal Provider Goal - PATIENT/CAREGIVER WILL VERBALIZE UNDERSTANDING OF GENITOURINARY DISEASE PROCESS, AND EXACERBATIONS OF GENITOURINARY DISEASE WILL BE PROMPTLY IDENTIFIED FOR EARLY INTERVENTION THROUGHOUT THE CERTIFICATION PERIOD. Encounters Start Date/Time End Date/Time Encounter Type Admission Type Attending [facility] Care Department Encounter ID Discharge Date Discharge Status Discharge Condition Discharge Reason Percent Goals Met 2025-02-28 00:00:00 2025-04-28 00:00:00 Outpatient RECERTIFIC ATION [facility] [id number] 20.00
--- OUTSIDE RECORDS SUMMARY | 2025-03-31 23:04 | XMS_ITS | Patient Health Record ---
Author Organization [facility] Address [address] [place], [place] [id number] Care Team Providers Care Cath Lab Manager Name Role Phone NISHANT STOREY Unavailable [phone] Judd Chopra Unavailable Unavailable Reason For Referral No Information Plan Of Treatment No Information Insurance Providers Payer Name Payer Address Payer Phone Subscriber Number Group Number Insured Name Patient Relationship to Insured Coverage Start Date Coverage End Date Medicare Part B [place] [address] [place] [address] [id number] ANALISA NICHOLAS Self - patient is the insured [employer] Health Plan [address] MARIA DEL CARMEN RUSH [place] [id number] ANALISA NICHOLAS Self - patient is the insured
[2025-03-31] MEDS: ACETAMINOPHEN 500 MG TABLET 1000 MG PO (23:05)
--- OUTSIDE RECORDS SUMMARY | 2025-03-31 23:05 | XMS_ITS | Clinical Summary ---
Author Organization [facility] Address [facility] [place] [address] Care Team Providers Care Habilitation Training Specialist Name Role Phone Jay Aguayo MD Unavailable Maribel Cahu MD Primary Care Provider [phone] None, Provider MD Unavailable Unavailable Allergies Active Allergy Reactions Criticality Noted Date Comments Uri Inhibitors Angioedema Low 07/08/2018 Amoxicillin Swelling Low 09/10/2016 Lips and face Angiotensin Unknown 12/10/2024 Angiotensin Receptor Blockers Angioedema Low 07/08/2018 Atorvastatin Other (see comment) Low 03/19/2021 leg pain Rosuvastatin Other (see comment) Low 03/19/2021 leg pain Simvastatin Other (see comment) Low 03/19/2021 leg pain Medications Coenzyme Q10 (COQ10) 100 MG CapIndications:Supplem ent Take 1 capsule by mouth nightly. Indications: Supplement 04/13/20 21 Active Vitamin D, Cholecalciferol, 25 MCG (1000 UT) CapIndications:Supplem ent Take 1,000 Units by mouth daily. Indications: Supplement 04/13/20 21 Active polyethylene glycol 17 GM/SCOOP powder Take 17 g by mouth daily as needed (constipation) . Dissolve powder in 240 mL water Active albuterol sulfate HFA 108 (90 Base) MCG/ACT inhaler Inhale 2 puffs into the lungs as needed (prn). 04/28/20 Active calcitriol (ROCALTROL) 0.25 MCG capsuleIndications:Sec ondary hyperparathyroidism ([facility]) TAKE 1 CAPSULE EVERY OTHER DAY, ON WEDNESDAY, WEDNESDAY, AND WEDNESDAY 45 capsule 3 11/17/19 24 Active Additional Information Patient not taking.Reason: med d/c, Reported on 03/02/2025 gabapentin (NEURONTIN) 100 MG capsule Take 1 capsule (100 mg total) by mouth 3 (three) times daily. Active carvedilol (COREG) 25 MG tabletIndications:Esse ntial hypertension Take 1 tablet (25 mg total) by mouth 2 (two) times daily. 180 tablet 2 10/19/19 Active acyclovir (ZOVIRAX) 200 mg capsule Take 1 capsule (200 mg total) by mouth 2 (two) times daily. 11/24/19 25 2025 Active sulfamethoxazole-trime thoprim (BACTRIM) 400-80 MG tablet Take 1 tablet by mouth. Three times a week takes Wednesday ,Wednesday,wed11/25/19 25 2025 Active ondansetron (ZOFRAN) 4 MG tablet Take 1 tablet (4 mg total) by mouth. 11/24/19 Active traMADol (ULTRAM) 50 MG tabletIndications:Cloth Shader marina Pain Take 1 tablet (50 mg total) by mouth every 6 (six) hours as needed for Pain. Indications: Chronic Pain 50 tablet 02/29/20 Active Active Problems Problem Noted Date Diagnosed Date Multiple myeloma not having achieved remission ([facility]) 12/07/2024 RUDOLPH (acute kidney injury) 12/05/2024 Multiple myeloma ([facility]) 12/04/2024 Chemotherapy adverse reaction 12/04/2024 Bilateral hearing loss, unspecified hearing loss type 09/20/2024 Overview (09/20/2024): - pt with likely age-related hearing loss b/l, will refer to audiology for testing Tinnitus of both ears 09/20/2024 Hypertensive urgency 08/06/2024 Constipation 02/03/2023 Secondary hyperparathyroidism ([facility]) 11/17/19 Iron deficiency anemia 03/24/2022 Controlled substance agreement signed 03/03/2022 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 Dysphagia, unspecified type 08/21/2021 Overview (08/21/2021): Added automatically from request for surgery [id number] Weight loss 08/21/2021 Overview (08/21/2021): Added automatically from request for surgery [id number] History of gastric ulcer 08/21/2021 Overview (08/21/2021): Added automatically from request for surgery [id number] Hyponatremia 06/19/2021 Chemotherapy induced nausea and vomiting 021 Multiple myeloma, remission status unspecified ([facility]) 04/15/2021 Overview (09/20/2024): - follows with Dr. Lynn and Dr. Aguayo, taking carfilzomib, EPO, and gabapentin - additionally take tramadol 50 mg q6h prn for chronic pain from lytic lesions in spine, sternum, and ribs - CSA signed and UDS obtained today - RTC 3 months Lung nodule 11/20/2020 Overview (09/20/2024): - left suprahilar opacity seen on CXR 08/07/24, ddx artifact vs nodule - recommended CT chest wo as f/u, order placed today Albuminuria 09/23/2020 CKD (chronic kidney disease) stage 4, GFR 15-29 ml/min ([facility]) 09/23/2020 ACEI/ARB contraindicated 07/08/2018 Arteriosclerotic cardiovascular disease 07/08/20 18 Primary open angle glaucoma (POAG) of both eyes, mild stage 07/08/2018 Type 2 diabetes mellitus wit h chronic kidney disease, without long-term current use of insulin, unspecified CKD stage ([facility]) 07/08/2018 Asymptomatic postmenopausal state 06/25/2016 Dyslipidemia 10/12/2014 Overview (04/05/2019): Overview: Hyperlipidemia Essential hypertension 10/12/2014 Overview (09/20/2024): - BP goal: less than 140/90 - BP controlled: Yes - Labs: UTD - Pt does not use tobacco products, encouraged cessation if using tobacco products - Counseled regarding importance of lifestyle modification: healthy diet & regular exercise 30mins 3-5x weekly - RTC 6 month(s) - continue amlodipine 10 mg Cataract 11/30/2013 Overview (04/05/2019): Overview: Cataract Stenosis of carotid artery 11/02/2013 Overview (04/05/2019): Overview: Carotid stenosis Thyroid nodule 08/04/2013 Overview (04/05/2019): Overview: Thyroid nodule Proteinuria 09/19/2010 Overview (04/05/2019): Overview: Proteinuria Vitamin D deficiency 07/14/2009 Overview (04/05/2019): Overview: Vitamin D deficiency Gout 02/11/2009 Overview (04/05/2019): Overview: Gout Resolved Problems Problem Noted Date Diagnosed Date Resolved Date Calf tenderness 03/17/2023 09/02/2023 Lower extremity edema 02/03/20232022 Stage 3b chronic kidney disease 05/14/2022 01/09/2024 Statin intolerance 07/08/2018 Encounter for preventive health examination 10/10/2014 05/24/2020 Encounters Date Type Department Care Team Description 03/29/2025 Telephone [id number] [place] [address] Maribel Chau MD Returned Call (Pt daughter was contacted re phone call, pt was asking if Dr Chau will see her, informed daughter pt needs to be d/c from [facility], and then we can schedule her a tcm visit) 03/28/2025 Telephone [facility] [address] [address] Maribel Chau MD Question 03/14/2025 10:00 AM CDT Home Care Visit [facility] [address], [facility] [address] [place] [phone] Susan Luna RN SN HOSPICE ADMISSION EVALUATION 03/14/2025 Home Care Visit [facility] [address], [place] [address] [place] [phone] Susan Luna RN SN TELEPHONE CALL 03/14/2025 Telephone [facility] Medical [address] [phone] Maribel Chau MD Follow Up Call 03/12/2025 2:00 PM CDT Home Care Visit [facility] [address], [facility] [address] [place] [phone] Kimmy Cruz RN SN HOSPICE ADMISSION EVALUATION 03/02/2025 2:26 PM CDT - 03/14/2025 9:50 AM CDT Hospital Encounter [facility] Med/Surg [address]rd [place] [address] Neha Butcher, Heavenly Ugarte MD Jerkovich, Adria, MD Simpson, Stephanie L, Shira Goel MD Goldberg, Deborah, MD Daniels, Darcy L, Bennett Eduardo, Aditya [place] MD Vomiting Discharge Disposition: Hospice/Medical Facility 03/02/2025 Travel 02/28/2025 Scan [facility] Scanned, [facility] 02/26/2025 [facility] Scanned, [facility] 02/19/2025 Scan [facility] Scanned, [facility] 02/15/2025 Scan [facility] Scanned, [facility] 02/12/2025 Scan [facility] Scanned, [facility] 02/08/2025 Scan [facility] Scanned, [facility] 02/08/[address] [phone] Maribel Chau MD Orders 01/29/2025 Scan [facility] Scanned, [facility] 01/22/2025 Scan [facility] Scanned, [facility] 01/19/2025 Scan [facility] Scanned, [facility] 01/17/2025 7:34 PM CDT - 01/17/2025 10:29 PM CDT Emergency [facility] [place] [address] Dionicio Jaffe, Syncope Discharge Disposition: Home or Self Care (Routine Discharge) 01/17/2025 Travel 01/15/2025 Scan [facility] Scanned, [facility] 01/10/2025 Scan [facility] Scanned, [facility] 01/10/2025 Patient Outreach [address] [address] Charisse Bhat, RN Hospital Follow Up (F/u wk 1) 01/08/2025 Scan [facility] Scanned, [facility] 01/05/2025 9:20 AM CDT Office Visit [address] [phone] Maribel Chau MD TCM 01/05/2025 Scan [facility] Scanned, [facility] 01/05/2025 Travel 01/02/2025 Patient Outreach [address] [address] Charisse Bhat, ALEX Hospital Follow Up (F/u wk 1) 01/01/2025 Scan [facility] Scanned, [facility] 01/01/[address] [phone] EricMaribel MD Information 12/30/2024 Scan HEALTH INFO SRVCS Scanned, [facility] from Last 3 Months Immunizations Immunization Administration Dates Next Due Fluzone (IIV3, Trivalent, 0. 5 ML Prefilled Syringe) 08/11/2024 Fluzone 6 Months+ Quad (0.5 mL Prefilled Syringe) 07/03/2019 Fluzone High Dose - >Age 65 (Prefilled Syringe) 07/12/2023,07/14/2022,07/10/2021,2019 H1N1 2009 Influenza Vaccine 07/03/2019,1 ,06/30/2017,2015,05/29/2015,07/23/2014 Influenza (Generic) 06/25/2016,05/18/2016,2012 Influenza Adult (Generic) 07/14/2022,,07/06/2018,2016,06/25/2016,05/18/2016,05/29/2015,1 09/22/2013 PFIZER COVID-19 (ORIGINAL FORMULATION, PURPLE CAP) mRNA, LNP-S, PF, 30 MCG/0.3 ML DOSE 06/12/2021,11/08/2020,10/17/2020 Pneumococcal (Prevnar 13) 03/03/2018 Pneumococcal (Prevnar 20) 07/14/2022 Family History Medical History Relation Comments No Known Problems Father No Known Problems Mother Cancer Sister stomach Relation Status Comments Father Mother Sister Social History Tobacco Use Types Packs/Day Years Used Date Smoking Tobacco: Former Cigarettes 0.3 29 1 967 - 1995 Passive Smoke Exposure: Past Smokeless Tobacco: Never Tobacco Cessation:Counseling Given: No Alcohol Use Standard Drinks/Week Comments Not Currently [...] Recorded In the past 12 months has e electric, gas, oil, or water company threatened to shut off services in your [...] week 11/05/2022 How often do you attend [facility] or latter day services? Patient declined 11/05/2022 Do you belong to any clubs o r organizations such as holiness groups, unions, fraternal or athletic groups, or [...] Recorded Patient Health Questionnaire-2 Score 0 01/05/2025 [facility] - Occupational Stress [...] place to sleep or slept in a fpc (including now)? No 11/05/2022 Housing Stability Vital Sign Answer Deven e Recorded In the last 12 months, was t here a time when you were not able to pay the mortgage or rent on time? No 03/02/2025 In the past 12 months, how m any times have you moved where you were living? 0 03/02/2025 At any time in the past [address] [facility], were you homeless or living in a fpc (including now)? 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 Legal Sex Female 11:41 PM CDT Gender Identity Not on file Sexual Orientation Not on file Last Filed Vital Signs Vital Sign Reading Time Taken Comments Blood Pressure 151/54 03/14/2025 8:29 AM CDT Pulse 89 03/14/2025 8:29 AM CDT Temperature 36.5 C (97.7 F) 03/14/2025 8:29 AM CDT Respiratory Rate 17 03/14/2025 8:29 AM CDT Oxygen Saturation 100% 03/14/2025 8:29 AM CDT Inhaled Oxygen Concentration - - Weight 68.7 kg (151 lb 7.3 oz) 03/10/2025 2:52 A M CDT Height 157.5 cm (5' 2) 03/02/2025 7:41 PM CDT Body Mass Index 27.7 03/02/2025 7:41 PM CDT Plan of Treatment Upcoming Encounters Date Type Department Care Team (Late st Contact Info) Description 04/05/2025 2:40 PM CDT Office Visit [facility] Multispecialty Care - [facility] 3 [facility], [facility] [address] [place] [address] Dahlia Maguire MD [address] [facility], [facility] [address] [place] [address] 04/12/2025 9:20 AM CDT Office Visit [facility] Medicine - [id number] [place] [phone] Maribel Chau MD [address] [place] [address] 08/27/2025 10:00 AM [employer] INST[employer]ER Appointment [facility] [place] [address] Ricci Ramos MD [address] [address] Health Maintenance Due Date Last Done Comments Diabetes: Retinopathy Eye Exam 1953 DTaP, Tdap and Td Vaccines (1 - Tdap) 1956 Zoster Vaccines (1 of 2) 1954 Annual Medicare Wellness Visit 2002 RSV Immunization or 60+ Years (1 - 1-dose 75+ series) 2012 ASCVD LDL 11/06/2023 11/06/2022, 0 05/2020, 07/06/2018, Additional history exists Lipid Panel 11/06/2023 11/06/2022, 0 05/2020, 07/06/2018, Additional history exists COVID-19 Vaccine ( season) 2024 08/10/2022, 06/12/2021, 11/08/2020, Additional history exists Hemoglobin A1C 07/07/2024 01/06/2024, 03/14, 01/04/2023, Additional history exists Pneumococcal Vaccine: 50+ Years Completed 07/14/2022, 03/03/2018 PHQ-2 (Physician [place]) Completed 01/05/2025 Meningococcal B Vaccine Aged Out No l onger eligible based on patient's age to complete this topic Meningococcal Vaccine Aged Out No heaven fabi eligible based on patient's age to complete this topic RSV Immunizations Under 20 Months Aged Out No longer eligible based on patient's age to complete this topic Goals Goal Patient Goal Type Associated Problems Recent Progress Patient-Stated? Author Consistently take medications as Prescribed General On track(2024 10:33 AM CDT) No Charisse Bhat, ALEX Establish Plan for Symptom Monitoring General On track(2024 10:33 AM CDT) No Charisse Bhat, RN Health - patient able to perform ADLs independently Lifestyle No Helen Carvalho field service rep - family caregiver with be involved in care transitions and discharge planning Lifestyle No Temitope Bolton QUALITY CONTROL LAB TECHNICIANbiometrics analyst - family caregiver with be involved in care transitions and discharge planning Lifestyle No Temitope Bolton QUALITY CONTROL LAB TECHNICIAN Procedures Procedure Name Priority Date/Time Associated Diagnosis Comments BASIC METABOLIC PANEL Routine 03/14/2025 4:55 AM CDT CBC W/DIFF AUTOMATED Routine 03/14/2025 4:[address] CHEST+ABD+PEL WO CON STAT 03/13/20 8:10 PM CDT CBC W/DIFF AUTOMATED Routine 03/12/2025 5:25 AM CDT BASIC METABOLIC PANEL Routine 03/12/2025 5:25 AM CDT CBC W/DIFF AUTOMATED Routine 03/11/2025 6:10 AM CDT BASIC METABOLIC PANEL Routine 03/11/2025 6:10 AM CDT CBC W/DIFF AUTOMATED Routine 03/10/2025 6:53 AM CDT BASIC METABOLIC PANEL Routine 03/10/2025 6:53 AM CDT CULTURE, BACTERIA, BLOOD Routine 025 3:29 PM CDT CULTURE, BACTERIA, BLOOD Routine 025 3:29 PM CDT CBC W/DIFF AUTOMATED Routine 03/09/2025 2:20 PM CDT BASIC METABOLIC PANEL Routine 03/09/2025 2:20 PM CDT POCT GLUCOSE - DOCKED DEVICE Routine 03/08/2025 10:31 AM CDT CBC W/DIFF AUTOMATED Routine 03/08/2025 3:51 AM CDT BASIC METABOLIC PANEL Routine 03/08/2025 3:51 AM CDT CLOSTRIDIUM DIFFICILE Routine 03/07/2025 2:48 PM CDT POCT GLUCOSE - DOCKED DEVICE Routine 03/07/2025 6:29 AM CDT CBC W/DIFF AUTOMATED Routine 03/07/2025 6:00 AM CDT BASIC METABOLIC PANEL Routine 03/07/2025 6:00 AM CDT POCT GLUCOSE - DOCKED DEVICE Routine 03/06/2025 3:38 PM CDT TRANSFUSE RED BLOOD CELLS Routine 2024 12:38 PM CDT POCT GLUCOSE - DOCKED DEVICE Routine 03/06/2025 11:55 AM CDT TYPE & SCREEN Routine 03/06/2025 9:08 AM CDT POCT GLUCOSE - DOCKED DEVICE Routine 03/06/2025 6:43 AM CDT TROPONIN, QUANT TIMED 03/06/2025 5:35 AM CDT CBC W/DIFF AUTOMATED Routine 03/06/2025 5:35 AM CDT BASIC METABOLIC PANEL Routine 03/06/2025 5:35 AM CDT OCCULT BLOOD, FECES STAT 03/06/2025 5 :00 AM CDT HC URINALYSIS AUTO W/O MICRO Routine 03/06/2025 5:00 AM CDT TYPE & SCREEN STAT 03/06/2025 2:02 AM CDT AMMONIA Routine 03/06/2025 2:02 AM CDT TROPONIN, QUANT TIMED 03/06/2025 2:02 AM CDT LACTIC ACID W REFLEX (SEPSIS) Routine 03/06/2025 2:02 AM CDT CULTURE, BACTERIA, BLOOD Routine 025 2:01 AM CDT CULTURE, BACTERIA, BLOOD Routine 025 2:01 AM CDT XR CHEST PORTABLE STAT 03/06/2025 1:5 6 AM CDT POCT GLUCOSE - DOCKED DEVICE Routine 03/06/2025 12:43 AM CDT COMPREHENSIVE METABOLIC PANEL Routine 03/05/2025 11:50 PM CDT CBC W/DIFF AUTOMATED Routine 03/05/2025 11:50 PM CDT POCT GLUCOSE - DOCKED DEVICE Routine 03/05/2025 11:35 PM CDT BASIC METABOLIC PANEL Routine 03/05/2025 5:40 AM CDT CBC W/DIFF AUTOMATED Routine 03/05/2025 5:40 AM CDT MAGNESIUM Routine 03/04/2025 10:07 AM CDT BASIC METABOLIC PANEL Routine 03/04/2025 10:07 AM CDT CBC W/DIFF AUTOMATED Routine 03/04/2025 10:07 AM CDT CULTURE, BACTERIA, BLOOD Routine 025 10:06 AM CDT POCT GLUCOSE - DOCKED DEVICE Routine 03/04/2025 7:50 AM CDT CULTURE, BLOOD, PCR PANEL Routine 2024 2:24 PM CDT CULTURE, BACTERIA, BLOOD Routine 025 2:24 PM CDT COMPREHENSIVE METABOLIC PANEL Routine 03/03/2025 7:30 AM CDT CBC W/DIFF AUTOMATED Routine 03/03/2025 7:30 AM CDT XR CHEST PORTABLE Today 03/03/2025 5:3 5 AM CDT TYPE & SCREEN TIMED 03/03/2025 2:45 AM CDT TROPONIN, QUANT TIMED 03/03/2025 2:45 AM CDT CK (CPK) TIMED 03/03/2025 12:50 AM CDT TROPONIN, QUANT TIMED 03/03/2025 12:50 AM CDT ECG 12-LEAD Routine 03/03/2025 12:38 AM CDT ECG 12-LEAD Routine 03/02/2025 10:11 PM CDT FERRITIN STAT 03/02/2025 10:09 PM CDT FOLIC ACID SERUM STAT 03/02/2025 10:0 9 PM CDT VITAMIN B-12 Routine 03/02/2025 10:09 PM CDT CULTURE, BACTERIA, BLOOD STAT 025 10:03 PM CDT URINE BACTERIA CULTURE STAT 10:03 PM CDT TROPONIN, QUANT STAT 03/02/2025 10:03 PM CDT C-REACTIVE PROTEIN STAT 03/02/2025 10 :03 PM CDT SED RATE, ERYTHROCYTE (ESR) STAT 03/02/2025 10:03 PM CDT PROCALCITONIN (PCT) STAT 03/02/2025 1 0:03 PM CDT PARTIAL THROMBOPLASTIN TIME,PTT STAT 03/02/2025 10:03 PM CDT PROTHROMBIN TIME, VENOUS STAT 025 10:03 PM CDT URIC ACID BLOOD STAT 03/02/2025 10:03 PM CDT LDH, LACTATE DEHYDROGENASE STAT 03/02/2025 10:[address], AUTO STAT 03/02/2025 10:03 PM CDT IRON SAT PANEL (IRON,IBC,%SAT) STAT 03/02/2025 10:03 PM CDT OSMOLALITY, BLOOD STAT 03/02/2025 10: 03 PM CDT SODIUM URINE RANDOM STAT 03/02/2025 1 0:03 PM CDT OSMOLALITY, URINE STAT 03/02/2025 10: [address] ABD+PEL WO CON STAT 03/02/2025 6:1 2 PM CDT URINALYSIS, AUTO, COMPLETE STAT 03/02/2025 5:43 PM CDT LACTIC ACID TIMED 03/02/2025 4:07 PM CDT TROPONIN, QUANT STAT 03/02/2025 4:07 PM CDT LIPASE STAT 03/02/2025 4:07 PM CDT COMPREHENSIVE METABOLIC PANEL STAT 03/02/2025 4:07 PM CDT CBC W/DIFF AUTOMATED STAT 03/02/2025 4:07 PM CDT ECG 12-LEAD Routine 03/02/2025 3:32 PM CDT XR CHEST PORTABLE STAT 01/17/2025 8:[address] HEAD WO CON STAT 01/17/2025 8:22 PM CDT ECG 12-LEAD Routine 01/17/2025 7:47 PM CDT ELECTROCARDIOGRAM REPORT Routine 025 7:47 PM CDT TSH W/REFLEX STAT 01/17/2025 7:41 PM CDT MAGNESIUM STAT 01/17/2025 7:41 PM CDT PRO-BRAIN NATRIURETIC PEPTIDE STAT 01/17/2025 7:41 PM CDT COMPREHENSIVE METABOLIC PANEL STAT 01/17/2025 7:41 PM CDT TROPONIN, QUANT STAT 01/17/2025 7:41 PM CDT CBC W/DIFF AUTOMATED STAT 01/17/2025 7:41 PM CDT REMOVAL IMPACTED CERUMEN IRRIGATION/LAVAGE UNILAT Routine 01/05/2025 9:20 AM CDT Impacted cerumen of right ear HEMOGLOBIN, GLYCOSYLATED Routine 01/06/2024 Type 2 diabetes mellitus with stage 4 chronic kidney disease, without long-term current use of insulin LIPID PANEL Routine 11/06/2022 5:36 AM COMMERCIAL CARPET INSTALLER from Last 3 Months or Most Recently Relevant to Health Maintenance Results * (ABNORMAL) BASIC METABOLIC PANEL (03/14/2025 4:55 AM CDT) Only the most recent of10 resultswithin the time period is included. GLUCOSE 88 70 - 99 MG/DL 03/14/2025 5:56 AM CDT [facility] BUN 34(H) 7 - 18 MG/DL 03/14/2025 5:56 AM CDT [facility] CREATININE S/P/B 2.13(H) 0.55 - 1.02 MG/DL 03/14/2025 5:56 AM CDT [facility] SODIUM S/P/B 139 136 - 145 MMOL/L 03/14/2025 5:56 AM CDT [facility] POTASSIUM S/P/B 4.9 3.5 - 5.1 MMOL/L 03/14/2025 5:56 AM CDT [facility] CHLORIDE S/P/B 112 97 - 115 MMOL/L 03/14/2025 5:56 AM CDT [facility] CO2 24.5 21 - 32 MMOL/L 03/14/2025 5:56 AM CDT [facility] CALCIUM S/P/B 8.4(L) 8.5 - 10.1 MG/DL 03/14/2025 5:56 AM CDT [facility] ANION GAP 2.5 2 - 10 MMOL/L 03/14/2025 5:56 AM CDT [facility] BUN CREATININE RATIO 16.0 6 - 26 03/14/2025 5:56 AM CDT [facility] GFR ESTIMATE 22(L) >90 ML/MIN/1.7 3 M2 03/14/2025 5:56 AM CDT [facility] Comment: NOTE: eGFR is not calculated for patients <18 years of age or gender unknown. This is an estimated GFR calculation using the new CKD EPI creatinine equation without race and so does not require a correction factor for race. This estimated GFR should not be used for calculating drug doses. 03/14/2025 4:55 AM CDT us Ariana Pérez NP LABORATORY Final Result [facility] [address] [place] [address], [place] [phone] * (ABNORMAL) CBC W/DIFF AUTOMATED (03/14/2025 4:55 AM CDT) Only the most recent of14 resultswithin the time period is included. [facility] Signature WBC 5.37 4.5 - 11.0 x10'3/uL 03/14/2025 5:52 AM CDT [facility] RBC 3.04(L) 4.20 - 5.40 x10'6/uL 03/14/2025 5:52 AM CDT [facility] HGB 9.1(L) 12.0 - 16.0 G/DL 03/14/2025 5:52 AM CDT [facility] HCT 28.3(L) 38.0 - 48.0 % 03/14/2025 5:52 AM CDT [facility] MCV 93.1 81.0 - 99.0 FL 03/14/2025 5:52 AM CDT [facility] MCH 29.9 27.0 - 31.0 PG 03/14/2025 5:52 AM CDT [facility] MCHC 32.2 32.0 - 36.0 G/DL 03/14/2025 5:52 AM CDT [facility] RDW 14.8(H) 11.5 - 14.5 % 03/14/2025 5:52 AM CDT [facility] PLT 71(L) 130 - 400 x10'3/uL 03/14/2025 5:52 AM CDT [facility] MPV 10.8 9.3 - 12.2 FL 03/14/2025 5:52 AM CDT [facility] DIFFERENTIAL TYPE MANUAL DIFFERENTIAL 03/14/2025 5:54 AM CDT [facility] SEG NEUTROPHILS 82 % 5:54 AM CDT [facility] LYMPHOCYTES 10 % 03/14/2025 5:54 AM CDT [facility] MONOCYTES 6 % 03/14/2025 5:54 AM CDT [facility] EOSINOPHILS 2 % 03/14/2025 5:54 AM CDT [facility] ABS. NEUTROPHILS 4.40 1.80 - 7.70 x10'3/uL 03/14/2025 5:54 AM CDT [facility] ABS. LYMPHOCYTES 0.54(L) 1.00 - 4.80 x10'3/uL 03/14/2025 5:54 AM CDT [facility] ABS. MONOCYTES 0.32 0.24 - 0.86 x10'3/uL 03/14/2025 5:54 AM CDT [facility] ABS. EOSINOPHILS 0.11 0.04 - 0.36 x10'3/uL 03/14/2025 5:54 AM CDT [facility] RBC MORPHOLOGY RBC MORPHOLOGY APPEARS NORMAL. SLIDE REVIEWED. 03/14/2025 5:54 AM CDT [facility] PLT EST. DECREASED 03/14/2025 5:54 AM CDT [facility] 03/14/2025 4:55 AM CDT Ariana Pérez NP LABORATORY Final Result [facility] [address] [place] [address], * CT CHEST+ABD+PEL WO CON (03/13/2025 8:10 PM CDT) Anatomical Region Laterality Modality Chest, Abdomen, Pelvis Computed Tomography 03/13/2025 8:37 PM CDT Impressions 03/13/2025 9:01 PM CDT IMPRESSION: 1. Bilateral pleural effusions are new. 2. Bilateral lung opacification associated with the pleural fluid. 3. Ill-defined abnormality in the left upper lobe is larger. 4. Contracted gallbladder with pericholecystic fluid. 5. Pelvic ascites. 6. New body wall edema. 7. Nonspecific material within the stomach. 8. Skeletal findings of multiple myeloma are unchanged. Referred By: Interpreted By: Bonifacio Paez MD, 03/13/2025 8:37 PM Narrative 03/13/2025 9:01 PM CDT [address] [id number] EXAM: CT CHEST+ABD+PEL WO CON DATE: 03/13/2025 COMPARISON: Chest 10/02/2024, abdomen and pelvis 03/02/2025. INDICATION: Sepsis TECHNIQUE: Noncontrast imaging A dose lowering technique was used for this procedure, which may include, but is not limited to, dose reduction technique, automated exposure control, iterative reconstruction, ALARA (As Low As Reasonably Achievable), or Image Gently techniques. FINDINGS: CHEST: There is a smoothly marginated hypodense nodule in the left lobe of the thyroid. This measures about 1.8 x 2.5 cm. This is low density, but not water density. This area was obscured by artifact on the prior study. If this is not a known finding, this could be further evaluated with nonemergent ultrasound. Right-sided central line is in the SVC. Dense calcifications of the aortic arch and great vessels. Probable left subclavian artery stenosis. Diffuse coronary artery calcifications. Bilateral pleural effusions are new since 03/02/2025. The left is small in the right side moderate in size. Areas of diffuse consolidation associated with the pleural effusions in the lower lobes, right more severe than left. Soft tissue nodule in the right apex medially is smaller. Probable mild pleural and parenchymal scarring in the left lung apex. Ill-defined density in the left upper lobe anteriorly is mildly larger and contains small diameter air bronchograms. Possible focus of infection. ABDOMEN AND PELVIS: Normal noncontrast appearance of the liver, spleen, adrenal glands, and pancreas. Contracted gallbladder with some pericholecystic fluid. No identifiable stones with CT. Liver calcifications and cyst are unchanged. Multiple right kidney cysts. No urinary tract obstruction. The urinary bladder is emptied by a Staley catheter. Moderate amount of free pelvic fluid is new. There are regions of diffuse increased density in the body wall fat of the abdomen and pelvis. These are also new and could be due to developing anasarca. Stomach is partially distended. A portion of the lumen contains mild uniformly hyperdense material. Depending on material recently ingested, this could be food or hemorrhage. No report of hematemesis. Moderate stool volume. No bowel obstruction. The appendix is not visualized. Diffuse and extensive arterial calcifications. Stenosis of the celiac artery, SMA, both renal arteries, distal aorta, common iliac arteries, external iliac arteries, and common femoral arteries. Multilevel lumbar spinal stenosis. Diffuse heterogeneous bone marrow density with multiple lytic lesions. Unchanged compression fractures at T6, T8, T9, and T12. Procedure Note Bonifacio Paez MD - 03/13/[address] [address] EXAM: CT CHEST+ABD+PEL WO CON DATE: 03/13/2025 COMPARISON: Chest 10/02/2024, abdomen and pelvis 03/02/2025. INDICATION: Sepsis TECHNIQUE: Noncontrast imaging A dose lowering technique was used for this procedure, which may include,but is not limited to, dose reduction technique, automated exposurecontrol, iterative reconstruction, ALARA (As Low As ReasonablyAchievable), or Image Gently techniques. FINDINGS: CHEST: There is a smoothly marginated hypodense nodule in the left lobe ofthe thyroid. This measures about 1.8 x 2.5 cm. This is low density, butnot water density. This area was obscured by artifact on the prior study.If this is not a known finding, this could be further evaluated withnonemergent ultrasound. Right-sided central line is in the SVC. Densecalcifications of the aortic arch and great vessels. Probable leftsubclavian artery stenosis. Diffuse coronary artery calcifications. Bilateral pleural effusions are new since 03/02/2025. The left is small inthe right side moderate in size. Areas of diffuse consolidationassociated with the pleural effusions in the lower lobes, right moresevere than left. Soft tissue nodule in the right apex medially issmaller. Probable mild pleural and parenchymal scarring in the left lungapex. Ill-defined density in the left upper lobe anteriorly is mildlylarger and contains small diameter air bronchograms. Possible focus ofinfection. ABDOMEN AND PELVIS: Normal noncontrast appearance of the liver, spleen,adrenal glands, and pancreas. Contracted gallbladder with somepericholecystic fluid. No identifiable stones with CT. Livercalcifications and cyst are unchanged. Multiple right kidney cysts. Nourinary tract obstruction. The urinary bladder is emptied by a Foleycatheter. Moderate amount of free pelvic fluid is new. There are regionsof diffuse increased density in the body wall fat of the abdomen andpelvis. These are also new and could be due to developing anasarca. Stomach is partially distended. A portion of the lumen contains milduniformly hyperdense material. Depending on material recently ingested,this could be food or hemorrhage. No report of hematemesis. Moderatestool volume. No bowel obstruction. The appendix is not visualized. Diffuse and extensive arterial calcifications. Stenosis of the celiacartery, SMA, both renal arteries, distal aorta, common iliac arteries,external iliac arteries, and common femoral arteries. Multilevel lumbarspinal stenosis. Diffuse heterogeneous bone marrow density with multiplelytic lesions. Unchanged compression fractures at T6, T8, T9, and T12. IMPRESSION: 1. Bilateral pleural effusions are new. 2. Bilateral lung opacification associated with the pleural fluid. 3. Ill-defined abnormality in the left upper lobe is larger. 4. Contracted gallbladder with pericholecystic fluid. 5. Pelvic ascites. 6. New body wall edema. 7. Nonspecific material within the stomach. 8. Skeletal findings of multiple myeloma are unchanged. Referred By: Interpreted By: Bonifacio Paez MD, 03/13/2025 8:37 PM us Heavenly Reynolds MD CT Final Resul t * CULTURE, BACTERIA, BLOOD (03/09/2025 3:29 PM CDT) Only the most recent of7 resultswithin the time period is included. SPEC DESCRIPTION BLOOD-PEDIA TRIC VOLUME 03/09/2025 7:52 AM CDT [facility] SPECIAL REQUESTS NO SPECIAL REQUEST 03/09/2025 7:52 AM CDT [facility] CULTURE RESULT NO GROWTH 5 DAYS 03/14/2025 3:50 PM CDT [facility] BLOOD SPECIMEN OBTAINED FOR BLOOD CULTURE / Unknown 03/09/2025 3:29 PM CDT 03/09/2025 3:33 PM CDT Shira Ruiz MD MICROBIOLOGY - GENERAL ORD ERABLES Final Result [facility] [address] [place] [address], [place] [phone] * (ABNORMAL) POCT glucose (03/08/2025 10:31 AM CDT) Only the most recent of8 resultswithin the time period is included. [facility] GLUCOSE POC 102(H) 70 - 99 mg/dL 03/08/2025 10:32 AM CDT [facility] 03/08/2025 10:3 1 AM CDT Shira Ruiz MD POCT ORDERABLES - DEVICE F inal Result [facility] [address] [place] [address], [place] [phone] * (ABNORMAL) CLOSTRIDIUM DIFFICILE (03/07/2025 2:48 PM CDT) Pathologist [facility] GDH ANTIGEN POSITIVE(A) NEGATIVE 03/07/2025 5:13 PM CDT [facility] C DIFFICILE TOXIN A&B (STOOL) POSITIVE(A) NEGATIVE 03/07/2025 5:13 PM CDT [facility] Comment: Successful Call: ANTONY called 03/07/2025 05:15 PM to ROOM [id number] (*[id number]/CONCEPCION SCHWARTZ) by [id number]. COMMENT GDH POSITIVE/TOXI N A & B POSITIVE: POSITIVE FOR TOXIGENIC C. DIFFICILE. 03/07/2025 5:13 PM CDT [facility] STOOL SPECIMEN / Unknown 03/07/2025 2:48 PM CDT Karen Jo DO BODY FLUIDS AND STOOLS OR DERABLES Final Result [facility] [address] [place] [address], [place] [phone] * TRANSFUSE RED BLOOD CELLS (03/06/2025 4:38 PM CDT) Karen Jo DO NURSING TREATMENT ORDERAB LES - BLOOD ADMIN Final Result * TYPE & SCREEN (03/06/2025 9:08 AM CDT) Only the most recent of3 resultswithin the time period is included. UNITS ORDERED 2 03/07/2025 6:27 AM CDT [facility] ABO/RH O POSITIVE 03/06/2025 10:30 AM CDT [facility] ANTIBODY SCREEN NEGATIVE 10:30 AM CDT [facility] SAMPLE EXPIRATION 03/09/2025,2359 03/06/2025 10:30 AM CDT [facility] BB COMMENT ABO PERFORMED MANUALLY. LT 03/06/2025 10:30 AM CDT [facility] BLOOD UNIT NUMBER [id number] 03/06/2025 10:31 AM CDT [facility] PRODUCT: PC LEUKO PHERE BAG1 03/06/2025 10:31 AM CDT [facility] UNIT DIVISION 00 03/06/2025 10:31 AM CDT [facility] BLOOD UNIT STATUS UNIT RELEASED 03/10/2025 4:03 AM CDT [facility] TRANSFUSION STATUS OK TO TRANSFUSE 03/06/2025 10:31 AM CDT [facility] CROSSMATCH COMPATIBLE 03/06/2025 10:31 AM CDT [facility] BLOOD UNIT NUMBER [id number] 03/06/2025 10:31 AM CDT [facility] PRODUCT: PC LEUKO PHERE BAG2 03/06/2025 10:31 AM CDT [facility] UNIT DIVISION 00 03/06/2025 10:31 AM CDT [facility] BLOOD UNIT STATUS TRANSFUSED,FINAL 03/07/2025 6:31 AM CDT [facility] ISSUE DATE/TIME [id number] 025 6:31 AM CDT [facility] PRODUCT CODE [id number] 03/07/2025 6:31 AM CDT [facility] ABO/RH Unit O POS 03/07/2025 6:31 AM CDT [facility] ABO/RH UNIT ISBT CODE [id number] 03/07/2025 6:31 AM CDT [facility] BLOOD UNIT EXPIRATION DATE [id number] 03/07/2025 6:31 AM CDT [facility] TRANSFUSION STATUS OK TO TRANSFUSE 03/06/2025 10:31 AM CDT [facility] CROSSMATCH COMPATIBLE 03/06/2025 10:31 AM CDT [facility] 03/06/2025 9:08 AM CDT Karen Jo DO BLOOD BANK TEST ORDERABLE S Final Result [facility] [address] [place] [address], * (ABNORMAL) TROPONIN, QUANT (03/06/2025 5:35 AM CDT) Only the most recent of7 resultswithin the time period is included. Pathologist [facility] TROPONIN I HIGH SENSITIVITY 74(H) <54 ng/L 03/06/2025 6:15 AM CDT [facility] Comment: HIGH DOSES OF BIOTIN, TROPONIN-SPECIFIC AUTOANTIBODIES, AND ANTIBODY THERAPY CONTAINING HAMA MAY INTERFERE WITH THIS TEST RESULT. CORRELATION TO CLINICAL HISTORY AND PRESENTATION RECOMMENDED. 03/06/2025 5:35 AM CDT Vandana Jiménez MD LABORATORY Final Re sult [facility] [address] [place] [address], * (ABNORMAL) URINALYSIS (03/06/2025 5:00 AM CDT) Pathologist [facility] SPECIMEN TYPE URINE CLEAN CATCH 03/06/2025 4:29 AM CDT [facility] COLOR (U) LIGHT YELLOW 03/06/2025 5:35 AM CDT [facility] TRANSPARENCY TURBID 03/06/2025 5:35 AM CDT [facility] SPECIFIC GRAVITY (U) 1.009 1.001 - 1.030 03/06/2025 5:35 AM CDT [facility] U PH 5.5 5.0 - 9.0 03/06/2025 5:35 AM CDT [facility] LEUKOCYTES (U) NEGATIVE NEGATIVE 03/06/2025 5:35 AM CDT [facility] NITRITES NEGATIVE NEGATIVE 03/06/2025 5:35 AM CDT [facility] PROTEIN RANDOM (U) 100(H) <30 MG/DL 03/06/2025 5:35 AM CDT [facility] GLUCOSE (U) NORMAL NORMAL MG/DL 03/06/2025 5:35 AM CDT [facility] KETONES MG/DL (U) NEGATIVE NEGATIVE MG/DL 03/06/2025 5:35 AM CDT [facility] UROBILINOGEN NORMAL NORMAL MG/DL 03/06/2025 5:35 AM CDT [facility] BILIRUBIN (U) NEGATIVE NEGATIVE MG/DL 03/06/2025 5:35 AM CDT [facility] BLOOD (U) 1+(A) NEGATIVE 03/06/2025 5:35 AM CDT [facility] WBC/HPF 1 <6 /HPF 03/06/2025 5:35 AM CDT [facility] RBC/HPF 3 <6 /HPF 03/06/2025 5:35 AM CDT [facility] BACTERIA (U) RARE(A) NONE /HPF 03/06/2025 5:35 AM CDT [facility] SQUAMOUS EPITHELIALS RARE /HPF 03/06/2025 5:35 AM CDT [facility] URINE SPECIMEN OBTAINED BY CLEAN CATCH PROCEDURE / Unknown 03/06/2025 5:00 AM CDT us Vandana Jiménez MD URINE ORDERABLES Final R esult [facility] [address] [place] [address], [place] [phone] * OCCULT BLOOD, FECES (03/06/2025 5:00 AM CDT) OCCULT BLOOD FECAL NEGATIVE NEGATIVE 03/06/2025 5:29 AM CDT [facility] STOOL SPECIMEN / Unknown 03/06/2025 5:00 AM CDT Vandana Jiménez MD BODY FLUIDS AND STOOLS O RDERABLES Final Result [facility] [address] [place] [address], [place] [phone] * LACTIC ACID W REFLEX (SEPSIS) (03/06/2025 2:02 AM CDT) LACTIC ACID VENOUS 0.9 0.4 - 2.0 MMOL/L 03/06/2025 2:42 AM CDT [facility] 03/06/2025 2:02 AM CDT Vandana Jiménez MD LABORATORY Final Re sult Performing Organization Address City/[facility] Co de Phone Number [facility] [address] [place] [address], [place] [phone] * (ABNORMAL) AMMONIA (03/06/2025 2:02 AM CDT) AMMONIA 37(H) 11 - 32 UMOL/L 03/06/2025 2:42 AM CDT [facility] 03/06/2025 2:02 AM CDT Vandana Jiménez MD LABORATORY Final Re sult Performing Organization Address City/[facility]/ZIP Co de Phone Number [facility] [address] [place] [address], * XR CHEST PORTABLE (03/06/2025 1:56 AM CDT) Only the most recent of3 resultswithin the time period is included. Anatomical Region Laterality Modality Chest Radiographic Jennifer ging 03/06/2025 2:04 AM CDT Impressions 03/06/2025 2:06 AM CDT IMPRESSION: 1. Minimal atelectasis or scarring in the left lung base with minimal pleural effusion versus chronic pleural thickening at the left costophrenic angle. 2. Right IJ port catheter with tip at or near the cavoatrial junction. 3. No other acute pulmonary disease. Referred By: Interpreted By: Rosita Barger MD, 03/06/2025 2:04 AM Narrative 03/06/2025 2:06 AM CDT [address] [address] EXAMINATION: XR Portable CXR, 1 View INDICATION: Sepsis. COMPARISON: Portable AP chest x-ray 03/03/2025. FINDINGS: The cardiomediastinal silhouette is within normal limits. Pulmonary vascularity is normal. Atherosclerotic calcifications at aortic arch and descending thoracic aorta. Right IJ port catheter is stable with tip at or near the cavoatrial junction. x ray electronics wireman leads overlie the chest and abdomen. Minimal atelectasis or scarring in the left lung base. Minimal pleural effusion versus chronic pleural thickening at the left costophrenic angle. Minimal thickening of the right minor fissure. Lungs are otherwise clear, with no acute infiltrate, consolidation, pneumothorax, or right pleural effusion. Chronic spondylosis in thoracic spine and chronic arthritic changes in the shoulders. No acute osseous abnormality. Procedure Note Rosita Barger MD - 03/06/[address] [address] EXAMINATION: XR Portable CXR, 1 View INDICATION: Sepsis. COMPARISON: Portable AP chest x-ray 03/03/2025. FINDINGS: The cardiomediastinal silhouette is within normal limits. Pulmonaryvascularity is normal. Atherosclerotic calcifications at aortic arch anddescending thoracic aorta. Right IJ port catheter is stable with tip ator near the cavoatrial junction. x ray electronics wireman leads overlie the chestand abdomen. Minimal atelectasis or scarring in the left lung base.Minimal pleural effusion versus chronic pleural thickening at the leftcostophrenic angle. Minimal thickening of the right minor fissure. Lungsare otherwise clear, with no acute infiltrate, consolidation,pneumothorax, or right pleural effusion. Chronic spondylosis in thoracicspine and chronic arthritic changes in the shoulders. No acute osseousabnormality. IMPRESSION: 1. Minimal atelectasis or scarring in the left lung base with minimalpleural effusion versus chronic pleural thickening at the leftcostophrenic angle. 2. Right IJ port catheter with tip at or near the cavoatrial junction. 3. No other acute pulmonary disease. Referred By: Interpreted By: Rosita Barger MD, 03/06/2025 2:04 AM Vandana Jiménez MD GENERAL IMAGING Final Re sult * (ABNORMAL) COMPREHENSIVE METABOLIC PANEL (03/05/2025 11:50 PM CDT) Only the most recent of4 resultswithin the time period is included. GLUCOSE 66(L) 70 - 99 MG/DL 03/06/2025 12:53 AM CDT [facility] BUN 61(H) 7 - 18 MG/DL 03/06/2025 12:53 AM CDT [facility] CREATININE S/P/B 4.08(H) 0.55 - 1.02 MG/DL 03/06/2025 12:53 AM CDT [facility] SODIUM S/P/B 139 136 - 145 MMOL/L 03/06/2025 12:53 AM CDT [facility] POTASSIUM S/P/B 3.6 3.5 - 5.1 MMOL/L 03/06/2025 12:53 AM T [facility] CHLORIDE S/P/B 113 97 - 115 MMOL/L 03/06/2025 12:53 AM CDT [facility] CO2 17.8(L) 21 - 32 MMOL/L 03/06/2025 12:53 AM CDT [facility] CALCIUM S/P/B 7.0(L) 8.5 - 10.1 MG/DL 03/06/2025 12:53 AM T [facility] BILIRUBIN TOTAL S/P/B 0.3 0.2 - 1.2 MG/DL 03/06/2025 12:53 AM T [facility] Comment: THIS ASSAY IS NOT RECOMMENDED FOR PATIENTS UNDERGOING TREATMENT WITH ELTROMBOPAG DUE TO THE POTENTIAL FOR FALSELY ELEVATED RESULTS. TOTAL PROTEIN S/P/B 4.0(L) 6.4 - 8.2 G/DL 03/06/2025 12:53 AM T [facility] ALBUMIN S/P/B 1.6(L) 3.4 - 5.0 G/DL 03/06/2025 12:53 AM T [facility] AST 41(H) 15 - 37 U/L 03/06/2025 12:53 AM T [facility] ALT 19 14 - 55 U/L 03/06/2025 12:53 AM T [facility] ALKALINE PHOSPHATASE S/P/B 83 50 - 136 U/L 03/06/2025 12:53 AM T [facility] ANION GAP 8.2 2 - 10 MMOL/L 03/06/2025 12:53 AM T [facility] BUN CREATININE RATIO 15.0 6 - 26 03/06/2025 12:53 AM CDT [facility] A/G RATIO 0.7(L) 1.0 - 2.0 RATIO 03/06/2025 12:53 AM CDT [facility] GFR ESTIMATE 10(L) >90 ML/MIN/1.7 3 M2 03/06/2025 12:53 AM CDT [facility] Comment: NOTE: eGFR is not calculated for patients <18 years of age or gender unknown. This is an estimated GFR calculation using the new CKD EPI creatinine equation without race and so does not require a correction factor for race. This estimated GFR should not be used for calculating drug doses. 03/05/2025 11:5 0 PM CDT Den Chowdary MD LABORATORY Final Result Performing Organization Address City/[facility]/ZIP Co de Phone Number [facility] [address] [place] [address], * MAGNESIUM (03/04/2025 10:07 AM CDT) Only the most recent of2 resultswithin the time period is included. Pathologist [facility] MAGNESIUM 2.2 1.8 - 2.4 MG/DL 03/04/2025 10:50 AM CDT [facility] 03/04/2025 10:0 7 AM CDT Ezequiel Gallagher MD LABORATORY Final Result [facility] [address] [place] [address], * (ABNORMAL) CULTURE, BLOOD, PCR PANEL (03/03/2025 2:24 PM CDT) [facility] METHICILLIN RESISTANT GENE PCR (BLD) DETECTED(A) NOT DETECTED 03/04/2025 10:01 AM CDT [facility] Comment: Note: Antimicrobial resistance can occur via multiple mechanisms. A NOT DETECTED result from the [employer] antimicrobial resistance gene assay does not indicate antimicrobial susceptibility. A DETECTED result for a genetic marker of antimicrobial resistance gene assay does not indicate antimicrobial susceptibility. Subculturing is required for species identification and susceptibility testing of isolates. ENTEROCOCCUS FAECALIS PCR (BLD) NOT DETECTED NOT DETECTED 03/04/2025 10:01 AM CDT [facility] ENTEROCUCCUS FAECIUM PCR (BLD) NOT DETECTED NOT DETECTED 03/04/2025 10:01 AM T [facility] LISTERIA MONOCYTOGENES PCR (BLD) NOT DETECTED NOT DETECTED 03/04/2025 10:01 AM T [facility] STAPH SPECIES PCR (BLD) DETECTED(A) NOT DETECTED 03/04/2025 10:01 AM T [facility] STAPH AUREUS PCR (BLD) NOT DETECTED NOT DETECTED 03/04/2025 10:01 AM T [facility] STAPHYLOCOCCUS EPIDERMIDIS PCR (BLD) DETECTED(A) NOT DETECTED 03/04/2025 10:01 AM T [facility] Comment:CALLED TO AND REPEAT ED BACK BY LEELEE KHAN PHARMYuniel 03/04/2025 1001 JE STAPHYLOCOCCUS LUGDUNENSIS PCR (BLD) NOT DETECTED NOT DETECTED 03/04/2025 10:01 AM CDT [facility] STREPTOCOCCUS PCR (BLD) NOT DETECTED NOT DETECTED 03/04/2025 10:01 AM T [facility] STREP AGALACTIAE PCR (BLD) NOT DETECTED NOT DETECTED 03/04/2025 10:01 AM T [facility] STREP PNEUMONIAE PCR (BLD) NOT DETECTED NOT DETECTED 03/04/2025 10:01 AM [facility] STREP PYOGENES (GRP A) PCR (BLD) NOT DETECTED NOT DETECTED 03/04/2025 10:01 AM T [facility] ACINETOBACTER BAUMANII PCR (BLD) NOT DETECTED NOT DETECTED 03/04/2025 10:01 AM CDT [facility] BACTEROIDES FRAGILIS PCR (BLD) NOT DETECTED NOT DETECTED 03/04/2025 10:01 AM CDT [facility] ENTEROBACTERIACEAE PCR (BLD) NOT DETECTED NOT DETECTED 03/04/2025 10:01 AM CDT [facility] ENTEROBACTER CLOACAE COMP PCR (BLD) NOT DETECTED NOT DETECTED 03/04/2025 10:01 AM CDT [facility] ESCHERICHIA COLI PCR (BLD) NOT DETECTED NOT DETECTED 03/04/2025 10:01 AM CDT [facility] KLEBSIELLA AEROGENES PCR (BLD) NOT DETECTED NOT DETECTED 03/04/2025 10:01 AM CDT [facility] KLEBSIELLA OXYTOCA PCR (BLD) NOT DETECTED NOT DETECTED 03/04/2025 10:01 AM CDT [facility] KLEBSIELLA PNEUMONIAE PCR (BLD) NOT DETECTED NOT DETECTED 03/04/2025 10:01 AM CDT [facility] PROTEUS PCR (BLD) NOT DETECTED NOT DETECTED 03/04/2025 10:01 AM CDT [facility] SALMONELLA PCR (BLD) NOT DETECTED NOT DETECTED 03/04/2025 10:01 AM CDT [facility] SERRATIA MARCESCENS PCR (BLD) NOT DETECTED NOT DETECTED 03/04/2025 10:01 AM CDT [facility] H. INFLUENZAE PCR (BLD) NOT DETECTED NOT DETECTED 03/04/2025 10:01 AM CDT [facility] N. MENINGITIDIS PCR (BLD) NOT DETECTED NOT DETECTED 03/04/2025 10:01 AM CDT [facility] PSEUDOMONAS AERUGINOSA PCR (BLD) NOT DETECTED NOT DETECTED 03/04/2025 10:01 AM CDT [facility] STENOTROPHOMONAS MALTOPHILIA PCR (BLD) NOT DETECTED NOT DETECTED 03/04/2025 10:01 AM CDT [facility] EUNICE ALBICANS PCR (BLD) NOT DETECTED NOT DETECTED 03/04/2025 10:01 AM CDT [facility] EUNICE AURIS PCR (BLD) NOT DETECTED NOT DETECTED 03/04/2025 10:01 AM CDT [facility] EUNICE GLABRATA PCR (BLD) NOT DETECTED NOT DETECTED 03/04/2025 10:01 AM CDT [facility] EUNICE KRUSEI PCR (BLD) NOT DETECTED NOT DETECTED 03/04/2025 10:01 AM CDT [facility] EUNICE PARAPSILOSIS PCR (BLD) NOT DETECTED NOT DETECTED 03/04/2025 10:01 AM CDT [facility] EUNICE TROPICALIS PCR (BLD) NOT DETECTED NOT DETECTED 03/04/2025 10:01 AM CDT [facility] CRYPTOCOCCUS NEOFORMANS/GATTII PCR (BLD) NOT DETECTED NOT DETECTED 03/04/2025 10:01 AM CDT [facility] 03/03/2025 2:24 PM CDT Ezequiel Gallagher MD MI[facility]BIOLOGY - [facility] Final Result [facility] [address] [place] [address], * CK (CPK) (03/03/2025 12:50 AM CDT) CPK 37 21 - 215 U/L 03/03/2025 1:54 AM CDT [facility] 03/03/2025 12:5 0 AM CDT Frank Zheng [employer] LABORATORY Final Resul t [facility] [address] [place] [address], * ECG 12 lead (03/03/2025 12:38 AM CDT) Only the most recent of4 resultswithin the time period is included. 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 : 1935 Requested By: FRANK ZHENG Order Number: [id number] Reading MD: Rafael Esqueda Measurements Intervals [place] Rate: 83 P: 77 AL: 153 QRS: -30 QRSD: 85 T: -75 QT: 357 QTc: 421 Interpretive Statements SINUS RHYTHM WITH OCCASIONAL SUPRAVENTRICULAR PREMATURE COMPLEXES BORDERLINE LEFT AXIS DEVIATION [QRS AXIS < -20] NONSPECIFIC T-WAVE ABNORMALITY Compared to ECG 03/02/2025 22:11:30 No significant changes Procedure Note Rafael Esqueda MD - 03/03/[address] Test Date: 2025-03-03 Pat Name: [facility] [place] Department: 40 Room: [id number] Gender: Female 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: 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 : 1935 Requested By: FRANK ZHENG Order Number: [id number] Reading : Rafael Esqueda Measurements Intervals [place] Rate: 83 P: 77 AL: 153 QRS: -30 QRSD: 85 T: -75 QT: 357 QTc: 421 Interpretive Statements SINUS RHYTHM WITH OCCASIONAL SUPRAVENTRICULAR PREMATURE COMPLEXES BORDERLINE LEFT AXIS DEVIATION [QRS AXIS < -20] NONSPECIFIC T-WAVE ABNORMALITY Compared to ECG 03/02/2025 22:11:30 No significant changes Frank Zheng APRN ECG ORDERABLES Final Resul t [facility] * VITAMIN B-12 (03/02/2025 10:09 PM CDT) VITAMIN B12 S/P/B 1,180 254 - 1,320 PG/ML 03/02/2025 11:19 PM CDT [facility] 03/02/2025 10:0 9 PM CDT Frank Zheng APRN LABORATORY Final Resul t Performing Organization Address City/[facility]/ZIP Co de Phone Number [facility] [address] [place] [address], [place] [phone] * FOLIC ACID SERUM (03/02/2025 10:09 PM CDT) Pathologist [facility] FOLATE 10.5 3.1 - 17.5 NG/ML 03/02/2025 11:14 PM CDT [facility] 03/02/2025 10:0 9 PM CDT us Frank Zheng APRN LABORATORY Final Resul t Performing Organization Address City/[facility]/ZIP Co de Phone Number [facility] [address] [place] [address], [place] [phone] * (ABNORMAL) FERRITIN (03/02/2025 10:09 PM CDT) FERRITIN 2,953.9(H) 8.0 - 388.0 NG/ML 03/02/2025 11:14 PM CDT [facility] 03/02/2025 10:0 9 PM CDT us Frank Zheng [employer] LABORATORY Final Resul t Performing Organization Address [facility] Co de Phone Number [facility] [address] [place] [address], [place] [phone] * (ABNORMAL) PROCALCITONIN (PCT) (03/02/2025 10:03 PM CDT) PROCALCITONIN 0.65(H) 0.00 - 0.49 NG/ML 03/02/2025 11:00 PM CDT [facility] 03/02/2025 10:0 3 PM CDT Frank Zheng [employer] LABORATORY Final Resul t Performing Organization Address [facility] de Phone Number [facility] [address] [place] [address], [place] [phone] * SODIUM URINE RANDOM (03/02/2025 10:03 PM CDT) NA RANDOM (U) 85 MMOL/L 03/04/2025 8:22 AM CDT [facility] Comment:REFERENCE RANGE NOT ESTABLISHED URINE SPECIMEN / Unknown 03/02/2025 10:03 PM CDT us Frank Zheng [employer] URINE ORDERABLES Final Resu lt Performing Organization Address City/[facility]/ZIP Co de Phone Number [facility] [address] [place] [address], [place] [phone] * (ABNORMAL) IRON SAT PANEL (IRON,IBC,%SAT) (03/02/2025 10:03 PM CDT) IRON 89 50.0 - 170.0 MCG/DL 03/02/2025 11:18 PM CDT [facility] IRON BINDING CAPACITY 136(L) 250 - 450 MCG/DL 03/02/2025 11:11 PM CDT [facility] IRON SATURATION 65(H) 20 - 55 % 11:18 PM CDT [facility] 03/02/2025 10:0 3 PM CDT us Frank Zheng APRN LABORATORY Final Resul t [facility] [address] [place] [address], * URINE BACTERIA CULTURE (03/02/2025 10:03 PM CDT) SPEC DESCRIPTION URINE CLEAN CATCH 03/02/2025 9:59 PM CDT [facility] SPECIAL REQUESTS NO SPECIAL REQUEST 03/02/2025 9:59 PM CDT [facility] CULTURE RESULT POLYMICROBIAL GROWTH CONSISTENT WITH NORMAL GENITAL FLORECITA. SUSCEPTIBILITIES NOT ROUTINELY PERFORMED. 03/04/2025 10:45 AM CDT [facility] URINE SPECIMEN OBTAINED BY CLEAN CATCH PROCEDURE / Unknown 03/02/2025 10:03 PM CDT 03/02/2025 10:26 PM CDT us Frank Zheng APRN MICROBIOLOGY - GENERAL ORDE RABLES Final Result [facility] [address] [place] [address], [place] [phone] * PARTIAL THROMBOPLASTIN TIME,PTT (03/02/2025 10:03 PM CDT) PTT 33.9 25.1 - 36.5 SEC 03/02/2025 10:45 PM CDT [facility] 03/02/2025 10:0 3 PM CDT Frank Zheng PROF[employer] LABORATORY Final Resul t [facility] [address] [place] [address], [place] [phone] * RETICULOCYTE CT, AUTO (03/02/2025 10:03 PM CDT) RETICULOCYTE COUNT 1.2 0.8 - 2.1 % 03/02/2025 10:32 PM CDT [facility] ABSOLUTE RETICULOCYTE 0.04 0.02 - 0.10 x10'6/uL 03/02/2025 10:32 PM CDT [facility] IMMATURE RETIC FRACTION 12.2 3.0 - 15.9 % 03/02/2025 10:32 PM CDT [facility] RETIC HGB 34.8 28.0 - 35.0 PG 03/02/2025 10:32 PM CDT [facility] 03/02/2025 10:0 3 PM CDT Frank Zheng [employer] LABORATORY Final Resul t [facility] [address] [place] [address], [place] [phone] * SED RATE, ERYTHROCYTE (ESR) (03/02/2025 10:03 PM CDT) ESR 27 <30 MM/HR 03/02/2025 10:33 PM CDT [facility] Comment:Testing performed on [employer] iSED. 03/02/2025 10:0 3 PM CDT Frank Zheng PROF[employer] LABORATORY Final Resul t Performing Organization Address City/[facility] Co de Phone Number [facility] [address] [place] [address], [place] [phone] * PROTIME/INR, VENOUS (03/02/2025 10:03 PM CDT) PROTIME 11.3 10.2 - 12.9 SEC 03/02/2025 10:45 PM CDT [facility] INR 1.0 03/02/2025 10:45 PM CDT [facility] Comment: Recommended INR Therapeutic Goals: 2.0-3.0 Routine Therapy 2.5-3.5 Mechanical Prosthetic Valves (High Risk) 03/02/2025 10:0 3 PM CDT Frank Zheng PROF[employer] LABORATORY Final Resul t Performing Organization Address [facility] Co de Phone Number [facility] [address] [place] [address], [place] [phone] * (ABNORMAL) LDH, LACTATE DEHYDROGENASE (03/02/2025 10:03 PM CDT) LDH 266(H) 84 - 246 UNITS/L 03/02/2025 11:23 PM CDT [facility] 03/02/2025 10:0 3 PM CDT us Frank Zheng PROF[employer] LABORATORY Final Resul t Performing Organization Address City/[facility]/ZIP Co de Phone Number [facility] [address] [place] [address], [place] [address], [place] [phone] * C-REACTIVE PROTEIN (03/02/2025 10:03 PM CDT) C-REACTIVE PROTEIN <0.29 <0.29 mg/dL 03/02/2025 11:21 PM CDT [facility] 03/02/2025 10:0 3 PM CDT us Frank Zheng [employer] LABORATORY Final Resul t Performing Organization Address City/[facility]/ZIP Co de Phone Number [facility] [address] [place] [address], [place] [phone] * OSMOLALITY, URINE (03/02/2025 10:03 PM CDT) OSMOLALITY (U) 332 50 - 1,200 MOSM/KG 03/02/2025 10:45 PM CDT [facility] URINE SPECIMEN / Unknown 03/02/2025 10:03 PM CDT us Frank Zheng JORGE URINE ORDERABLES Final Resu lt Performing Organization Address City/[facility]/ZIP Co de Phone Number [facility] [address] [place] [address], [place] [phone] * URIC ACID BLOOD (03/02/2025 10:03 PM CDT) URIC ACID 5.5 2.6 - 6.0 MG/DL 03/02/2025 11:12 PM CDT [facility] 03/02/2025 10:0 3 PM CDT Frank Carol Norm PROF[employer] LABORATORY Final Resul t [facility] [address] [place] [address], [place] [phone] * (ABNORMAL) OSMOLALITY, BLOOD (03/02/2025 10:03 PM CDT) OSMOLALITY (S/P/B) 294(H) 270 - 290 MOSM/KG 03/02/2025 10:51 PM CDT [facility] 03/02/2025 10:0 3 PM CDT Frank Zheng PROF[employer] LABORATORY Final Resul t [facility] [address] [place] [address], [place] [phone] * CT ABD+PEL WO CON (03/02/2025 6:12 PM CDT) Anatomical Region Laterality Modality Abdomen Computed Tomogra phy 03/02/2025 6:13 PM CDT Impressions 03/02/2025 6:57 PM CDT IMPRESSION: 1. Gastric wall thickening and adjacent fat stranding appears similar compared to 08/05/2024, compatible with gastritis. 2. Redemonstration of numerous lytic osseous lesions. 3. Coronary artery disease. The attending radiologist has reviewed the image(s) and agrees with the content of this report. Ordered By: NEHA BUTCHER Interpreted By: Elkin Barahona MD, 03/02/2025 6:13 PM Narrative 03/02/2025 6:57 PM CDT [facility] [address] [place], [place] [address] EXAMINATION: CT ABD+PEL WO CON EXAM TIME: 03/02/2025 6:02 PM HISTORY: Diffuse abdominal pain with nausea and vomiting. Weakness since chemotherapy treatment on Wednesday. History of multiple myeloma. History of gastric ulcer disease. COMPARISON: CT abdomen pelvis 08/05/2024. TECHNIQUE: CT of the abdomen and pelvis was performed without IV contrast. Sagittal and coronal reconstructions were performed. Dose reduction techniques were utilized, including but not limited to: dose reduction, automated exposure control, and/or the use of iterative reconstruction, in accordance with ALARA (As Low As Reasonably Achievable)/Image Gently principle. Reyes: (Series number / Image number) FINDINGS: LOWER CHEST: The visualized lung bases are clear. Coronary artery and valvular calcifications. HEPATOBILIARY: Chronic left hepatic lobe calcification. The liver is normal in size and contour. No gallbladder wall thickening or pericholecystic fluid. No biliary dilatation. PANCREAS: The pancreas is unremarkable. SPLEEN: The spleen is normal in size. ADRENAL: The adrenal glands are normal in appearance. URINARY: Multiple hypodense right renal cysts. The urinary bladder is grossly normal. GASTROINTESTINAL: Small hiatal hernia. Redemonstration of thickened gastric folds with mild adjacent fat stranding. No bowel obstruction or wall thickening. The appendix is normal in appearance. REPRODUCTIVE: The uterus is present. PERITONEUM: No abdominal fluid collection or intraperitoneal free air. LYMPHATIC: No lymphadenopathy in the abdomen or pelvis. VASCULATURE: The abdominal aorta is normal in caliber. Atherosclerotic calcifications of the aorta and branching vessels. MUSCULOSKELETAL: Numerous small lytic lesions throughout the spine and pelvis, compatible with multiple myeloma. Grade 1 anterolisthesis of L4 on L5. Chronic T12 vertebral body compression fracture. No significant soft tissue abnormality is seen. Procedure Note Humberto Gee MD - 03/02/[address] [address] EXAMINATION: CT ABD+PEL WO CON EXAM TIME: 03/02/2025 6:02 PM HISTORY: Diffuse abdominal pain with nausea and vomiting. Weakness sincechemotherapy treatment on Wednesday. History of multiple myeloma. History ofgastric ulcer disease. COMPARISON: CT abdomen pelvis 08/05/2024. TECHNIQUE: CT of the abdomen and pelvis was performed without IV contrast.Sagittal and coronal reconstructions were performed. Dose reductiontechniques were utilized, including but not limited to: dose reduction,automated exposure control, and/or the use of iterative reconstruction, inaccordance with ALARA (As Low As Reasonably Achievable)/Image Gentlyprinciple. Reyes: (Series number / Image number) FINDINGS: LOWER CHEST: The visualized lung bases are clear. Coronary artery andvalvular calcifications. HEPATOBILIARY: Chronic left hepatic lobe calcification. The liver isnormal in size and contour. No gallbladder wall thickening orpericholecystic fluid. No biliary dilatation. PANCREAS: The pancreas is unremarkable. SPLEEN: The spleen is normal in size. ADRENAL: The adrenal glands are normal in appearance. URINARY: Multiple hypodense right renal cysts. The urinary bladder isgrossly normal. GASTROINTESTINAL: Small hiatal hernia. Redemonstration of thickenedgastric folds with mild adjacent fat stranding. No bowel obstruction orwall thickening. The appendix is normal in appearance. REPRODUCTIVE: The uterus is present. PERITONEUM: No abdominal fluid collection or intraperitoneal free air. LYMPHATIC: No lymphadenopathy in the abdomen or pelvis. VASCULATURE: The abdominal aorta is normal in caliber. Atheroscleroticcalcifications of the aorta and branching vessels. MUSCULOSKELETAL: Numerous small lytic lesions throughout the spine andpelvis, compatible with multiple myeloma. Grade 1 anterolisthesis of L4 onL5. Chronic T12 vertebral body compression fracture. No significant softtissue abnormality is seen. IMPRESSION: 1. Gastric wall thickening and adjacent fat stranding appears similarcompared to 08/05/2024, compatible with gastritis. 2. Redemonstration of numerous lytic osseous lesions. 3. Coronary artery disease. The attending radiologist has reviewed the image(s) and agrees with thecontent of this report. Ordered By: NEHA BUTCHER Interpreted By: Elkin Barahona MD, 03/02/2025 6:13 PM Neha Butcher DO CT Final Result * (ABNORMAL) Urinalysis, Auto, Complete (03/02/2025 5:43 PM CDT) SPECIMEN TYPE URINE, UNSPECIFIED 03/02/2025 6:04 PM CDT [facility] COLOR (U) COLORLESS 03/02/2025 6:32 PM CDT [facility] TRANSPARENCY CLEAR 03/02/2025 6:32 PM CDT [facility] SPECIFIC GRAVITY (U) 1.008 1.001 - 1.030 03/02/2025 6:32 PM CDT [facility] U PH 6.5 5.0 - 9.0 03/02/2025 6:32 PM CDT [facility] LEUKOCYTES (U) NEGATIVE NEGATIVE 03/02/2025 6:32 PM CDT [facility] NITRITES NEGATIVE NEGATIVE 03/02/2025 6:32 PM CDT [facility] PROTEIN RANDOM (U) 200(H) <30 MG/DL 03/02/2025 6:32 PM CDT [facility] GLUCOSE (U) NORMAL NORMAL MG/DL 03/02/2025 6:32 PM CDT [facility] KETONES MG/DL (U) NEGATIVE NEGATIVE MG/DL 03/02/2025 6:32 PM CDT [facility] UROBILINOGEN NORMAL NORMAL MG/DL 03/02/2025 6:32 PM CDT [facility] BILIRUBIN (U) NEGATIVE NEGATIVE MG/DL 03/02/2025 6:32 PM CDT [facility] BLOOD (U) 1+(A) NEGATIVE 03/02/2025 6:32 PM CDT [facility] MUCUS RARE /LPF 03/02/2025 6:32 PM CDT [facility] RBC/HPF 5 <6 /HPF 03/02/2025 6:32 PM CDT [facility] BACTERIA (U) FEW(A) NONE /HPF 03/02/2025 6:32 PM CDT [facility] SQUAMOUS EPITHELIALS RARE /HPF 03/02/2025 6:32 PM CDT [facility] URINE SPECIMEN / Unknown 03/02/2025 5:43 PM CDT us Neha Butcher DO URINE ORDERABLES Final Result Performing Organization Address City/[facility]/ZIP Co de Phone Number [facility] [address] [place] [address], [place] [phone] * LACTIC ACID - SINGLE (03/02/2025 4:07 PM CDT) LACTIC ACID VENOUS 1.1 0.4 - 2.0 MMOL/L 03/02/2025 4:40 PM CDT [facility] 03/02/2025 4:07 PM CDT Neha Butcher DO LABORATORY Final Result Performing Organization Address City/[facility]/ZIP Co de Phone Number [facility] [address] [place] [address], [place] [phone] * (ABNORMAL) LIPASE (03/02/2025 4:07 PM CDT) LIPASE 85(H) 13 - 75 UNITS/L 03/02/2025 5:02 PM CDT [facility] 03/02/2025 4:07 PM CDT Neha Butcher DO LABORATORY Final Result Performing Organization Address City/[facility]/ZIP Co de Phone Number [facility] [address] [place] [address], [place] [phone] * CT HEAD WO CON (01/17/2025 8:22 PM CDT) Anatomical Region Laterality Modality Head Computed Tomogra phy 01/17/2025 9:31 PM CDT Impressions 01/17/2025 9:34 PM CDT IMPRESSION: 1. No acute intracranial abnormality identified. 2. Chronic intracranial senescent changes. Referred By: Interpreted By: Cortez Harman MD, 01/17/2025 9:31 PM Narrative 01/17/2025 9:34 PM CDT [place] [address] INDICATION: Syncope COMPARISON: Head CT, 31 Aug 2021 TECHNIQUE: Nonenhanced CT images of the head. Radiation dose reduction technique utilized. FINDINGS: No evidence of significant intracranial mass effect or midline shift. Senescent calcifications in the bilateral basal ganglia. Atherosclerosis of the intracranial vasculature. Mild chronic small vessel ischemic changes of the white matter. No intracranial hemorrhage or abnormal extra-axial fluid collection is identified. Ventricles are proportional to the degree of global cerebral volume loss. Evaluation of the posterior fossa is unremarkable. No depressed fracture of the calvarium. Mastoid air cells are clear. Moderate cerumen burden in the left external auditory canal. Status post bilateral ocular lens extraction. Procedure Note Cortez Harman MD - 01/17/[address] [address] INDICATION: Syncope COMPARISON: Head CT, 31 Aug 2021 TECHNIQUE: Nonenhanced CT images of the head. Radiation dose reduction techniqueutilized. FINDINGS: No evidence of significant intracranial mass effect or midline shift.Senescent calcifications in the bilateral basal ganglia. Atherosclerosis of the intracranial vasculature. Mild chronic small vessel ischemic changes of the white matter. Nointracranial hemorrhage or abnormal extra-axial fluid collection isidentified. Ventricles are proportional to the degree of global cerebral volumeloss. Evaluation of the posterior fossa is unremarkable. No depressed fracture of the calvarium. Mastoid air cells are clear. Moderate cerumen burden in the left externalauditory canal. Status post bilateral ocular lens extraction. IMPRESSION: 1. No acute intracranial abnormality identified. 2. Chronic intracranial senescent changes. Referred By: Interpreted By: Cortez Harman MD, 01/17/2025 9:31 PM Dionicio Jaffe DO CT Final Res ult * EKG Reading (01/17/2025 7:47 PM CDT) Narrative Dionicio Jaffe DO - 01/17/2025 7:47 PM CDT Dionicio Jaffe DO 01/17/2025 11:52 PM EKG Reading Date/Time: 01/17/2025 7:47 PM Performed by: Dionicio Jaffe DO Authorized by: Dionicio Jaffe DO Interpreted by ED physician Rhythm: sinus rhythm Rate: normal BPM: 66 QRS axis: left ST Segments: ST segments normal Q waves: aVF, aVR and V1 Clinical impression: abnormal ECG Dionicio Jaffe DO [facility] Final Result * TSH W/REFLEX (01/17/2025 7:41 PM CDT) TSH 3.630 0.358 - 3.74 uIU/ML 01/17/2025 8:51 PM CDT [facility] Comment: HIGH DOSES OF BIOTIN MAY INTERFERE WITH THIS TEST RESULT. CORRELATION TO CLINICAL HISTORY AND PRESENTATION RECOMMENDED. FREE T4 NOT INDICATED 01/17/2025 7:41 PM CDT Dionicio Jaffe DO LABORATORY Final Res ult [facility] [address] [place] [address], [place] [phone] * (ABNORMAL) PRO-BRAIN NATRIURETIC PEPTIDE (01/17/2025 7:41 PM CDT) PRO-B TYPE NATRIURETIC PEPTIDE 1,031(H) <450 PG/ML 01/17/2025 8:51 PM CDT [facility] Comment: CUT POINTS ESTABLISHED BY [employer]NATIONAL [employer] ON NT PROBNP (ICON) STUDY (2006). AGE INDEPENDENT: <300 PG/ML HAS A 99% NEGATIVE PREDICTIVE VALUE FOR EXCLUDING ACUTE CHF <50 YEARS: >450 PG/ML IS CONSISTENT WITH ACUTE CHF 50-75 YEARS: >900 PG/ML IS CONSISTENT WITH ACUTE CHF >75 YEARS: >1800 PG/ML IS CONSISTENT WITH ACUTE CHF IN PATIENTS WITH RENAL INSUFFICIENCY (GFR <60), >1200 PG/ML YIELDS A DIAGNOSTIC SENSITIVITY AND SPECIFICITY OF 89% AND 72% FOR ACUTE CHF. 01/17/2025 7:41 PM CDT Dionicio Jaffe DO LABORATORY Final Res ult Performing Organization Address City/[facility]/ZIP Co de Phone Number [facility] [address] [place] [address], [place] [phone] * REMOVAL IMPACTED CERUMEN IRRIGATION/LAVAGE UNILAT (01/05/2025 9:20 AM CDT) Narrative Maribel Chau MD - 01/05/2025 9:20 AM CDT Maribel Chau MD 01/05/2025 10:25 AM *Ear Cerumen Removal Date/Time: 01/05/2025 9:20 AM Performed by: Maribel Chau MD Authorized by: Maribel Chau MD Ceruminolytics applied: Ceruminolytics applied prior to the procedure. Location details: right ear Patient tolerance: patient tolerated the procedure well with no immediate complications Comments: R EAC impacted. Able to visualize TM easily after irrigation. Procedure type: irrigation Sedation: Patient sedated: no Maribel Chau MD PROCEDURE/MINOR SURGICAL ORDERAB LES Final Result * HEMOGLOBIN, GLYCOSYLATED (01/06/2024) HGB A1C 5.7 % [facility] 01/06/2024 Judd Chopra MD LABORATORY Final Res ult [facility] [address] [place] [address], [place] [phone] * LIPID PANEL (11/06/2022 5:36 AM [employer]) CHOLESTEROL 198 <200 MG/DL 11/06/2022 6:10 AM [facility] TRIGLYCERIDES 100 <150 MG/DL 11/06/2022 6:10 AM [facility] HDL 91 >40.0 MG/DL 11/06/2022 6:10 AM [facility] LDL (CALCULATED) 87 <100 MG/DL 11/06/19 6:10 AM [facility] NON HDL CHOLESTEROL 107 <130 MG/DL 11/06 6:10 AM [facility] CHOL/HDL RATIO 2.2 0.0 - 4.5 11/06/2022 6:10 AM [facility] VLDL CALCULATION 20 5 - 55 MG/DL 11/06/2022 6:10 AM [facility] LIPID INTERPRETATION 11/06/2022 6:10 AM [facility] Comment: [facility] CONCENSUS REPORT RECOMMENDATIONS: ADULT CHILD LOW RISK: CHOLESTEROL <200 <170 TRIGLYCERIDE <150 --- HDL >=60 --- LDL <100 <110 BORDERLINE: CHOLESTEROL 200-239 170-199 TRIGLYCERIDE 150-199 --- HDL 40-59 --- LDL 100-159 110-129 HIGH RISK: CHOLESTEROL >=240 >=200 TRIGLYCERIDE >=200 --- HDL <40 --- LDL >=160 >=130 11/06/2022 5:36 AM [employer] Frank Zheng [employer] LABORATORY Final Resul t [facility] [address] [place] [address], [place] [phone] from Last 3 Months or Most Recently Relevant to Health Maintenance Additional Health Concerns Infection Onset Date Last Indicated C. 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 Advance Directives and Living Will 05/07/2021 9:18 AM 06/25/2016 DNR/POLST Advance Directives and Living Will 06/25/2016 SADVANCE DIRECTIVES * DNR (Latest Code Status on File) Date Activated Date Inactivated Comments 03/09/2025 2:37 PM 03/14/2025 11:55 AM * Full Code Date Activated Date Inactivated Comments 03/03/2025 1:38 AM 03/09/2025 2:37 PM * Full Code Date Activated Date Inactivated Comments 12/25/2024 6:06 PM 12/28/2024 3:56 PM * Full Code Date Activated Date Inactivated Comments 12/07/2024 4:51 PM 12/08/2024 1:30 PM * Full Code Date Activated Date Inactivated Comments 12/04/2024 7:41 PM 12/06/2024 6:15 PM Care Teams Habilitation Training Specialist Relationship Specialty Start Date End Date Maribel Chau MD [address] [place] [address] PCP - General FAMILY PRACTICE 09/20/24 Bree Chatman MD PCP - Hospice Attending 03/12/25 Jay Aguayo MD [address] [place] [address] Consulting Physician RADIATION ONCOLOGY 06/30/23
--- OUTSIDE RECORDS SUMMARY | 2025-03-31 23:05 | XMS_ITS ---
Author Organization [facility] Address [facility] [place] [address] Care Team Providers Care Spike Machine Operator Name Role Phone Jay Aguayo MD Unavailable Maribel Chau MD Primary Care Provider [phone] None, Provider MD Unavailable Unavailable Active Problems Problem Noted Date Diagnosed Date Multiple myeloma not having achieved remission ([facility]) 12/07/2024 RUDOLPH (acute kidney injury) 12/05/2024 Multiple myeloma ([facility]) 12/04/2024 Chemotherapy adverse reaction 12/04/2024 Bilateral hearing loss, unspecified hearing loss type 09/20/2024 Overview (09/20/2024): - pt with likely age-related hearing loss b/l, will refer to audiology for testing Tinnitus of both ears 09/20/2024 Hypertensive urgency 08/06/2024 Constipation 02/03/2023 Secondary hyperparathyroidism ([facility]) 11/17/19 23 Iron deficiency anemia 03/24/2022 Controlled substance agreement signed 03/03/2022 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 Dysphagia, unspecified type 08/21/2021 Overview (08/21/2021): Added automatically from request for surgery [id number] Weight loss 08/21/2021 Overview (08/21/2021): Added automatically from request for surgery [id number] History of gastric ulcer 08/21/2021 Overview (08/21/2021): Added automatically from request for surgery [id number] Hyponatremia 06/19/2021 Chemotherapy induced nausea and vomiting 021 Multiple myeloma, remission status unspecified ([facility]) 04/15/2021 Overview (09/20/2024): - follows with [...] kidney disease) stage 4, GFR 15-29 ml/min ([facility]) 09/23/2020 ACEI/ARB contraindicated 07/08/2018 Arteriosclerotic cardiovascular disease 07/08/20 18 Primary open angle glaucoma (POAG) of both eyes, mild stage 07/08/2018 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 Past Treatment and Therapy Plans No past plan information found. Radiation Treatments * Course C2 07/12/2023 - 07/16/2023 Treatment Period Energy Fraction Dose Fractions Total Dose Plans Planned Acetabulum_R 07/12/2023 - 07/16/2023 5 o f 5 / Femur_L 07/12/2023 - 07/16/2023 5 of 5 / Femur_R 07/12/2023 - 07/16/2023 5 of 5 / Reference Points Delivered Acetabulum_R 07/12/2023 - 07/16/2023 20 Femur_L 07/12/2023 - 07/16/2023 20 Femur_R 07/12/2023 - 07/16/2023 20 * Course C1 04/23/2021 - 07/09/2023 Treatment Period Energy Fraction Dose Fractions Total Dose Plans Planned T-spine 04/23/2021 - 07/09/2023 10 of 10 / Reference Points Delivered [id number] 04/23/2021 - 07/09/2023 30 Resolved Problems Problem Noted Date Diagnosed Date Resolved Date Calf tenderness 03/17/2023 09/02/2023 Lower extremity edema 02/03/20232022 Stage 3b chronic kidney disease 05/14/2022 01/09/2024 Statin intolerance 07/08/2018 4 Encounter for preventive health examination 10/10/2014 05/24/2020
--- OUTSIDE RECORDS SUMMARY | 2025-03-31 23:05 | XMS_ITS | Clinical Summary ---
Author Organization [facility] Address [address], [address] [place] [address] Phone Care Team Providers Care Industrial Relations Counselor Name Role Phone Judd Chopra MD Primary Care Provider [phone] Hilton Lynn MD Unavailable Jay Aguayo MD Unavailable Blaire Guidry RN Unavailable Unavailable Clementine Ackerman RN Unavailable Unavailable Allergies Active Allergy Reactions Criticality Noted Date Comments Uri Inhibitors Other (see Comments) 07/08/2018 Amoxicillin Unknown 09/10/2016 Angiotensin Unknown 12/10/2024 Angiotensin Receptor Blockers Other (see Comments) 07/08/2018 Atorvastatin Other (see Comments) 03/19/2021 Reaction: leg pain Rosuvastatin Other (see Comments) 03/19/2021 Reaction: leg pain Simvastatin Other (see Comments) 03/19/2021 Reaction: leg pain Medications Coenzyme Q10 100 MG Capsule Take 1 Capsule by mouth. Active Cholecalciferol (Vitamin D3) 1000 UNIT Tablet Take 1,000 Units by mouth. Active acyclovir (ZOVIRAX) 400 MG TabletIndication s:Multiple myeloma not having achieved remission (HCC) Take 1 Tablet by mouth 2 times daily. To be taken 2 times a day. 60 Tablet 2 3 Active Additional Information Patient not taking.Reported on 02/26/2025 polyethylene glycol (MiraLax) 17 GM/SCOOP PowderIndication s:Constipation, unspecified constipation type Take 17 g by mouth daily. 17 g = 1 scoop. Dissolve in 4 -8 oz of water or other liquid. 289 g 3 3 Active Additional Information Patient not taking.Reported on 02/26/2025 calcitRIOL (ROCALTROL) 0.25 MCG Capsule 3 Active albuterol (ProAir HFA) 108 (90 Base) MCG/ACT Aerosol SolutionIndicati ons:Multiple myeloma not having achieved remission (HCC) take 2 Puffs by inhalation as needed for Wheezing. 8.5 g 3 Active traMADol (ULTRAM) 50 MG Tablet Take 50 mg by mouth every 6 hours as needed. 5 Active carvedilol (COREG) 25 MG Tablet Take 25 mg by mouth 2 times daily. 5 Active gabapentin (NEURONTIN) 100 MG Capsule Take 1 Capsule by mouth 3 times daily. 90 Capsule 3 5 Active ondansetron (ZOFRAN) 4 MG TabletIndication s:Multiple myeloma not having achieved remission (HCC) Take 1 Tablet by mouth every 6 hours as needed for Nausea - 1st line. 30 Tablet 3 5 Active prochlorperazine (COMPAZINE) 10 MG TabletIndication s:Multiple myeloma not having achieved remission (HCC) Take 1 Tablet by mouth every 4 hours as needed for Nausea - 2nd line. 30 Tablet 3 5 Active dexamethasone (DECADRON) 4 MG TabletIndication s:Multiple myeloma not having achieved remission (HCC) Take 5 Tablets by mouth See Admin Instructions. Take five tablets by mouth once as needed for CRS symptoms only at the direction of your physician. 5 Tablet 1 5 Active acyclovir (ZOVIRAX) 200 MG CapsuleIndicatio ns:Multiple myeloma not having achieved remission (HCC) Take 1 Capsule by mouth 2 times daily. 60 Capsule 11 5 11/24/19 26 Active sulfamethoxazole -trimethoprim (BACTRIM, SEPTRA) 400-80 MG TabletIndication s:Multiple myeloma not having achieved remission (HCC) Take 1 Tablet by mouth three times a week. 12 Tablet 11 5 11/25/19 26 Active lenalidomide (REVLIMID) 5 MG Capsule Active amLODIPine (NORVASC) 5 MG Tablet 5 Active OLANZapine (ZyPREXA) 10 MG TabletIndication s:Chemotherapy-i nduced nausea Take 1 Tablet by mouth nightly. 30 Tablet 1 5 Active Active Problems Patient Care Coordination No te Formatting of this note migh t be different from the original. PCM CONSENT DATE: 11/24/24 CONSENT PRESENT AND CURRENT IN CHART OF: 12/05/2024 CARE PLAN LAST UPDATED: 02/12/2025 CARE PLAN LAST DELIVERED: 12/07/2024 For additional billing time breakdown, see [facility] auditing report. 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, stage V 01/01/2025 Calf tenderness 03/17/2023 Lower extremity edema 02/03/2023 Constipation 02/03/2023 Secondary hyperparathyroidism 11/16/2022 RUDOLPH (acute kidney injury) 03/30/2022 Anemia due to chronic kidney disease 03/24/2022 Iron deficiency anemia 03/24/2022 Anemia in chronic kidney disease 02/23/2022 Dysphagia 08/21/2021 Overview (04/10/2022): Added automatically from request for surgery [id number] History of gastric ulcer 08/21/2021 Overview (04/10/2022): Added automatically from request for surgery [id number] Weight loss 08/21/2021 Overview (04/10/2022): Added automatically from request for surgery [id number] Hyponatremia 06/19/2021 Multiple myeloma not having achieved remission 0 04/15/2021 Left upper lobe pulmonary nodule 11/20/2020 CKD (chronic kidney disease) stage 4, GFR 15-29 ml/min 09/23/2020 Albuminuria 09/23/2020 Arteriosclerotic cardiovascular disease 07/08/20 18 Primary open angle glaucoma (POAG) of both eyes, mild stage 07/08/2018 Type 2 diabetes mellitus wit h chronic kidney disease, without long-term current use of insulin 07/08/2018 Dyslipidemia 10/12/2014 Overview (04/10/2022): Overview: Hyperlipidemia Monoclonal gammopathy of unknown significance Overview (04/10/2022): MGUS (monoclonal gammopathy of unknown significance) Stenosis of carotid artery 11/02/2013 Overview (04/10/2022): Overview: Carotid stenosis Carotid stenosis Thyroid nodule 08/04/2013 Overview (04/10/2022): Overview: Thyroid nodule Thyroid nodule Essential hypertension 07/21/2013 Overview (04/10/2022): Overview: Hypertension, essential Overview: Hypertension Hypertension, essential Hypertension Proteinuria 09/19/2010 Overview (04/10/2022): Overview: Proteinuria Proteinuria Hyperlipidemia 03/13/2010 Overview (04/10/2022): Hyperlipidemia Gout 02/11/2009 Overview (04/10/2022): Overview: Gout Gout Encounters Date Type Department Care Team Description 03/28/2025 Telephone [facility] [address] [phone] Hilton Lynn MD [facility] call 03/13/2025 1:45 PM CDT Clinical Support [facility] [address] [phone] Navigator, Marcella Chapman Nurse Multiple myeloma not having achieved remission (HCC) (Primary Dx) 03/02/2025 Telephone [facility] [address] [phone] Hilton Lynn MD [facility] Call / Nausea Vomiting 03/01/2025 1:30 PM CDT Clinical Support [facility] [address] [phone] Nurse, Marcella Chapman Iron deficiency anemia, unspecified iron deficiency anemia type (Primary Dx); Multiple myeloma not having achieved remission (HCC) 03/01/2025 Telephone [facility] [address] [phone] Hilton Lynn MD [facility] Call / Not eating 02/26/2025 10:00 AM CDT Office Visit [facility] [address] [phone] Hilton Lynn MD Anemia in chronic kidney disease, unspecified CKD stage (Primary Dx); CKD (chronic kidney disease) stage 4, 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) 02/26/2025 9:45 AM CDT Clinical Support [facility] [address] [phone] Multiple myeloma not having achieved remission (HCC) (Primary Dx); Anemia in chronic kidney disease, unspecified CKD stage; Anemia due to stage 3 chronic kidney disease, unspecified whether stage 3a or 3b CKD (HCC); CKD (chronic kidney disease) stage 4, 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); Hypogammaglobulinemia (HCC) 02/26/2025 9:30 AM CDT Care Management [facility] [address] [phone] Navigator, Marcella Chapman Nurse Care Management (WELLNESS FOLLOW UP) 02/26/2025 Travel 02/19/2025 10:15 AM CDT Office Visit [facility] [address] [phone] Hilton Lynn MD Anemia in chronic kidney disease, unspecified CKD stage (Primary Dx); Anemia due to stage 3 chronic kidney disease, unspecified whether stage 3a or 3b CKD (HCC); CKD (chronic kidney disease) stage 4, 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) 02/19/2025 10:00 AM CDT Clinical Support [facility] [address] [phone] Multiple myeloma not having achieved remission (HCC) 02/19/2025 Travel 02/12/2025 1:15 PM CDT Clinical Support [facility] [address] [phone] Navigator, Marcella Chapman Nurse Multiple myeloma not having achieved remission (HCC) (Primary Dx) 02/12/2025 10:30 AM CDT Office Visit [facility] [address] [phone] Good Watters, DO Multiple myeloma not having achieved remission (HCC) (Primary Dx) 02/12/2025 10:15 AM CDT Clinical Support [facility] [address] [phone] Multiple myeloma not having achieved remission (HCC) (Primary Dx); CKD (chronic kidney disease) stage 4, 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); Anemia in chronic kidney disease, unspecified CKD stage 02/12/2025 8:45 AM CDT Care Management [facility] [address] [phone] Navigator, Cc Garrisonjoceline Nurse Care Management (WELLNESS F/U & CAREPLAN REVIEW) 02/12/2025 Travel 01/30/2025 12:30 PM CDT Clinical Support [facility] [address] [phone] Nurse, Cc Adela Multiple myeloma not having achieved remission (HCC) (Primary Dx) 01/29/2025 11:30 AM CDT Clinical Support [facility] [address] [phone] Nurse, Cc Ofdrew Multiple myeloma not having achieved remission (HCC) (Primary Dx) 01/29/2025 10:45 AM CDT Office Visit [facility] [address] [phone] Hilton Lynn MD CKD (chronic kidney disease) stage 4, 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) (Primary Dx); Anemia in chronic kidney disease, unspecified CKD stage 01/29/2025 Travel 01/24/2025 10:45 AM CDT Care Management [facility] [address] [phone] Navigator, Marcella Jijoceline Nurse Care Management (EDUCATION PREP) 01/24/2025 9:00 AM CDT Clinical Support [facility] [address] [phone] Nurse, Marcella Richarddrew Hypogammaglobulinemia (HCC) (Primary Dx) 01/24/2025 Travel 01/23/2025 Telephone [facility] [address] [phone] Hilton Lynn MD 01/22/2025 10:30 AM CDT Office Visit [facility] [address] [phone] Hilton Lynn MD Left upper lobe pulmonary nodule (Primary Dx); Secondary hyperparathyroidism (HCC); CKD (chronic kidney disease) stage 4, 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); Iron deficiency anemia, unspecified iron deficiency anemia type 01/22/2025 10:15 AM CDT Lab [facility] [address] [phone] Nurse, Marcella Chapman Chronic kidney disease, stage V (HCC); Monoclonal gammopathy of unknown significance; Multiple myeloma not having achieved remission (HCC) 01/19/2025 12:45 PM CDT Office Visit [facility] [address] [phone] Yola Oneill, TIERA PATEL Multiple myeloma not having achieved remission (HCC) (Primary Dx); CKD (chronic kidney disease) stage 4, 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); Weakness 01/19/2025 12:00 PM CDT Clinical Support [facility] [address] [phone] Nurse, Marcella Chapman Iron deficiency anemia, unspecified iron deficiency anemia type (Primary Dx); Multiple myeloma not having achieved remission (HCC) 01/19/2025 10:00 AM CDT Care Management [facility] [address] [phone] Navigator, Marcella Chapman Nurse 01/19/2025 Travel 01/19/2025 Telephone [facility] [address] [phone] Hilton Lynn MD 01/15/2025 10:15 AM CDT Clinical Support [facility] [address] [phone] Anemia in chronic kidney disease, unspecified CKD stage (Primary Dx); CKD (chronic kidney disease) stage 4, 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) 01/15/2025 10:00 AM CDT Office Visit [facility] [address] [phone] Hilton Lynn MD Chronic kidney disease, stage V (HCC) (Primary Dx); Monoclonal gammopathy of unknown significance; Multiple myeloma not having achieved remission (HCC); Left upper lobe pulmonary nodule; CKD (chronic kidney disease) stage 4, 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); Anemia due to stage 3 chronic kidney disease, unspecified whether stage 3a or 3b CKD (HCC) 01/15/2025 Travel 01/11/2025 1:45 PM CDT Clinical Support [facility] [address] [phone] [facility] Multiple myeloma not having achieved remission (HCC) (Primary Dx) 01/08/2025 10:00 AM CDT Clinical Support [facility] [address] [phone] Nurse, Marcella Chapman Multiple myeloma not having achieved remission (HCC) (Primary Dx); CKD (chronic kidney disease) stage 4, 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); Anemia in chronic kidney disease, unspecified CKD stage; Iron deficiency anemia, unspecified iron deficiency anemia type 01/08/2025 9:45 AM CDT Office Visit [facility] [address] [phone] Hilton Lynn MD CKD (chronic kidney disease) stage 4, 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) (Primary Dx); Anemia in chronic kidney disease, unspecified CKD stage 01/08/2025 Travel 01/04/2025 9:00 AM CDT Lab [facility] [address] [phone] Hilton Lynn MD Nurse, Marcella Chapman Multiple myeloma not having achieved remission (HCC) (Primary Dx); CKD (chronic kidney disease) stage 4, 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); Iron deficiency anemia, unspecified iron deficiency anemia type; Anemia due to stage 3 chronic kidney disease, unspecified whether stage 3a or 3b CKD (HCC) 01/04/2025 Travel 01/01/2025 9:00 AM CDT Office Visit [facility] [address] [phone] Hilton Lynn MD CKD (chronic kidney disease) stage 4, 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) (Primary Dx); Iron deficiency anemia, unspecified iron deficiency anemia type; Anemia due to stage 3 chronic kidney disease, unspecified whether stage 3a or 3b CKD (HCC) 01/01/2025 8:45 AM CDT Clinical Support [facility] [address] [phone] Multiple myeloma not having achieved remission (HCC) (Primary Dx); Left upper lobe pulmonary nodule; Iron deficiency anemia, unspecified iron deficiency anemia type 01/01/2025 Telephone [facility] [address] [phone] Hilton Lynn MD from Last 3 Months Immunizations Immunization Administration Dates Next Due COVID-19, MRNA, LNP-S, BIVAL ENT , PFIZER, 30 MCG/0.3 ML (12+ Y/O) 08/10/2022 Covid-19, Mrna, Lnp-s, Pf, 3 0 Mcg/0.3 Ml Dose (Pfizer) 11/08/2020,10/17/2020 IMM GLOB HUMAN IV 02/26/2025,01/24/2025 Influenza Vaccine, Quadrivalent, PF 06/14,07/06/2018,06/30/2017,06/25,05/29/2015 Influenza Vaccine,unspecifie d Formulation 07/03/2019,07/06/2018,06/30/2017,05/18,05/29/2015,07/23/2014 Influenza, High-dose, Quadrivalent 07/12,07/14/2022,07/10/2021,06/20 Influenza, Seasonal, Injecta ble, Undefined 05/18/2016 Influenza,Split Virus,Trivalent,Injectable,PF 08/11/2024 Pneumococcal Vaccine - 13 Valent 03/03/2018 Pneumococcal conjugate PCV20 , polysaccharide [id number] conjugate, adjuvant, PF 07/14/2022 Social History Tobacco Use Types Packs/Day Years Used Date Smoking Tobacco: Former Smokeless Tobacco: Never Tobacco Cessation:Counseling Given: Not Answered Comments:quit about 30 years ago Alcohol Use [...] file Not on file Not on file Last Filed Vital Signs Vital Sign Reading Time Taken Comments Blood Pressure 162/60 02/26/2025 2:19 PM CDT Pulse 76 02/26/2025 2:19 PM CDT Temperature 36.5 C (97.7 F) 02/26/2025 2:19 PM CDT Respiratory Rate 18 02/26/2025 2:19 PM CDT Oxygen Saturation 99% 02/26/2025 2:19 PM CDT Inhaled Oxygen Concentration - - Weight 58.6 kg (129 lb 3.2 oz) 02/26/2025 10:13 AM CDT Height 157.5 cm (5' 2) 02/26/2025 10:13 AM CDT Body Mass Index 23.63 02/26/2025 10:13 AM CDT Plan of Treatment Health Maintenance Due Date Last Done Comments DEXA Bone Density 1937 Diabetes: Eye Exam 1937 Diabetes: Foot Exam 1937 Hepatitis C Virus (HCV) Screening 1935 TdaP Immunization 1937 Zoster Immunization (1 of 2) 1956 Respiratory Syncytial Virus (RSV) Immunization (Adult) (1 - 1-dose 75+ series) 2012 SARS-COV-2 Immunization ( season) 2024 08/10/2022, 06/12/2021, 11/08/2020, Additional history exists Diabetes: Hemoglobin A1c 07/07/2024 024, 04/06/2023, 01/04/2023, Additional history exists Influenza Immunization (#1) 05/14/202507/15, 07/12/2023, 07/14/2022, Additional history exists Diabetes: Nephropathy Screening 02/26/2026 02/26/2025, 02/19/2025, 02/12/2025, Additional history exists Pneumococcal Immunization (50+ years) Completed 07/14/2022, 03/03/2018 Hepatitis B Immunization Aged Out No longer eligible based on patient's age to complete this topic Human Papillomavirus (HPV) Immunization Aged Out No longer eligible based on patient's age to complete this topic Meningococcal Immunization (ACWY) Aged Out No longer eligible based on patient's age to complete this topic Rotavirus Immunization Aged Out No lo nger eligible based on patient's age to complete this topic Procedures Procedure Name Priority Date/Time Associated Diagnosis Comments SERUM FREE LIGHT [place]AINS, [place] Routine 02/26/2025 9:57 AM CDT Multiple myeloma not having achieved remission (HCC) Hypogammaglobulinemia (HCC) COMPLETE BLOOD COUNT (CBC) WITH DIFF Routine 02/26/2025 9:57 AM CDT Anemia in chronic kidney disease, unspecified CKD stage Anemia due to stage 3 chronic kidney disease, unspecified whether stage 3a or 3b CKD (HCC) CKD (chronic kidney disease) stage 4, 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) Multiple myeloma not having achieved remission (HCC) Hypogammaglobulinemia (HCC) CMP (COMPREHENSIVE METABOLIC PANEL) Routine 02/26/2025 9:57 AM CDT Anemia in chronic kidney disease, unspecified CKD stage Anemia due to stage 3 chronic kidney disease, unspecified whether stage 3a or 3b CKD (HCC) CKD (chronic kidney disease) stage 4, 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) Multiple myeloma not having achieved remission (HCC) Hypogammaglobulinemia (HCC) LACTATE DEHYDROGENASE (LD) Routine 02/26/2025 9:57 AM CDT Anemia in chronic kidney disease, unspecified CKD stage Anemia due to stage 3 chronic kidney disease, unspecified whether stage 3a or 3b CKD (HCC) CKD (chronic kidney disease) stage 4, 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) Multiple myeloma not having achieved remission (HCC) Hypogammaglobulinemia (HCC) ELECTROPHORESIS W/ TOTAL PROTEIN SERUM Routine 02/26/2025 9:57 AM CDT Anemia in chronic kidney disease, unspecified CKD stage Anemia due to stage 3 chronic kidney disease, unspecified whether stage 3a or 3b CKD (HCC) CKD (chronic kidney disease) stage 4, 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) Multiple myeloma not having achieved remission (HCC) Hypogammaglobulinemia (HCC) IMMUNOFIXATION, SERUM [place] Routine 02/26/2025 9:57 AM CDT Anemia in chronic kidney disease, unspecified CKD stage Anemia due to stage 3 chronic kidney disease, unspecified whether stage 3a or 3b CKD (HCC) CKD (chronic kidney disease) stage 4, 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) Multiple myeloma not having achieved remission (HCC) Hypogammaglobulinemia (HCC) IMMUNOGLOBULIN IGA, IGG & IGM QUANT Routine 02/26/2025 9:57 AM CDT Anemia in chronic kidney disease, unspecified CKD stage Anemia due to stage 3 chronic kidney disease, unspecified whether stage 3a or 3b CKD (HCC) CKD (chronic kidney disease) stage 4, 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) Multiple myeloma not having achieved remission (HCC) Hypogammaglobulinemia (HCC) COMPLETE BLOOD COUNT (CBC) WITH DIFF Routine 02/19/2025 10:00 AM CDT Multiple myeloma not having achieved remission (HCC) CMP (COMPREHENSIVE METABOLIC PANEL) Routine 02/19/2025 10:00 AM CDT Multiple myeloma not having achieved remission (HCC) SERUM FREE LIGHT CHAINS, [place] Routine 02/12/2025 10:22 AM CDT COMPLETE BLOOD COUNT (CBC) WITH DIFF Routine 02/12/2025 10:22 AM CDT CKD (chronic kidney disease) stage 4, 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, unspecified CKD stage CMP (COMPREHENSIVE METABOLIC PANEL) Routine 02/12/2025 10:22 AM CDT CKD (chronic kidney disease) stage 4, 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, unspecified CKD stage LACTATE DEHYDROGENASE (LD) Routine 02/12/2025 10:22 AM CDT CKD (chronic kidney disease) stage 4, 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, unspecified CKD stage ELECTROPHORESIS W/ TOTAL PROTEIN SERUM Routine 02/12/2025 10:22 AM CDT CKD (chronic kidney disease) stage 4, 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, unspecified CKD stage IMMUNOFIXATION, SERUM [place] Routine 02/12/2025 10:22 AM CDT CKD (chronic kidney disease) stage 4, 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, unspecified CKD stage IMMUNOGLOBULIN IGA, IGG & IGM QUANT Routine 02/12/2025 10:22 AM CDT CKD (chronic kidney disease) stage 4, 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, unspecified CKD stage SERUM FREE LIGHT [place]AINS, [place] Routine 01/29/2025 10:31 AM CDT IMMUNOGLOBULIN IGA, IGG & IGM QUANT Routine 01/29/2025 10:31 AM CDT Left upper lobe pulmonary nodule Secondary hyperparathyroidism (HCC) CKD (chronic kidney disease) stage 4, 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) Iron deficiency anemia, unspecified iron deficiency anemia type IMMUNOFIXATION, SERUM [place] Routine 01/29/2025 10:31 AM CDT Left upper lobe pulmonary nodule Secondary hyperparathyroidism (HCC) CKD (chronic kidney disease) stage 4, 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) Iron deficiency anemia, unspecified iron deficiency anemia type ELECTROPHORESIS W/ TOTAL PROTEIN SERUM Routine 01/29/2025 10:31 AM CDT Left upper lobe pulmonary nodule Secondary hyperparathyroidism (HCC) CKD (chronic kidney disease) stage 4, 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) Iron deficiency anemia, unspecified iron deficiency anemia type LACTATE DEHYDROGENASE (LD) Routine 01/29/2025 10:31 AM CDT Left upper lobe pulmonary nodule Secondary hyperparathyroidism (HCC) CKD (chronic kidney disease) stage 4, 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) Iron deficiency anemia, unspecified iron deficiency anemia type CMP (COMPREHENSIVE METABOLIC PANEL) Routine 01/29/2025 10:31 AM CDT Left upper lobe pulmonary nodule Secondary hyperparathyroidism (HCC) CKD (chronic kidney disease) stage 4, 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) Iron deficiency anemia, unspecified iron deficiency anemia type COMPLETE BLOOD COUNT (CBC) WITH DIFF Routine 01/29/2025 10:31 AM CDT Left upper lobe pulmonary nodule Secondary hyperparathyroidism (HCC) CKD (chronic kidney disease) stage 4, 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) Iron deficiency anemia, unspecified iron deficiency anemia type SERUM FREE LIGHT [place]AINS, [place] Routine 01/22/2025 10:23 AM CDT CBC WITH AUTO DIFF OH Routine 01/22/2025 10:23 AM CDT IMMUNOGLOBULIN IGA, IGG & IGM QUANT Routine 01/22/2025 10:23 AM CDT Chronic kidney disease, stage V (HCC) Monoclonal gammopathy of unknown significance Multiple myeloma not having achieved remission (HCC) IMMUNOFIXATION, SERUM [place] Routine 01/22/2025 10:23 AM CDT Chronic kidney disease, stage V (HCC) Monoclonal gammopathy of unknown significance Multiple myeloma not having achieved remission (HCC) ELECTROPHORESIS W/ TOTAL PROTEIN SERUM Routine 01/22/2025 10:23 AM CDT Chronic kidney disease, stage V (HCC) Monoclonal gammopathy of unknown significance Multiple myeloma not having achieved remission (HCC) LACTATE DEHYDROGENASE (LD) Routine 01/22/2025 10:23 AM CDT Chronic kidney disease, stage V (HCC) Monoclonal gammopathy of unknown significance Multiple myeloma not having achieved remission (HCC) CMP (COMPREHENSIVE METABOLIC PANEL) Routine 01/22/2025 10:23 AM CDT Chronic kidney disease, stage V (HCC) Monoclonal gammopathy of unknown significance Multiple myeloma not having achieved remission (HCC) SERUM FREE LIGHT [place]AINS, [place] Routine 01/15/2025 10:01 AM CDT CKD (chronic kidney disease) stage 4, 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, unspecified CKD stage COMPLETE BLOOD COUNT (CBC) WITH DIFF Routine 01/15/2025 10:01 AM CDT CKD (chronic kidney disease) stage 4, 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, unspecified CKD stage CMP (COMPREHENSIVE METABOLIC PANEL) Routine 01/15/2025 10:01 AM CDT CKD (chronic kidney disease) stage 4, 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, unspecified CKD stage LACTATE DEHYDROGENASE (LD) Routine 01/15/2025 10:01 AM CDT CKD (chronic kidney disease) stage 4, 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, unspecified CKD stage ELECTROPHORESIS W/ TOTAL PROTEIN SERUM Routine 01/15/2025 10:01 AM CDT CKD (chronic kidney disease) stage 4, 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, unspecified CKD stage IMMUNOFIXATION, SERUM [place] Routine 01/15/2025 10:01 AM CDT CKD (chronic kidney disease) stage 4, 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, unspecified CKD stage IMMUNOGLOBULIN IGA, IGG & IGM QUANT Routine 01/15/2025 10:01 AM CDT CKD (chronic kidney disease) stage 4, 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, unspecified CKD stage SERUM FREE LIGHT CHAINS, [place] Routine 01/08/2025 10:50 AM CDT IMMUNOGLOBULIN IGA, IGG & IGM QUANT Routine 01/08/2025 10:50 AM CDT CKD (chronic kidney disease) stage 4, 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, unspecified CKD stage IMMUNOFIXATION, SERUM [place] Routine 01/08/2025 10:50 AM CDT CKD (chronic kidney disease) stage 4, 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, unspecified CKD stage ELECTROPHORESIS W/ TOTAL PROTEIN SERUM Routine 01/08/2025 10:50 AM CDT CKD (chronic kidney disease) stage 4, 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, unspecified CKD stage LACTATE DEHYDROGENASE (LD) Routine 01/08/2025 10:50 AM CDT CKD (chronic kidney disease) stage 4, 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, unspecified CKD stage CMP (COMPREHENSIVE METABOLIC PANEL) Routine 01/08/2025 10:50 AM CDT CKD (chronic kidney disease) stage 4, 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, unspecified CKD stage COMPLETE BLOOD COUNT (CBC) WITH DIFF Routine 01/08/2025 10:50 AM CDT CKD (chronic kidney disease) stage 4, 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, unspecified CKD stage SERUM FREE LIGHT CHAINS, [place] Routine 01/04/2025 9:23 AM CDT COMPLETE BLOOD COUNT (CBC) WITH DIFF Routine 01/04/2025 9:23 AM CDT CKD (chronic kidney disease) stage 4, 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) Iron deficiency anemia, unspecified iron deficiency anemia type Anemia due to stage 3 chronic kidney disease, unspecified whether stage 3a or 3b CKD (HCC) CMP (COMPREHENSIVE METABOLIC PANEL) Routine 01/04/2025 9:23 AM CDT CKD (chronic kidney disease) stage 4, 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) Iron deficiency anemia, unspecified iron deficiency anemia type Anemia due to stage 3 chronic kidney disease, unspecified whether stage 3a or 3b CKD (HCC) LACTATE DEHYDROGENASE (LD) Routine 01/04/2025 9:23 AM CDT CKD (chronic kidney disease) stage 4, 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) Iron deficiency anemia, unspecified iron deficiency anemia type Anemia due to stage 3 chronic kidney disease, unspecified whether stage 3a or 3b CKD (HCC) ELECTROPHORESIS W/ TOTAL PROTEIN SERUM Routine 01/04/2025 9:23 AM CDT CKD (chronic kidney disease) stage 4, 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) Iron deficiency anemia, unspecified iron deficiency anemia type Anemia due to stage 3 chronic kidney disease, unspecified whether stage 3a or 3b CKD (HCC) IMMUNOFIXATION, SERUM OH Routine 01/04/2025 9:23 AM CDT CKD (chronic kidney disease) stage 4, 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) Iron deficiency anemia, unspecified iron deficiency anemia type Anemia due to stage 3 chronic kidney disease, unspecified whether stage 3a or 3b CKD (HCC) IMMUNOGLOBULIN IGA, IGG & IGM QUANT Routine 01/04/2025 9:23 AM CDT CKD (chronic kidney disease) stage 4, 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) Iron deficiency anemia, unspecified iron deficiency anemia type Anemia due to stage 3 chronic kidney disease, unspecified whether stage 3a or 3b CKD (HCC) SERUM FREE LIGHT CHAINS, [place] Routine 01/01/2025 8:49 AM CDT COMPLETE BLOOD COUNT (CBC) WITH DIFF Routine 01/01/2025 8:49 AM CDT Left upper lobe pulmonary nodule Iron deficiency anemia, unspecified iron deficiency anemia type CMP (COMPREHENSIVE METABOLIC PANEL) Routine 01/01/2025 8:49 AM CDT Left upper lobe pulmonary nodule Iron deficiency anemia, unspecified iron deficiency anemia type LACTATE DEHYDROGENASE (LD) Routine 01/01/2025 8:49 AM CDT Left upper lobe pulmonary nodule Iron deficiency anemia, unspecified iron deficiency anemia type ELECTROPHORESIS W/ TOTAL PROTEIN SERUM Routine 01/01/2025 8:49 AM CDT Left upper lobe pulmonary nodule Iron deficiency anemia, unspecified iron deficiency anemia type IMMUNOFIXATION, SERUM OH Routine 01/01/2025 8:49 AM CDT Left upper lobe pulmonary nodule Iron deficiency anemia, unspecified iron deficiency anemia type IMMUNOGLOBULIN IGA, IGG & IGM QUANT Routine 01/01/2025 8:49 AM CDT Left upper lobe pulmonary nodule Iron deficiency anemia, unspecified iron deficiency anemia type from Last 3 Months Results * (ABNORMAL) SERUM FREE [place]IGHT [place]AINS, [place] (02/26/2025 9:57 AM CDT) Only the most recent of8 resultswithin the time period is included. FREE KAPPA LT CHAINS <2.9 2.9 - 20.7 mg/L [facility] FREE LAMBDA LT CHAINS 295.4(H) 4.2 - 27.6 mg/L [facility] KAPPA/LAMBDA RATIO <0.01(L) 0.22 - 1.74 [facility] 02/26/2025 9:57 AM CDT Hilton Lynn MD LAB SEND OUTS Final Resul t [facility] [place] [address], [place] [phone] * (ABNORMAL) IMMUNOFIXATION, SERUM [place] (02/26/2025 9:57 AM CDT) Only the most recent of8 resultswithin the time period is included. IMMUNOFIXATION RESULT, SERUM COMMENT(A ) [facility] Comment: IMMUNOFIXATION REVEALS THE PRESENCE OF MONOCLONAL FREE LAMBDA LIGHT CHAIN. SUGGEST SERUM FLC QUANTITATION AND/OR URINE IMMUNOFIXATION. 02/26/2025 9:57 AM CDT [facility] - 03/01/2025 3:09 PM CDT TESTING PERFORMED AT: [] [facility], [address] [place] [address], [address], PHONE: [phone], PUBLIC HEALTH AIDE: FERDINAND BANERJEE, PHD Release to patient->Immediate us Hilton Lynn MD LAB SEND OUTS Final Resul t Performing Organization Address City/[facility] [place] Co de Phone Number [facility] [address] [address], [place] [phone] * LACTATE DEHYDROGENASE (LD) (02/26/2025 9:57 AM CDT) Only the most recent of8 resultswithin the time period is included. LDH 227 140 - 271 U/L [facility] Blood 02/26/2025 9:57 AM CDT [facility] - 02/26/2025 10:58 AM CDT Release to patient->Immediate us Hilton Lynn MD CHEMISTRY ORDERABLES Final Result Performing Organization Address [facility] de Phone Number [facility] [address] [address], [place] [phone] * (ABNORMAL) IMMUNOGLOBULIN IGA, IGG & IGM QUANT (02/26/2025 9:57 AM CDT) Only the most recent of8 resultswithin the time period is included. IGG 360(L) 635 - 1,741 mg/dL [facility] IGA <10(L) 66 - 433 mg/dL [facility] IGM <20(L) 45 - 281 mg/dL [facility] Blood 02/26/2025 9:57 AM CDT [facility] - 02/26/2025 4:15 PM CDT Release to patient->Immediate Hilton Lynn MD CHEMISTRY ORDERABLES Final Result [facility] [place] [address], [place] [phone] * (ABNORMAL) ELECTROPHORESIS W/ TOTAL PROTEIN SERUM (02/26/2025 9:57 AM CDT) Only the most recent of8 resultswithin the time period is included. PROTEIN, TOTAL, SERUM 5.2(L) 6.0 - 8.5 G/DL [facility] ALBUMIN 3.1 2.9 - 4.4 G/DL [facility] [id number] 0.2 0.0 - 0.4 G/DL [facility] [id number] 0.7 0.4 - 1.0 G/DL [facility] BETA GLOBULIN 0.8 0.7 - 1.3 G/DL [facility] GAMMA GLOBULIN 0.3(L) 0.4 - 1.8 G/DL [facility] M-SPIKE NOT OBSERVED NOT OBSERVED G/DL [facility] GLOBULIN, TOTAL 2.1(L) 2.2 - 3.9 G/DL [facility] A/G RATIO 1.5 0.7 - 1.7 [facility] PLEASE NOTE: COMMENT [facility] Comment: PROTEIN ELECTROPHORESIS SCAN WILL FOLLOW VIA COMPUTER, MAIL, OR CHOIRMASTER DELIVERY. PDF . [facility] Blood 02/26/2025 9:57 AM CDT Narrative [facility] - 02/27/2025 3:09 PM CDT TESTING PERFORMED AT: [] [facility], [address], PHONE: [phone], PUBLIC HEALTH AIDE: FERDINAND BANERJEE, PHD Release to patient->Immediate Hilton Lynn MD CHEMISTRY ORDERABLES Final Result Performing Organization Address City/[facility]/ZIP Co de Phone Number [facility] [place] [address], * (ABNORMAL) CMP (COMPREHENSIVE METABOLIC PANEL) (02/26/2025 9:57 AM CDT) Only the most recent of9 resultswithin the time period is included. Glucose 135(H) 70 - 105 mg/dL [facility] Blood Urea Nitrogen 46(H) 7 - 25 mg/dL [facility] Creatinine 3.1(H) 0.6 - 1.2 mg/dL [facility] Sodium 137 136 - 145 mEq/L [facility] Potassium 4.8 3.5 - 5.1 mEq/L [facility] Chloride 105 98 - 107 mEq/L [facility] Bicarbonate 25 21 - 31 mEq/L [facility] Total Bilirubin 0.4 0.3 - 1.0 mg/dL [facility] Alk. Phosphatase 70 34 - 104 U/L [facility] Aspartate Aminotransferase 22 13 - 39 U/L [facility] Alanine Aminotransferase 12 7 - 52 U/L [facility] Total Protein 5.7(L) 6.4 - 8.9 g/dL [facility] Albumin 3.7 3.5 - 5.7 g/dL [facility] Calcium 9.1 8.6 - 10.3 mg/dL [facility] Anion Gap 11.8 7.0 - 15.0 mEq/L [facility] Globulin 2.0 2.0 - 3.5 g/dL [facility] EGFR 14(L) >60 ml/min/1. 73m2 [facility] Comment: This eGFR is calculated using 2020 CKD-EPI Creatinine equation without race modifier based on the NKF-ASN task force recommendations Equation: dAIU=415*min(SCr/k,1)a*max(SCr/k,1)-1.200*0.9938Age*1.012 (if female), where SCr is serum creatinine, k is 0.7 for females and 0.9 for males, and a is -0.241 for females and -0.302 for males Blood 02/26/2025 9:57 AM CDT Narrative [facility] - 02/26/2025 10:58 AM CDT Release to patient->Immediate IS THE PATIENT REQUIRED TO BE FASTING FOR 8 HOURS?->No us Hilton Lynn MD CHEMISTRY ORDERABLES Final Result [facility] [place] [address], [place] [phone] * (ABNORMAL) COMPLETE BLOOD COUNT (CBC) WITH DIFF (02/26/2025 9:57 AM CDT) Only the most recent of8 resultswithin the time period is included. WBC 2.8(L) 4.0 - 10.0 10*3/uL [facility] HGB 8.6(L) 11.2 - 15.7 g/dL [facility] HCT 27.4(L) 34.1 - 44.9 % [facility] PLT 123(L) 163 - 369 10*3/uL [facility] MPV 8.0(L) 9.4 - 12.4 fL [facility] RBC 2.80(L) 3.93 - 5.22 10*6/uL [facility] MCV 98(H) 79 - 95 fL [facility] MCH 30.7 25.6 - 32.2 pg [facility] MCHC 31.4(L) 32.2 - 36.5 g/dL [facility] RDW 14.9(H) 11.6 - 14.4 % [facility] Absolute Neutrophil Count 1,698 cells/uL [facility] ER [facility] Absolute Seg Count 1,670 1,440 - 6,600 cells/uL [facility] Absolute Band Count 28 0 - 800 cells/uL [facility] Absolute Lymph Count 566(L) 760 - 4,000 cells/uL [facility] Absolute Kimball Count 368 160 - 1,200 cells/uL [facility] Absolute Eos Count 85 0 - 300 cells/uL [facility] Absolute Baso Count 28 0 - 100 cells/uL [facility] Segmented Neutrophils 59 36 - 66 % [facility] Band Neutrophils 1 0 - 8 % [facility] Lymphocytes 20 19 - 40 % [facility] Monocytes 13(H) 4 - 12 % [facility] Eosinophils 3 0 - 3 % [facility] Basophils 1 0 - 1 % [facility] Metamyelocytes 1 0 - 2 % [facility] R [facility] Myelocytes 2 0 - 2 % [facility] WBC Estimate Low [facility] Platelet Estimate Low CA NCER [facility] RBC Morphology Abnormal [facility] Macrocytosis 1+ [facility] Blood 02/26/2025 9:57 AM CDT Narrative [facility] - 02/26/2025 11:29 AM CDT Release to patient->Immediate us Hilton Lynn MD HEMATOLOGY ORDERABLES Final Result [facility] [place] [address], * (ABNORMAL) CBC WITH AUTO DIFF [place] (01/22/2025 10:23 AM CDT) WBC 3.9(L) 4.0 - 10.0 10*3/uL [facility] HGB 8.2(L) 11.2 - 15.7 g/dL [facility] HCT 26.9(L) 34.1 - 44.9 % [facility] PLT 182 163 - 369 10*3/uL [facility] MPV 8.2(L) 9.4 - 12.4 fL [facility] RBC 2.77(L) 3.93 - 5.22 10*6/uL [facility] MCV 97(H) 79 - 95 fL [facility] MCH 29.6 25.6 - 32.2 pg [facility] MCHC 30.5(L) 32.2 - 36.5 g/dL [facility] RDW 18.6(H) 11.6 - 14.4 % [facility] Neutrophils % 52.6 36.0 - 66.0 % [facility] Lymphocytes % 24.7 19.0 - 40.0 % [facility] Monocytes % 18.6(H) 4.1 - 12.1 % [facility] Eosinophils % 3.1 0.0 - 3.5 % [facility] Basophils % 0.5 0.0 - 1.0 % [facility] Absolute Neutrophils 2.0 1.4 - 6.6 10*3/uL [facility] Absolute Lymphocytes 1.0 0.8 - 4.0 10*3/uL [facility] Absolute Monocytes 0.7 0.2 - 1.2 10*3/uL [facility] Absolute Eosinophils 0.1 0.0 - 0.4 10*3/uL [facility] Absolute Basophils 0.0 0.0 - 0.1 10*3/uL [facility] 01/22/2025 10:2 3 AM CDT Hilton Lynn MD LAB SEND OUTS Final Resul t [facility] [place] [address], from Last 3 Months Insurance MEDICARE [facility] room service attendant Care Teams Industrial Relations Counselor Relationship Specialty Start Date End Date Judd Chopra MD [address] [place] [address] PCP - General Family Medicine 03/11/21 Hilton Lynn MD [address] [place] [address] Consulting Physician Oncology 03/11/21 Jay Aguayo MD [address] [place] [address] Consulting Physician Radiation Oncology 04/25/21 Blaire Guidry, RN [place] Oncology Nurse Navigator Oncology 04/25/21 Clementine Ackerman RN [place] Oncology Nurse Navigator Oncology 12/05/24
--- OUTSIDE RECORDS SUMMARY | 2025-03-31 23:05 | XMS_ITS ---
Author Organization [facility] Address [address] [place] [address] Phone Care Team Providers Care Mh Teacher Name Role Phone Judd Chopra MD Primary Care Provider [phone] Hilton Lynn MD Unavailable Jay Aguayo MD Unavailable Blaire Guidry RN Unavailable Unavailable Clementine Ackerman RN Unavailable Unavailable Active Problems Patient Care Coordination No te Formatting of this note migh t be different from the original. PCM CONSENT DATE: 11/24/24 CONSENT PRESENT AND CURRENT IN CHART OF: 12/05/2024 CARE PLAN LAST UPDATED: 02/12/2025 CARE PLAN LAST DELIVERED: 12/07/2024 For additional billing time breakdown, see [facility] auditing report. PCM DROPS: TOTAL PCM TIME: 68 MINUTES PCM DROP: [...] (04/10/2022): Added automatically from request for surgery [id number] History of gastric ulcer 08/21/2021 Overview (04/10/2022): Added automatically from request for surgery [id number] Weight loss 08/21/2021 Overview (04/10/2022): Added automatically from request for surgery [id number] Hyponatremia 06/19/2021 Multiple myeloma not having achieved [...] Gout 02/11/2009 Overview (04/10/2022): Overview: Gout Gout Current Treatment and Therapy Plans [facility]: Elranatamab - Multiple Myeloma* Plan Start Date:11/19/2024 Plan Provider:Hilton Lynn MD Linked Problems Multiple myeloma not having achieved remission (HCC) Treatment Medications Current Day (Day 8 , Cycle 4 - Planned for 03/05/2025) Next Day (Day 15, Cycle 4 - Planned for 03/12/2025) No medications scheduled. No medications schedul ed. No medications scheduled. SUPPORT - HYDRATION WITHOUT ADDITIVES - [facility]* Plan Start Date:11/24/2024 Plan Provider:Hilton Lynn MD Linked Problems Iron deficiency anemia, unsp ecified iron deficiency anemia typeMultiple myeloma not having achieved remission (HCC) Treatment Medications No medications scheduled. Other Current Plans [facility]: Gammagard - Supportive* Plan Start Date:01/24/2025 Plan Provider:Hilton Lynn MD Linked Problems Hypogammaglobulinemia (HCC) Treatment Medications Current Day (Day 1 , Cycle 3 - Planned for 03/26/2025) Next Day (Day 1, Cycle 4 - Planned for 04/23/2025) No medications scheduled. No medications schedul ed. No medications scheduled. SUPPORT - PEDRO Q MONTH X 3 DOSES (retaCRIT) - [facility]* Plan Start Date:03/23/2022 Plan Provider:Hilton Lynn MD Linked Problems Anemia in chronic kidney dis ease, unspecified CKD stageCKD (chronic kidney disease) stage 4, GFR 15-29 ml/min ([facility]) Treatment Medications No medications scheduled. Past Treatment and Therapy Plans ONCOLOGY SUPPORTIVE CARE Plan Name Start Date Discontinue Date Treatment Medications Discontinue Reason Plan Provider Cycles [facility]: Support Injectafer 09/15/2023 11/24/2024 No medications scheduled. Plan Clean Up Hilton Lynn MD 2 of 2 cycles started SUPPORT - HYDRATION WITHOUT ADDITIVES - [facility] 08/11/20 21 09/01/2023 No medications scheduled. Plan Clean Up Hilton Lynn MD 6 of 6 cycles started ONCOLOGY TERTIARY SUPPORTIVE PLAN Plan Name Start Date Discontinue Date Treatment Medications Discontinue Reason Plan Provider Cycles SUPPORT - DENOSUMAB (X-GEVA) - [facility] 2 11/24/2024 No medications scheduled. Patient Admitted Hilton Lynn MD 4 of 4 cycles started ONCOLOGY TREATMENT Plan Name Start Date Discontinue Date Treatment Medications Discontinue Reason Plan Provider Cycles [facility]: Carfilzomib/Cy clophosphamide (from infusion)/Dexa methasone - Multiple Myeloma 024 11/13/2024 carfilzomib (KYPROLIS) infusioncyclophosphamide (CYTOXAN) Therapy Complete Hilton Romo MD 14 (15 of 16 cycles) started MYELOMA - ELOTUZUMAB (EMPLICITI) / LENALIDOMIDE / DEXAMETHASONE (IV/Oral) - [facility] 023 10/28/2023 elotuzumab (EMPLICITI) infusionlenalidomide (REVLIMID) Caps Therapy Complete Hilton Romo MD 4 (5 of 8 cycles) started Multiple Myeloma - Pomalidomide/D examethasone/D aratumumab - [facility] 023 06/02/2023 daratumumab-hyaluronidas e-fihj (DARZALEX FASPRO) [id number] MG-UT/15ML Solnpomalidomide (POMALYST) Progression Hilton Romo MD 8 of 9 cycles started MULTIPLE MYELOMA - VELCADE/DEXAME THASONE/REVLIM ID - [facility] 04/21/20 21 10/15/2022 bortezomib (VELCADE) injectionlenalidomide (REVLIMID) Therapy Complete Hilton Romo MD 2 (3 of 6 cycles) started Lifetime Dose Tracking * Chemical Lifetime Dose Automatic Entry Manual Entr y Cyclophosphamide 2,294.354 mg/m2 (3,850 mg) 2,294.354 mg/m2 (3,850 mg) 0 mg/m2 (0 mg)
[2025-03-31] MEDS: cefTRIAXone 1 GM in SODIUM CHLORIDE 0.9% IV 50 ML 100 ML IVPB (23:09)
[2025-03-31] MEDS: SODIUM CHLORIDE 0.9% IV 1,000 ML 999 ML IV CONT (23:10)
[2025-04-01] VITALS (14 sets, daily range): BP systolic 128–152; BP diastolic 46–63; PULSE 68–96; RESP 14–18; TEMP 36.4–37.5; O2SAT 97–100; BMI 22.6
[2025-04-01] MEDS: SODIUM CHLORIDE 0.9% IV 700 ML 999 ML IV CONT (00:13)
[2025-04-01] MEDS: CEFEPIME 2 GM in SODIUM CHLORIDE 0.9% IV 50 ML 100 ML IVPB (00:16)
--- NOTE | 2025-04-01 00:26 | PC.NURSE ---
[facility] provided with plan of care update.
[2025-04-01] MEDS: VANCOMYCIN 750 MG/NS 250 ML 750 MG/250 ML BAG 250 MG IVPB (01:15)
[2025-04-01] MEDS: LACTATED RINGERS 1,000 ML 100 ML IV CONT (02:56)
--- NOTE | 2025-04-01 03:39 | WNDPHOTO ---
PHOTO ONLY - See Nursing Notes and/ or assessments for documentation.
--- NOTE | 2025-04-01 03:40 | P.HP_ITS ---
H&P: HPI History of Present Illness Date/Time: 04/01/25 03:40 Chief Complaint: Sent from alf for altered mental status Narrative: 89-year-old female with a past medical history of COPD, chronic kidney disease stage 4 essential hypertension, multiple myeloma, C diff colitis and GERD who presented to the ER from [facility] via EMS due to altered mental status, decreased appetite, hallucinations in changes in her urine. Per EMS report patient is usually alert orient x4 at baseline and on arrival to the ER she was reportedly orient x3. She was febrile at the alf and on arrival to the ER was still febrile with T-max of 101.3? and lethargic. 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 In the ER the patient received an initial dose of Rocephin for probable UTI but then antibiotics were switched to cefepime and vancomycin when CT results demonstrated sacral osteomyelitis. Patient did receive 30 mL/kilos fluid bolus but did not meet sepsis criteria. At the time of my evaluation the patient was alert oriented to self and she thought that she was at [facility]. She thought the month was July and that the year was 1916. She stated that she hope the president was not Trump but she was unsure who was actually president. She reports that she is tired and does not want to be moved around anymore but has no acute complaints. In the ER the patient had a Staley catheter that had been changed according to alf documentation on the . It looks like the patient has a longstanding Staley catheter due to her decubitus ulcer. Her decubitus ulcer on her sacrum had previously been stage II according to alf documentation. 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 According to alf documentation the patient was just discharged from [facility] March 14 but the reason for hospitalization was not specified. Patient has a history of C diff colitis listed on her alf paperwork but no mention of recent diarrhea. Patient has never been evaluated at our hospital previously less all information comes from alf records and ER physician report. Review of Systems 2 Review of Systems: Review of systems unreliable due to patient's confusion. [facility] Past Medical History Medical History (Updated 04/01/25 @ 05:09 by Trixie Paredes DO) Decubitus ulcer of sacral region, stage 2 Vitamin D deficiency Gout Glaucoma CKD (chronic kidney disease) stage 4, GFR 15-29 ml/min C. difficile colitis GERD (gastroesophageal reflux disease) Multiple myeloma Essential hypertension Chronic indwelling Staley catheter Surgical History Surgical History (Updated 04/01/25 @ 05:11 by Trixie Paredes DO) History of insertion of tunneled central venous catheter (CVC) with port Right upper chest Surgical history unknown Family History Family History (Updated 04/01/25 @ 02:26 by Trixie Paredes DO) Other Unknown family medical history Social History Social History (Updated 04/01/25 @ 04:49 by Trixie Paredes DO) Social History: Patient is residing at [facility]. As far as I can tell from the alf paperwork the patient has 3 daughters. Code status: Full code (per alf paperwork) Healthcare power of clinical implementation specialist: Lien Chahal (daughter) Smoking status: Never smoker Alcohol intake: never Living arrangements: alf Additional living arrangements comments: [facility] Home Medications and Allergies Home Medications ?Medication ?Instructions ?Recorded ?Confirmed ?Type Saccharomyces boulardii 250 mg 250 mg PO DAILY 04/01/25 04/01/25 History capsule (Daily Probiotic (S. boulardii)) acyclovir 200 mg capsule 200 mg PO Q12H 04/01/25 04/01/25 History arginine-vitamin C-vitamin E oral See Rx Instructions PO TID 04/01/25 04/01/25 History 4.5 gram-156 mg/9.2 gram powder pkt (Arginaid) carvedilol 25 mg tablet 25 mg PO Q12H 04/01/25 04/01/25 History cholecalciferol (vitamin D3) 25 25 mcg PO DAILY 04/01/25 04/01/25 History mcg (1,000 unit) capsule (Vitamin D3) coenzyme Q10 100 mg capsule (Co 100 mg PO HS 04/01/25 04/01/25 History Q-10) collagenase clostridium histo. 250 1 applic topical DAILY 04/01/25 04/01/25 History unit/gram topical ointment (Santyl) gabapentin 100 mg capsule 100 mg PO TID 04/01/25 04/01/25 History hydrocodone 5 mg-acetaminophen 325 1 tablet PO .Q4HR PRN pain 04/01/25 04/01/25 History mg tablet polyethylene glycol 3350 17 gram 17 g PO DAILY PRN constipation 04/01/25 04/01/25 History oral powder packet (Miralax) sulfamethoxazole 400 1 tablet PO 3XW 04/01/25 04/01/25 History mg-trimethoprim 80 mg tablet tramadol 50 mg tablet 50 mg PO .Q6HR PRN pain 04/01/25 04/01/25 History Allergies Allergy/AdvReac Type Severity Reaction Status Date / Time FRANCISCO Inhibitors Allergy Unknown Unknown Verified 04/01/25 04:03 amoxicillin Allergy Unknown Unknown Verified 04/01/25 04:03 atorvastatin Allergy Unknown Unknown Verified 04/01/25 04:03 rosuvastatin Allergy Unknown Unknown Verified 04/01/25 04:03 simvastatin Allergy Unknown Unknown Verified 04/01/25 04:03 ANGIOTENSINIIRA Allergy Unknown Uncoded 04/01/25 04:03 Vital Signs Vital Signs - 24 hr 03/31/25 19:12 03/31/25 22:01 Temperature 101.3 F H 100.3 F H Pulse Rate 91 86 Respiratory Rate 15 16 Blood Pressure 143/50 H 156/50 H Pulse Oximetry 97 100 Oxygen Delivery Room Air Exam 2 Narrative: Weight 55.6 kg BMI 22.4 Const: Other: Thin body habitus, frail, elderly, debilitated HENMT: Other: Head is normocephalic atraumatic, mucous membranes are tacky, edentulous in upper jaw, lower jaw has poor dentition but no overt dental caries Eyes: Other: Pupils are equal and reactive, positive conjunctival pallor, no scleral icterus Neck: Other: No JVD, no lymphadenopathy Chest: Other: Port-A-Cath palpable in left upper chest Resp: Other: Decreased breath sounds throughout, no tachypnea or accessory muscle use Cardio: Other: Regular rate, regular rhythm, 2+ bilateral radial and pedal pulses, no murmur GI: Other: Soft, nontender, nondistended, normoactive bowel sounds : Other: Staley catheter in place. Patient's Staley catheter was exchanged in the ER and urine culture was sent from the new catheter Skin: Other: Decubitus ulcer to the sacrum appears to be at least stage III but truly unstageable due to overlying tissue, no surrounding erythema or skin changes to suggest acute cellulitis or abscess, please see nursing documentation for measurements, skin changes to bilateral heels as mentioned below Neuro: Other: Alert and oriented to person and the fact that she is in the hospital she thinks that she is at [facility], she is confused as to the month and year she stated that she hopes that Marilyn was not the president but she did not know who the president was, she has 3/5 agricultural technical officer strength bilaterally, sensation seems to be intact Extrem: Other: Stage I decubitus ulcers bilateral heels skin intact with no evidence of blanching, bunion to the left foot, nonblanching skin lesion to the left lateral malleolus, limited range of motion of bilateral hip flexors, generalized muscle wasting Psych: Other: Pleasantly confused, cooperative H&P: Results Labs Labs: Laboratory Tests 03/31/25 19:41 03/31/25 19:41 03/31/25 03/31/25 04/01/25 19:41 20:43 01:02 WBC 8.9 RBC 2.91 L Hgb 8.5 L Hct 28.2 L MCV 96.9 MCH 29.2 MCHC 30.1 L RDW 14.8 H Plt Count 334 MPV 8.4 Immature Gran % (Auto) 5.3 H Neut % (Auto) 69.6 Lymph % (Auto) 13.4 L [place] % (Auto) 10.3 H Eos % (Auto) 0.9 Baso % (Auto) 0.5 Lymph # (Auto) 1.19 [place] # (Auto) 0.9 H Eos # (Auto) 0.1 Baso # (Auto) 0.0 Abs Immat Gran (auto) 0.47 H Absolute Neuts (auto) 6.2 Absolute Nucleated RBC 0.000 Band Neutrophils % Not Reportable Nucleated RBC % 0.0 Platelet Estimate Adequate Clumped Platelets Present Hypochromasia 1+ Anisocytosis 1+ Ovalocytes 1+ Schistocytes None seen PT 15.3 H INR 1.2 APTT 36.5 Sodium 135 L Potassium 5.0 Chloride 104 Carbon Dioxide 24 Anion Gap 7 BUN 98 H Creatinine 2.99 H Estim Creat Clear Calc 10 Estimated GFR 15 L Glucose 143 H Lactic Acid 0.8 Calcium 9.0 Total Bilirubin 0.2 AST 52 H ALT 24 Alkaline Phosphatase 102 Total Protein 5.7 L Albumin 3.0 L Urine Color Yellow Urine Appearance Turbid H Urine pH 6.0 Ur Specific [place] 1.015 Urine Protein 3+ H Urine Glucose (UA) Negative Urine Ketones Negative Ur Blood (Man) 2+ H Urine Nitrate Negative Urine Bilirubin Negative Urine Urobilinogen 0.2 Add Ur Microanalysis Reviewed Leukocyte Esterase Rfl 3+ H Urine RBC 11-20 H Urine WBC >100 H Ur Squamous Epith Cells Many H Urine Bacteria 4+ H Urine Casts >20 Chest x-ray: Personally reviewed and interpreted radiologic interpretation pending. 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 Per ER physician report stat read interpretation also demonstrated sacral osteomyelitis but again stat read interpretation not available for my review at the time of documentation. Assessment and Plan Assessment and plan (1) Catheter-associated urinary tract infection: Qualifiers: Indwelling urinary catheter type: indwelling urethral catheter E ncounter type: initial encounter Qualified Code(s): T83.511A - Infection and inflammatory reaction due to indwelling urethral catheter, initial encounter; N39.0 - Urinary tract infection, site not specified Code(s): T83.511A - Infection and inflammatory reaction due to indwelling urethral catheter, initial encounter; N39.0 - Urinary tract infection, site not specified Status: Acute (2) Sacral osteomyelitis: Code(s): M46.28 - Osteomyelitis of vertebra, sacral and sacrococcygeal region Status: Acute (3) Decubitus ulcer of sacral region, unstageable: Code(s): L89.150 - Pressure ulcer of sacral region, unstageable Status: Acute (4) CKD (chronic kidney disease) stage 4, GFR 15-29 ml/min: Code(s): N18.4 - Chronic kidney disease, stage 4 (severe) Status: Acute (5) Encephalopathy acute: Code(s): G93.40 - Encephalopathy, unspecified Status: Acute Plan The patient presents with fever and urine with chronic indwelling Staley catheter concerning for UTI. The patient also has CT findings suggestive of possible sacral osteomyelitis but no evidence of superficial skin infection of the sacrum. The patient has been placed on empiric antibiotic therapy with cefepime and vancomycin. Blood cultures have been obtained and are pending. Separate urine culture was sent from new Staley catheter that was obtained after Staley catheter was exchanged in the ER. Patient did receive 30 mL/kilos fluid bolus. Will continue 1 additional L of IV fluids and re-evaluate fluid status and repeat labs with CBC and BMP in a.m.. Patient does have a history of chronic kidney disease stage 4 but baseline creatinine is unknown. The patient is having good urine output in Staley catheter. Will monitor I&O's closely. Will also check phosphorus and magnesium level with a.m. labs. Will consult wound care and continue Santyl cream previously prescribed at alf for sacral ulcer. Will provide frequent position changes to reduce pressure points. Waffle boots are in place. Patient is having symptoms of acute encephalopathy likely due to underlying infection. However she is also on chronic acyclovir due to history of multiple myeloma. Given her renal function will request pharmacy to renally dose acyclovir as toxicity can cause similar symptoms. Quality VTE Prophylaxis VTE prophylaxis: pharmacologic ordered (Heparin 5000 units subQ q.12 hours.) Hospitalist [facility] Advance Care Plan I have confirmed that the patient's Advanced Care Plan is present, code status is documented, or surrogate decision maker is listed in patient medical record.: Yes Medication Reconciliation I have utilized all available resources to obtain, update and review the patients current medications (includes all prescriptions, OTC, herbals, cannabis, and nutritional supplements).: Yes
--- NOTE | 2025-04-01 04:19 | ADMGEN ---
This patient, Esme Shah, was admitted to 3 [facility] Surg Room 302-01. Patient/family oriented to hospital policies and general routines including ID bracelet, bed and alarms, visiting hours, pain management, procedures, bathroom and other care routines, personal items, smoking policy, room service/diet, and visiting hours. Information on how to activate the Rapid Response Team has been discussed. Patient/Family are encouraged to report perceived risks to care and to ask questions if they do not understand what they are told or what they should do.
[2025-04-01 07:06] LABS: Hematocrit 26.6 % (37.0-47.0); Hemoglobin 7.9 g/dL (12.0-15.0); Immature Granulocyte Percent A 14.8 % (0-0.5); Lymphocytes Absolute Auto 0.36 K/mm3 (0.9-3.2); Mean Corpuscular HGB Conc 29.7 g/dl (32-36); Mean Corpuscular Hemoglobin 29.0 pg (26-34); Mean Corpuscular Volume 97.8 fl (80-100); Nucleated Red Blood Cells Absolute Auto 0.000 K/mm3 (0.0-0.012); Nucleated Red Blood Cells Perc 0.0 % (0.0-0.2); Platelet Count Result 292 k/mm3 (150-375); Red Blood Count 2.72 M/mm3 (4.2-5.4); White Blood Count 14.5 K/mm3 (4.5-10.0)
[2025-04-01 07:21] LABS: Anion Gap 6 mmol/L (4-12); Blood Urea Nitrogen 78 mg/dL (7-17); Calcium 8.3 mg/dL (8.4-10.2); Carbon Dioxide 21 mmol/L (22-30); Chloride 110 mmol/L (98-107); Estimated CRCL calculation 11 ml/min; Estimated Glomerular Filt Rate 18; Glucose 109 mg/dL (65-110); Magnesium 2.3 mg/dL (1.6-2.3); Potassium 4.3 mmol/L (3.4-5.0); Sodium 137 mmol/L (137-145)
[2025-04-01 07:35] LABS: Schistocytes None Seen
[2025-04-01 07:36] LABS: Anisocytosis 1+
--- NOTE | 2025-04-01 07:42 | PM.IMPN ---
Progress Note: A&P Assessment and Plan (1) Catheter-associated urinary tract infection: Qualifiers: Encounter type: initial encounter Indwelling urinary catheter type: indwelling urethral catheter Qualified Code(s): T83.511A - Infection and inflammatory reaction due to indwelling urethral catheter, initial encounter; N39.0 - Urinary tract infection, site not specified Code(s): T83.511A - Infection and inflammatory reaction due to indwelling urethral catheter, initial encounter; N39.0 - Urinary tract infection, site not specified Status: Acute Assessment and Plan: UA: 3+ proteins, 2+ blood, 3+ leukocyte esterase, 11-20 urine RBC, >100 WBC, 4+ bacteria UC obtained on 03/31, pending started on cefepime (2) Decubitus ulcer of sacral region, unstageable: Code(s): L89.150 - Pressure ulcer of sacral region, unstageable Status: Chronic Assessment and Plan: Abdomen/pelvis CT: Large sacral decubitus ulcer with 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 Diffuse heterogeneous appearance of the osseous structures with innumerable scattered lucencies, suspicious for myeloma or other metastatic disease versus possibly metabolic bone disease/osteoporotic change. T12 compression deformity, age indeterminate. General surgery consulted No indications of active infection or underlying osteomyelitis No biopsy indicated Continue Santyl dressing regular positional changes Small amount of necrotic tissue will be debrided at bedside No other management indicated at this time (3) CKD (chronic kidney disease) stage 4, GFR 15-29 ml/min: Code(s): N18.4 - Chronic kidney disease, stage 4 (severe) Status: Acute Assessment and Plan: Creatinine: 2.55, GFR: 18, BUN: 78 IV Fluids: NS 100mls/hr Trend renal function Trend electrolytes, correct as needed (4) Encephalopathy acute: Code(s): G93.40 - Encephalopathy, unspecified Status: Acute Assessment and Plan: Head CT: No significant abnormality seen CXR: Clear lungs. Possible heterogeneous lucent lesion in the proximal right humeral shaft with periosteal reaction of the mid right humeral shaft. This suggests an aggressive lesion such as neoplastic disease or possibly osteomyelitis. Correlate clinically. Consider dedicated MR imaging. UA: Clearly indicative of UTI Viral PCR: Pending WBC: 14.5 Likely secondary to underlying catheter associated UTI Ammonia pending (5) Multiple myeloma: Code(s): C90.00 - Multiple myeloma not having achieved remission Status: Acute Assessment and Plan: Chronic Acyclovir use Given renal function, will request pharmacy to renally dose Chest x-ray: Possible heterogeneous lucent lesion in the proximal right humeral shaft with periosteal reaction of the mid right humeral shaft. This suggests an aggressive lesion such as neoplastic disease or possibly osteomyelitis. Correlate clinically. Consider dedicated MR imaging. This finding likely related to underlying multiple myeloma Subjective Date/time seen: 04/01/25 07:42 Interval history: 89-year-old female with a past medical history of COPD, chronic kidney disease stage 4 essential hypertension, multiple myeloma, C diff colitis and GERD who presented to the ER from [facility] via EMS due to altered mental status, decreased appetite, hallucinations in changes in her urine. 04/01/2025 Patient is sleeping comfortably in bed at time of examination. ROS still unable to obtain due to patient's confusion and mentation status at this time. Remains A&O x1 which appears to be a deviation from her baseline. General surgery consulted regarding osteomyelitis/decubitus ulcer of sacral region. Ulcer does not appear to be infected, although does have some necrotic tissue on the right side which can be debrided at bedside. No clinical signs of osteomyelitis, however. Surgery does not recommend a biopsy at this time and would even discontinue antibiotics regarding this ulcer, however we will continue antibiotic coverage for underlying catheter associated UTI. Phosphorus and magnesium within normal limits. Continue Santyl cream and treating for UTI. Blood/urine cultures still pending at this time. Review of Systems Review of Systems: Review of systems unreliable due to patient's confusion. Exam Narrative: Weight 55.6 kg BMI 22.4 Const: Other: Thin body habitus, frail, elderly, debilitated HENMT: Other: Head is normocephalic atraumatic, mucous membranes are tacky, edentulous in upper jaw, lower jaw has poor dentition but no overt dental caries Eyes: Other: Pupils are equal and reactive, positive conjunctival pallor, no scleral icterus Neck: Other: No JVD, no lymphadenopathy Chest: Other: Port-A-Cath palpable in left upper chest Resp: Other: Decreased breath sounds throughout, no tachypnea or accessory muscle use Cardio: Other: Regular rate, regular rhythm, 2+ bilateral radial and pedal pulses, no murmur GI: Other: Soft, nontender, nondistended, normoactive bowel sounds : Other: Staley catheter in place. Patient's Staley catheter was exchanged in the ER and urine culture was sent from the new catheter Skin: Other: Decubitus ulcer to the sacrum appears to be at least stage III but truly unstageable due to overlying tissue, no surrounding erythema or skin changes to suggest acute cellulitis or abscess, please see nursing documentation for measurements, skin changes to bilateral heels as mentioned below Neuro: Other: Alert and oriented to person and the fact that she is in the hospital she thinks that she is at [facility], she is confused as to the month and year she stated that she hopes that Marilyn was not the president but she did not know who the president was, 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, sensation seems to be intact Extrem: Other: Stage I decubitus ulcers bilateral heels skin intact with no evidence of blanching, bunion to the left foot, nonblanching skin lesion to the left lateral malleolus, limited range of motion of bilateral hip flexors, generalized muscle wasting Psych: Other: Pleasantly confused, cooperative Objective Data Vital Signs Vital Signs: Vital Signs - 24 hr 03/31/25 19:12 03/31/25 22:01 04/01/25 01:31 Temperature 101.3 F H 100.3 F H 97.9 F Pulse Rate 91 86 84 Respiratory Rate 15 16 16 Blood Pressure 143/50 H 156/50 H 135/51 L Pulse Oximetry 97 100 Oxygen Delivery Room Air 04/01/25 01:46 04/01/25 02:01 04/01/25 02:16 Temperature Pulse Rate 81 79 79 Respiratory Rate 15 15 16 Blood Pressure 149/54 H 150/55 H 151/54 H Pulse Oximetry 100 100 100 Oxygen Delivery 04/01/25 03:30 04/01/25 06:05 Temperature 98.2 F 98.2 F Pulse Rate 80 93 Respiratory Rate 16 18 Blood Pressure 152/63 H 143/57 H Pulse Oximetry 100 97 Oxygen Delivery Intake/Output Intake/Output: Intake & Output 03/29/25 03/30/25 03/31/25 04/01/25 23:59 23:59 23:59 23:59 Intake Total 50 2000 Output Total 200 Balance 50 1800 Meds/Results Medications: Active Medications Generic Name Dose Route Start Last Admin Trade Name Freq PRN Reason Stop Dose Admin Acetaminophen 650 mg 04/01/25 02:29 Acetaminophen 325 Mg Tablet PO Q4H PRN Mild Pain (1-3) or Fever Hydrocodone Bitart/Acetaminophen 1 tab 04/01/25 04:41 Hydrocodone/Acetaminophen (*Crx) 5-325 Mg Tablet PO Q4H PRN pain 7-10 Acyclovir 200 mg 04/01/25 09:00 Acyclovir 200 Mg Capsule PO Q12HR [facility] Carvedilol 25 mg 04/01/25 09:00 Carvedilol 25 Mg Tablet PO Q12HR [facility] Collagenase 1 applic 04/01/25 09:00 Collagenase Oint 30 Gm Tube TOPICAL DAILY [facility] Gabapentin 100 mg 04/01/25 09:00 Gabapentin 100 Mg Capsule PO TID [facility] Heparin Sodium (Beef Lung) 50 units 04/01/25 09:00 Heparin Flush 50 Units/5 Ml Syringe IV PUSH QAM [facility] Heparin Sodium (Beef Lung) 50 units 04/01/25 05:10 Heparin Flush 50 Units/5 Ml Syringe IV PUSH PRN PRN after intermittent infusion Heparin Sodium (Beef Lung) 50 units 04/01/25 05:10 Heparin Flush 50 Units/5 Ml Syringe IV PUSH PRN PRN after blood draws Heparin Sodium (Porcine) 5,000 units 04/01/25 09:00 Heparin Sodium 5,000 Units/Ml Vial SUB-Q Q12HR [facility] Heparin Sodium (Porcine) 500 units 04/01/25 05:10 Heparin Sodium Lock Flush 500 Units/5 Ml Syringe IV PUSH PRN PRN see comments below Lactated Ringer's 1,000 mls @ 100 mls/hr 04/01/25 02:30 04/01/25 02:56 Lr - Lactated Ringers Iv IV CONT 04/01/25 12:29 100 mls/hr .Q10H [facility] Administration Ondansetron HCl 4 mg 04/01/25 02:29 Ondansetron Inj 4 Mg/2 Ml Vial IV PUSH Q4H PRN Nausea Polyethylene Glycol 17 gm 04/01/25 04:41 Polyethylene Glycol 3350 17 Gm Powd.Pack PO DAILY PRN constipation Saccharomyces Boulardii 250 mg 04/01/25 09:00 Saccharomyces Boulardii 250 Mg Capsule PO DAILY [facility] Sodium Chloride 10 ml 04/01/25 06:00 Central Line Flush IV PUSH Q8HR [facility]ADIE Trimethoprim/Sulfamethoxazole 1 tab 04/02/25 09:00 Sulfamethoxazole/Trimethoprim 400/80 Mg Tablet PO MoWeFr KADIE Vancomycin HCl 1 each 03/31/25 22:59 Vancomycin For Acute Kidney Injury IVPB PRN PRN Vancomycin Protocol Vitamin D 25 mcg 04/01/25 09:00 Cholecalciferol (Vitamin D3) 25 Mcg (1,000 Units) Tablet PO DAILY [facility] Radiology Results: ITS Impressions Chest X-Ray 04/01/25 06:42 Impression: Clear lungs. Possible heterogeneous lucent lesion in the proximal right humeral shaft with periosteal reaction of the mid right humeral shaft. This suggests an aggressive lesion such as neoplastic disease or possibly osteomyelitis. Correlate clinically. Consider dedicated MR imaging. 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 Diffuse heterogeneous appearance of the osseous structures with innumerable scattered lucencies, suspicious for myeloma or other metastatic disease versus possibly metabolic bone disease/osteoporotic change. T12 compression deformity, age indeterminate. Head CT 04/01/25 06:48 Impression: No significant abnormality seen. Labs Labs: Laboratory Results - last 24 hr 03/31/25 03/31/25 04/01/25 19:41 20:43 01:02 WBC 8.9 RBC 2.91 L Hgb 8.5 L Hct 28.2 L MCV 96.9 MCH 29.2 MCHC 30.1 L RDW 14.8 H Plt Count 334 MPV 8.4 Immature Gran % (Auto) 5.3 H Neut % (Auto) 69.6 Lymph % (Auto) 13.4 L [place] % (Auto) 10.3 H Eos % (Auto) 0.9 Baso % (Auto) 0.5 Lymph # (Auto) 1.19 [place] # (Auto) 0.9 H Eos # (Auto) 0.1 Baso # (Auto) 0.0 Abs Immat Gran (auto) 0.47 H Absolute Neuts (auto) 6.2 Absolute Nucleated RBC 0.000 Band Neutrophils % Not Reportable Nucleated RBC % 0.0 Platelet Estimate Adequate Clumped Platelets Present Hypochromasia 1+ Anisocytosis 1+ Ovalocytes 1+ Schistocytes None seen PT 15.3 H INR 1.2 APTT 36.5 Sodium 135 L Potassium 5.0 Chloride 104 Carbon Dioxide 24 Anion Gap 7 BUN 98 H Creatinine 2.99 H Estim Creat Clear Calc 10 Estimated GFR 15 L Glucose 143 H Lactic Acid 0.8 Calcium 9.0 Phosphorus Magnesium Total Bilirubin 0.2 AST 52 H ALT 24 Alkaline Phosphatase 102 Total Protein 5.7 L Albumin 3.0 L Urine Color Yellow Urine Appearance Turbid H Urine pH 6.0 Ur Specific Gabriels 1.015 Urine Protein 3+ H Urine Glucose (UA) Negative Urine Ketones Negative Ur Blood (Man) 2+ H Urine Nitrate Negative Urine Bilirubin Negative Urine Urobilinogen 0.2 Add Ur Microanalysis Reviewed Leukocyte Esterase Rfl 3+ H Urine RBC 11-20 H Urine WBC >100 H Ur Squamous Epith Cells Many H Urine Bacteria 4+ H Urine Casts >20 04/01/25 06:45 WBC 14.5 H RBC 2.72 L Hgb 7.9 L Hct 26.6 L MCV 97.8 MCH 29.0 MCHC 29.7 L RDW 14.9 H Plt Count 292 MPV 8.5 Immature Gran % (Auto) 14.8 H Neut % (Auto) 75.5 H Lymph % (Auto) 2.5 L [place] % (Auto) 6.2 Eos % (Auto) 0.5 Baso % (Auto) 0.5 Lymph # (Auto) 0.36 L [place] # (Auto) 0.9 H Eos # (Auto) 0.1 Baso # (Auto) 0.1 Abs Immat Gran (auto) 2.15 H Absolute Neuts (auto) 11.0 H Absolute Nucleated RBC 0.000 Band Neutrophils % Not Reportable Nucleated RBC % 0.0 Platelet Estimate Adequate Clumped Platelets Hypochromasia Anisocytosis 1+ Ovalocytes Schistocytes None seen PT INR APTT Sodium 137 Potassium 4.3 Chloride 110 H Carbon Dioxide 21 L Anion Gap 6 BUN 78 H D Creatinine 2.55 H Estim Creat Clear Calc 11 Estimated GFR 18 L Glucose 109 Lactic Acid Calcium 8.3 L Phosphorus 4.1 Magnesium 2.3 Total Bilirubin AST ALT Alkaline Phosphatase Total Protein Albumin Urine Color Urine Appearance Urine pH Ur Specific Gabriels Urine Protein Urine Glucose (UA) Urine Ketones Ur Blood (Man) Urine Nitrate Urine Bilirubin Urine Urobilinogen Add Ur Microanalysis Leukocyte Esterase Rfl Urine RBC Urine WBC Ur Squamous Epith Cells Urine Bacteria Urine Casts Quality VTE Prophylaxis VTE prophylaxis: pharmacologic ordered (Heparin 5000 units subQ q.12 hours.)
[2025-04-01] MEDS: GABAPENTIN 100 MG CAPSULE PO ×3 (08:34→16:17)
[2025-04-01] MEDS: CHOLECALCIFEROL (VITAMIN D3) 25 MCG (1,000 UNITS) TABLET PO (08:34)
[2025-04-01] MEDS: ACYCLOVIR 200 MG CAPSULE PO ×2 (08:34→21:16)
[2025-04-01] MEDS: SACCHAROMYCES BOULARDII 250 MG CAPSULE PO (08:34)
[2025-04-01] MEDS: COLLAGENASE OINT 30 GM TUBE 1 APPLIC TOPICAL (08:37)
--- NOTE | 2025-04-01 11:51 | PM.CNGS ---
Assessment and Plan Assessment and plan (1) Catheter-associated urinary tract infection: Qualifiers: Encounter type: initial encounter Indwelling urinary catheter type: indwelling urethral catheter Qualified Code(s): T83.511A - Infection and inflammatory reaction due to indwelling urethral catheter, initial encounter; N39.0 - Urinary tract infection, site not specified Code(s): T83.511A - Infection and inflammatory reaction due to indwelling urethral catheter, initial encounter; N39.0 - Urinary tract infection, site not specified Status: Acute Assessment and Plan: It appears urosepsis or possibly pyelonephritis is the cause of the patient's present illness. Her fever has resolved with antibiotics and, to me, her mental status is improved based on earlier reports. Continue IV antibiotics for severe urosepsis. (2) Decubitus ulcer of sacral region, unstageable: Code(s): L89.150 - Pressure ulcer of sacral region, unstageable Status: Chronic Assessment and Plan: This pressure ulcer is not infected. It does have some necrotic tissue, particularly on the right side that we will try to debride it at the bedside. There are no clinical signs of osteomyelitis. Imaging abnormalities are not specific enough to make the diagnosis. Bony changes in the setting of sacral decubiti can easily be due to bone remodeling or pressure irritation rather than osteomyelitis. Per the [employer] Society of [place], the diagnosis of osteomyelitis in the setting of sacral decubitus requires bone biopsy showing histopathologic and microbiologic evidence. I am very confident that she does not have osteomyelitis and I do not feel that a biopsy is necessary. In fact, I do not feel she has need for antibiotics regarding her sacral decubitus. Recommend continuing Santyl dressing changes and avoid further pressure phenomenon. With the patient's chronic and advanced multiple myeloma, it is unlikely that this decubitus will ever heal. I do not feel it has any relation to her present admission. There is some soft, slightly excessive, necrotic tissue on the right sided the decubitus which we will try to debride at the bedside. (3) CKD (chronic kidney disease) stage 4, GFR 15-29 ml/min: Code(s): N18.4 - Chronic kidney disease, stage 4 (severe) Status: Acute Assessment and Plan: There is certainly some acute kidney injury also at work. BUN and creatinine have improved from admission. Continue fluid resuscitation and antibiotic treatment. History of Present Illness Consult details Consult date: 04/01/25 Reason for consult: other (Abnormal imaging report) Requesting physician: Leandro Prakash PA-C Narrative: This unfortunate lady is an 89-year-old woman who resides at [facility]. She has advanced multiple myeloma with multiple sites of metastases. She is bed ridden and cannot even turn over in bed. She also has a history of coronary disease, diabetes, hypertension. Patient also was stricken with C difficile colitis in February and was hospitalized at [facility]. She is known to have sacral decubitus from at least that time if not prior to that. She has been on prolonged oral antibiotics after she returned to [facility] for C difficile. She has not had any diarrhea recently. Patient is normally awake, alert, lucid, and conversant. Yesterday, at [facility], she was noted to have altered mental status with hallucinations and fever. She was also noted to have very cloudy urine and poor appetite. She came to the emergency room and [facility]. Urinalysis here was contaminated by squamous cells but was very suspicious for urinary tract infection included over 100 wbc's per high-powered field as well as 4+ bacteria. Cultures have been obtained but are pending. Patient had a CT scan of the head which was negative. Patient was febrile to 38.5 in triage. This was at 7:00 p.m. last night. Her fever improved over a few hours and she has been afebrile since 1:00 a.m. this morning. This morning she is conversant and awake. CT scan of the abdomen and pelvis was done without contrast. This showed multiple metastatic lesions as well as a large sacral decubitus with suggestion of osteomyelitis of the coccyx. Patient is seen now in consultation regarding her sacral dip cubitus and possible bloody of osteomyelitis. Review of Systems Review of Systems: All systems reviewed & are unremarkable except as noted in HPI and below (HPI) Constitutional: Constitutional: Reports as per HPI, Reports fever(s) and Reports poor appetite Genitourinary: Comments: Cloudy urine noted Musculoskeletal: Musculoskeletal: Reports as per HPI, Reports arthralgias and Reports limited range of motion Comments: Bed ridden and unable to turn over in bed Neurologic: Reports as per HPI Psychiatric: Psychiatric: Reports as per HPI PMFSH Past Medical History Medical History Decubitus ulcer of sacral region, stage 2 Vitamin D deficiency Gout Glaucoma CKD (chronic kidney disease) stage 4, GFR 15-29 ml/min C. difficile colitis GERD (gastroesophageal reflux disease) Multiple myeloma Essential hypertension Chronic indwelling Staley catheter Surgical History Surgical History History of insertion of tunneled central venous catheter (CVC) with port Right upper chest Surgical history unknown Family History Family History Other Unknown family medical history Social History Social History Social History: Patient is residing at [facility]. As far as I can tell from the retirement paperwork the patient has 3 daughters. Code status: Full code (per retirement paperwork) Healthcare power of insurance attorney: Lien Chahal (daughter) Smoking status: Never smoker Alcohol intake: never Substance use type: does not use Living arrangements: retirement Additional living arrangements comments: [facility] concerns: No Meds Home Medications and Allergies Home Medications ?Medication ?Instructions ?Recorded ?Confirmed ?Type Saccharomyces boulardii 250 mg 250 mg PO DAILY 04/01/25 04/01/25 History capsule (Daily Probiotic (S. boulardii)) acyclovir 200 mg capsule 200 mg PO Q12H 04/01/25 04/01/25 History arginine-vitamin C-vitamin E oral See Rx Instructions PO TID 04/01/25 04/01/25 History 4.5 gram-156 mg/9.2 gram powder pkt (Arginaid) carvedilol 25 mg tablet 25 mg PO Q12H 04/01/25 04/01/25 History cholecalciferol (vitamin D3) 25 25 mcg PO DAILY 04/01/25 04/01/25 History mcg (1,000 unit) capsule (Vitamin D3) coenzyme Q10 100 mg capsule (Co 100 mg PO HS 04/01/25 04/01/25 History Q-10) collagenase clostridium histo. 250 1 applic topical DAILY 04/01/25 04/01/25 History unit/gram topical ointment (Santyl) gabapentin 100 mg capsule 100 mg PO TID 04/01/25 04/01/25 History hydrocodone 5 mg-acetaminophen 325 1 tablet PO .Q4HR PRN pain 04/01/25 04/01/25 History mg tablet polyethylene glycol 3350 17 gram 17 g PO DAILY PRN constipation 04/01/25 04/01/25 History oral powder packet (Miralax) sulfamethoxazole 400 1 tablet PO 3XW 04/01/25 04/01/25 History mg-trimethoprim 80 mg tablet tramadol 50 mg tablet 50 mg PO .Q6HR PRN pain 04/01/25 04/01/25 History Allergies Allergy/AdvReac Type Severity Reaction Status Date / Time FRANCISCO Inhibitors Allergy Unknown Unknown Verified 04/01/25 04:03 amoxicillin Allergy Unknown Unknown Verified 04/01/25 04:03 atorvastatin Allergy Unknown Unknown Verified 04/01/25 04:03 rosuvastatin Allergy Unknown Unknown Verified 04/01/25 04:03 simvastatin Allergy Unknown Unknown Verified 04/01/25 04:03 ANGIOTENSINIIRA Allergy Unknown Uncoded 04/01/25 04:03 Vital Signs Vital Signs - 24 hr 03/31/25 19:12 03/31/25 22:01 04/01/25 01:31 Temperature 38.5 C H 37.9 C H 36.6 C Pulse Rate 91 86 84 Respiratory Rate 15 16 16 Blood Pressure 143/50 H 156/50 H 135/51 L Pulse Oximetry 97 100 Oxygen Delivery Room Air 04/01/25 01:46 04/01/25 02:01 04/01/25 02:16 Temperature Pulse Rate 81 79 79 Respiratory Rate 15 15 16 Blood Pressure 149/54 H 150/55 H 151/54 H Pulse Oximetry 100 100 100 Oxygen Delivery 04/01/25 03:30 04/01/25 06:05 04/01/25 08:30 Temperature 36.8 C 36.8 C Pulse Rate 80 93 Respiratory Rate 16 18 Blood Pressure 152/63 H 143/57 H Pulse Oximetry 100 97 Oxygen Delivery Room Air 04/01/25 08:35 Temperature Pulse Rate 96 Respiratory Rate Blood Pressure Pulse Oximetry Oxygen Delivery Exam Const: General: comfortable, alert and awake Nutritional Appearance: thin Back/Spine/Pelvis: Sacrum: no erythema, tenderness, sacral edema and other (Unstageable sacral decubitus 10 cm wide, 6 cm long, 1.5 cm deep) Coccyx: Coccyx tenderness present Other: No odor, no foul drainage, no purulence. No surrounding swelling erythema or tenderness. No exposed bone. Coccyx is palpable in the upper aspect of the decubitus but no bone exposed. No purulent fluid elicited with palpation. There is some covering of necrotic tissue over the base of the wound. Over the left side of the wound this is pretty much just a coating. On the right, there is a few mm thickness of necrotic tissue which is soft. This is about a 3 x 3 cm area. Neuro: Cranial nerves: Yes CN's II-XII intact bilaterally, Yes facial symmetry and Yes Midline tongue present Speech: normal speech Psych: Appearance: well kempt Mental Status: mental status grossly normal Speech and movement: Clear speech present Attitude: cooperative Results Labs 04/01/25 06:45 04/01/25 06:45 Labs: Abnormal lab results 03/31/25 03/31/25 04/01/25 Range/Units 19:41 20:43 06:45 WBC 14.5 H (4.5-10.0) K/mm3 RBC 2.91 L 2.72 L (4.2-5.4) M/mm3 Hgb 8.5 L 7.9 L (12.0-15.0) g/dL Hct 28.2 L 26.6 L (37.0-47.0) % MCHC 30.1 L 29.7 L (32-36) g/dl RDW 14.8 H 14.9 H (11.5-14.5) % Immature Gran % (Auto) 5.3 H 14.8 H (0-0.5) % Neut % (Auto) 75.5 H (45.5-73.1) % Lymph % (Auto) 13.4 L 2.5 L (18.3-44.2) % [place] % (Auto) 10.3 H (2.6-8.5) % Lymph # (Auto) 0.36 L (0.9-3.2) K/mm3 [place] # (Auto) 0.9 H 0.9 H (0.1-0.6) K/mm3 Abs Immat Gran (auto) 0.47 H 2.15 H (0.00-0.031) K/mm3 Absolute Neuts (auto) 11.0 H (1.3-6.7) K/mm3 PT 15.3 H (11.1-14.7) Seconds Sodium 135 L (137-145) mmol/L Chloride 110 H (98-107) mmol/L Carbon Dioxide 21 L (22-30) mmol/L BUN 98 H 78 H D (7-17) mg/dL Creatinine 2.99 H 2.55 H (0.7-1.0) mg/dL Estimated GFR 15 L 18 L (59 - ) Glucose 143 H (65-110) mg/dL POC Capillary Glucose (65-105) mg/dl Calcium 8.3 L (8.4-10.2) mg/dL AST 52 H (14-36) U/L Total Protein 5.7 L (6.3-8.2) g/dL Albumin 3.0 L (3.5-5.1) g/dL Urine Appearance Turbid H (Clear) Urine Protein 3+ H (Negative) mg/dL Ur Blood (Man) 2+ H (Negative) Leukocyte Esterase Rfl 3+ H (Negative) ARMANDO/UL Urine RBC 11-20 H (0-2) /hpf Urine WBC >100 H (0-3) /hpf Ur Squamous Epith Cells Many H (Few) /hpf Urine Bacteria 4+ H /hpf 07/20/25 Range/Units 11:24 WBC (4.5-10.0) K/mm3 RBC (4.2-5.4) M/mm3 Hgb (12.0-15.0) g/dL Hct (37.0-47.0) % MCHC (32-36) g/dl RDW (11.5-14.5) % Immature Gran % (Auto) (0-0.5) % Neut % (Auto) (45.5-73.1) % Lymph % (Auto) (18.3-44.2) % [place] % (Auto) (2.6-8.5) % Lymph # (Auto) (0.9-3.2) K/mm3 [place] # (Auto) (0.1-0.6) K/mm3 Abs Immat Gran (auto) (0.00-0.031) K/mm3 Absolute Neuts (auto) (1.3-6.7) K/mm3 PT (11.1-14.7) Seconds Sodium (137-145) mmol/L Chloride (98-107) mmol/L Carbon Dioxide (22-30) mmol/L BUN (7-17) mg/dL Creatinine (0.7-1.0) mg/dL Estimated GFR (59 - ) Glucose (65-110) mg/dL POC Capillary Glucose 138 H (65-105) mg/dl Calcium (8.4-10.2) mg/dL AST (14-36) U/L Total Protein (6.3-8.2) g/dL Albumin (3.5-5.1) g/dL Urine Appearance (Clear) Urine Protein (Negative) mg/dL Ur Blood (Man) (Negative) Leukocyte Esterase Rfl (Negative) ARMANDO/UL Urine RBC (0-2) /hpf Urine WBC (0-3) /hpf Ur Squamous Epith Cells (Few) /hpf Urine Bacteria /hpf Diabetes panel 03/31/25 04/01/25 Range/Units 19:41 06:45 Sodium 135 L 137 (137-145) mmol/L Potassium 5.0 4.3 (3.4-5.0) mmol/L Chloride 104 110 H (98-107) mmol/L Carbon Dioxide 24 21 L (22-30) mmol/L BUN 98 H 78 H D (7-17) mg/dL Creatinine 2.99 H 2.55 H (0.7-1.0) mg/dL Glucose 143 H 109 (65-110) mg/dL Calcium 9.0 8.3 L (8.4-10.2) mg/dL AST 52 H (14-36) U/L ALT 24 (6-35) U/L Alkaline Phosphatase 102 (38-126) U/L Total Protein 5.7 L (6.3-8.2) g/dL Albumin 3.0 L (3.5-5.1) g/dL Calcium panel 03/31/25 04/01/25 Range/Units 19:41 06:45 Calcium 9.0 8.3 L (8.4-10.2) mg/dL Phosphorus 4.1 (2.5-4.5) mg/dL Albumin 3.0 L (3.5-5.1) g/dL Pituitary panel 03/31/25 04/01/25 Range/Units 19:41 06:45 Sodium 135 L 137 (137-145) mmol/L Potassium 5.0 4.3 (3.4-5.0) mmol/L Chloride 104 110 H (98-107) mmol/L Carbon Dioxide 24 21 L (22-30) mmol/L BUN 98 H 78 H D (7-17) mg/dL Creatinine 2.99 H 2.55 H (0.7-1.0) mg/dL Glucose 143 H 109 (65-110) mg/dL Calcium 9.0 8.3 L (8.4-10.2) mg/dL Adrenal panel 03/31/25 04/01/25 Range/Units 19:41 06:45 Sodium 135 L 137 (137-145) mmol/L Potassium 5.0 4.3 (3.4-5.0) mmol/L Chloride 104 110 H (98-107) mmol/L Carbon Dioxide 24 21 L (22-30) mmol/L BUN 98 H 78 H D (7-17) mg/dL Creatinine 2.99 H 2.55 H (0.7-1.0) mg/dL Glucose 143 H 109 (65-110) mg/dL Calcium 9.0 8.3 L (8.4-10.2) mg/dL Total Bilirubin 0.2 (0.2-1.3) mg/dL AST 52 H (14-36) U/L ALT 24 (6-35) U/L Alkaline Phosphatase 102 (38-126) U/L Total Protein 5.7 L (6.3-8.2) g/dL Albumin 3.0 L (3.5-5.1) g/dL WBC is higher today with left shift by automated differential. BUN and creatinine are improved from yesterday but still markedly abnormal Urinalysis suspicious and cultures are pending. Blood cultures are also pending Imaging Chest x-ray: report reviewed Abdomen CT scan report/results: report reviewed and image reviewed CT scan - pelvis: report reviewed and image reviewed EKG: report reviewed Additional studies: CT scan head-report reviewed
[2025-04-01] MEDS: CENTRAL LINE FLUSH 10 ML IV PUSH (13:45)
[2025-04-01 15:06] LABS: Ammonia < 9 umol/L (9-30)
[2025-04-01] MEDS: HYDROcodone/acetaminophen (*CRX) 5-325 MG TABLET 1 TAB PO ×2 (15:07→19:06)
[2025-04-01] MEDS: SODIUM CHLORIDE 0.9% IV 1,000 ML 100 ML IV CONT (15:08)
[2025-04-01] MEDS: MENTHOL 10% / METHYL SALICYLATE 15% 57 GM TUBE 1 APPLIC TOPICAL (16:17)
[2025-04-01 18:45] LABS: Influenza A QL RT-PCR Negative (Negative); Influenza B QL RT-PCR Negative (Negative); RSV RNA, RT-PCR Negative (Negative); SARS-CoV-2 RNA PCR Negative (Negative)
[2025-04-01] MEDS: CEFEPIME 1 GM in SODIUM CHLORIDE 0.9% IV 50 ML 100 ML IVPB (21:19)
[2025-04-02] VITALS (11 sets, daily range): BP systolic 119–146; BP diastolic 46–55; PULSE 66–87; RESP 16–18; TEMP 36.8–37.2; O2SAT 100; BMI 22.6
[2025-04-02] MEDS: VANCOMYCIN 750 MG/NS 250 ML 750 MG/250 ML BAG 250 MG IVPB (01:23)
[2025-04-02] MEDS: SODIUM CHLORIDE 0.9% IV 1,000 ML 100 ML IV CONT ×3 (01:25→20:05)
[2025-04-02 06:37] LABS: Estimated CRCL calculation 14 ml/min; Estimated Glomerular Filt Rate 24
--- NOTE | 2025-04-02 06:57 | P.PNIM_ITS ---
Progress Note: A&P Assessment and Plan (1) Catheter-associated urinary tract infection: Qualifiers: Encounter type: initial encounter Indwelling urinary catheter type: indwelling urethral catheter Qualified Code(s): T83.511A - Infection and inflammatory reaction due to indwelling urethral catheter, initial encounter; N39.0 - Urinary tract infection, site not specified Code(s): T83.511A - Infection and inflammatory reaction due to indwelling urethral catheter, initial encounter; N39.0 - Urinary tract infection, site not specified Status: Acute Assessment and Plan: * UA: 3+ proteins, 2+ blood, 3+ leukocyte esterase, 11-20 urine RBC, >100 WBC, 4+ bacteria * UC obtained on 03/31, pending * started on cefepime * Culture still pending * Remains afebrile without leukocytosis (2) Decubitus ulcer of sacral region, unstageable: Code(s): L89.150 - Pressure ulcer of sacral region, unstageable Status: Chronic Assessment and Plan: * Abdomen/pelvis CT: * Large sacral decubitus ulcer with 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 * Diffuse heterogeneous appearance of the osseous structures with innumerable scattered lucencies, suspicious for myeloma or other metastatic disease versus possibly metabolic bone disease/osteoporotic change. * T12 compression deformity, age indeterminate. * General surgery consulted * No indications of active infection or underlying osteomyelitis * No biopsy indicated * Continue Santyl dressing regular positional changes * Small amount of necrotic tissue will be debrided at bedside * No other management indicated at this time 04/02 * Bedside wound debridement of stage IV sacral decubitus ulcer without complications * Santyl applied over wound covered with Mepilex dressing * Patient tolerated procedure well (3) CKD (chronic kidney disease) stage 4, GFR 15-29 ml/min: Code(s): N18.4 - Chronic kidney disease, stage 4 (severe) Status: Acute Assessment and Plan: * Creatinine: 2.55, GFR: 18, BUN: 78 * IV Fluids: NS 100mls/hr * Trend renal function * Trend electrolytes, correct as needed * 04/02: Cr 2.00 (4) Encephalopathy acute: Code(s): G93.40 - Encephalopathy, unspecified Status: Acute Assessment and Plan: * Head CT: No significant abnormality seen * CXR: Clear lungs. Possible heterogeneous lucent lesion in the proximal right humeral shaft with periosteal reaction of the mid right humeral shaft. This suggests an aggressive lesion such as neoplastic disease or possibly osteomyelitis. Correlate clinically. Consider dedicated MR imaging. * UA: Clearly indicative of UTI * Viral PCR: Pending * WBC: 14.5 * Likely secondary to underlying catheter associated UTI * Ammonia wnl * Leukocytosis resolved (5) Multiple myeloma: Code(s): C90.00 - Multiple myeloma not having achieved remission Status: Acute Assessment and Plan: * Chronic Acyclovir use * Given renal function, will request pharmacy to renally dose * Chest x-ray: Possible heterogeneous lucent lesion in the proximal right humeral shaft with periosteal reaction of the mid right humeral shaft. This suggests an aggressive lesion such as neoplastic disease or possibly osteomyelitis. Correlate clinically. Consider dedicated MR imaging. * This finding likely related to underlying multiple myeloma Subjective Date/time seen: 04/02/25 06:57 Interval history: 89-year-old female with a past medical history of COPD, chronic kidney disease stage 4 essential hypertension, multiple myeloma, C diff colitis and GERD who presented to the ER from [facility] via EMS due to altered mental status, decreased appetite, hallucinations in changes in her urine. 04/02/2025 Patient is sleeping comfortably in bed at time of examination. Accompanied by daughters. Pt appearing much more awake and alert today, endorsing significant improvement of generalized weakness. A&Ox3. Seen by General surgery for necrotic stage IV sacral decubitus ulcer - wound was debrided in room without complications. Preliminary blood cultures negative for growth, urine culture still pending at this time. Remains afebrile without leukocytosis. Creatinine improving, down from 2.93 on admission to 2.00 today. Pending PT/OT evaluations. Review of Systems Review of Systems: Review of systems unreliable due to patient's confusion. Exam Narrative: Weight 55.6 kg BMI 22.4 Const: Other: Thin body habitus, frail, elderly, debilitated HENMT: Other: Head is normocephalic atraumatic, mucous membranes are tacky, edentulous in upper jaw, lower jaw has poor dentition but no overt dental caries Eyes: Other: Pupils are equal and reactive, positive conjunctival pallor, no scleral icterus Neck: Other: No JVD, no lymphadenopathy Chest: Other: Port-A-Cath palpable in left upper chest Resp: Other: Decreased breath sounds throughout, no tachypnea or accessory muscle use Cardio: Other: Regular rate, regular rhythm, 2+ bilateral radial and pedal pulses, no murmur GI: Other: Soft, nontender, nondistended, normoactive bowel sounds : Other: Staley catheter in place. Patient's Staley catheter was exchanged in the ER and urine culture was sent from the new catheter Skin: Other: Decubitus ulcer to the sacrum appears to be at least stage III but truly unstageable due to overlying tissue, no surrounding erythema or skin changes to suggest acute cellulitis or abscess, please see nursing documentation for measurements, skin changes to bilateral heels as mentioned below Neuro: Other: Alert and oriented to person and the fact that she is in the hospital she thinks that she is at [facility], she is confused as to the month and year she stated that she hopes that Marilyn was not the president but she did not know who the president was, she has 3/5 chute tapper strength bilaterally, sensation seems to be intact Extrem: Other: Stage I decubitus ulcers bilateral heels skin intact with no evidence of blanching, bunion to the left foot, nonblanching skin lesion to the left lateral malleolus, limited range of motion of bilateral hip flexors, generalized muscle wasting Psych: Other: Pleasantly confused, cooperative Objective Data Vital Signs Vital Signs: Vital Signs - 24 hr 04/01/25 08:00 04/01/25 08:30 04/01/25 08:35 Temperature Pulse Rate 84 96 Respiratory Rate Blood Pressure Pulse Oximetry Oxygen Delivery Room Air 04/01/25 12:00 04/01/25 14:00 04/01/25 16:00 Temperature 97.5 F L Pulse Rate 76 78 80 Respiratory Rate 16 Blood Pressure 152/59 H Pulse Oximetry 100 Oxygen Delivery 04/01/25 20:00 04/01/25 21:01 04/01/25 21:17 Temperature 99.5 F Pulse Rate 68 85 85 Respiratory Rate 14 Blood Pressure 128/46 L Pulse Oximetry 100 Oxygen Delivery 04/01/25 21:20 04/02/25 00:00 04/02/25 04:00 Temperature Pulse Rate 72 66 Respiratory Rate Blood Pressure Pulse Oximetry Oxygen Delivery Room Air 04/02/25 05:16 Temperature 99.0 F Pulse Rate 87 Respiratory Rate 16 Blood Pressure 119/47 L Pulse Oximetry 100 Oxygen Delivery Intake/Output Intake/Output: Intake & Output 03/30/25 03/31/25 04/01/25 04/02/25 23:59 23:59 23:59 23:59 Intake Total 50 2250 1150 Output Total 1050 800 Balance 50 1200 350 Meds/Results Medications: Active Medications Generic Name Dose Route Start Last Admin Trade Name Freq PRN Reason Stop Dose Admin Acetaminophen 650 mg 04/01/25 02:29 Acetaminophen 325 Mg Tablet PO Q4H PRN Mild Pain (1-3) or Fever Hydrocodone Bitart/Acetaminophen 1 tab 04/01/25 04:41 04/01/25 19:06 Hydrocodone/Acetaminophen (*Crx) 5-325 Mg Tablet PO 1 tab Q4H PRN Administration pain 7-10 Acyclovir 200 mg 04/01/25 09:00 04/01/25 21:16 Acyclovir 200 Mg Capsule PO 200 mg Q12HR KADIE Administration Carvedilol 25 mg 04/01/25 09:00 04/01/25 21:17 Carvedilol 25 Mg Tablet PO 25 mg Q12HR KADIE Administration Collagenase 1 applic 04/01/25 09:00 04/01/25 08:37 Collagenase Oint 30 Gm Tube TOPICAL 1 applic DAILY KADIE Administration Gabapentin 100 mg 04/01/25 09:00 04/01/25 16:17 Gabapentin 100 Mg Capsule PO 100 mg TID KADIE Administration Heparin Sodium (Beef Lung) 50 units 04/01/25 09:00 04/01/25 08:28 Heparin Flush 50 Units/5 Ml Syringe IV PUSH Not Given QAM KADIE Heparin Sodium (Beef Lung) 50 units 04/01/25 05:10 Heparin Flush 50 Units/5 Ml Syringe IV PUSH PRN PRN after intermittent infusion Heparin Sodium (Beef Lung) 50 units 04/01/25 05:10 Heparin Flush 50 Units/5 Ml Syringe IV PUSH PRN PRN after blood draws Heparin Sodium (Porcine) 5,000 units 04/01/25 09:00 04/01/25 21:19 Heparin Sodium 5,000 Units/Ml Vial SUB-Q 5,000 units Q12HR KADIE Administration Heparin Sodium (Porcine) 500 units 04/01/25 05:10 Heparin Sodium Lock Flush 500 Units/5 Ml Syringe IV PUSH PRN PRN see comments below Cefepime HCl 1 gm/ Sodium 50 mls @ 100 mls/hr 04/01/25 21:00 04/01/25 21:19 Chloride IVPB 100 mls/hr Q24H KADIE Administration Sodium Chloride 1,000 mls @ 100 mls/hr 04/01/25 14:05 04/02/25 01:25 Normal Saline Iv IV CONT 100 mls/hr .Q10H KADIE Administration Menthol/Methyl Salicylate 1 applic 04/01/25 15:20 04/01/25 16:17 Menthol 10% / Methyl Salicylate 15% 57 Gm Tube TOPICAL 1 applic BID PRN Administration Muscle/Joint Pain Ondansetron HCl 4 mg 04/01/25 02:29 Ondansetron Inj 4 Mg/2 Ml Vial IV PUSH Q4H PRN Nausea Polyethylene Glycol 17 gm 04/01/25 04:41 Polyethylene Glycol 3350 17 Gm Powd.Pack PO DAILY PRN constipation Saccharomyces Boulardii 250 mg 04/01/25 09:00 04/01/25 08:34 Saccharomyces Boulardii 250 Mg Capsule PO 250 mg DAILY KADIE Administration Sodium Chloride 10 ml 04/01/25 06:00 04/02/25 05:01 Central Line Flush IV PUSH Not Given Q8HR KADIE Trimethoprim/Sulfamethoxazole 1 tab 04/02/25 09:00 Sulfamethoxazole/Trimethoprim 400/80 Mg Tablet PO MoWeFr KADIE Vancomycin HCl 1 each 03/31/25 22:59 Vancomycin For Acute Kidney Injury IVPB PRN PRN Vancomycin Protocol Vitamin D 25 mcg 04/01/25 09:00 04/01/25 08:34 Cholecalciferol (Vitamin D3) 25 Mcg (1,000 Units) Tablet PO 25 mcg DAILY KADIE Administration Radiology Results: ITS Impressions Chest X-Ray 04/01/25 06:42 Impression: Clear lungs. Possible heterogeneous lucent lesion in the proximal right humeral shaft with periosteal reaction of the mid right humeral shaft. This suggests an aggressive lesion such as neoplastic disease or possibly osteomyelitis. Correlate clinically. Consider dedicated MR imaging. 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 Diffuse heterogeneous appearance of the osseous structures with innumerable scattered lucencies, suspicious for myeloma or other metastatic disease versus possibly metabolic bone disease/osteoporotic change. T12 compression deformity, age indeterminate. Head CT 04/01/25 06:48 Impression: No significant abnormality seen. Labs Labs: Laboratory Results - last 24 hr 04/01/25 04/01/25 04/01/25 06:45 11:24 14:51 WBC 14.5 H RBC 2.72 L Hgb 7.9 L Hct 26.6 L MCV 97.8 MCH 29.0 MCHC 29.7 L RDW 14.9 H Plt Count 292 MPV 8.5 Immature Gran % (Auto) 14.8 H Neut % (Auto) 75.5 H Lymph % (Auto) 2.5 L [place] % (Auto) 6.2 Eos % (Auto) 0.5 Baso % (Auto) 0.5 Lymph # (Auto) 0.36 L [place] # (Auto) 0.9 H Eos # (Auto) 0.1 Baso # (Auto) 0.1 Abs Immat Gran (auto) 2.15 H Absolute Neuts (auto) 11.0 H Absolute Nucleated RBC 0.000 Band Neutrophils % Not Reportable Nucleated RBC % 0.0 Platelet Estimate Adequate Anisocytosis 1+ Schistocytes None seen Sodium 137 Potassium 4.3 Chloride 110 H Carbon Dioxide 21 L Anion Gap 6 BUN 78 H D Creatinine 2.55 H Estim Creat Clear Calc 11 Estimated GFR 18 L Glucose 109 POC Capillary Glucose 138 H Calcium 8.3 L Phosphorus 4.1 Magnesium 2.3 Ammonia < 9 L Random Vancomycin Influenza A (RT-PCR) Influenza B (RT-PCR) RSV (RT-PCR) SARS-CoV-2 RNA (RT-PCR) 04/01/25 04/01/25 04/01/25 16:19 18:03 19:43 WBC RBC Hgb Hct MCV MCH MCHC RDW Plt Count MPV Immature Gran % (Auto) Neut % (Auto) Lymph % (Auto) [place] % (Auto) Eos % (Auto) Baso % (Auto) Lymph # (Auto) [place] # (Auto) Eos # (Auto) Baso # (Auto) Abs Immat Gran (auto) Absolute Neuts (auto) Absolute Nucleated RBC Band Neutrophils % Nucleated RBC % Platelet Estimate Anisocytosis Schistocytes Sodium Potassium Chloride Carbon Dioxide Anion Gap BUN Creatinine Estim Creat Clear Calc Estimated GFR Glucose POC Capillary Glucose 81 112 H Calcium Phosphorus Magnesium Ammonia Random Vancomycin Influenza A (RT-PCR) Negative Influenza B (RT-PCR) Negative RSV (RT-PCR) Negative SARS-CoV-2 RNA (RT-PCR) Negative 04/02/25 04/02/25 00:17 06:02 WBC RBC Hgb Hct MCV MCH MCHC RDW Plt Count MPV Immature Gran % (Auto) Neut % (Auto) Lymph % (Auto) [place] % (Auto) Eos % (Auto) Baso % (Auto) Lymph # (Auto) [place] # (Auto) Eos # (Auto) Baso # (Auto) Abs Immat Gran (auto) Absolute Neuts (auto) Absolute Nucleated RBC Band Neutrophils % Nucleated RBC % Platelet Estimate Anisocytosis Schistocytes Sodium Potassium Chloride Carbon Dioxide Anion Gap BUN Creatinine 2.00 H Estim Creat Clear Calc 14 Estimated GFR 24 L Glucose POC Capillary Glucose Calcium Phosphorus Magnesium Ammonia Random Vancomycin 7.3 L Influenza A (RT-PCR) Influenza B (RT-PCR) RSV (RT-PCR) SARS-CoV-2 RNA (RT-PCR) Quality VTE Prophylaxis VTE prophylaxis: pharmacologic ordered (Heparin 5000 units subQ q.12 hours.)
[2025-04-02 08:21] LABS: Alanine Aminotransferase 18 U/L (6-35); Albumin Level 2.2 g/dL (3.5-5.1); Alkaline Phosphatase 82 U/L (38-126); Anion Gap 5 mmol/L (4-12); Aspartate Amino Transferase 38 U/L (14-36); Bilirubin,Total 0.1 mg/dL (0.2-1.3); Blood Urea Nitrogen 60 mg/dL (7-17); Calcium 8.2 mg/dL (8.4-10.2); Carbon Dioxide 19 mmol/L (22-30); Chloride 117 mmol/L (98-107); Glucose 87 mg/dL (65-110); Potassium 4.1 mmol/L (3.4-5.0); Sodium 141 mmol/L (137-145); Total Protein 4.8 g/dL (6.3-8.2)
[2025-04-02] MEDS: CHOLECALCIFEROL (VITAMIN D3) 25 MCG (1,000 UNITS) TABLET PO (08:27)
[2025-04-02] MEDS: ACYCLOVIR 200 MG CAPSULE PO ×2 (08:27→19:52)
[2025-04-02] MEDS: GABAPENTIN 100 MG CAPSULE PO ×3 (08:28→16:28)
[2025-04-02] MEDS: SACCHAROMYCES BOULARDII 250 MG CAPSULE PO ×2 (08:28→08:31)
[2025-04-02] MEDS: COLLAGENASE OINT 30 GM TUBE 1 APPLIC TOPICAL (08:34)
[2025-04-02 08:59] LABS: Hematocrit 25.6 % (37.0-47.0); Hemoglobin 7.6 g/dL (12.0-15.0); Immature Granulocyte Percent A 4.4 % (0-0.5); Lymphocytes Absolute Auto 0.91 K/mm3 (0.9-3.2); Mean Corpuscular HGB Conc 29.7 g/dl (32-36); Mean Corpuscular Hemoglobin 29.5 pg (26-34); Mean Corpuscular Volume 99.2 fl (80-100); Nucleated Red Blood Cells Absolute Auto 0.000 K/mm3 (0.0-0.012); Nucleated Red Blood Cells Perc 0.0 % (0.0-0.2); Platelet Count Result 254 k/mm3 (150-375); Red Blood Count 2.58 M/mm3 (4.2-5.4); White Blood Count 7.3 K/mm3 (4.5-10.0)
[2025-04-02] MEDS: HYDROcodone/acetaminophen (*CRX) 5-325 MG TABLET 1 TAB PO ×3 (09:01→19:52)
--- NOTE | 2025-04-02 09:15 | P.CDI_ITS ---
CDI Query Clarification Request Encephalopathy has been documented. Please clarify type of encephalopathy: * Metabolic * Toxic * Hepatic * Hypertensive * Other * Unable to Determine The medical chart reflects the following: (4) Encephalopathy acute: Code(s): G93.40 - Encephalopathy, unspecified Status: Acute Assessment and Plan: * Head CT: No significant abnormality seen * CXR: Clear lungs. Possible heterogeneous lucent lesion in the proximal right humeral shaft with periosteal reaction of the mid right humeral shaft. This suggests an aggressive lesion such as neoplastic disease or possibly osteomyelitis. Correlate clinically. Consider dedicated MR imaging. * UA: Clearly indicative of UTI * Viral PCR: Pending * WBC: 14.5 * Likely secondary to underlying catheter associated UTI
--- NOTE | 2025-04-02 09:15 | WPDCDIQUERY2 ---
CDI Query Clarification Request Encephalopathy has been documented. Please clarify type of encephalopathy: Metabolic Toxic Hepatic Hypertensive Other Unable to Determine The medical chart reflects the following: (4) Encephalopathy acute: Code(s): G93.40 - Encephalopathy, unspecified Status: Acute Assessment and Plan: Head CT: No significant abnormality seen CXR: Clear lungs. Possible heterogeneous lucent lesion in the proximal right humeral shaft with periosteal reaction of the mid right humeral shaft. This suggests an aggressive lesion such as neoplastic disease or possibly osteomyelitis. Correlate clinically. Consider dedicated MR imaging. UA: Clearly indicative of UTI Viral PCR: Pending WBC: 14.5 Likely secondary to underlying catheter associated UTI
[2025-04-02 09:53] LABS: Hypochromasia 1+; Schistocytes None Seen
[2025-04-02] MEDS: CENTRAL LINE FLUSH 10 ML IV PUSH (12:06)
--- NOTE | 2025-04-02 12:11 | P.OP_ITS ---
Procedure Note - Detailed Date of Procedure 04/02/25 Pre-op Diagnosis Necrotic stage 4 sacral decubitus ulcer Post-op Diagnosis Same Procedure Performed Excisional debridement of necrotic sacral decubitus ulcer, down to muscle and fascia measuring 10 x 7 x 2 Surgeon Kaykay Lemus PA-C [employer] Radha Ramsay. [employer] Anesthesia None Indications Patient is an 89-year-old woman who developed a sacral decubitus ulcer this past February when she was hospitalized at [place] for C diff. She has been on antibiotics since this time. She was brought to [facility] after nursing staff at [facility] noted her to have altered mental status, hallucinations, and fever, as well as cloudy urine and poor appetite. Found to have UTI. CT abd/pelvis demonstrated multiple metastatic lesions as well as a large sacral decubitus with suggestion of osteomyelitis of the coccyx. WBC 14.5 yesterday, now down to 7.3. Febrile on 03/31 with T max of 101.3. Temps today in 99s. Findings Stage 4 sacral decubitus ulcer measuring 10 x 7 x 2. Muscle and fascia exposed down to the level of the coccyx. Description of Procedure The patient was placed in the left lateral position. The site of the sacral decubitus ulcer was identified and exposed. Following this, the area was prepped with iodine. Necrotic tissue was debrided from the wound bed using scissors and 15 blade scalpel down to muscle and fascia until reaching viable bleeding tissue. Bone palpable near inferior sacrum and coccyx area. No purulent drainage noted during debridement. Following debridement wound measured 10 x 7 x 2. Santyl was applied over the wound and it was then covered in a Mepilex dressing. Patient tolerated the procedure well. Estimated Blood Loss 0 Drains No Packing No Pathology None sent Complications No immediate complications Condition Stable Disposition Floor [facility] Billing Surgery - Charge Forward: Surgery Billing
[2025-04-02] MEDS: CEFEPIME 1 GM in SODIUM CHLORIDE 0.9% IV 50 ML 100 ML IVPB (20:05)
[2025-04-03] VITALS (13 sets, daily range): BP systolic 142–150; BP diastolic 46–77; PULSE 67–90; RESP 16–20; TEMP 36.5–36.9; O2SAT 99–100; BMI 10.0
[2025-04-03] MEDS: VANCOMYCIN 750 MG/NS 250 ML 750 MG/250 ML BAG 250 MG IVPB (03:37)
[2025-04-03] MEDS: SODIUM CHLORIDE 0.9% IV 1,000 ML 100 ML IV CONT ×2 (05:38→16:29)
[2025-04-03] MEDS: CENTRAL LINE FLUSH 10 ML IV PUSH ×3 (05:38→21:52)
[2025-04-03 06:02] LABS: Hematocrit 23.8 % (37.0-47.0); Hemoglobin 7.0 g/dL (12.0-15.0); Immature Granulocyte Percent A 5.8 % (0-0.5); Lymphocytes Absolute Auto 0.95 K/mm3 (0.9-3.2); Mean Corpuscular HGB Conc 29.4 g/dl (32-36); Mean Corpuscular Hemoglobin 28.9 pg (26-34); Mean Corpuscular Volume 98.3 fl (80-100); Nucleated Red Blood Cells Absolute Auto 0.000 K/mm3 (0.0-0.012); Nucleated Red Blood Cells Perc 0.0 % (0.0-0.2); Platelet Count Result 262 k/mm3 (150-375); Red Blood Count 2.42 M/mm3 (4.2-5.4); White Blood Count 6.2 K/mm3 (4.5-10.0)
[2025-04-03 06:16] LABS: Alanine Aminotransferase 14 U/L (6-35); Albumin Level 2.1 g/dL (3.5-5.1); Alkaline Phosphatase 76 U/L (38-126); Anion Gap 2 mmol/L (4-12); Aspartate Amino Transferase 30 U/L (14-36); Bilirubin,Total 0.1 mg/dL (0.2-1.3); Blood Urea Nitrogen 43 mg/dL (7-17); Calcium 8.1 mg/dL (8.4-10.2); Carbon Dioxide 19 mmol/L (22-30); Chloride 120 mmol/L (98-107); Estimated CRCL calculation 15 ml/min; Estimated Glomerular Filt Rate 25; Glucose 81 mg/dL (65-110); Potassium 4.1 mmol/L (3.4-5.0); Sodium 141 mmol/L (137-145); Total Protein 4.5 g/dL (6.3-8.2)
[2025-04-03 06:31] LABS: Crenated RBC 1+; Hypochromasia 1+; Schistocytes Rare
--- NOTE | 2025-04-03 07:20 | P.PNIM_ITS ---
Progress Note: A&P Assessment and Plan (1) Catheter-associated urinary tract infection: Qualifiers: Encounter type: initial encounter Indwelling urinary catheter type: indwelling urethral catheter Qualified Code(s): T83.511A - Infection and inflammatory reaction due to indwelling urethral catheter, initial encounter; N39.0 - Urinary tract infection, site not specified Code(s): T83.511A - Infection and inflammatory reaction due to indwelling urethral catheter, initial encounter; N39.0 - Urinary tract infection, site not specified Status: Acute Assessment and Plan: * UA: 3+ proteins, 2+ blood, 3+ leukocyte esterase, 11-20 urine RBC, >100 WBC, 4+ bacteria * UC obtained on 03/31, negative for growth * started on cefepime * Remains afebrile without leukocytosis * Ruled out * Will discontinue antibiotics (2) Anemia: Code(s): D64.9 - Anemia, unspecified Status: Acute Assessment and Plan: * Hgb 7.0 * add iron, TIBC, ferritin, B12, folic acid, and TSH * transfuse if <7 * trend H&H * Iron studies suggestive of anemia chronic disease/inflammation * Hematology/oncology consult (3) Decubitus ulcer of sacral region, unstageable: Code(s): L89.150 - Pressure ulcer of sacral region, unstageable Status: Chronic Assessment and Plan: * Abdomen/pelvis CT: * Large sacral decubitus ulcer with 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 * Diffuse heterogeneous appearance of the osseous structures with innumerable scattered lucencies, suspicious for myeloma or other metastatic disease versus possibly metabolic bone disease/osteoporotic change. * T12 compression deformity, age indeterminate. * General surgery consulted * No indications of active infection or underlying osteomyelitis * No biopsy indicated * Continue Santyl dressing regular positional changes * Small amount of necrotic tissue will be debrided at bedside * No other management indicated at this time 04/03 * Patient tolerated debridement well * Continue Bactrim and local wound care (4) CKD (chronic kidney disease) stage 4, GFR 15-29 ml/min: Code(s): N18.4 - Chronic kidney disease, stage 4 (severe) Status: Acute Assessment and Plan: * Creatinine: 2.55, GFR: 18, BUN: 78 * IV Fluids: NS 100mls/hr * Trend renal function * Trend electrolytes, correct as needed * 04/03: Cr 1.91 (5) Encephalopathy acute: Code(s): G93.40 - Encephalopathy, unspecified Status: Acute Assessment and Plan: * Head CT: No significant abnormality seen * CXR: Clear lungs. Possible heterogeneous lucent lesion in the proximal right humeral shaft with periosteal reaction of the mid right humeral shaft. This suggests an aggressive lesion such as neoplastic disease or possibly osteomyelitis. Correlate clinically. Consider dedicated MR imaging. * UA: Clearly indicative of UTI * Viral PCR: Pending * WBC: 14.5 -> 6.2 * Likely secondary to underlying catheter associated UTI * Ammonia wnl * Leukocytosis resolved * A&O x4 (6) Multiple myeloma: Code(s): C90.00 - Multiple myeloma not having achieved remission Status: Acute Assessment and Plan: * Chronic Acyclovir use * Given renal function, will request pharmacy to renally dose * Chest x-ray: Possible heterogeneous lucent lesion in the proximal right humeral shaft with periosteal reaction of the mid right humeral shaft. This suggests an aggressive lesion such as neoplastic disease or possibly osteomyelitis. Correlate clinically. Consider dedicated MR imaging. * This finding likely related to underlying multiple myeloma Subjective Date/time seen: 04/03/25 07:20 Interval history: 89-year-old female with a past medical history of COPD, chronic kidney disease stage 4 essential hypertension, multiple myeloma, C diff colitis and GERD who presented to the ER from [facility] via EMS due to altered mental status, decreased appetite, hallucinations in changes in her urine. 04/03/2025 Patient is sleeping comfortably in bed at time of examination. Patient once again accompanied by daughter. States that the patient is feeling better today. Patient endorses continue heel pain and generalized weakness but otherwise feels good today. Hemoglobin was 7.0, iron studies suggest anemia chronic disease/inflammation. Will obtain a Hematology consult and started on ferrous sulfate with CBC a.m.. Review of Systems Review of Systems: Review of systems unreliable due to patient's confusion. Exam Narrative: Weight 55.6 kg BMI 22.4 Const: Other: Thin body habitus, frail, elderly, debilitated HENMT: Other: Head is normocephalic atraumatic, mucous membranes are tacky, edentulous in upper jaw, lower jaw has poor dentition but no overt dental caries Eyes: Other: Pupils are equal and reactive, positive conjunctival pallor, no scleral icterus Neck: Other: No JVD, no lymphadenopathy Chest: Other: Port-A-Cath palpable in left upper chest Resp: Other: Decreased breath sounds throughout, no tachypnea or accessory muscle use Cardio: Other: Regular rate, regular rhythm, 2+ bilateral radial and pedal pulses, no murmur GI: Other: Soft, nontender, nondistended, normoactive bowel sounds : Other: Staley catheter in place. Patient's Staley catheter was exchanged in the ER and urine culture was sent from the new catheter Skin: Other: Decubitus ulcer to the sacrum appears to be at least stage III but truly unstageable due to overlying tissue, no surrounding erythema or skin changes to suggest acute cellulitis or abscess, please see nursing documentation for measurements, skin changes to bilateral heels as mentioned below Neuro: Other: Alert and oriented to person and the fact that she is in the hospital she thinks that she is at [facility], she is confused as to the month and year she stated that she hopes that Marilyn was not the president but she did not know who the president was, she has 3/5 telecommunication lines repairer strength bilaterally, sensation seems to be intact Extrem: Other: Stage I decubitus ulcers bilateral heels skin intact with no evidence of blanching, bunion to the left foot, nonblanching skin lesion to the left lateral malleolus, limited range of motion of bilateral hip flexors, generalized muscle wasting Psych: Other: Pleasantly confused, cooperative Objective Data Vital Signs Vital Signs: Vital Signs - 24 hr 04/02/25 08:00 04/02/25 08:00 04/02/25 08:45 Temperature Pulse Rate 85 87 Respiratory Rate Blood Pressure Pulse Oximetry Oxygen Delivery Room Air 04/02/25 12:00 04/02/25 14:00 04/02/25 16:00 Temperature 98.5 F Pulse Rate 81 81 78 Respiratory Rate 18 Blood Pressure 146/55 H Pulse Oximetry 100 Oxygen Delivery 04/02/25 19:51 04/02/25 20:00 04/02/25 20:05 Temperature Pulse Rate 84 87 Respiratory Rate Blood Pressure Pulse Oximetry Oxygen Delivery Room Air 04/02/25 21:04 04/03/25 00:00 04/03/25 04:00 Temperature 98.2 F Pulse Rate 84 87 67 Respiratory Rate 16 Blood Pressure 141/46 H Pulse Oximetry 100 Oxygen Delivery 04/03/25 05:02 Temperature 97.7 F Pulse Rate 88 Respiratory Rate 20 Blood Pressure 142/46 H Pulse Oximetry 99 Oxygen Delivery Intake/Output Intake/Output: Intake & Output 03/31/25 04/01/25 04/02/25 04/03/25 23:59 23:59 23:59 23:59 Intake Total 50 2300 3186.7 1105 Output Total 1050 1600 750 Balance 50 1250 1586.7 355 Meds/Results Medications: Active Medications Generic Name Dose Route Start Last Admin Trade Name Freq PRN Reason Stop Dose Admin Acetaminophen 650 mg 04/01/25 02:29 Acetaminophen 325 Mg Tablet PO Q4H PRN Mild Pain (1-3) or Fever Hydrocodone Bitart/Acetaminophen 1 tab 04/01/25 04:41 04/02/25 19:52 Hydrocodone/Acetaminophen (*Crx) 5-325 Mg Tablet PO 1 tab Q4H PRN Administration pain 7-10 Acyclovir 200 mg 04/01/25 09:00 04/02/25 19:52 Acyclovir 200 Mg Capsule PO 200 mg Q12HR KADIE Administration Carvedilol 25 mg 04/01/25 09:00 04/02/25 19:51 Carvedilol 25 Mg Tablet PO 25 mg Q12HR KADIE Administration Collagenase 1 applic 04/01/25 09:00 04/02/25 08:34 Collagenase Oint 30 Gm Tube TOPICAL 1 applic DAILY KADIE Administration Gabapentin 100 mg 04/01/25 09:00 04/02/25 16:28 Gabapentin 100 Mg Capsule PO 100 mg TID KADIE Administration Heparin Sodium (Beef Lung) 50 units 04/01/25 09:00 04/02/25 08:39 Heparin Flush 50 Units/5 Ml Syringe IV PUSH 50 units QAM KADIE Administration Heparin Sodium (Beef Lung) 50 units 04/01/25 05:10 Heparin Flush 50 Units/5 Ml Syringe IV PUSH PRN PRN after intermittent infusion Heparin Sodium (Beef Lung) 50 units 04/01/25 05:10 Heparin Flush 50 Units/5 Ml Syringe IV PUSH PRN PRN after blood draws Heparin Sodium (Porcine) 5,000 units 04/01/25 09:00 04/02/25 19:53 Heparin Sodium 5,000 Units/Ml Vial SUB-Q 5,000 units Q12HR KADIE Administration Heparin Sodium (Porcine) 500 units 04/01/25 05:10 Heparin Sodium Lock Flush 500 Units/5 Ml Syringe IV PUSH PRN PRN see comments below Cefepime HCl 1 gm/ Sodium 50 mls @ 100 mls/hr 04/01/25 21:00 04/02/25 20:05 Chloride IVPB 100 mls/hr Q24H KADIE Administration Sodium Chloride 1,000 mls @ 100 mls/hr 04/01/25 14:05 04/03/25 05:38 Normal Saline Iv IV CONT 100 mls/hr .Q10H KADIE Administration Menthol/Methyl Salicylate 1 applic 04/01/25 15:20 04/01/25 16:17 Menthol 10% / Methyl Salicylate 15% 57 Gm Tube TOPICAL 1 applic BID PRN Administration Muscle/Joint Pain Ondansetron HCl 4 mg 04/01/25 02:29 Ondansetron Inj 4 Mg/2 Ml Vial IV PUSH Q4H PRN Nausea Polyethylene Glycol 17 gm 04/01/25 04:41 Polyethylene Glycol 3350 17 Gm Powd.Pack PO DAILY PRN constipation Saccharomyces Boulardii 250 mg 04/01/25 09:00 04/02/25 08:31 Saccharomyces Boulardii 250 Mg Capsule PO 250 mg DAILY KADIE Administration Silver Nitrate 1 each 04/02/25 08:34 Silver Nitrate (*Sp) Stick TOPICAL PRN PRN Bleeding Sodium Chloride 10 ml 04/01/25 06:00 04/03/25 05:38 Central Line Flush IV PUSH 10 ml Q8HR KADIE Administration Trimethoprim/Sulfamethoxazole 1 tab 04/02/25 09:00 04/02/25 08:31 Sulfamethoxazole/Trimethoprim 400/80 Mg Tablet PO 1 tab MoWeFr KADIE Administration Vancomycin HCl 1 each 03/31/25 22:59 Vancomycin For Acute Kidney Injury IVPB PRN PRN Vancomycin Protocol Vitamin D 25 mcg 04/01/25 09:00 04/02/25 08:27 Cholecalciferol (Vitamin D3) 25 Mcg (1,000 Units) Tablet PO 25 mcg DAILY KADIE Administration Radiology Results: ITS Impressions Chest X-Ray 04/01/25 06:42 Impression: Clear lungs. Possible heterogeneous lucent lesion in the proximal right humeral shaft with periosteal reaction of the mid right humeral shaft. This suggests an aggressive lesion such as neoplastic disease or possibly osteomyelitis. Correlate clinically. Consider dedicated MR imaging. 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 Diffuse heterogeneous appearance of the osseous structures with innumerable scattered lucencies, suspicious for myeloma or other metastatic disease versus possibly metabolic bone disease/osteoporotic change. T12 compression deformity, age indeterminate. Head CT 04/01/25 06:48 Impression: No significant abnormality seen. Labs Labs: Laboratory Results - last 24 hr 04/02/25 04/02/25 04/02/25 06:02 07:24 08:48 WBC 7.3 RBC 2.58 L Hgb 7.6 L Hct 25.6 L MCV 99.2 MCH 29.5 MCHC 29.7 L RDW 14.7 H Plt Count 254 MPV 8.5 Immature Gran % (Auto) 4.4 H Neut % (Auto) 70.2 Lymph % (Auto) 12.4 L [place] % (Auto) 10.9 H Eos % (Auto) 1.6 Baso % (Auto) 0.5 Lymph # (Auto) 0.91 [place] # (Auto) 0.8 H Eos # (Auto) 0.1 Baso # (Auto) 0.0 Abs Immat Gran (auto) 0.32 H Absolute Neuts (auto) 5.2 Absolute Nucleated RBC 0.000 Band Neutrophils % Not Reportable Nucleated RBC % 0.0 Platelet Estimate Adequate Hypochromasia 1+ Crenated Cell Schistocytes None seen Sodium 141 Potassium 4.1 Chloride 117 H Carbon Dioxide 19 L Anion Gap 5 BUN 60 H D Creatinine Estim Creat Clear Calc Estimated GFR Glucose 87 POC Capillary Glucose 85 Calcium 8.2 L Total Bilirubin 0.1 L AST 38 H ALT 18 Alkaline Phosphatase 82 Total Protein 4.8 L Albumin 2.2 L Random Vancomycin 04/02/25 04/02/25 04/02/25 11:36 16:29 17:24 WBC RBC Hgb Hct MCV MCH MCHC RDW Plt Count MPV Immature Gran % (Auto) Neut % (Auto) Lymph % (Auto) [place] % (Auto) Eos % (Auto) Baso % (Auto) Lymph # (Auto) [place] # (Auto) Eos # (Auto) Baso # (Auto) Abs Immat Gran (auto) Absolute Neuts (auto) Absolute Nucleated RBC Band Neutrophils % Nucleated RBC % Platelet Estimate Hypochromasia Crenated Cell Schistocytes Sodium Potassium Chloride Carbon Dioxide Anion Gap BUN Creatinine Estim Creat Clear Calc Estimated GFR Glucose POC Capillary Glucose 102 79 121 H Calcium Total Bilirubin AST ALT Alkaline Phosphatase Total Protein Albumin Random Vancomycin 04/02/25 04/03/25 04/03/25 19:22 00:19 05:42 WBC 6.2 RBC 2.42 L Hgb 7.0 L Hct 23.8 L MCV 98.3 MCH 28.9 MCHC 29.4 L RDW 14.8 H Plt Count 262 MPV 9.0 Immature Gran % (Auto) 5.8 H Neut % (Auto) 64.0 Lymph % (Auto) 15.4 L [place] % (Auto) 12.0 H Eos % (Auto) 2.3 Baso % (Auto) 0.5 Lymph # (Auto) 0.95 [place] # (Auto) 0.7 H Eos # (Auto) 0.1 Baso # (Auto) 0.0 Abs Immat Gran (auto) 0.36 H Absolute Neuts (auto) 4.0 Absolute Nucleated RBC 0.000 Band Neutrophils % Not Reportable Nucleated RBC % 0.0 Platelet Estimate Adequate Hypochromasia 1+ Crenated Cell 1+ Schistocytes Rare Sodium 141 Potassium 4.1 Chloride 120 H Carbon Dioxide 19 L Anion Gap 2 L BUN 43 H D Creatinine 1.91 H Estim Creat Clear Calc 15 Estimated GFR 25 L Glucose 81 POC Capillary Glucose 119 H Calcium 8.1 L Total Bilirubin 0.1 L AST 30 ALT 14 Alkaline Phosphatase 76 Total Protein 4.5 L Albumin 2.1 L Random Vancomycin 11.8 Quality VTE Prophylaxis VTE prophylaxis: pharmacologic ordered (Heparin 5000 units subQ q.12 hours.)
[2025-04-03 07:44] LABS: Iron 35 ug/dL (37-170)
[2025-04-03 07:53] LABS: Percent Iron Saturation 28 % (20-50)
[2025-04-03] MEDS: ACYCLOVIR 200 MG CAPSULE PO ×2 (08:51→21:52)
[2025-04-03] MEDS: CHOLECALCIFEROL (VITAMIN D3) 25 MCG (1,000 UNITS) TABLET PO (08:51)
[2025-04-03] MEDS: FERROUS SULFATE 325 MG TABLET DR PO (08:51)
[2025-04-03] MEDS: GABAPENTIN 100 MG CAPSULE PO ×3 (08:52→16:29)
[2025-04-03] MEDS: HYDROcodone/acetaminophen (*CRX) 5-325 MG TABLET 1 TAB PO (08:52)
[2025-04-03] MEDS: COLLAGENASE OINT 30 GM TUBE 1 APPLIC TOPICAL (08:54)
[2025-04-03 09:05] LABS: Ferritin > 2000.00 ng/mL (11.1-264)
--- NOTE | 2025-04-03 11:48 | P.PNGS_ITS ---
Progress Note: A&P Assessment and Plan (1) Decubitus ulcer of sacral region, unstageable: Code(s): L89.150 - Pressure ulcer of sacral region, unstageable Status: Chronic Assessment and Plan: Patient had excisional debridement of sacral decubitus ulcer yesterday. Tolerated well. WBC 6.2. Afebrile. Continue Bactrim. Continue local wound care with Santyl and Mepilex dressing. (2) Sacral osteomyelitis: Code(s): M46.28 - Osteomyelitis of vertebra, sacral and sacrococcygeal region Status: Acute Plan Discussed patient's case and plan of care with Dr. Velasco. Subjective Subjective Date/Time Seen: 04/03/25 11:48 Patient reports: no new complaints Interval history: Patient is doing well today. No acute events overnight. VSS. Afebrile. Exam Skin: Other: Sacral decubitus wound appears stable. White-yellow tissue present throughout most of wound bed, with outside edges with pink granulation tissue. No areas of purulence. No surrounding erythema or edema. Objective Data Vital Signs Vital Signs: Vital Signs - 24 hr 04/02/25 12:00 04/02/25 14:00 04/02/25 16:00 Temperature 98.5 F Pulse Rate 81 81 78 Respiratory Rate 18 Blood Pressure 146/55 H Pulse Oximetry 100 Oxygen Delivery 04/02/25 19:51 04/02/25 20:00 04/02/25 20:05 Temperature Pulse Rate 84 87 Respiratory Rate Blood Pressure Pulse Oximetry Oxygen Delivery Room Air 04/02/25 21:04 04/03/25 00:00 04/03/25 04:00 Temperature 98.2 F Pulse Rate 84 87 67 Respiratory Rate 16 Blood Pressure 141/46 H Pulse Oximetry 100 Oxygen Delivery 04/03/25 05:02 04/03/25 08:00 04/03/25 08:00 Temperature 97.7 F Pulse Rate 88 87 Respiratory Rate 20 Blood Pressure 142/46 H Pulse Oximetry 99 Oxygen Delivery Room Air 04/03/25 08:54 04/03/25 09:24 04/03/25 10:21 Temperature Pulse Rate 84 Respiratory Rate Blood Pressure Pulse Oximetry Oxygen Delivery Room Air Room Air Intake/Output Intake/Output: Intake & Output 03/31/25 04/01/25 04/02/25 04/03/25 23:59 23:59 23:59 23:59 Intake Total 50 2300 3186.7 1185 Output Total 1050 1600 750 Balance 50 1250 1586.7 435 Meds/Results Medications: Active Medications Generic Name Dose Route Start Last Admin Trade Name Freq PRN Reason Stop Dose Admin Acetaminophen 650 mg 04/01/25 02:29 Acetaminophen 325 Mg Tablet PO Q4H PRN Mild Pain (1-3) or Fever Hydrocodone Bitart/Acetaminophen 1 tab 04/01/25 04:41 04/03/25 08:52 Hydrocodone/Acetaminophen (*Crx) 5-325 Mg Tablet PO 1 tab Q4H PRN Administration pain 7-10 Acyclovir 200 mg 04/01/25 09:00 04/03/25 08:51 Acyclovir 200 Mg Capsule PO 200 mg Q12HR KADIE Administration Carvedilol 25 mg 04/01/25 09:00 04/03/25 08:54 Carvedilol 25 Mg Tablet PO 25 mg Q12HR KADIE Administration Cefdinir 300 mg 04/03/25 21:00 Cefdinir 300 Mg Capsule PO 04/06/25 21:01 QHS KADIE Collagenase 1 applic 04/01/25 09:00 04/03/25 08:54 Collagenase Oint 30 Gm Tube TOPICAL 1 applic DAILY KADIE Administration Ferrous Sulfate 325 mg 04/03/25 09:00 04/03/25 08:51 Ferrous Sulfate [address] PO 325 mg Q48H KADIE Administration Gabapentin 100 mg 04/01/25 09:00 04/03/25 08:52 Gabapentin 100 Mg Capsule PO 100 mg TID KADIE Administration Heparin Sodium (Beef Lung) 50 units 04/01/25 09:00 04/03/25 08:53 Heparin Flush 50 Units/5 Ml Syringe IV PUSH 50 units QAM KADIE Administration Heparin Sodium (Beef Lung) 50 units 04/01/25 05:10 Heparin Flush 50 Units/5 Ml Syringe IV PUSH PRN PRN after intermittent infusion Heparin Sodium (Beef Lung) 50 units 04/01/25 05:10 Heparin Flush 50 Units/5 Ml Syringe IV PUSH PRN PRN after blood draws Heparin Sodium (Porcine) 5,000 units 04/01/25 09:00 04/03/25 08:53 Heparin Sodium 5,000 Units/Ml Vial SUB-Q 5,000 units Q12HR KADIE Administration Heparin Sodium (Porcine) 500 units 04/01/25 05:10 Heparin Sodium Lock Flush 500 Units/5 Ml Syringe IV PUSH PRN PRN see comments below Sodium Chloride 1,000 mls @ 100 mls/hr 04/01/25 14:05 04/03/25 05:38 Normal Saline Iv IV CONT 100 mls/hr .Q10H KADIE Administration Menthol/Methyl Salicylate 1 applic 04/01/25 15:20 04/01/25 16:17 Menthol 10% / Methyl Salicylate 15% 57 Gm Tube TOPICAL 1 applic BID PRN Administration Muscle/Joint Pain Ondansetron HCl 4 mg 04/01/25 02:29 Ondansetron Inj 4 Mg/2 Ml Vial IV PUSH Q4H PRN Nausea Polyethylene Glycol 17 gm 04/01/25 04:41 Polyethylene Glycol 3350 17 Gm Powd.Pack PO DAILY PRN constipation Saccharomyces Boulardii 250 mg 04/01/25 09:00 04/02/25 08:31 Saccharomyces Boulardii 250 Mg Capsule PO 250 mg DAILY KADIE Administration Silver Nitrate 1 each 04/02/25 08:34 Silver Nitrate (*Sp) Stick TOPICAL PRN PRN Bleeding Sodium Chloride 10 ml 04/01/25 06:00 04/03/25 05:38 Central Line Flush IV PUSH 10 ml Q8HR KADIE Administration Trimethoprim/Sulfamethoxazole 1 tab 04/02/25 09:00 04/02/25 08:31 Sulfamethoxazole/Trimethoprim 400/80 Mg Tablet PO 1 tab MoWeFr KADIE Administration Vitamin D 25 mcg 04/01/25 09:00 04/03/25 08:51 Cholecalciferol (Vitamin D3) 25 Mcg (1,000 Units) Tablet PO 25 mcg DAILY KADIE Administration Radiology Results: ITS Impressions Chest X-Ray 04/01/25 06:42 Impression: Clear lungs. Possible heterogeneous lucent lesion in the proximal right humeral shaft with periosteal reaction of the mid right humeral shaft. This suggests an aggressive lesion such as neoplastic disease or possibly osteomyelitis. Correlate cl inically. Consider dedicated MR imaging. 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 Diffuse heterogeneous appearance of the osseous structures with innumerable scattered lucencies, suspicious for myeloma or other metastatic disease versus possibly metabolic bone disease/osteoporotic change. T12 compression deformity, age indeterminate. Head CT 04/01/25 06:48 Impression: No significant abnormality seen. Labs Labs: Laboratory Results - last 24 hr 04/02/25 04/02/25 04/02/25 16:29 17:24 19:22 WBC RBC Hgb Hct MCV MCH MCHC RDW Plt Count MPV Immature Gran % (Auto) Neut % (Auto) Lymph % (Auto) [place] % (Auto) Eos % (Auto) Baso % (Auto) Lymph # (Auto) [place] # (Auto) Eos # (Auto) Baso # (Auto) Abs Immat Gran (auto) Absolute Neuts (auto) Absolute Nucleated RBC Band Neutrophils % Nucleated RBC % Platelet Estimate Hypochromasia Crenated Cell Schistocytes Sodium Potassium Chloride Carbon Dioxide Anion Gap BUN Creatinine Estim Creat Clear Calc Estimated GFR Glucose POC Capillary Glucose 79 121 H 119 H Calcium Iron TIBC % Saturation Ferritin Total Bilirubin AST ALT Alkaline Phosphatase Total Protein Albumin Random Vancomycin 04/03/25 04/03/25 04/03/25 00:14 00:19 05:42 WBC 6.2 RBC 2.42 L Hgb 7.0 L Hct 23.8 L MCV 98.3 MCH 28.9 MCHC 29.4 L RDW 14.8 H Plt Count 262 MPV 9.0 Immature Gran % (Auto) 5.8 H Neut % (Auto) 64.0 Lymph % (Auto) 15.4 L [place] % (Auto) 12.0 H Eos % (Auto) 2.3 Baso % (Auto) 0.5 Lymph # (Auto) 0.95 [place] # (Auto) 0.7 H Eos # (Auto) 0.1 Baso # (Auto) 0.0 Abs Immat Gran (auto) 0.36 H Absolute Neuts (auto) 4.0 Absolute Nucleated RBC 0.000 Band Neutrophils % Not Reportable Nucleated RBC % 0.0 Platelet Estimate Adequate Hypochromasia 1+ Crenated Cell 1+ Schistocytes Rare Sodium 141 Potassium 4.1 Chloride 120 H Carbon Dioxide 19 L Anion Gap 2 L BUN 43 H D Creatinine 1.91 H Estim Creat Clear Calc 15 Estimated GFR 25 L Glucose 81 POC Capillary Glucose Calcium 8.1 L Iron 35 L TIBC 123 L % Saturation 28 Ferritin > 2000.00 H Total Bilirubin 0.1 L AST 30 ALT 14 Alkaline Phosphatase 76 Total Protein 4.5 L Albumin 2.1 L Random Vancomycin 11.8 04/03/25 04/03/25 07:38 11:34 WBC RBC Hgb Hct MCV MCH MCHC RDW Plt Count MPV Immature Gran % (Auto) Neut % (Auto) Lymph % (Auto) [place] % (Auto) Eos % (Auto) Baso % (Auto) Lymph # (Auto) [place] # (Auto) Eos # (Auto) Baso # (Auto) Abs Immat Gran (auto) Absolute Neuts (auto) Absolute Nucleated RBC Band Neutrophils % Nucleated RBC % Platelet Estimate Hypochromasia Crenated Cell Schistocytes Sodium Potassium Chloride Carbon Dioxide Anion Gap BUN Creatinine Estim Creat Clear Calc Estimated GFR Glucose POC Capillary Glucose 84 124 H Calcium Iron TIBC % Saturation Ferritin Total Bilirubin AST ALT Alkaline Phosphatase Total Protein Albumin Random Vancomycin
[2025-04-03 16:06] LABS: Thyroid Stimulating Hormone Reflex 4.300 uIU/mL (0.465-4.68)
[2025-04-03 16:55] LABS: Vitamin B12 > 1000.0 pg/mL (239-931)
[2025-04-03 17:11] LABS: Free T4 Free Thyroxine Reflex 1.79 ng/dL (0.78-2.19)
[2025-04-03 18:02] LABS: Total Triiodothyronine (T3) 0.75 NG/ML (0.82-1.58)
[2025-04-03] MEDS: CEFDINIR 300 MG CAPSULE PO (21:52)
[2025-04-04] VITALS (10 sets, daily range): BP systolic 168–176; BP diastolic 64–70; PULSE 68–92; RESP 16–20; TEMP 36.6–36.8; O2SAT 99–100
[2025-04-04] MEDS: SODIUM CHLORIDE 0.9% IV 1,000 ML 100 ML IV CONT ×3 (01:58→22:03)
[2025-04-04] MEDS: HYDROcodone/acetaminophen (*CRX) 5-325 MG TABLET 1 TAB PO ×2 (01:59→10:35)
[2025-04-04 06:12] LABS: Hematocrit 23.4 % (37.0-47.0); Hemoglobin 7.0 g/dL (12.0-15.0); Immature Granulocyte Percent A 3.5 % (0-0.5); Lymphocytes Absolute Auto 1.25 K/mm3 (0.9-3.2); Mean Corpuscular HGB Conc 29.9 g/dl (32-36); Mean Corpuscular Hemoglobin 29.3 pg (26-34); Mean Corpuscular Volume 97.9 fl (80-100); Nucleated Red Blood Cells Absolute Auto 0.000 K/mm3 (0.0-0.012); Nucleated Red Blood Cells Perc 0.0 % (0.0-0.2); Platelet Count Result 260 k/mm3 (150-375); Red Blood Count 2.39 M/mm3 (4.2-5.4); White Blood Count 5.5 K/mm3 (4.5-10.0)
[2025-04-04 06:36] LABS: Alanine Aminotransferase 13 U/L (6-35); Albumin Level 2.1 g/dL (3.5-5.1); Alkaline Phosphatase 83 U/L (38-126); Anion Gap 4 mmol/L (4-12); Aspartate Amino Transferase 34 U/L (14-36); Bilirubin,Total 0.2 mg/dL (0.2-1.3); Blood Urea Nitrogen 35 mg/dL (7-17); Calcium 8.3 mg/dL (8.4-10.2); Carbon Dioxide 18 mmol/L (22-30); Chloride 120 mmol/L (98-107); Estimated CRCL calculation 16 ml/min; Estimated Glomerular Filt Rate 27; Glucose 76 mg/dL (65-110); Potassium 3.7 mmol/L (3.4-5.0); Sodium 142 mmol/L (137-145); Total Protein 4.5 g/dL (6.3-8.2)
[2025-04-04 06:52] LABS: Acanthocytes 1+; Burr Cells 1+; Helmet Cells 1+; Hypochromasia 1+; Schistocytes Rare
[2025-04-04] MEDS: GABAPENTIN 100 MG CAPSULE PO ×3 (09:11→16:55)
[2025-04-04] MEDS: CHOLECALCIFEROL (VITAMIN D3) 25 MCG (1,000 UNITS) TABLET PO (09:11)
[2025-04-04] MEDS: SACCHAROMYCES BOULARDII 250 MG CAPSULE PO (09:11)
[2025-04-04] MEDS: ACYCLOVIR 200 MG CAPSULE PO ×2 (09:11→21:38)
[2025-04-04] MEDS: COLLAGENASE OINT 30 GM TUBE 1 APPLIC TOPICAL (09:16)
--- NOTE | 2025-04-04 10:25 | P.PNIM_ITS ---
Progress Note: A&P Assessment and Plan (1) Catheter-associated urinary tract infection: Qualifiers: Encounter type: initial encounter Indwelling urinary catheter type: indwelling urethral catheter Qualified Code(s): T83.511A - Infection and inflammatory reaction due to indwelling urethral catheter, initial encounter; N39.0 - Urinary tract infection, site not specified Code(s): T83.511A - Infection and inflammatory reaction due to indwelling urethral catheter, initial encounter; N39.0 - Urinary tract infection, site not specified Status: Acute Assessment and Plan: * UA: 3+ proteins, 2+ blood, 3+ leukocyte esterase, 11-20 urine RBC, >100 WBC, 4+ bacteria * UC obtained on 03/31, negative for growth * started on cefepime * Remains afebrile without leukocytosis * Ruled out * Will discontinue antibiotics (2) Anemia: Code(s): D64.9 - Anemia, unspecified Status: Acute Assessment and Plan: * Hgb 7.0 * add iron, TIBC, ferritin, B12, folic acid, and TSH * transfuse if <7 * trend H&H * Iron studies suggestive of anemia chronic disease/inflammation * Hematology/oncology consult (3) Decubitus ulcer of sacral region, unstageable: Code(s): L89.150 - Pressure ulcer of sacral region, unstageable Status: Chronic Assessment and Plan: * Abdomen/pelvis CT: * Large sacral decubitus ulcer with 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 * Diffuse heterogeneous appearance of the osseous structures with innumerable scattered lucencies, suspicious for myeloma or other metastatic disease versus possibly metabolic bone disease/osteoporotic change. * T12 compression deformity, age indeterminate. * General surgery consulted * No indications of active infection or underlying osteomyelitis * No biopsy indicated * Continue Santyl dressing regular positional changes * Small amount of necrotic tissue will be debrided at bedside * No other management indicated at this time 04/03 * Patient tolerated debridement well * Continue Bactrim and local wound care 04/04 * pain worsening. * Hospice consult placed per family. * Additional pain medication- Dilaudid 1 mg IVP x 1 given. Termo and Tramadol PRN. (4) CKD (chronic kidney disease) stage 4, GFR 15-29 ml/min: Code(s): N18.4 - Chronic kidney disease, stage 4 (severe) Status: Acute Assessment and Plan: * Creatinine: 2.55, GFR: 18, BUN: 78 * IV Fluids: NS 100mls/hr * Trend renal function * Trend electrolytes, correct as needed * 04/03: Cr 1.91 * 04/04: Cr 1.78. (5) Encephalopathy acute: Code(s): G93.40 - Encephalopathy, unspecified Status: Acute Assessment and Plan: * Head CT: No significant abnormality seen * CXR: Clear lungs. Possible heterogeneous lucent lesion in the proximal right humeral shaft with periosteal reaction of the mid right humeral shaft. This suggests an aggressive lesion such as neoplastic disease or possibly osteomyelitis. Correlate clinically. Consider dedicated MR imaging. * UA: Clearly indicative of UTI * Viral PCR: Pending * WBC: 14.5 -> 6.2>5.5 * Likely secondary to underlying catheter associated UTI * Ammonia wnl * Leukocytosis resolved * A&O x4 (6) Multiple myeloma: Code(s): C90.00 - Multiple myeloma not having achieved remission Status: Acute Assessment and Plan: * Chronic Acyclovir use * Given renal function, will request pharmacy to renally dose * Chest x-ray: Possible heterogeneous lucent lesion in the proximal right humeral shaft with periosteal reaction of the mid right humeral shaft. This suggests an aggressive lesion such as neoplastic disease or possibly osteomyelitis. Correlate clinically. Consider dedicated MR imaging. * This finding likely related to underlying multiple myeloma Subjective Date/time seen: 04/04/25 10:25 Interval history: Patient reports pain in buttock is a 10, constant, and burning. Patient denies chest pain, palpitations, shortness of breath, headache, dizziness, nausea, or vomiting. Family at bedside. Family spoke with care coordination and would like a consult to [facility]. Review of Systems Review of Systems: All systems reviewed & are unremarkable except as noted in HPI and below Exam Const: General: uncomfortable Other: Thin body habitus, frail, elderly, debilitated Resp: Effort & Inspection: normal respiratory effort Auscultation: diminished lung sounds Cardio: Rate: regular rate GI: GI Palp: Yes Soft to palpation Auscultation: normal bowel sounds Urinary Catheter: Urinary Catheter: patent and draining and urine clear Skin: Other: Sacral wound, patient in pain and not wanting to turn. Stage I decubitus ulcers bilateral heels skin intact with no evidence of blanching, bunion to the left foot, nonblanching skin lesion to the left lateral malleolus, limited range of motion of bilateral hip flexors, generalized muscle wasting Neuro: Speech: normal speech Extrem: General: no pedal edema Psych: Affect: normal affect Other: Pleasantly confused, cooperative Objective Data Vital Signs Vital Signs: Vital Signs - 24 hr 04/03/25 12:00 04/03/25 14:00 04/03/25 16:00 Temperature 98.1 F Pulse Rate 87 88 87 Respiratory Rate 20 Blood Pressure 150/47 H Pulse Oximetry 99 Oxygen Delivery 04/03/25 20:00 04/03/25 20:00 04/03/25 20:10 Temperature Pulse Rate 68 68 Respiratory Rate 16 Blood Pressure Pulse Oximetry 100 100 Oxygen Delivery Room Air Room Air 04/03/25 21:25 04/03/25 21:52 04/03/25 23:48 Temperature 98.5 F Pulse Rate 90 68 70 Respiratory Rate 16 Blood Pressure 142/77 H Pulse Oximetry 100 Oxygen Delivery 04/04/25 03:59 04/04/25 05:02 04/04/25 09:16 Temperature 98.0 F Pulse Rate 68 89 72 Respiratory Rate 16 Blood Pressure 168/64 H Pulse Oximetry 99 Oxygen Delivery Intake/Output Intake/Output: Intake & Output 04/01/25 04/02/25 04/03/25 04/04/25 23:59 23:59 23:59 23:59 Intake Total 2300 3186.7 2582 1435.3 Output Total 1050 1600 1950 1150 Balance 1250 1586.7 632 285.3 Meds/Results Medications: Active Medications Generic Name Dose Route Start Last Admin Trade Name Freq PRN Reason Stop Dose Admin Acetaminophen 650 mg 04/01/25 02:29 Acetaminophen 325 Mg Tablet PO Q4H PRN Mild Pain (1-3) or Fever Hydrocodone Bitart/Acetaminophen 1 tab 04/01/25 04:41 04/04/25 01:59 Hydrocodone/Acetaminophen (*Crx) 5-325 Mg Tablet PO 1 tab Q4H PRN Administration pain 7-10 Acyclovir 200 mg 04/01/25 09:00 04/04/25 09:11 Acyclovir 200 Mg Capsule PO 200 mg Q12HR KADIE Administration Carvedilol 25 mg 04/01/25 09:00 04/04/25 09:16 Carvedilol 25 Mg Tablet PO 25 mg Q12HR KADIE Administration Cefdinir 300 mg 04/03/25 21:00 04/03/25 21:52 Cefdinir 300 Mg Capsule PO 04/06/25 21:01 300 mg QHS KADIE Administration Collagenase 1 applic 04/01/25 09:00 04/04/25 09:16 Collagenase Oint 30 Gm Tube TOPICAL 1 applic DAILY KADIE Administration Ferrous Sulfate 325 mg 04/03/25 09:00 04/03/25 08:51 Ferrous Sulfate [address] PO 325 mg Q48H KADIE Administration Gabapentin 100 mg 04/01/25 09:00 04/04/25 09:11 Gabapentin 100 Mg Capsule PO 100 mg TID KADIE Administration Heparin Sodium (Beef Lung) 50 units 04/01/25 09:00 04/04/25 09:59 Heparin Flush 50 Units/5 Ml Syringe IV PUSH 50 units QAM KADIE Administration Heparin Sodium (Beef Lung) 50 units 04/01/25 05:10 Heparin Flush 50 Units/5 Ml Syringe IV PUSH PRN PRN after intermittent infusion Heparin Sodium (Beef Lung) 50 units 04/01/25 05:10 Heparin Flush 50 Units/5 Ml Syringe IV PUSH PRN PRN after blood draws Heparin Sodium (Porcine) 5,000 units 04/01/25 09:00 04/04/25 09:11 Heparin Sodium 5,000 Units/Ml Vial SUB-Q 5,000 units Q12HR KADIE Administration Heparin Sodium (Porcine) 500 units 04/01/25 05:10 Heparin Sodium Lock Flush 500 Units/5 Ml Syringe IV PUSH PRN PRN see comments below Sodium Chloride 1,000 mls @ 100 mls/hr 04/01/25 14:05 04/04/25 01:58 Normal Saline Iv IV CONT 100 mls/hr .Q10H KADIE Administration Menthol/Methyl Salicylate 1 applic 04/01/25 15:20 04/01/25 16:17 Menthol 10% / Methyl Salicylate 15% 57 Gm Tube TOPICAL 1 applic BID PRN Administration Muscle/Joint Pain Ondansetron HCl 4 mg 04/01/25 02:29 Ondansetron Inj 4 Mg/2 Ml Vial IV PUSH Q4H PRN Nausea Polyethylene Glycol 17 gm 04/01/25 04:41 Polyethylene Glycol 3350 17 Gm Powd.Pack PO DAILY PRN constipation Saccharomyces Boulardii 250 mg 04/01/25 09:00 04/04/25 09:11 Saccharomyces Boulardii 250 Mg Capsule PO 250 mg DAILY KADIE Administration Silver Nitrate 1 each 04/02/25 08:34 Silver Nitrate (*Sp) Stick TOPICAL PRN PRN Bleeding Sodium Chloride 10 ml 04/01/25 06:00 04/04/25 05:58 Central Line Flush IV PUSH Not Given Q8HR KADIE Trimethoprim/Sulfamethoxazole 1 tab 04/02/25 09:00 04/02/25 08:31 Sulfamethoxazole/Trimethoprim 400/80 Mg Tablet PO 1 tab MoWeFr KADIE Administration Vitamin D 25 mcg 04/01/25 09:00 04/04/25 09:11 Cholecalciferol (Vitamin D3) 25 Mcg (1,000 Units) Tablet PO 25 mcg DAILY KADIE Administration Radiology Results: ITS Impressions Chest X-Ray 04/01/25 06:42 Impression: Clear lungs. Possible heterogeneous lucent lesion in the proximal right humeral shaft with periosteal reaction of the mid right humeral shaft. This suggests an aggressive lesion such as neoplastic disease or possibly osteomyelitis. Correlate clinically. Consider dedicated MR imaging. 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 Diffuse heterogeneous appearance of the osseous structures with innumerable scattered lucencies, suspicious for myeloma or other metastatic disease versus possibly metabolic bone disease/osteoporotic change. T12 compression deformity, age indeterminate. Head CT 04/01/25 06:48 Impression: No significant abnormality seen. Labs Labs: Laboratory Results - last 24 hr 04/03/25 04/03/25 04/03/25 00:14 05:41 11:34 WBC RBC Hgb Hct MCV MCH MCHC RDW Plt Count MPV Immature Gran % (Auto) Neut % (Auto) Lymph % (Auto) Ada % (Auto) Eos % (Auto) Baso % (Auto) Lymph # (Auto) Ada # (Auto) Eos # (Auto) Baso # (Auto) Abs Immat Gran (auto) Absolute Neuts (auto) Absolute Nucleated RBC Band Neutrophils % Nucleated RBC % Platelet Estimate Hypochromasia Helmet Cells Kassie Cells Acanthocytes (Spur) Schistocytes Sodium Potassium Chloride Carbon Dioxide Anion Gap BUN Creatinine Estim Creat Clear Calc Estimated GFR Glucose POC Capillary Glucose 124 H Calcium Total Bilirubin AST ALT Alkaline Phosphatase Total Protein Albumin Vitamin B12 > 1000.0 H Folate 6.3 TSH (Reflex) 4.300 Free T4 1.79 Total T3 0.75 L 04/03/25 04/03/25 04/04/25 16:18 19:33 06:06 WBC 5.5 RBC 2.39 L Hgb 7.0 L Hct 23.4 L MCV 97.9 MCH 29.3 MCHC 29.9 L RDW 14.9 H Plt Count 260 MPV 8.7 Immature Gran % (Auto) 3.5 H Neut % (Auto) 57.0 Lymph % (Auto) 22.7 Ada % (Auto) 13.3 H Eos % (Auto) 3.1 Baso % (Auto) 0.4 Lymph # (Auto) 1.25 Ada # (Auto) 0.7 H Eos # (Auto) 0.2 Baso # (Auto) 0.0 Abs Immat Gran (auto) 0.19 H Absolute Neuts (auto) 3.1 Absolute Nucleated RBC 0.000 Band Neutrophils % Not Reportable Nucleated RBC % 0.0 Platelet Estimate Adequate Hypochromasia 1+ Helmet Cells 1+ Kassie Cells 1+ Acanthocytes (Spur) 1+ Schistocytes Rare Sodium 142 Potassium 3.7 Chloride 120 H Carbon Dioxide 18 L Anion Gap 4 BUN 35 H Creatinine 1.78 H Estim Creat Clear Calc 16 Estimated GFR 27 L Glucose 76 POC Capillary Glucose 96 91 Calcium 8.3 L Total Bilirubin 0.2 AST 34 ALT 13 Alkaline Phosphatase 83 Total Protein 4.5 L Albumin 2.1 L Vitamin B12 Folate TSH (Reflex) Free T4 Total T3 04/04/25 08:05 WBC RBC Hgb Hct MCV MCH MCHC RDW Plt Count MPV Immature Gran % (Auto) Neut % (Auto) Lymph % (Auto) Ada % (Auto) Eos % (Auto) Baso % (Auto) Lymph # (Auto) Ada # (Auto) Eos # (Auto) Baso # (Auto) Abs Immat Gran (auto) Absolute Neuts (auto) Absolute Nucleated RBC Band Neutrophils % Nucleated RBC % Platelet Estimate Hypochromasia Helmet Cells Kassie Cells Acanthocytes (Spur) Schistocytes Sodium Potassium Chloride Carbon Dioxide Anion Gap BUN Creatinine Estim Creat Clear Calc Estimated GFR Glucose POC Capillary Glucose 73 Calcium Total Bilirubin AST ALT Alkaline Phosphatase Total Protein Albumin Vitamin B12 Folate TSH (Reflex) Free T4 Total T3
[2025-04-04] MEDS: traMADol HCL (*CRX) 50 MG TABLET PO ×2 (13:34→21:37)
[2025-04-04] MEDS: HYDROmorphone HCL INJ (*CRX) 2 MG/ML VIAL 1 MG IV PUSH (14:55)
[2025-04-04] MEDS: CENTRAL LINE FLUSH 10 ML IV PUSH ×2 (14:56→21:39)
--- NOTE | 2025-04-04 18:38 | P.CONONC_ITS ---
Assessment and Plan Assessment and plan (1) Anemia: Code(s): D64.9 - Anemia, unspecified Status: Acute Plan This is a 89-year-old female with history of chronic kidney disease, COPD, hypertension and multiple myeloma came into the hospital with mental status changes and found to have sacral osteomyelitis on the CT scan. Patient underwent debridement of the sacral bone on April 01. Labs showed elevated creatinine. Ferritin is also elevated likely acute phase reactant from the infection and inflammation. Her anemia is likely secondary to renal insufficiency and chronic inflammation/infection. I will check soluble transferrin receptor, erythropoietin level, serum protein electrophoresis with immunofixation, serum free light chain studies and quantitative immunoglobulin. I will start her on Epogen 06459 units on a biweekly basis. She will also follow-up in the office for continuation of Epogen. I have provided her my office information for follow-up. HPI Data of Consult Date/Time: 04/04/25 18:38 Requesting Physician: Trixie Paredes DO Primary Care Provider: Maribel Chau Consult Narrative Narrative: Esme Shah is a 89 year old female with history of chronic kidney stage 4 disease, hypertension, COPD, C diff colitis and multiple myeloma came into the hospital from [facility] due to mental status changes, loss of appetite and tiredness and fatigue. She was found to be febrile with 101 degree fever. Patient has chronic open wound to her coccyx and CT scan was performed that demonstrated sacral osteomyelitis. She was started on antibiotic with cefepime and vancomycin. On April 01 patient had excisional debridement of necrotic sacral decubitus ulcer done. Her labs showed hemoglobin of 7 with normal WBC and platelet count. Creatinine was 1.7 with GFR of 16. She denies any bleeding. She has a history of kidney disease and has been followed up by the innovations paraprofessional. She is not sure about the name of her innovations paraprofessional. Review of Systems 2 Review of Systems: Twelve point review of system was reviewed [facility] Past Medical History Medical History (Updated 04/03/25 @ 14:19 by Leandro Prakash PA-C) Decubitus ulcer of sacral region, stage 2 Vitamin D deficiency Gout Glaucoma CKD (chronic kidney disease) stage 4, GFR 15-29 ml/min C. difficile colitis GERD (gastroesophageal reflux disease) Multiple myeloma Essential hypertension Chronic indwelling Staley catheter Surgical History Surgical History History of insertion of tunneled central venous catheter (CVC) with port Right upper chest Surgical history unknown Family History Family History Other Unknown family medical history Social History Social History Social History: Patient is residing at [facility]. As far as I can tell from the skilled nursing paperwork the patient has 3 daughters. Code status: Full code (per skilled nursing paperwork) Healthcare power of photographic press screwmaker: Lien Chahal (daughter) Smoking status: Never smoker Alcohol intake: never Substance use type: does not use Living arrangements: skilled nursing Additional living arrangements comments: [facility] care concerns: No Meds Home Medications and Allergies Home Medications ?Medication ?Instructions ?Recorded ?Confirmed ?Type Saccharomyces boulardii 250 mg 250 mg PO DAILY 04/01/25 04/01/25 History capsule (Daily Probiotic (S. boulardii)) acyclovir 200 mg capsule 200 mg PO Q12H 04/01/25 04/01/25 History arginine-vitamin C-vitamin E oral See Rx Instructions PO TID 04/01/25 04/01/25 History 4.5 gram-156 mg/9.2 gram powder pkt (Arginaid) carvedilol 25 mg tablet 25 mg PO Q12H 04/01/25 04/01/25 History cholecalciferol (vitamin D3) 25 25 mcg PO DAILY 04/01/25 04/01/25 History mcg (1,000 unit) capsule (Vitamin D3) coenzyme Q10 100 mg capsule (Co 100 mg PO HS 04/01/25 04/01/25 History Q-10) collagenase clostridium histo. 250 1 applic topical DAILY 04/01/25 04/01/25 History unit/gram topical ointment (Santyl) gabapentin 100 mg capsule 100 mg PO TID 04/01/25 04/01/25 History hydrocodone 5 mg-acetaminophen 325 1 tablet PO .Q4HR PRN pain 04/01/25 04/01/25 History mg tablet polyethylene glycol 3350 17 gram 17 g PO DAILY PRN constipation 04/01/25 04/01/25 History oral powder packet (Miralax) sulfamethoxazole 400 1 tablet PO 3XW 04/01/25 04/01/25 History mg-trimethoprim 80 mg tablet tramadol 50 mg tablet 50 mg PO .Q6HR PRN pain 04/01/25 04/01/25 History Allergies Allergy/AdvReac Type Severity Reaction Status Date / Time FRANCISCO Inhibitors Allergy Unknown Unknown Verified 04/01/25 04:03 amoxicillin Allergy Unknown Unknown Verified 04/03/25 11:46 atorvastatin Allergy Unknown Unknown Verified 04/01/25 04:03 rosuvastatin Allergy Unknown Unknown Verified 04/01/25 04:03 simvastatin Allergy Unknown Unknown Verified 04/01/25 04:03 ANGIOTENSINIIRA Allergy Unknown Uncoded 04/01/25 04:03 Vital Signs Vital Signs - 24 hr 04/03/25 20:00 04/03/25 20:00 04/03/25 20:10 Temperature Pulse Rate 68 68 Respiratory Rate 16 Blood Pressure Pulse Oximetry 100 100 Oxygen Delivery Room Air Room Air 04/03/25 21:25 04/03/25 21:52 04/03/25 23:48 Temperature 36.9 C Pulse Rate 90 68 70 Respiratory Rate 16 Blood Pressure 142/77 H Pulse Oximetry 100 Oxygen Delivery 04/04/25 03:59 04/04/25 05:02 04/04/25 08:00 Temperature 36.7 C Pulse Rate 68 89 Respiratory Rate 16 Blood Pressure 168/64 H Pulse Oximetry 99 Oxygen Delivery Room Air 04/04/25 08:00 04/04/25 09:16 04/04/25 12:00 Temperature Pulse Rate 85 72 92 Respiratory Rate Blood Pressure Pulse Oximetry Oxygen Delivery 04/04/25 14:00 04/04/25 16:00 Temperature 36.6 C Pulse Rate 91 89 Respiratory Rate 16 Blood Pressure 176/68 H Pulse Oximetry 100 Oxygen Delivery Exam 2 Narrative: Lungs are clear to auscultation bilaterally Cardiovascular regular rate rhythm no murmurs Abdomen soft nontender nondistended Extremities no edema Results Labs 04/04/25 06:06 04/04/25 06:06 Labs: Short CBC 04/04/25 Range/Units 06:06 WBC 5.5 (4.5-10.0) K/mm3 Hgb 7.0 L (12.0-15.0) g/dL Hct 23.4 L (37.0-47.0) % Plt Count 260 (150-375) k/mm3 BMP 07/23/25 06:06 Sodium 142 Potassium 3.7 Chloride 120 H Carbon Dioxide 18 L BUN 35 H Creatinine 1.78 H Glucose 76 Calcium 8.3 L Liver Function 04/04/25 Range/Units 06:06 Total Bilirubin 0.2 (0.2-1.3) mg/dL AST 34 (14-36) U/L ALT 13 (6-35) U/L Alkaline Phosphatase 83 (38-126) U/L Albumin 2.1 L (3.5-5.1) g/dL
[2025-04-04] MEDS: EPOETIN ALFA-EPBX 20,000 UNITS/ML VIAL 20000 UNITS SUB-Q (20:07)
[2025-04-04] MEDS: CEFDINIR 300 MG CAPSULE PO (21:39)
[2025-04-05] VITALS: PULSE 82
[2025-04-05] MEDS: HYDROcodone/acetaminophen (*CRX) 5-325 MG TABLET 1 TAB PO (01:35)
[2025-04-05 04:00] VITALS: PULSE 84
[2025-04-05] MEDS: traMADol HCL (*CRX) 50 MG TABLET PO (05:07)
[2025-04-05] MEDS: CENTRAL LINE FLUSH 10 ML IV PUSH (05:11)
[2025-04-05 05:42] LABS: Hematocrit 22.8 % (37.0-47.0); Mean Corpuscular HGB Conc 29.4 g/dl (32-36); Mean Corpuscular Hemoglobin 28.9 pg (26-34); Mean Corpuscular Volume 98.3 fl (80-100); Platelet Count Result 243 k/mm3 (150-375); Red Blood Count 2.32 M/mm3 (4.2-5.4); White Blood Count 5.3 K/mm3 (4.5-10.0)
[2025-04-05 05:46] LABS: Hemoglobin 6.7 g/dL (12.0-15.0)
[2025-04-05 06:00] VITALS: BP 162/76; PULSE 84; RESP 20; TEMP 36.4; O2SAT 100
[2025-04-05 06:05] LABS: Alanine Aminotransferase 12 U/L (6-35); Albumin Level 2.1 g/dL (3.5-5.1); Alkaline Phosphatase 80 U/L (38-126); Anion Gap 3 mmol/L (4-12); Aspartate Amino Transferase 29 U/L (14-36); Bilirubin,Total 0.1 mg/dL (0.2-1.3); Blood Urea Nitrogen 29 mg/dL (7-17); Calcium 8.2 mg/dL (8.4-10.2); Carbon Dioxide 18 mmol/L (22-30); Chloride 121 mmol/L (98-107); Estimated CRCL calculation 17 ml/min; Estimated Glomerular Filt Rate 30; Glucose 82 mg/dL (65-110); Potassium 3.6 mmol/L (3.4-5.0); Sodium 142 mmol/L (137-145); Total Protein 4.5 g/dL (6.3-8.2)
[2025-04-05 06:53] LABS: Anisocytosis 2+; Band Neutrophils Percent 2 % (0-6); Eosinophils Absolute Manual 0.21 K/mm3 (0.02-0.50); Eosinophils Percent Manual 4 % (0-4); Hypochromasia 2+; Lymphocytes Absolute Manual 0.63 K/mm3 (1.1-4.5); Lymphocytes Percent Manual 12.0 % (18-44); Macrocytosis 2+ (NORMAL); Monocytes Absolute Manual 0.21 K/mm3 (0.1-0.90); Monocytes Percent Manual 4 % (3-9); Neutrophils Absolute Manual 4.24 K/mm3 (1.3-6.7); Neutrophils Percent Manual 78 % (46-73); Ovalocytes 1+; Poikilocytosis 1+; Schistocytes None Seen; Total Cells Counted 100
[2025-04-05 08:00] VITALS: PULSE 79
[2025-04-05 08:18] VITALS: PULSE 72
[2025-04-05] MEDS: CHOLECALCIFEROL (VITAMIN D3) 25 MCG (1,000 UNITS) TABLET PO (08:19)
[2025-04-05] MEDS: FERROUS SULFATE 325 MG TABLET DR PO (08:19)
[2025-04-05] MEDS: GABAPENTIN 100 MG CAPSULE PO (08:19)
[2025-04-05] MEDS: SODIUM CHLORIDE 0.9% IV 1,000 ML 100 ML IV CONT (08:20)
[2025-04-05] MEDS: COLLAGENASE OINT 30 GM TUBE 1 APPLIC TOPICAL (08:21)
--- NOTE | 2025-04-05 10:29 | PM.DS ---
DS: Admitting Diagnosis Discharge Date 04/05/2025 Admitting Diagnosis Sacral wound altered mental status DS: Discharge Diagnosis Discharge Diagnosis (1) Catheter-associated urinary tract infection: Qualifiers: Encounter type: initial encounter Indwelling urinary catheter type: indwelling urethral catheter Qualified Code(s): T83.511A - Infection and inflammatory reaction due to indwelling urethral catheter, initial encounter; N39.0 - Urinary tract infection, site not specified Code(s): T83.511A - Infection and inflammatory reaction due to indwelling urethral catheter, initial encounter; N39.0 - Urinary tract infection, site not specified Status: Acute (2) Anemia: Code(s): D64.9 - Anemia, unspecified Status: Acute (3) Decubitus ulcer of sacral region, unstageable: Code(s): L89.150 - Pressure ulcer of sacral region, unstageable Status: Chronic (4) CKD (chronic kidney disease) stage 4, GFR 15-29 ml/min: Code(s): N18.4 - Chronic kidney disease, stage 4 (severe) Status: Acute (5) Encephalopathy acute: Code(s): G93.40 - Encephalopathy, unspecified Status: Acute (6) Multiple myeloma: Code(s): C90.00 - Multiple myeloma not having achieved remission Status: Acute DS: Summary Hospital Course Hospital Course: 89-year-old female with a past medical history of COPD, chronic kidney disease stage 4, essential hypertension, multiple myeloma, C diff colitis and GERD who presented to the ER from [facility] via EMS due to altered mental status, decreased appetite, hallucinations and changes in her urine. Per EMS report patient is usually alert orient x4 at baseline and on arrival to the ER she was reportedly orient x3. She was febrile at the [facility] and on arrival to the ER was still febrile with T-max of 101.3? and lethargic. 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 In the ER the patient received an initial dose of Rocephin for probable UTI but then antibiotics were switched to cefepime and vancomycin when CT results demonstrated sacral osteomyelitis. Patient did receive 30 mL/kilos fluid bolus but did not meet sepsis criteria. General surgery was consulted for sacral decubitus ulcer and underwent excisional debridement of necrotic sacral decubitus ulcer on 04/02/2025. Patient continued on wound care with Santyl and Mepilex dressing. She was continued on IV antibiotics for sacral osteomyelitis. She was also on antibiotics for her UTI. She has been anemic related to anemia of chronic disease and also has a history of multiple myeloma. Oncology was consulted during hospital stay. Upon further discussion with the family transitioning to hospice care was decided. Since he is not able to go back to [facility] with hospice family is planning to take her back home with hospice. Necessary arrangements were made for transitioning to hospice and transferred to home. Time Spent with Patient Time attestation: Total time spent providing and/or coordinating discharge services: 35 minutes Exam Narrative: GENERAL: Ill-appearing, not any acute distress not in acute distress HEAD: [Normocephalic, atraumatic.] EYES: [PERRLA and EOMI.] ENT: Nares clear, no rhinorrhea or epistaxis. Mucous membranes moist. NECK: Supple. CHEST: [Clear to auscultation. No respiratory distress.] HEART: [Regular rate and rhythm]. No murmur heard. [Normal peripheral pulses.] ABDOMEN: [Soft, nondistended], [nontender], [No rigidity or guarding] EXTREMITIES: Normal range of motion. [No edema.] SKIN: Warm, dry, no rash. NEURO: Alert and conversant confused PSYCH: [Normal mood and affect.] DS: Data Data Completed and Pending Labs on day of discharge: Labs from last 24 hours 04/05/25 04/05/25 04/05/25 08:34 07:42 05:01 WBC 5.3 RBC 2.32 L Hgb 6.7 L* Hct 22.8 L MCV 98.3 MCH 28.9 MCHC 29.4 L RDW 15.0 H Plt Count 243 MPV 8.9 Immature Gran % (Auto) Not Reportable Neut % (Auto) Not Reportable Lymph % (Auto) Not Reportable Sheridan % (Auto) Not Reportable Eos % (Auto) Not Reportable Baso % (Auto) Not Reportable Lymph # (Auto) Not Reportable Sheridan # (Auto) Not Reportable Eos # (Auto) Not Reportable Baso # (Auto) Not Reportable Abs Immat Gran (auto) Not Reportable Absolute Neuts (auto) Not Reportable Absolute Nucleated RBC Not Reportable Total Counted 100 Neutrophils % (Manual) 78 H Band Neutrophils % 2 Lymphocytes % (Manual) 12.0 L Monocytes % (Manual) 4 Eosinophils % (Manual) 4 Nucleated RBC % Not Reportable Abs Neuts (Manual) 4.24 Abs Lymphs (Manual) 0.63 L Abs Monocytes (Manual) 0.21 Absolute Eos (Manual) 0.21 Platelet Estimate Adequate Hypochromasia 2+ Poikilocytosis 1+ Anisocytosis 2+ Macrocytosis 2+ Ovalocytes 1+ Schistocytes None seen Sodium 142 Potassium 3.6 Chloride 121 H Carbon Dioxide 18 L Anion Gap 3 L BUN 29 H Creatinine 1.64 H Estim Creat Clear Calc 17 Estimated GFR 30 L Glucose 82 POC Capillary Glucose 83 73 Calcium 8.2 L Mariola Transferrin Receptr Pending Erythropoietin Pending Total Bilirubin 0.1 L AST 29 ALT 12 Alkaline Phosphatase 80 Total Protein 4.5 L Albumin 2.1 L IgG Pending IgA Pending IgM Pending RIRI Interpretation Pending 04/04/25 04/04/25 04/04/25 21:13 16:40 11:33 WBC RBC Hgb Hct MCV MCH MCHC RDW Plt Count MPV Immature Gran % (Auto) Neut % (Auto) Lymph % (Auto) Sheridan % (Auto) Eos % (Auto) Baso % (Auto) Lymph # (Auto) Sheridan # (Auto) Eos # (Auto) Baso # (Auto) Abs Immat Gran (auto) Absolute Neuts (auto) Absolute Nucleated RBC Total Counted Neutrophils % (Manual) Band Neutrophils % Lymphocytes % (Manual) Monocytes % (Manual) Eosinophils % (Manual) Nucleated RBC % Abs Neuts (Manual) Abs Lymphs (Manual) Abs Monocytes (Manual) Absolute Eos (Manual) Platelet Estimate Hypochromasia Poikilocytosis Anisocytosis Macrocytosis Ovalocytes Schistocytes Sodium Potassium Chloride Carbon Dioxide Anion Gap BUN Creatinine Estim Creat Clear Calc Estimated GFR Glucose POC Capillary Glucose 89 87 105 Calcium Mariola Transferrin Receptr Erythropoietin Total Bilirubin AST ALT Alkaline Phosphatase Total Protein Albumin IgG IgA IgM RIRI Interpretation Preliminary micro results at discharge 03/31/25 23:03 Blood Culture - Preliminary Blood Gram negative bacilli isolated 03/31/25 23:02 Blood Culture - Preliminary Blood Procedures/Treatments: Procedure Note - Detailed Date of Procedure 04/02/25 Pre-op Diagnosis Necrotic stage 4 sacral decubitus ulcer Post-op Diagnosis Same Procedure Performed Excisional debridement of necrotic sacral decubitus ulcer, down to muscle and fascia measuring 10 x 7 x 2 Surgeon Kaykay Lemus PA-C Biological Engineer Radha Ramsay. ASSISTANT MANAGER QUALITY MANAGEMENT Anesthesia None Indications Patient is an 89-year-old woman who developed a sacral decubitus ulcer this past February when she was hospitalized at [facility] for C diff. She has been on antibiotics since this time. She was brought to [facility] after nursing staff at [facility] noted her to have altered mental status, hallucinations, and fever, as well as cloudy urine and poor appetite. Found to have UTI. CT abd/pelvis demonstrated multiple metastatic lesions as well as a large sacral decubitus with suggestion of osteomyelitis of the coccyx. WBC 14.5 yesterday, now down to 7.3. Febrile on 03/31 with T max of 101.3. Temps today in 99s. Findings Stage 4 sacral decubitus ulcer measuring 10 x 7 x 2. Muscle and fascia exposed down to the level of the coccyx. Description of Procedure The patient was placed in the left lateral position. The site of the sacral decubitus ulcer was identified and exposed. Following this, the area was prepped with iodine. Necrotic tissue was debrided from the wound bed using scissors and 15 blade scalpel down to muscle and fascia until reaching viable bleeding tissue. Bone palpable near inferior sacrum and coccyx area. No purulent drainage noted during debridement. Following debridement wound measured 10 x 7 x 2. Santyl was applied over the wound and it was then covered in a Mepilex dressing. Patient tolerated the procedure well. Estimated Blood Loss 0 Drains No Packing No Pathology None sent Complications No immediate complications Condition Stable Disposition Floor [facility] [place] Billing Surgery - Charge Forward: Surgery Billing Imaging Radiologist's impression: ITS Impressions Chest X-Ray 04/01/25 06:42 Impression: Clear lungs. Possible heterogeneous lucent lesion in the proximal right humeral shaft with periosteal reaction of the mid right humeral shaft. This suggests an aggressive lesion such as neoplastic disease or possibly osteomyelitis. Correlate clinically. Consider dedicated MR imaging. 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 Diffuse heterogeneous appearance of the osseous structures with innumerable scattered lucencies, suspicious for myeloma or other metastatic disease versus possibly metabolic bone disease/osteoporotic change. T12 compression deformity, age indeterminate. Head CT 04/01/25 06:48 Impression: No significant abnormality seen. Discharge Plan Discharge Attending physician on discharge: Quinton Jeffery Consulting providers: Leandro Prakash; Ariel Velasco; Deni Almaguer Discharging Clinician: Quinton Jeffery Anticipated Discharge Date/Time: 04/05/25 10:34 Patient Disposition: Hospice - Home Activity: as tolerated Diet: as tolerated Patient Language: Macedonian Stand Alone Forms: General Discharge Information Follow-up/Referrals: Maribel Chau [Other] - 1 Week Discharge Medications: Continued acyclovir 200 mg capsule 200 mg PO Q12H Arginaid 4.5 gram-156 mg/9.2 gram powder in packet See Rx Instructions PO TID Patient Comments: PATIENT TAKES 1 PACKET WITH MEALS Rx Instructions: 1 PACKET orally three times a day; carvedilol 25 mg tablet 25 mg PO Q12H coenzyme Q10 [Co Q-10] 100 mg capsule 100 mg PO HS Saccharomyces boulardii [Daily Probiotic (S. boulardii)] 250 mg capsule 250 mg PO DAILY gabapentin 100 mg capsule 100 mg PO TID hydrocodone-acetaminophen 5-325 mg tablet 1 tablet PO .Q4HR PRN (Reason: pain) polyethylene glycol 3350 [Miralax] 17 gram powder in packet 17 g PO DAILY PRN (Reason: constipation) Santyl 250 unit/gram ointment 1 applic topical DAILY Rx Instructions: APPLY TO BUTTOCKS sulfamethoxazole-trimethoprim 400-80 mg tablet 1 tablet PO 3XW Rx Instructions: PATIENT TAKES ON WEDNESDAY, WEDNESDAY, AND WEDNESDAY tramadol 50 mg tablet 50 mg PO .Q6HR PRN (Reason: pain) cholecalciferol (vitamin D3) [Vitamin D3] 25 mcg (1,000 unit) capsule 25 mcg PO DAILY Date of admission: 04/01/25 02:30 Primary Care Provider: Maribel Chau Admitting Provider: Trixie Paredes Attending physician on admission: Trixie Paredes Condition: Stable
[2025-04-05 12:00] VITALS: PULSE 86
[2025-04-05] MEDS: HEPARIN SODIUM LOCK FLUSH 500 UNITS/5 ML SYRINGE IV PUSH (12:47)
--- NOTE | 2025-04-05 16:28 | PC.NURSE ---
On 04/05/25, the ASSEMBLER INSULATOR, Morelia Stewart, provided care and completed [facility] documentation on this patient. I have reviewed the ASSEMBLER INSULATOR's documentation and agree with the findings.
[2025-04-12 11:08] LABS: Immunoglobulin A, Qn <5 mg/dL (64-422); Immunoglobulin G, Qn 188 mg/dL (586-1602); Immunoglobulin M, Qn <5 mg/dL (26-217)
== END 2025-04-05 14:25 | disposition hospice, home (50) | DRG 580 ==
LOC: ANHED 23:02 → ANH3MEDSUR 04-01 02:57
PROVIDERS: Emergency Medicine; Internal Medicine Hematology & Oncology; Physician Assistant; Admitting Provider Internal Medicine; Emergency Provider Student in an Organized Health Care Education/Training Program; Visit Provider Internal Medicine
DX: L89.154 Pressure ulcer of sacral region, stage 4 (principal); C90.00 Multiple myeloma not having achieved remission; T83.511A Infection and inflammatory reaction due to indwelling urethral catheter, initial encounter; G93.40 Encephalopathy, unspecified; N18.4 Chronic kidney disease, stage 4 (severe); M46.28 Osteomyelitis of vertebra, sacral and sacrococcygeal region; N39.0 Urinary tract infection, site not specified; B96.6 Bacteroides fragilis [B. fragilis] as the cause of diseases classified elsewhere; D63.1 Anemia in chronic kidney disease; E11.22 Type 2 diabetes mellitus with diabetic chronic kidney disease; I25.10 Atherosclerotic heart disease of native coronary artery without angina pectoris; I12.9 Hypertensive chronic kidney disease with stage 1 through stage 4 chronic kidney disease, or unspecified chronic kidney disease; J44.9 Chronic obstructive pulmonary disease, unspecified; K21.9 Gastro-esophageal reflux disease without esophagitis; Z74.01 Bed confinement status; Z20.822 Contact with and (suspected) exposure to COVID-19
CPT/HCPCS: 36415; 70450; 71045; 74176; 80048; 80053; 80202; 81001; 82140; 82565; 82607; 82668; 82728; 82746; 82784; 82948; 83540; 83550; 83605; 83735; 84100; 84238; 84439; 84443; 84480; 85025; 85610; 85730; 86334; 87040; 87086; 87637; 93005; 96365; 96367; 96375; 97162; 97166; 99285; A9270; J0692; J0696; J1171; J1642; J1644; J3373; J7030; J7120; Q5105